=== PATIENT | male | born 1985 | race Caucasian/White ===

== ENCOUNTER 2020-06-22 21:21 | Emergency (ER) | payer BC, MEDICAID ==
[~2020-06-22] VITALS: Ht 177.8 cm; Wt 60.5 kg
--- NOTE | 2020-06-22 21:21 | NUR ---
BIBRA60 FROM [facility] C/O TACHYCARDIA AND FEVER; PT TO BED 8, VENT/TRACHE DEPENDENT, PT CAME IN +TACHY, FEVER 102, PLACED ON MONITOR. PENDING ER PROVIDER LUIS
[2020-06-22] MEDS ORDERED: ACETAMINOPHEN 650 MG/SUPP.RECT RC ONE ×2 (21:30→21:40)
[2020-06-22] MEDS ORDERED: VANCOMYCIN 1 GM in IV D5W 250 ML IV ONE (21:30)
[2020-06-22] MEDS ORDERED: CEFEPIME 1 GM in IV D5W 50 ML IV ONE (21:30)
[2020-06-22] MEDS ORDERED: IV NS 0.9% 1,000 ML BAG IV ONE (21:30)
[2020-06-22] MEDS ORDERED: CEFEPIME 1 GM VIAL ONE (21:39)
[2020-06-22] MEDS ORDERED: VANCOMYCIN 1 GM VIAL ONE (21:40)
--- NOTE | 2020-06-22 21:41 | NUR ---
RT NOTE PT REC'D TRACHED ON [facility] VENT ON AC MODE SETTINGS GIVEN FROM FIRE DEPARTMENT. TRACH IS PATENT AND SECURED. PT SX FOR THICK LARGE AMT OF BLOOD TINGED SECRETIONS. ALARMS ARE SET AND AUDIBLE. VENT PLUGGED INTO RED OUTLET. AMBU BAG AND EMERGENCY SPARE TRACH IS BEDSIDE. WILL CONTINUE TO MONITOR. Addendum: 06/22/20 at 2144 by AKIRA BRAGG RT Amended: Links added.
[2020-06-22 21:44] LABS: BASOPHILS # (AUTO) 0.2 /CMM (0.0-0.2); EOSINOPHILS % (AUTO) 0.2 % (0.0-6.0); HEMATOCRIT 41 % (39-51); HEMOGLOBIN 13.2 g/dL (13.5-17.5); LYMPHOCYTES # (AUTO) 1.4 /CMM (0.8-4.8); LYMPHOCYTES % (AUTO) 8.9 % (20.0-44.0); MEAN CORPUSCULAR HGB CONC 32 g/dl (31.0-36.0); MEAN CORPUSCULAR VOLUME 84 fL (80-96); MONOCYTES # (AUTO) 1.1 /CMM (0.1-1.30); MONOCYTES % (AUTO) 7.3 % (2.0-12.0); NEUTROPHILS % (AUTO) 82.6 % (43.0-81.0); PLATELET COUNT (AUTO) 331 /CMM (150-450); RED BLOOD CELL COUNT(AUTO) 4.95 MIL/uL (4.5-6.0); WHITE BLOOD COUNT (AUTO) 15.8 K/uL (4.3-11.0)
[2020-06-22 21:52] LABS: CALCIUM, SERUM 9.6 mg/dL (8.5-10.1); CREATININE 0.6 mg/dL (0.6-1.3); POTASSIUM 3.9 mmol/L (3.5-5.1)
[2020-06-22] MEDS ORDERED: CHLO473M3 MM (21:56)
[2020-06-22] MEDS ORDERED: ASCO500C16 GT (21:56)
[2020-06-22] MEDS ORDERED: NA P133E RC (21:56)
[2020-06-22] MEDS ORDERED: CRAN3875 GT (21:56)
[2020-06-22] MEDS ORDERED: IPRA12.9 IH (21:56)
[2020-06-22] MEDS ORDERED: ACET325T53 GT (21:56)
[2020-06-22] MEDS ORDERED: ZINC1CAP2 GT (21:56)
[2020-06-22] MEDS ORDERED: LEVE100S GT (21:56)
[2020-06-22] MEDS ORDERED: LACT10SO GT (21:56)
[2020-06-22] MEDS ORDERED: HYDR-4384 GT (21:56)
[2020-06-22] MEDS ORDERED: METO25TA6 GT (21:56)
[2020-06-22] MEDS ORDERED: MULT-754 GT (21:56)
[2020-06-22] MEDS ORDERED: BISA-79 RC (21:56)
[2020-06-22] MEDS ORDERED: MAGN400O21 GT (21:56)
[2020-06-22 21:58] LABS: ALBUMIN 2.7 g/dL (3.4-5.0); BILIRUBIN,DIRECT 0.1 mg/dL (0.0-0.2); BILIRUBIN,TOTAL 0.3 mg/dL (0.2-1.0); TOTAL PROTEIN, SERUM 8.2 g/dL (6.4-8.2)
--- NOTE | 2020-06-22 22:14 | NUR ---
CALL FROM LAB. RAPID COVID NEGATIVE.
[2020-06-22 22:32] LABS: APPEARANCE,URINE Clear (CLEAR); BILIRUBIN,URINE Negative (NEGATIVE); BLOOD, URINE Negative Ery/uL (NEGATIVE); COLOR,URINE Yellow (YELLOW); LEUKOCYTE ESTERASE ,URINE Negative (NEGATIVE); NITRITE, URINE Negative (NEGATIVE); PROTEIN,URINE Negative (NEGATIVE); UGLUCOSE Negative (NEGATIVE); UROBILINOGEN,URINE 0.2 EU/dL (0.2)
--- NOTE | 2020-06-22 23:05 | NUR ---
DR. MAHMOOD SPEAKING WITH DR. ONEIL
--- NOTE | 2020-06-22 23:47 | NUR ---
RT NOTE [facility] AND [facility]ACED ON TMASK @ 2LPM PER MD ELA ORDERS. PT SHOWS NO SIGNS OF RESP DISTRESS AND O2 SATURATION @ 99%. PT SX FOR LARGE AMT OF PALE YELLOW SECRETIONS. AMBU BAG AND EMERGENCY SPARE TRACH BEDSIDE. WILL CONTINUE TO MONITOR CLOSELY. Addendum: 06/22/20 at 2349 by AKIRA BRAGG RT Amended: Links added.
--- NOTE | 2020-06-23 00:13 | NUR ---
ACCEPTED AT [facility], BED AND TRANSPORT INFO PENDING
--- NOTE | 2020-06-23 01:35 | NUR ---
SPOKE WITH FLUME MAKER LISA, STILL NO BED ASSIGNMENT AT [facility] AT THIS TIME
--- NOTE | 2020-06-23 03:01 | NUR ---
CALLED LISA TO F/U BED ASSIGN FOR [facility]; PER LISA, [facility] HAS NOT BEEN ABLE TO SECURE A BED AT THE MOMENT, ASKED IF WE CAN GET AUTH TO HAVE PATIENT STAY SINCE PATIENT HAS BEEN HERE SINCE 2099, SHE STATES "I CANNOT PERSONALLY GIVE YOU AUTH, BUT IF THE PATIENT HAS BEEN IN THE ED FOR A LONG TIME, DO WHAT YOU HAVE TO DO".
--- NOTE | 2020-06-23 04:05 | NUR ---
F/U WITH LISA, [facility] NO BEDS AVAILABLE
--- NOTE | 2020-06-23 06:20 | NUR ---
F/U WITH [facility] CM; WILL POSSIBLY HAVE BED BY AM SHIFT. WILL CALL FOR UPDATES
--- NOTE | 2020-06-23 06:31 | NUR ---
Stalin conde in EDM - 06/23/20 at 0637 by MARCELTASHERYL Pt accepted to [facility] by Dr Frances Ventura. # for report [phone]. [facility] eta. [phone]
--- NOTE | 2020-06-23 06:37 | NUR ---
Pt accepted to [facility] by Dr Frances Ventura. Bed C203-B # for report [phone]. [facility] eta. [phone]
--- NOTE | 2020-06-23 06:43 | NUR ---
REPORT GIVEN TO LILLY NURSE AT [facility].
[2020-06-23 07:00] VITALS: BP 118/73
--- NOTE | 2020-06-23 07:19 | NUR ---
REPORT GIVEN TO YULISSA GREGORY FOR LIBIA
== END 2020-06-23 08:08 | disposition short-term general hospital (02) ==
LOC: ER 21:24
DX: A41.9 Sepsis, unspecified organism (principal); R00.0 Tachycardia, unspecified; R40.3 Persistent vegetative state; S06.5X9S Traumatic subdural hemorrhage with loss of consciousness of unspecified duration, sequela; R40.2432 Glasgow coma scale score 3-8, at arrival to emergency department; V49.9XXS Car occupant (driver) (passenger) injured in unspecified traffic accident, sequela; Z93.0 Tracheostomy status; R13.10 Dysphagia, unspecified; J96.10 Chronic respiratory failure, unspecified whether with hypoxia or hypercapnia; Z98.2 Presence of cerebrospinal fluid drainage device; Z20.828 Contact with and (suspected) exposure to other viral communicable diseases; Z79.899 Other long term (current) drug therapy; Z86.718 Personal history of other venous thrombosis and embolism; I10 Essential (primary) hypertension
CPT/HCPCS: 31720; 36415; 51702; 71045; 80048; 80076; 81001; 83605; 83690; 84484; 85025; 85730; 87040; 87081; 87086; 87426; 93005; 96361; 96365; 96367; 99285; A6403; C9803; J0692; J3370; J7030 ×2; 81000-TC; J7060

== ENCOUNTER 2020-10-25 12:27 | Inpatient (IN) | payer BC, OTHER ==
[~2020-10-25] VITALS: Ht 177.8 cm; Wt 46.3 kg
[~2020-10-25 12:27] MED LIST: ACET325T53 GT; ASCO500C6 GT; BISA-79 RC; CHLO473M3 MM; CRAN3875 GT; HYDR-4384 GT; IPRA12.9 IH; LACT10SO3 GT; LEVE100S GT; MAGN400O21 GT; METO25TA6 GT; MULT-754 GT; NA P133E RC; ZINC1CAP2 GT
[2020-10-25] MEDS ORDERED: ETOMIDATE 2 MG/ML VIAL IV ONE ×2 (12:29→14:00)
[2020-10-25] MEDS ORDERED: SUCCINYLCHOLINE CHLORIDE 20 MG/ML VIAL IV ONE ×2 (12:29→14:00)
--- NOTE | 2020-10-25 12:38 | NUR ---
BIBRA78 FOR TRACH REPLACEMENT. PT NONVERBAL, RR EVEN & UNLABORED. PT SEEN & EVAL'D BY DR. VIVAR. PLACED ON MANAGER RESEARCH, ST. WILL CONT TO MONITOR.
--- NOTE | 2020-10-25 12:43 | NUR ---
RT AT BEDSIDE FOR TRACH REPLACEMENT AND EVAL.
--- NOTE | 2020-10-25 13:28 | NUR ---
AT BEDSIDE FOR EVAL AND POSSIBLE INTUBATION.
--- NOTE | 2020-10-25 13:31 | NUR ---
SUCC AND ETOMIDATE GIVEN PER .
--- NOTE | 2020-10-25 13:40 | NUR ---
INTUBATION DONE ET TUBE SIZE 7 26 AT THE LIP. POSITIVE COLOR CHANGE. HOOKED TO VENT BY RT.
--- NOTE | 2020-10-25 13:46 | NUR ---
RED CATH INSERTED.
[2020-10-25] MEDS ORDERED: PROPOFOL 100 ML ONE (13:47)
--- NOTE | 2020-10-25 13:52 | NUR ---
LAND SALES AGENT AT BEDSIDE FOR XRAY.
--- NOTE | 2020-10-25 14:07 | NUR ---
RT Pt received in ER trached with a Portex 7 cuffless trach, no airflow noted through tracheostomy tube. There were mild subcutaneous emphysema. noted in the clavicle area and neck. Pt changed to Portex 7 cuffed trach and there were still no noticeable airflow through tracheostomy tube. Shiley 6 XLT distal inserted and pt was then noted to have worsening subcutaneous emphysema. Pt was then to beginning to become into respiratory distress. Dr. Ochoa called over for intubation. Pt was noted to be a difficult intubation with trouble passing a 7.5 ET, 7.0 ET tube was tried and was successfully passed through with positive CO2 color change on capnography. ET tube is secured at 26cm at the lip line. Pt placed on mechanical ventilation with noted settings, PIP within normal limits. Addendum: 10/25/20 at 1417 by SUNNI SMALL RT Amended: Links added.
--- NOTE | 2020-10-25 14:16 | NUR ---
CALLED [facility] [phone] NO BEDS AT THIS TIME.
--- NOTE | 2020-10-25 14:17 | NUR ---
CALLED [facility] THEY HAVE NO BEDS AVAILABLE.
--- NOTE | 2020-10-25 14:18 | NUR ---
CALLED [facility] DIRECTED TO ER NO BEDS AVAILABLE AT THIS TIME. [phone]
[2020-10-25] MEDS ORDERED: LIDOCAINE 1% INJ 50 ML MDV IJ ONE (14:19)
--- NOTE | 2020-10-25 14:19 | NUR ---
CALLED [facility] [phone] NO BEDS AVAILABLE
--- NOTE | 2020-10-25 14:30 | NUR ---
PIGTAIL CHEST TUBE INSERTED BY .
--- NOTE | 2020-10-25 14:33 | NUR ---
CALLED [facility] [phone] ER CHARGE LOU REYNOLDS
--- NOTE | 2020-10-25 14:48 | NUR ---
PICC LINE NURSE AT BEDSIDE.
--- NOTE | 2020-10-25 14:58 | NUR ---
CALLED [facility] [phone] [facility] ICU.
[2020-10-25] MEDS ORDERED: IV NS 0.9% 1,000 ML BAG IV ONE (15:00)
[2020-10-25 15:19] LABS: BASOPHILS % (AUTO) 0.1 % (0.0-2.0); EOSINOPHILS % (AUTO) 0.1 % (0.0-6.0); HEMATOCRIT 33 % (39-51); HEMOGLOBIN 10.7 g/dL (13.5-17.5); LYMPHOCYTES # (AUTO) 0.6 /CMM (0.8-4.8); MEAN CORPUSCULAR HGB CONC 32 g/dl (31.0-36.0); MEAN CORPUSCULAR VOLUME 86 fL (80-96); MONOCYTES % (AUTO) 5.2 % (2.0-12.0); NEUTROPHILS # (AUTO) 18.1 /CMM (1.8-8.9); NEUTROPHILS % (AUTO) 91.6 % (43.0-81.0); PLATELET COUNT (AUTO) 369 /CMM (150-450); RED BLOOD CELL COUNT(AUTO) 3.84 MIL/uL (4.5-6.0); WHITE BLOOD COUNT (AUTO) 19.7 K/uL (4.3-11.0)
[2020-10-25] MEDS ORDERED: PROPOFOL 100 ML IV ONE (15:30)
[2020-10-25 15:31] LABS: CALCIUM, SERUM 9.9 mg/dL (8.5-10.1); CREATININE 0.6 mg/dL (0.6-1.3); POTASSIUM 3.9 mmol/L (3.5-5.1)
[2020-10-25 15:33] LABS: ABG BASE EXCESS 6.4 mmol/L; ABG OXYGEN SATURATION 98.6 % (92.0-98.5); ABG PCO2 39.6 mmHg (35.0-45.0); ABG PH 7.498 (7.350-7.450); ABG PO2 157.5 mmHg (75.0-100.0); AaDO2 515.9 mmHg; COHb 0.3 % (0.5-1.5); MetHb 0.5 % (0.0-1.5); O2Hb 97.8 % (94.0-97.0); PEEP,BG 0 cm H2O; SITE, ABG Left Radial; VT, ABG 350 mL
[2020-10-25 15:44] LABS: ALBUMIN 2.6 g/dL (3.4-5.0); BILIRUBIN,DIRECT 0.2 mg/dL (0.0-0.2); BILIRUBIN,TOTAL 0.6 mg/dL (0.2-1.0); TOTAL PROTEIN, SERUM 7.3 g/dL (6.4-8.2)
--- NOTE | 2020-10-25 15:44 | NUR ---
[facility]inton [facility] [phone] X [id number] ER [facility] [phone] [place] [phone]
[2020-10-25] MEDS ORDERED: LIDOCAINE /MPF 1% VIAL 5 ML VIAL IJ ONE (16:00)
--- NOTE | 2020-10-25 16:34 | NUR ---
DINORAH COKVAR: GIRLFRIEND [phone]
--- NOTE | 2020-10-25 17:13 | NUR ---
RECEIVED LAB RESULT FROM MAIN LAB: COVID NEGATIVE
--- NOTE | 2020-10-25 17:19 | NUR ---
FAXED CLINICALS AND COVID RESULT TO THE [facility] [phone] AND CALLED TO MAKE SURE THEY HAVE IT [place]
[2020-10-25] MEDS ORDERED: ENOX40DI SQ (18:01)
[2020-10-25] MEDS ORDERED: OMEP20CA15 GT (18:01)
[2020-10-25] MEDS ORDERED: LACT-96 GT (18:01)
[2020-10-25] MEDS ORDERED: SENN-261 GT (18:01)
--- NOTE | 2020-10-25 18:06 | NUR ---
DR. DIOR FROM [facility] SPEAKING WITH DR. BOWERS.
[2020-10-25] MEDS ORDERED: MULT-447 GT (19:24)
[2020-10-25] MEDS ORDERED: CEPH500C2 GT (19:24)
[2020-10-25] MEDS ORDERED: ACET-868 PO (19:24)
[2020-10-25] MEDS ORDERED: CHLO473M5 MM (19:24)
[2020-10-25] MEDS ORDERED: AMIN30LI2 GT (19:24)
--- NOTE | 2020-10-25 19:26 | NUR ---
REPORT GIVEN TO BRI COBIAN FOR LIBIA. WITH ONGOING PROPOFOL DRIP.
--- NOTE | 2020-10-25 19:26 | NUR ---
NOTED TACHYCARDIA, MD AWARE
--- NOTE | 2020-10-25 19:31 | NUR ---
RT AT BEDSIDE FOR ABG
[2020-10-25 19:36] LABS: ABG BASE EXCESS 6.3 mmol/L; ABG OXYGEN SATURATION 98.1 % (92.0-98.5); ABG PCO2 35.2 mmHg (35.0-45.0); ABG PH 7.534 (7.350-7.450); ABG PO2 125.4 mmHg (75.0-100.0); AaDO2 263.7 mmHg; COHb 0.3 % (0.5-1.5); MetHb 0.6 % (0.0-1.5); O2Hb 97.2 % (94.0-97.0); PEEP,BG 5 cm H2O; SITE, ABG Right Radial; VENT MODE, BG AC 15 450 60% +5; VT, ABG 450 mL
[2020-10-25] MEDS ORDERED: IV NS 0.9% 1,000 ML IV ONE (20:00)
--- NOTE | 2020-10-25 20:06 | NUR ---
SPOKE TO SYDNEY FROM [facility] [place] REGARDING PT. FACESHEET FAX TO [facility] REQUESTED TO . PHONE # PRESS OPTION 2, THEN OPTION 2.
[2020-10-25 20:33] LABS: BILIRUBIN,URINE NEGATIVE (NEGATIVE); COLOR,URINE YELLOW (YELLOW); LEUKOCYTE ESTERASE ,URINE NEGATIVE (NEGATIVE); NITRITE, URINE NEGATIVE (NEGATIVE); PH,URINE 6.5 (5.0-8.0); PROTEIN,URINE NEGATIVE (NEGATIVE); UGLUCOSE NEGATIVE (NEGATIVE); UROBILINOGEN,URINE 0.2 EU/dL (0.2)
[2020-10-25 20:40] LABS: BACTERIA,URINE RARE /HPF (None Seen); RBC,URINE 0-2 /HPF (0-2); SQUAMOUS EPITHELIAL CELL,UR 0-2 /HPF (None Seen); WBC,URINE 0-2 /HPF (0-3)
[2020-10-25 20:41] LABS: FINE GRANULAR CASTS,URINE Few /LPF (None Seen); MUCUS,URINE Few /LPF (None Seen); URINE AMORPHOUS URATE Moderate /HPF (None Seen)
--- NOTE | 2020-10-25 21:48 | NUR ---
PT FACESHEET REFAXED TO [facility] REQUESTED TO .
[2020-10-26] VITALS (42 sets, daily range): BP systolic 89–124; BP diastolic 46–87
--- NOTE | 2020-10-26 00:04 | NUR ---
DINORAH CALLED ASKING UPDATED ABOUT PATIENT: WILL WAIT FOR CALL BACK FROM PRIMARY NX
--- NOTE | 2020-10-26 05:50 | NUR ---
SPOKE WITH SYDNEY FROM [facility]. PROVIDED CURRENT CLINICAL INFORMATION PER REQUEST. BED AVAILABILITY STILL PENDING
--- NOTE | 2020-10-26 06:37 | NUR ---
PT DIAPHORETIC, RECTAL TEMP 100.6, HR 122. DR. FABIAN MADE AWARE
[2020-10-26] MEDS ORDERED: VANCOMYCIN 1 GM in IV D5W 250 ML IV ONE (07:00)
[2020-10-26] MEDS ORDERED: PIPERACILLIN /TAZOBACTAM 3.375 G in IV D5W 50 ML IV ONE (07:00)
[2020-10-26] MEDS ORDERED: ACETAMINOPHEN 650 MG/20.3 ML UDC GT ONE (07:00)
[2020-10-26] MEDS ORDERED: ACETAMINOPHEN 650 MG/20.3 ML UDC ONE (07:12)
[2020-10-26] MEDS ORDERED: PIPERACILLIN /TAZOBACTAM 3.375 G VIAL IV ONE (07:13)
--- NOTE | 2020-10-26 07:24 | NUR ---
REPORT GIVEN TO BRI TORRES FOR LIBIA
--- NOTE | 2020-10-26 07:30 | NUR ---
RECEIVED REPORT FROM BRI COBIAN FOR LIBIA. PT IS AAOX0, ON VENT VIA ET. HOOKED TO CHEMICAL PROCESS PROJECT ENGINEER, KEPT RESTED AND COMFORTABLE. WILL CONTINUE TO MONITOR.
--- NOTE | 2020-10-26 08:04 | NUR ---
CALLED [facility] FOR ICU BED.
--- NOTE | 2020-10-26 08:20 | NUR ---
REPORT GIVEN TO BRI KAPOOR FOR LIBIA. WITH ONGOING IV ANTIBIOTIC AND PROPOFOL TRANSFUSING WELL.
--- NOTE | 2020-10-26 09:08 | NUR ---
RN NOTES RECEIVED PT SEDATED AND INTUBATED, TOLERATING SETTINGS AT FIO2 60% WITH PEEP OF 5, ST ON TELEMETRY, G-TUBE INTACT, RED INTACT, RIGHT LUNG PIGTAIL CONNECTED TO CHEST TUBE WHICH IS CLAMPED ON ARRIVAL, RIGHT HAND G20 AND LEFT LEG PICC, PROPOFOL AT 25MCG, APPEARS COMFORTABLE, WILL CONTINUE CARES THIS SHIFT.
[2020-10-26] MEDS: ENOXAPARIN SODIUM 40 MG/0.4 ML DISP.SYRIN SQ SCH (10:35)
[2020-10-26] MEDS ORDERED: NA PHOS,M-B/NA PHOS,DI-BA 1 EA ENEMA RC PRN (11:30)
[2020-10-26] MEDS ORDERED: ACETAMINOPHEN 325 MG TABLET MC PRN (11:30)
[2020-10-26] MEDS ORDERED: ENOXAPARIN SODIUM 40 MG/0.4 ML DISP.SYRIN SQ SCH (11:30)
[2020-10-26] MEDS ORDERED: HYDROCODONE/APAP 5/325MG TABLET GT PRN (11:30)
[2020-10-26] MEDS ORDERED: MAGNESIUM HYDROXIDE 30 ML UDC GT PRN (11:30)
[2020-10-26] MEDS ORDERED: IPRATROPIUM NEB FS 0.5 MG/2.5 ML AMPUL.NEB NEB PRN (11:30)
[2020-10-26] MEDS: PROPOFOL 100 ML IV PRN ×2 (11:30→22:07)
[2020-10-26] MEDS ORDERED: ACETAMINOPHEN 325 MG TABLET PO PRN (11:30)
[2020-10-26] MEDS ORDERED: BISACODYL (5 MG) 5 MG TABLET.DR GT PRN (11:30)
[2020-10-26] MEDS ORDERED: IV NS 0.9% 250 ML IV PRN (12:00)
[2020-10-26] MEDS ORDERED: Medication Not On Formulary EA (Cran/Vitc/Mannose/Inulin/Brom (Uti-Stat Liquid) 3,875 MG GT SCH (13:00)
[2020-10-26] MEDS: PIPERACILLIN /TAZOBACTAM 3.375 G in IV D5W 100 ML IV SCH ×2 (13:27→20:26)
[2020-10-26] MEDS: PROSOURCE / PROSTAT (PYXIS) 30 ML UDC GT SCH ×2 (13:27→17:19)
--- NOTE | 2020-10-26 16:34 | NUR ---
RT Pt received orally intubated on mechanical ventilation with notes settings. Vent is plugged into red outlet. No SOB Or respiratory distress noted. Addendum: 10/26/20 at 1635 by SUNNI SMALL RT Amended: Links added.
[2020-10-26] MEDS: FIXODENT DENTURE ADHESIVE TUBE MM SCH (17:00)
[2020-10-26] MEDS: JEVITY 1.2 CAL 1,000 ML BOTTLE GT PRN (17:18)
[2020-10-26] MEDS: METOPROLOL TARTRATE 25 MG TABLET GT SCH (17:19)
--- NOTE | 2020-10-26 18:56 | NUR ---
RN NOTES PATEINT REMIANS SEDATED AND INTUBATED. TOLERATING SETTINGS AT 30% FIO2 WITH PEEP OF 5, TRACH STOMA WITH 4X4 DRESSING INTACT, PEG TUBE INTACT WITH JEVITY RUNNING AT 20ML/HR, PIGTAIL AT RIGHT LATERAL CHEST CONNECTED TO ATRIUM CHAMBER ON SUCTION AT 200MMGHG, LEFT FEMORAL PICC, PROPOFOL AT 25 AND N/S TKO, RED IN PLACE, BED LOCKED AND KEPT IN LOWEST POSITION, APPEARS COMFORTABLE, ENDORSED TO NIGHT RN FOR CONTINUITY OF CARE.
--- NOTE | 2020-10-26 19:15 | NUR ---
RECEIVED PATIENT INTUBATED AND SEDATED ON PROPOFOL 25 MCG/KG/MIN. PATIENT TOLERATING VENTILATOR SETTINGS AND APPEARS TO BE IN NO DISTRESS AT THIS TIME. SINUS TACHYCARDIA 110s NOTED ON SCENIC DESIGNER. ALL LINES/DRAINS PATENT. WILL CONTINUE TO MONITOR.
[2020-10-26] MEDS: LEVETIRACETAM SOL (5 ML) 100 MG/ML UDC GT SCH (20:28)
--- NOTE | 2020-10-26 20:45 | NUR ---
RECEIVED CALL FROM PATIENT'S SISTER KATRINA GIVING PERMISSION FOR THE PATIENT'S GIRLFRIEND DINORAH TO GET UPDATES ON THE PATIENT. SEE PHYSICAL CHART/DEMOGRAPHICS FOR GIRLFRIEND INFO.
[2020-10-26] MEDS: ACETAMINOPHEN 650 MG/20.3 ML UDC GT PRN (20:48)
[2020-10-26] MEDS: SENNOSIDES 8.6 MG TABLET GT SCH (21:56)
--- NOTE | 2020-10-26 22:57 | NUR ---
PATIENT FAMILY REQUESTED TO FACETIME PATIENT. PATIENT'S PHONE, FLIGHT OPERATIONS SPECIALIST AND TABLE ORTEZ WERE BROUGHT UP TO THE UNIT IN A PLASTIC BAG. FACETIME WAS SET UP. UPDATE WAS GIVEN TO PARENTS AND QUESTIONS ANSWERED.
[2020-10-27] VITALS (90 sets, daily range): BP systolic 94–125; BP diastolic 48–86
[2020-10-27] MEDS: PIPERACILLIN /TAZOBACTAM 3.375 G in IV D5W 100 ML IV SCH ×3 (04:40→20:22)
[2020-10-27] MEDS: ACETAMINOPHEN 650 MG/20.3 ML UDC GT PRN (04:57)
[2020-10-27] MEDS ORDERED: OMEPRAZOLE 20 MG CAPSULE.DR GT SCH (06:00)
--- NOTE | 2020-10-27 07:08 | NUR ---
PATIENT REMAINS SEDATED AND INTUBATED. VENT SETTING UNCHANGED AND PATIENT CONTINUES TO TOLERATE. OVERNIGHT Tmax 102 AND TREATED WITH TYLENOL. THIS MORNING TEMP 100.6 AND TYLENOL GIVEN AGAIN. ALL DRAINS REMAIN PATENT. JEVITY 1.2 INFUSING VIA PEG TUBE AT 40 ML/HR. PROPOFOL REMAINS AT [address]. BED IN LOW POSITION AND LOCKED WITH SIDE RAILS UP X3. RECEIVED CALL REGARGDING CHEST XRAY SHOWING CHEST TUBE HAS DISLODGED AND NEEDS REPOSITIONING. WILL ENDORSE TO DAY SHIFT RN FOR CONTINUITY OF CARE.
[2020-10-27] MEDS: PROPOFOL 100 ML IV PRN ×2 (07:26→19:05)
--- NOTE | 2020-10-27 07:50 | NUR ---
RT PATIENT REC'D ORALLY INTUBATED ON [facility] VENT WITH ORDERED SETTINGS LANDRY WELL. VENT ALARMS CHECKED + AUDIBLE. ETT SECURE AND IN PROPER POSITION. AIRWAY CHECKED + PATENT. AMBU BAG AT HOB. Addendum: 10/27/20 at 1038 by SABRINA ZULUAGA RT Amended: Links added.
[2020-10-27 08:20] LABS: ABG OXYGEN SATURATION 96.6 % (92.0-98.5); ABG PH 7.478 (7.350-7.450); ABG PO2 81.9 mmHg (75.0-100.0); AaDO2 81.5 mmHg; COHb 0.1 % (0.5-1.5); MetHb 0.1 % (0.0-1.5); O2Hb 96.4 % (94.0-97.0); PEEP,BG 5 cm H2O; SITE, ABG Left Radial; VT, ABG 400 mL
[2020-10-27] MEDS: FIXODENT DENTURE ADHESIVE TUBE MM SCH ×2 (09:00→16:51)
[2020-10-27] MEDS: DAKINS QUARTER STRENGTH (0.125%) 480 ML BOTTLE TOP SCH (09:00)
--- NOTE | 2020-10-27 09:02 | NUR ---
WOUND CARE CONSULT: REVIEWED CHART, NURSING DOCUMENTATION AND PHOTOS WHICH INDICATE DISCOLORATIONS/INTACT DEEP TISSUE INJURIES TO HEELS AND LEFT FOOT, CLOSED INCISION TO HEAD AND STAGE 4 SACRAL ULCER, ALL PRESENT ON ADMISSION. RECOMMEND SURGICAL CONSULT. DR DAVE CARSON NOTIFIED OF CONSULT REQUEST. RECOMMENDATIONS MADE FOR SKIN PROTECTION AND WOUND CARE. PTIS ON THI ISOFLEX LOW AIRLOSS BED. M D IN AGREEMENT WITH PLAN OF CARE.
[2020-10-27] MEDS: ASCORBIC ACID 500 MG TABLET GT SCH (09:53)
[2020-10-27] MEDS: METOPROLOL TARTRATE 25 MG TABLET GT SCH ×2 (09:57→16:51)
[2020-10-27] MEDS: LEVETIRACETAM SOL (5 ML) 100 MG/ML UDC GT SCH ×2 (09:57→20:22)
[2020-10-27] MEDS: MULTIVIT W/MINERALS 1 TAB TABLET GT SCH (09:57)
[2020-10-27] MEDS: PANTOPRAZOLE 40 MG/PACK PACK GT SCH (09:59)
[2020-10-27] MEDS: PROSOURCE / PROSTAT (PYXIS) 30 ML UDC GT SCH ×3 (09:59→16:51)
[2020-10-27] MEDS: ENOXAPARIN SODIUM 40 MG/0.4 ML DISP.SYRIN SQ SCH (10:00)
[2020-10-27] MEDS: Z GUARD REMEDY 2 OZ OINT TP SCH (10:04)
[2020-10-27] MEDS: ZINC SULFATE 220 MG CAPSULE GT SCH (15:03)
[2020-10-27] MEDS ORDERED: VECURONIUM 10 MG VIAL IV ONE (17:44)
--- NOTE | 2020-10-27 20:05 | NUR ---
RECEIVED PT TRACH SHLY 8 ON [facility] VENT. NO RESP DISTRESS NOTED, TOLERATING VENT SETTINGS. SX'D SMALL AMT OF TINGED SECRETIONS. TRACH SECURE, CUFF CHAIRMAN & CEO. VENT PLUGGED INTO RED OUTLET. CONTINUE TO MONITOR. Addendum: 10/27/20 at 2007 by JODEE MADRID RT Amended: Links added.
[2020-10-27] MEDS: SENNOSIDES 8.6 MG TABLET GT SCH (21:30)
[2020-10-27] MEDS: JEVITY 1.2 CAL 1,000 ML BOTTLE GT PRN (22:43)
--- NOTE | 2020-10-27 22:50 | NUR ---
FaceTime set up for family at this time. Addendum: 10/27/20 at 2309 by HAM TAMAYO RN Received call from patient's girlfriend earlier in the shift for an update. Informed patient doing well after new trach placed today. Tolerating ventilator. Has been afebrile. HR around baseline low 100s. Still tolerating tube feeding. Agreed to do FaceTime for family around same time last night, 2229.
[2020-10-28] VITALS (88 sets, daily range): BP systolic 81–156; BP diastolic 40–89
--- NOTE | 2020-10-28 03:00 | NUR ---
PER ORDERS, SACRAL WOUND CLEANED WITH DAKINS, PACKED WITH DAKINS SOAKED KERLIX, COVERED WITH AN ABD PAD AND SECURED WITH PAPER TAPE. BILATERAL HEELS WITH MEPILEX AND SECURED WITH BURN NET. PATIENT TOLERATED WELL.
--- NOTE | 2020-10-28 03:57 | NUR ---
NOTIFIED PCR NEGATIVE FOR COVID.
[2020-10-28 04:38] LABS: BASOPHILS % (AUTO) 0.2 % (0.0-2.0); CALCIUM, SERUM 9.2 mg/dL (8.5-10.1); CREATININE 0.5 mg/dL (0.6-1.3); EOSINOPHILS % (AUTO) 0.9 % (0.0-6.0); HEMATOCRIT 27 % (39-51); HEMOGLOBIN 9.1 g/dL (13.5-17.5); LYMPHOCYTES # (AUTO) 1.7 /CMM (0.8-4.8); LYMPHOCYTES % (AUTO) 16.9 % (20.0-44.0); MEAN CORPUSCULAR HGB CONC 33 g/dl (31.0-36.0); MEAN CORPUSCULAR VOLUME 86 fL (80-96); MONOCYTES # (AUTO) 0.8 /CMM (0.1-1.30); NEUTROPHILS # (AUTO) 7.3 /CMM (1.8-8.9); PLATELET COUNT (AUTO) 278 /CMM (150-450); RED BLOOD CELL COUNT(AUTO) 3.17 MIL/uL (4.5-6.0); WHITE BLOOD COUNT (AUTO) 9.8 K/uL (4.3-11.0)
[2020-10-28 04:58] LABS: POTASSIUM 3.4 mmol/L (3.5-5.1)
[2020-10-28] MEDS: PROPOFOL 100 ML IV PRN (05:06)
[2020-10-28] MEDS: PIPERACILLIN /TAZOBACTAM 3.375 G in IV D5W 100 ML IV SCH ×3 (05:21→20:26)
--- NOTE | 2020-10-28 06:57 | NUR ---
PATIENT WITH TRACH SHILEY 8 ON VENTILATOR AND TOLERATING SETTINGS. NO SIGNIFICANT EVENTS OVERNIGHT. REMAINED AFEBRILE. WOUND CARE ADMINISTERED PER ORDERS. ALL LINES/DRAINS PATENT. TOLERATING JEVITY 1.2 AT 60 ML/HR WITHOUT RESIDUALS OVERNIGHT. PROPOFOL AT [address] MCG[address] ME[address] IN PL[address]. BED IN LOW POSITION AND LOCKED WITH SIDE RAILS UP X3. WILL ENDORSE TO DAY SHIFT FOR CONTINUITY OF CARE.
[2020-10-28] MEDS: FIXODENT DENTURE ADHESIVE TUBE MM SCH ×2 (09:00→17:00)
[2020-10-28] MEDS ORDERED: POTASSIUM CHLORIDE 20 MEQ POWDER PACKET GT ONE (09:00)
[2020-10-28] MEDS ORDERED: AMOX-427 GT (09:11)
[2020-10-28] MEDS: ASCORBIC ACID 500 MG TABLET GT SCH (09:22)
[2020-10-28] MEDS: ZINC SULFATE 220 MG CAPSULE GT SCH (09:22)
[2020-10-28] MEDS: MULTIVIT W/MINERALS 1 TAB TABLET GT SCH (09:22)
[2020-10-28] MEDS: LEVETIRACETAM SOL (5 ML) 100 MG/ML UDC GT SCH (09:22)
[2020-10-28] MEDS: PANTOPRAZOLE 40 MG/PACK PACK GT SCH (09:22)
[2020-10-28] MEDS: METOPROLOL TARTRATE 25 MG TABLET GT SCH ×2 (09:23→15:29)
[2020-10-28] MEDS: ENOXAPARIN SODIUM 40 MG/0.4 ML DISP.SYRIN SQ SCH (09:24)
[2020-10-28] MEDS: DAKINS QUARTER STRENGTH (0.125%) 480 ML BOTTLE TOP SCH (09:26)
[2020-10-28] MEDS: Z GUARD REMEDY 2 OZ OINT TP SCH (09:26)
[2020-10-28] MEDS: PROSOURCE / PROSTAT (PYXIS) 30 ML UDC GT SCH ×3 (09:29→17:55)
[2020-10-28] MEDS ORDERED: LORAZEPAM INJ 2 MG/ML VIAL IV STA (16:52)
[2020-10-28] MEDS ORDERED: LEVETIRACETAM (500MG) 250 MG in IV NS 0.9% 100 ML IV STA (16:52)
[2020-10-28] MEDS ORDERED: LEVETIRACETAM (500MG) 500 MG in IV NS 0.9% 100 ML IV STA (17:00)
[2020-10-28] MEDS ORDERED: KEPPRA 500 MG in IV NS 100 ML IV ONE (17:30)
[2020-10-28] MEDS ORDERED: METOPROLOL TARTRATE 25 MG TABLET GT STA (17:44)
[2020-10-28] MEDS ORDERED: IV NS 0.9% 250 ML IV ONE (18:00)
--- NOTE | 2020-10-28 18:30 | NUR ---
patient was scheduled for transfer back to subacute facility. report called in to receiving nurse, upon arrival of ambulance at 1745 patient became tachycardic, febrile, diaphoretic, clenching of teeth and some shaking. Dr Perez notified, prn ativan 2mg and IV keppra, for possible seizure activity. lopressor dose increased. IV 250 cc NS bolus given . tyl 650 mg given for temp. family notified, transfer cancelled until patient more stble.
[2020-10-28] MEDS: ACETAMINOPHEN 650 MG/20.3 ML UDC GT PRN (19:02)
--- NOTE | 2020-10-28 19:15 | NUR ---
ASSUMED CARE OF PATIENT. REPORTED THAT PATIENT WAS GETTING READY TO BE TRANSFERRED AND HAD A SEIZURE. HR 130s NOW WITH BP 90s/50s. PATIENT DIAPHORETIC AND IS FEBRILE PER DAYSHIFT RN. PATIENT RECEIVED MULTIPLE MEDS FOR TREATMENT OF FEVER, TACHYCARDIA AND SEIZURE. CURRENT TEMP 101.5 AXILLARY. TOLERATING VENT SETTINGS AND TUBE FEEDING. PATIENT DOES NOT APPEAR TO BE IN DISTRESS AT THIS TIME. ALL LINES/DRAINS ARE PATENT. WILL CONTINUE TO MONITOR.
[2020-10-28] MEDS: LEVETIRACETAM SOL (5 ML) 100 MG/ML UDC PO SCH (20:26)
[2020-10-28] MEDS: SENNOSIDES 8.6 MG TABLET GT SCH (21:40)
--- NOTE | 2020-10-28 21:45 | NUR ---
RECEIVED CALL FROM PATIENT'S GIRLFRIEND FOR UPDATE S/P SEIZURE ACTIVITY. INFORMED PATIENT NOT IN ANY DISTRESS CURRENTLY. FEBRILE BUT TEMP IS 101.5, WHICH IS AN IMPROVEMENT. HR STILL TACHYCARDIC 110s-120s ,BUT ALSO IMPROVED FROM 130s-140s. ALL QUESTIONS WERE ANSWERED AND WILL SET UP FOR FACETIME AROUND 2230.
[2020-10-28] MEDS: JEVITY 1.2 CAL 1,000 ML BOTTLE GT PRN (22:53)
[2020-10-29] VITALS (55 sets, daily range): BP systolic 83–121; BP diastolic 43–74
[2020-10-29] MEDS: PIPERACILLIN /TAZOBACTAM 3.375 G in IV D5W 100 ML IV SCH ×2 (04:43→12:33)
--- NOTE | 2020-10-29 07:00 | NUR ---
NO SIGNIFICANT EVENTS OVERNIGHT. PATIENT HAS BEEN AFEBRILE SINCE MIDNIGHT. NO SEIZURES NOTED. VENTILATOR SETTINGS UNCHANGED AND PATIENT TOLERATING. TUBE FEEDING AT GOAL, 60ML/HR AND NO RESIDUALS OVERNIGHT. HR 90s. BP 110s/60s. ALL DRAINS/LINES PATENT. SAFETY MEASURES IN PLACE. BED IN LOW POSITION AND LOCKED WITH SIDE RAILS UP X 2. WILL ENDORSE TO DAYSHIFT FOR CONTINUITY OF CARE.
[2020-10-29] MEDS ORDERED: LEVE500T9 PO (08:53)
[2020-10-29] MEDS ORDERED: METO50TA16 PO (08:53)
[2020-10-29] MEDS ORDERED: METOPROLOL TARTRATE 25 MG TABLET GT SCH (09:00)
[2020-10-29] MEDS: FIXODENT DENTURE ADHESIVE TUBE MM SCH (09:00)
[2020-10-29] MEDS: PANTOPRAZOLE 40 MG/PACK PACK GT SCH (09:24)
[2020-10-29] MEDS: LEVETIRACETAM SOL (5 ML) 100 MG/ML UDC PO SCH (09:24)
[2020-10-29] MEDS: ASCORBIC ACID 500 MG TABLET GT SCH (09:25)
[2020-10-29] MEDS: MULTIVIT W/MINERALS 1 TAB TABLET GT SCH (09:25)
[2020-10-29] MEDS: ZINC SULFATE 220 MG CAPSULE GT SCH (09:25)
[2020-10-29] MEDS: PROSOURCE / PROSTAT (PYXIS) 30 ML UDC GT SCH ×2 (09:27→12:34)
[2020-10-29] MEDS: Z GUARD REMEDY 2 OZ OINT TP SCH (09:27)
[2020-10-29] MEDS: DAKINS QUARTER STRENGTH (0.125%) 480 ML BOTTLE TOP SCH (09:28)
[2020-10-29] MEDS: ENOXAPARIN SODIUM 40 MG/0.4 ML DISP.SYRIN SQ SCH (09:30)
--- NOTE | 2020-10-29 15:00 | NUR ---
patient transferred back to [facility]. Picked up by ambulance at 245pm. report called in to nurse Enoc. next of kin, niece notified of transfer. v/s upon discharge stable (see chart).
== END 2020-10-29 17:01 | DRG 208 ==
LOC: ER 12:28 → ICU 10-26 08:27
PROVIDERS: ADMIT Internal Medicine; ATTEND Internal Medicine
PROC: 0W9930Z Drainage of Right Pleural Cavity with Drainage Device, Percutaneous Approach (ICD-10-PCS; 2020-10-25)
PROC: 06H033Z Insertion of Infusion Device into Inferior Vena Cava, Percutaneous Approach (ICD-10-PCS; 2020-10-25)
PROC: B549ZZA Ultrasonography of Inferior Vena Cava, Guidance (ICD-10-PCS; 2020-10-25)
PROC: 5A1945Z Respiratory Ventilation, 24-96 Consecutive Hours (ICD-10-PCS; principal; 2020-10-26)
PROC: 0B21XFZ Change Tracheostomy Device in Trachea, External Approach (ICD-10-PCS; 2020-10-27)
PROC: 0BJ08ZZ Inspection of Tracheobronchial Tree, Via Natural or Artificial Opening Endoscopic (ICD-10-PCS; 2020-10-27)
DX: J95.03 Malfunction of tracheostomy stoma (principal); J96.21 Acute and chronic respiratory failure with hypoxia; R53.2 Functional quadriplegia; J93.9 Pneumothorax, unspecified; R40.3 Persistent vegetative state; E44.0 Moderate protein-calorie malnutrition; Z68.1 Body mass index [BMI] 19.9 or less, adult; G93.49 Other encephalopathy; G91.9 Hydrocephalus, unspecified; Z87.820 Personal history of traumatic brain injury; Z98.2 Presence of cerebrospinal fluid drainage device; G40.909 Epilepsy, unspecified, not intractable, without status epilepticus; I10 Essential (primary) hypertension; Z20.822 Contact with and (suspected) exposure to COVID-19; E88.09 Other disorders of plasma-protein metabolism, not elsewhere classified; T70.29XA Other effects of high altitude, initial encounter; X58.XXXA Exposure to other specified factors, initial encounter; Y83.3 Surgical operation with formation of external stoma as the cause of abnormal reaction of the patient, or of later complication, without mention of misadventure at the time of the procedure; Y72.8 Miscellaneous otorhinolaryngological devices associated with adverse incidents, not elsewhere classified; Y92.129 Unspecified place in nursing home as the place of occurrence of the external cause; J98.2 Interstitial emphysema; Z93.1 Gastrostomy status; Z98.1 Arthrodesis status
CPT/HCPCS: 31720; 36415; 36569; 36600; 38221; 71045-TC; 80048-TC; 80076-TC; 81001; 82803-TC; 83605-TC; 83880; 84478-TC; 84484-TC; 85025-TC; 86850-TC; 87040-TC; 87081-TC; 94003-TC; 94760-TC; 99082-TC; A4623; A6253; A6403; C9803; G0378; J0330; J1650; J1953; J2060; J2543; J3370; J3490; J7030; J7040; J7050; J7060; U0003

== ENCOUNTER 2020-11-03 07:41 | Inpatient (IN) | payer BC, OTHER ==
[~2020-11-03] VITALS: Ht 177.8 cm; Wt 54.4 kg
[2020-11-03] VITALS (10 sets, daily range): BP systolic 102–117; BP diastolic 56–74
[~2020-11-03 07:41] MED LIST changes: +ACET-868 PO; +AMIN30LI2 GT; +AMOX-427 GT; +CEPH500C2 GT; -CHLO473M3 MM; +CHLO473M5 MM; +ENOX40DI SQ; +LACT-96 GT; -LACT10SO3 GT; -LEVE100S GT; +LEVE500T9 PO; -METO25TA6 GT; +METO50TA16 PO; +MULT-447 GT; -MULT-754 GT; +OMEP20CA15 GT; +SENN-261 GT
--- NOTE | 2020-11-03 07:41 | NUR ---
PT BIBRA FROM [facility] C/O ELEVATED HEART RATE AND FEVER. PT IS AAOX0 ON VENT VIA TRACH, HOOKED TO CARIDAC MONITOR, KEPT RESTED AND COMFORTABLE. WILL CONTINUE TO MONITOR.
--- NOTE | 2020-11-03 07:46 | NUR ---
SEEN AND EXAMINED BY .
--- NOTE | 2020-11-03 07:50 | NUR ---
IV LINE ESTABLISHED BLOOD DRAWN AND SENT TO LAB.
[2020-11-03] MEDS ORDERED: ACETAMINOPHEN 650 MG/SUPP.RECT RC ONE ×2 (07:53→08:00)
[2020-11-03] MEDS ORDERED: IV NS 0.9% 1,000 ML BAG IV ONE (08:00)
[2020-11-03] MEDS ORDERED: MEROPENEM 1 G in IV NS 0.9% 100 ML IV ONE (08:00)
[2020-11-03] MEDS ORDERED: VANCOMYCIN 1 GM in IV D5W 250 ML IV ONE (08:00)
--- NOTE | 2020-11-03 08:00 | NUR ---
urine collected and sent to lab
--- NOTE | 2020-11-03 08:01 | NUR ---
RT PT CAME IN VIA EMS FOR TACHYCARDIA BAGGING PT PLACED ON [facility] VENT WITH FACILITY ORDERS TRACH INTACT [facility] 8 DCT AC 15 400 +5 40% WILL CONT TO MONITOR Addendum: 11/03/20 at 0805 by CHANELL WATSON RT Amended: Links added.
--- NOTE | 2020-11-03 08:06 | NUR ---
covid 19 swab collected and sent to lab
--- NOTE | 2020-11-03 08:20 | NUR ---
KILN PULLER AT BEDSIDE FOR XRAY.
[2020-11-03] MEDS ORDERED: ASCO-352 PO (08:22)
[2020-11-03] MEDS ORDERED: CHLO118L6 TP (08:22)
[2020-11-03] MEDS ORDERED: POVI3780 TP (08:22)
[2020-11-03] MEDS ORDERED: COLL30OI TP (08:22)
[2020-11-03] MEDS ORDERED: VITS5OIN2 TP (08:22)
[2020-11-03] MEDS ORDERED: METO25TA20 GT (08:22)
[2020-11-03] MEDS ORDERED: LEVE250T2 GT (08:22)
[2020-11-03 08:30] LABS: BASOPHILS % (AUTO) 0.3 % (0.0-2.0); EOSINOPHILS % (AUTO) 0.4 % (0.0-6.0); HEMATOCRIT 35 % (39-51); HEMOGLOBIN 11.5 g/dL (13.5-17.5); LYMPHOCYTES # (AUTO) 0.6 /CMM (0.8-4.8); LYMPHOCYTES % (AUTO) 3.8 % (20.0-44.0); MEAN CORPUSCULAR HGB CONC 32 g/dl (31.0-36.0); MEAN CORPUSCULAR VOLUME 84 fL (80-96); MONOCYTES # (AUTO) 0.2 /CMM (0.1-1.30); MONOCYTES % (AUTO) 1.6 % (2.0-12.0); NEUTROPHILS # (AUTO) 13.7 /CMM (1.8-8.9); NEUTROPHILS % (AUTO) 93.9 % (43.0-81.0); PLATELET COUNT (AUTO) 476 /CMM (150-450); RED BLOOD CELL COUNT(AUTO) 4.22 MIL/uL (4.5-6.0); WHITE BLOOD COUNT (AUTO) 14.7 K/uL (4.3-11.0)
[2020-11-03 08:37] LABS: CALCIUM, SERUM 10.3 mg/dL (8.5-10.1); CARBON DIOXIDE 24 mmol/L (21-32); CHLORIDE 103 mmol/L (98-107); CREATININE 0.6 mg/dL (0.6-1.3); GLUCOSE 98 mg/dL (74-106); POTASSIUM 4.4 mmol/L (3.5-5.1); SODIUM SERUM 138 mmol/L (136-145); UREA NITROGEN, BLOOD 16 mg/dL (7-18)
[2020-11-03 08:43] LABS: ALANINE AMINOTRANSFERASE 25 U/L (12-78); ALBUMIN 2.7 g/dL (3.4-5.0); ALKALINE PHOSPHATASE 136 U/L (46-116); ASPARTATE AMINOTRANSFERASE 20 U/L (15-37); BILIRUBIN,DIRECT 0.1 mg/dL (0.0-0.2); BILIRUBIN,TOTAL 0.4 mg/dL (0.2-1.0); TOTAL PROTEIN, SERUM 8.4 g/dL (6.4-8.2)
[2020-11-03] MEDS ORDERED: METOPROLOL TARTRATE 50 MG TABLET ONE (09:29)
[2020-11-03] MEDS ORDERED: METOPROLOL TARTRATE 25 MG TABLET PO ONE (09:30)
--- NOTE | 2020-11-03 10:17 | NUR ---
KATRINA QUINTANILLA'S COUSIN CALLED [phone]
--- NOTE | 2020-11-03 11:27 | NUR ---
NEGATYIVE RAPID COVID TEST.
--- NOTE | 2020-11-03 12:34 | NUR ---
GOING TO ICU 255.
--- NOTE | 2020-11-03 12:55 | NUR ---
REPORT GIVEN TO BRI FERGUSON FOR LIBIA.
--- NOTE | 2020-11-03 13:32 | NUR ---
RN/ICU- ADMITTED THIS 35 Y/O MALE FROM ER PER ACLS PROTOCOL. NURSING FOCUS: ALTERED TEMPERATURE AND ALTERED CARDIAC TISSUE PERFUSION R/T DIAGNOSIS OF FEVER. ROUTINE ICU ADMISSION CARE INITIATED.PT. AWAKE, NON INTERACTIVE. RIGHT UPPER EXTREMITY IS CONTRACTED, OTHER WILSON ALL EXTREMITIES ARE FLACCID.W/ TRACH SHILEY #8 TO VENT W/ INITIAL SETTINGS:AC-15, VT-400, FIO2-40%, PEEP +5. SATS.-100%. PT. EKG SR W/ HR-90/MIN. BP-127/86 NOTED TO HAVE SACRAL WOUND AND OTHER SKIN ISSUES. INITIAL TREATMENT DONE PER PROTOCOL. REFER TO WOUND PHOTOS AND SKIN PROBLEM ASSESSMENT FOR DETAILS. GTUBE INTACT AND CLEAN. AFEBRILE. TEMPT. 97.5/AXILLARY, NO S/S OF PAIN OR DISTRESS. PT. IS A FULL CODE.
--- NOTE | 2020-11-03 13:40 | NUR ---
RN/ICU-PT.IS A TELEMETRY STATUS. PER DR. MEENAKSHI GABRIEL.
--- NOTE | 2020-11-03 14:00 | NUR ---
RN/ICU- PT. IS ON AIRBORNE,CONTACT AND DROPLET ISOLATION, CVR IS NEGATIVE, AWAITING FOR PCR RESULT.
[2020-11-03] MEDS ORDERED: Z GUARD REMEDY 2 OZ OINT TP PRN (14:30)
[2020-11-03] MEDS ORDERED: MAG HYDROX/AL HYDROX/SIMETH 30 ML UDC PO PRN (14:30)
[2020-11-03] MEDS ORDERED: ZOLPIDEM TARTRATE 5 MG TABLET PO PRN (14:30)
[2020-11-03] MEDS ORDERED: ONDANSETRON HCL/PF 4 MG/2 ML VIAL IVP PRN (14:30)
[2020-11-03] MEDS ORDERED: MAGNESIUM HYDROXIDE 30 ML UDC PO PRN (14:30)
[2020-11-03] MEDS ORDERED: HYDROCODONE/APAP 5/325MG TABLET PO PRN (14:30)
[2020-11-03] MEDS: IV NS 0.9% 1,000 ML IV PRN (14:33)
[2020-11-03] MEDS: VANCOMYCIN 1 GM in IV D5W 250ml IV SCH (16:10)
--- NOTE | 2020-11-03 17:45 | NUR ---
RN/ICU- CELLPHONE, MARINE METEOROLOGIST , CELLPHONE ORTEZ RECEIVED FROM FAMILY AT PT. BEDSIDE.
--- NOTE | 2020-11-03 17:50 | NUR ---
RN/ICU- REPORT GIVEN TO BRI HOWARD.
--- NOTE | 2020-11-03 18:25 | NUR ---
RN/ICU-PT. TRANSFERRED TO 102 A TELEMETRY STATUS PER ACLS PROTOCOL ACCOMPANIED BY RT W/ TRACH TO VENT., 2 CRNS. PT. BELONGINGS:1 CELLPHONE,PRESS WORKER HELPER AND CELLPHONE ORTEZ ENDORSED TO BRI HOWARD AT THE PT. BEDSIDE .
--- NOTE | 2020-11-03 18:26 | NUR ---
INSURANCE ACCOUNT MANAGER NOTES PT FROM ICU, DX FEVER BY DR. ARRIETA AND SEPSIS BY ER . OBTUNDED/OPENS EYES, WITH SHILEY 8 TO MECHANICAL VENT SETTINGS ORDERED AC15 TV 400 FIO2 40% PEEP 5. NOT IN ANY DISTRESS. BREATHING EVEN AND UNLABORED. IVF INFUSING WELL. VITAL SIGNS TAKEN AND RECORDED. TEMP 98.8 TX 103 RESP 23 O2 SAT 98 BP 104/70.
--- NOTE | 2020-11-03 20:00 | NUR ---
IT SERVICE TECHNICIAN NOTE. PT IN BED OBTUNDED. ON VENT/TRACH TOLERATING THE SETTINGS WELL. NO DISTRESS OR DISCOMFORT NOTED. NO S/S OF PAIN NOTED. ON TELE MONITOR SR. GT INTACT AND PATENT CLAMPED. PT REMAIN NPO ORDERED. LT HAND # 18 G SL INTACT AND PATENT INFUSING NS @ 75 ML/HR NO S/S OF INFILTRATION NOTED. . ALSO LT FEMORAL TRIPLE LUMEN CATH INTACT AND PATENT.
[2020-11-03] MEDS: MEROPENEM 500 MG in IV NS 0.9% 50 ML IV SCH (20:52)
[2020-11-04] VITALS: BP 106/66
[2020-11-04] MEDS: VANCOMYCIN 1 GM in IV D5W 250ml IV SCH ×2 (00:06→08:46)
[2020-11-04 04:00] VITALS: BP 114/67
[2020-11-04] MEDS: MEROPENEM 500 MG in IV NS 0.9% 50 ML IV SCH ×3 (05:14→20:38)
[2020-11-04] MEDS: IV NS 0.9% 1,000 ML IV PRN ×2 (05:34→23:11)
--- NOTE | 2020-11-04 06:42 | NUR ---
MEDICAL RECORDS ANALYST NOTE PT IN BED ON VENT, NO CHANGE IN CONDITION. NO DISTRESS OR DISCOMFORT NOTED. NO S/S OF PAIN NOTED. ON TELE MONITOR SR/ SB / ST DURING THE SHIFT. AT THIS TIME HR 88 SR. INCONTINENCE CARE GIVEN. REPOSITION HIM Q2H, KEPT HIM DRY AND CLEAN. VSS. WILL ENDORSE TO DAY SHIFT NURSE FOR CONTINUE TO CARE.
[2020-11-04 06:43] LABS: BASOPHILS % (AUTO) 0.5 % (0.0-2.0); HEMATOCRIT 29 % (39-51); HEMOGLOBIN 9.5 g/dL (13.5-17.5); LYMPHOCYTES # (AUTO) 0.8 /CMM (0.8-4.8); LYMPHOCYTES % (AUTO) 12.6 % (20.0-44.0); MEAN CORPUSCULAR HGB CONC 33 g/dl (31.0-36.0); MEAN CORPUSCULAR VOLUME 85 fL (80-96); MONOCYTES # (AUTO) 0.6 /CMM (0.1-1.30); NEUTROPHILS # (AUTO) 4.9 /CMM (1.8-8.9); NEUTROPHILS % (AUTO) 75.9 % (43.0-81.0); PLATELET COUNT (AUTO) 300 /CMM (150-450); RED BLOOD CELL COUNT(AUTO) 3.34 MIL/uL (4.5-6.0); WHITE BLOOD COUNT (AUTO) 6.4 K/uL (4.3-11.0)
[2020-11-04 07:35] LABS: CALCIUM, SERUM 9.1 mg/dL (8.5-10.1); CREATININE 0.4 mg/dL (0.6-1.3); MAGNESIUM 2.1 mg/dL (1.8-2.4); POTASSIUM 3.7 mmol/L (3.5-5.1)
[2020-11-04 07:39] LABS: THYROID STIMULATING HORMONE 1.071 uIU/mL (0.358-3.74)
[2020-11-04 08:00] VITALS: BP 114/70
--- NOTE | 2020-11-04 08:00 | NUR ---
PATIENT RECEIVED IN BED ON PRESCRIBED VENT / TRACH SETTINGS: SHILEY #8, AC 15, TV 400, FIO2 40%, PEEP 5. O2 SAT 100% NO RESPIRATORY DISTRESS. PATIENT ABLE TO OPENS EYES, NONVERBAL, NO RESPONSE. PATIENT ON MONITOR SHOWING ST 110, PATIENT ENDORSED TO HAVE HR VARYING FROM 55 TO 125, WILL MONITOR. PATIENT HAS NGT CLAMPED, AUSCULTATED IN PLACE. PT HAS L HAND 18G IV AND LEFT FEMORAL TLC, NO SIGNS OF INFECTION OR INFILTRATION. ALL SAFETY MEASURES IN PLACE. WILL CONTINUE TO MONITOR
[2020-11-04] MEDS: PANTOPRAZOLE 40 MG TABLET.DR PO SCH (08:44)
[2020-11-04] MEDS: ENOXAPARIN SODIUM 40 MG/0.4 ML DISP.SYRIN SQ SCH (11:30)
[2020-11-04 12:00] VITALS: BP 112/77
[2020-11-04] MEDS: JEVITY 1.2 CAL 1,000 ML BOTTLE GT PRN (13:32)
[2020-11-04] MEDS: PROSOURCE / PROSTAT (PYXIS) 30 ML UDC GT SCH ×2 (13:47→16:54)
[2020-11-04 16:00] VITALS: BP 131/71
[2020-11-04] MEDS: VANCOMYCIN 0.75 GM in IV D5W 250 ML IV SCH ×2 (16:54→23:11)
--- NOTE | 2020-11-04 19:00 | NUR ---
PATIENT HAD NO ACUTE CHANGES THIS SHIFT. TF INITIATED PER MD ORDER. PT DID NOT HAVE BM THIS SHIFT. PT CONTINUES TO RUN NS AT 75 ML/HR, IV SITES INTACT, NO SIGNS OF INFECTION OR INFILTRATION. ALL WOUND TX COMPLETED THIS SHIFT, PATIENT PENDING WOUND CONSULT. ALL SAFETY MEASURES IN PLACE. REPORT GIVEN TO ONCOMING RN FOR LIBIA
--- NOTE | 2020-11-04 19:38 | NUR ---
RN NOTE RECEIVED PT IN BED, ON VENT W/SETTINGS OF AC 15 TV 400 FIO2 40 % AND PEEP OF 5. NO RESP DISTRESS NOTED. PT ON FACETIME WITH FAMILY, OPEN EYES, NONVERBAL. ON TELE MONITORING SHOWS SR WITH HR OF 85. NO SIGNS OF PAIN OR DISCOMFORT NOTED. PT WITH SCATTERED PUSTULES ON BILATERAL ARMS, PER AM NURSE PT CAME IN WITH IT. WILL CONTINUE TO MONITOR. WITH GT FEEDING OF JEVITY 1.2 RUNNING AT 20CC/HR, <5CC RESIDUAL. ON NS AT 75 ML/HR. IV SITE PATENT AND INTACT. PT WITH RED CATH WITH CLEAR URINE OUTPUT. ALL SAFETY MEASURES IMPLEMENTED PER PROTOCOL. BED LOCKED IN LOWEST POSITION. SIDE RAILS UP X 3.
[2020-11-04 20:00] VITALS: BP 136/76
[2020-11-05] VITALS: BP 143/75
[2020-11-05 04:00] VITALS: BP 103/63
[2020-11-05] MEDS: MEROPENEM 500 MG in IV NS 0.9% 50 ML IV SCH ×3 (04:58→21:03)
--- NOTE | 2020-11-05 07:00 | NUR ---
RN NOTE PT REMAIN IN BED, TOLERATING VENT SETTINGS. NO RESP DISTRESS NOTED. SUCTIONED NEEDED. KEPT HOB ELEVATED. PT TOLERATING GT FEEDING OF JEVITY 1.2, NO SIGNS OF ASPIRATION NOTED. CONTINUE ON IVF OF NS AT 75 ML/HR. REPOSITIONED Q2H. WOUND DRESSINGS INTACT. RED CATH IN PLACE, INDWELLING WELL. ALL SAFETY MEASURES MAINTAINED. WILL ENDORSE TO NEXT SHIFT NURSE FOR LIBIA.
[2020-11-05] MEDS: PANTOPRAZOLE 40 MG TABLET.DR PO SCH (07:30)
--- NOTE | 2020-11-05 07:30 | NUR ---
Unable to administer Protonix PO tab, since patient having G-Tube for med administration, pharmacy notifyed
--- NOTE | 2020-11-05 07:42 | NUR ---
Vancomycin through 20 from , contacted pharmacy in regards scheduled Vanco administration, per Giovanny (pharmacist) OK to give this dose
--- NOTE | 2020-11-05 07:45 | NUR ---
RN OPENING NOTES RECEIVED PATIENT IN BED, OPENS EYES, [facility], TOLERATING SETTINGS WELL, NO SOB NOTED, SPO2 IS 100%, NSR ON TELEMONITOR HR OF 65 AT THIS MOMENT, RED CATH IN PLACE, DRAINING YELLOW CLEAR URINE BY GRAVITY, MODERATE RASH NOTED ON BLE ARM, G-TUBE PLACE, RUNNING JEVITY 1.2 AT 40CC/HR, TOLERATING WELL, NO RESIDUAL NOTED, ACTIVE BOWEL SOUNDS IN 4 QUADRANTS NOTED, IV LINE PATENT IN INTACT, FLUSHES WELL, SAFETY MEASURES IN PLACE, HOB ELEVATED, BED IN LOWEST POSITION, LOCKED, WILL CONT TO MONITOR CLOSELY
[2020-11-05] MEDS: VANCOMYCIN 0.75 GM in IV D5W 250 ML IV SCH ×3 (07:47→23:51)
[2020-11-05 08:00] VITALS: BP 106/65
[2020-11-05] MEDS: PANTOPRAZOLE 40 MG/PACK PACK GT SCH (08:54)
[2020-11-05] MEDS: ENOXAPARIN SODIUM 40 MG/0.4 ML DISP.SYRIN SQ SCH (08:55)
[2020-11-05] MEDS: METOPROLOL TARTRATE 25 MG TABLET GT SCH ×2 (09:17→16:47)
[2020-11-05] MEDS ORDERED: LEVETIRACETAM (250 MG) 250 MG TABLET PO SCH (09:17)
[2020-11-05] MEDS: PROSOURCE / PROSTAT (PYXIS) 30 ML UDC GT SCH ×3 (09:20→16:47)
--- NOTE | 2020-11-05 09:20 | NUR ---
BP NOTED LOW 85/49, HR 51, HOLDING METOPROLOL, PER DR FERRIS GIVE NS 0.9% BOLUS
[2020-11-05] MEDS: ZINC SULFATE 220 MG CAPSULE GT SCH (09:30)
[2020-11-05] MEDS: LEVETIRACETAM SOL (5 ML) 100 MG/ML UDC GT SCH ×2 (09:31→21:03)
--- NOTE | 2020-11-05 09:35 | NUR ---
BP IS 106/60, HR 80, ELEVATED LEGS, PAUSED FEEDING, INITIATED BOLUS , CONT TO MONITOR
[2020-11-05] MEDS ORDERED: IV NS 0.9% 500 ML IV ONE (10:00)
[2020-11-05] MEDS: VITAMINS A AND D 56.7 GM TUBE TP SCH (10:00)
[2020-11-05] MEDS: IV NS 0.9% 1,000 ML IV PRN (10:09)
--- NOTE | 2020-11-05 10:30 | NUR ---
WOUND CARE CONSULT: PT PRESENTS WITH CLOSED INCISION TO HEAD, SACRAL STAGE 4 ULCER AND LEFT HEEL INTACT DEP TISSUE INJURY, ALL PRESENT ON ADMISSION. RECOMMEND SURGICAL CONSULT. DR DAVE CARSON NOTIFIED OF CONSULT REQUEST. RECOMMENDATIONS MADE FOR WOUND CARE AND SKIN PROTECTION. DISCUSSED WITH [facility] STAFF. DEFER TO MD FOR RED SPOTS/RASH ON BILATERAL ARMS, UNKNOWN ETIOLOGY. DISCUSSED WITH WHEEL SHOP SUPERVISOR. RN TO DISCUSS WITH MD. [facility] MD IN AGREEMENT WITH PLAN OF CARE. Addendum: 11/05/20 at 1032 by FELECIA ADDISON WNDNU Amended: Links added.
[2020-11-05 12:00] VITALS: BP 104/56
--- NOTE | 2020-11-05 12:00 | NUR ---
report given to Bo GREGORY for LIBIA
--- NOTE | 2020-11-05 12:00 | NUR ---
RN NOTE REPORT RECEIVED FROM BARRY GREGORY FOR LIBIA. PT IN STABLE CONDITION ON VENT SETTINGS PER ORDERS
[2020-11-05] MEDS: DAKINS QUARTER STRENGTH (0.125%) 480 ML BOTTLE TOP SCH (13:27)
[2020-11-05 16:00] VITALS: BP 107/61
[2020-11-05] MEDS: ACETAMINOPHEN 325 MG TABLET PO PRN (16:43)
--- NOTE | 2020-11-05 19:00 | NUR ---
RN CLOSING NOTE PT IN STABLE CONDITION, NO SIGNS OR RESP DISTRESS OR SOB. NO CHANGES TO PT DURING SHIFT. ALL PT SAFETY MEASURES IN PLACE, WILL ENDORSE LIBIA TO ONCOMING RN
--- NOTE | 2020-11-05 19:30 | NUR ---
RN NOTES Received pt non-verbal, open eyes spontaneously, vent dependent, SR on tele monitor HR-88, F/C draining clear yellow urine, G-tube feeding running @ 40ml/hr, pt tolerating it well, noted pt has triple lumen but 2 valves are not working good, pt is not in distress, no pain noted, siderailsupx2, continue to monitor
[2020-11-05 20:00] VITALS: BP 108/63
[2020-11-05] MEDS: SENNOSIDES 8.6 MG TABLET GT SCH (21:03)
[2020-11-05] MEDS: JEVITY 1.2 CAL 1,000 ML BOTTLE GT PRN (22:29)
[2020-11-06] VITALS: BP 109/58
--- NOTE | 2020-11-06 | NUR ---
RN NOTES Increased the rate of G-tube feeding to 45ml/hr, will continue to monitor if pt will tolerate it
[2020-11-06] MEDS: IV NS 0.9% 1,000 ML IV PRN ×2 (01:50→18:14)
--- NOTE | 2020-11-06 02:00 | NUR ---
RN NOTES checked residual of pt's G-tube feeding, residual is only 5ml, pt 's is tolerating it fairly
[2020-11-06 04:00] VITALS: BP 113/61
[2020-11-06] MEDS: MEROPENEM 500 MG in IV NS 0.9% 50 ML IV SCH ×3 (04:13→21:23)
[2020-11-06] MEDS ORDERED: OMEPRAZOLE 20 MG CAPSULE.DR GT SCH (06:00)
--- NOTE | 2020-11-06 06:16 | NUR ---
RN NOTES sleeping but arousable to touched, not in distress, no pain noted, morning care rendered, G-tube feeding pt is tolerating fairly, siderailsupx2, pt. needs attended
--- NOTE | 2020-11-06 07:10 | NUR ---
RN OPENING NOTES RECEIVED PT IN BED, ON VENT SETTINGS OF AC: 15, TV: 400, FIO2: 40% AND PEEP OF 5. NO RESP DISTRESS NOTED. OPEN EYES, NONVERBAL. ON TELE MONITORING SHOWS SR. NO SIGNS OF PAIN OR DISCOMFORT NOTED. GTUBE CHECKED FOR POSITIVE PLACEMENT. WITH FEEDING OF JEVITY 1.2 RUNNING @45CC/HR, NO RESIDUAL. IV SITE AT L FEMORAL TRIPLE LUMEN PATENT AND INTACT, RUNNING NS @75 ML/HR. WITH RED CATH WITH CLEAR URINE OUTPUT. ALL SAFETY MEASURES IMPLEMENTED. CALL LIGHT WITHIN REACH. BED LOCKED AND IN LOWEST POSITION WITH SIDE RAILS UP X 3. WILL CONTINUE TO MONITOR.
[2020-11-06 08:00] VITALS: BP 163/75
[2020-11-06] MEDS: VANCOMYCIN 0.75 GM in IV D5W 250 ML IV SCH ×2 (08:16→16:31)
[2020-11-06] MEDS: ZINC SULFATE 220 MG CAPSULE GT SCH (08:16)
[2020-11-06] MEDS: METOPROLOL TARTRATE 25 MG TABLET GT SCH ×2 (08:16→16:31)
[2020-11-06] MEDS: PANTOPRAZOLE 40 MG/PACK PACK GT SCH (08:16)
[2020-11-06] MEDS: LEVETIRACETAM SOL (5 ML) 100 MG/ML UDC GT SCH ×2 (08:17→21:23)
[2020-11-06] MEDS: PROSOURCE / PROSTAT (PYXIS) 30 ML UDC GT SCH ×3 (08:19→16:40)
[2020-11-06] MEDS: DAKINS QUARTER STRENGTH (0.125%) 480 ML BOTTLE TOP SCH (08:19)
[2020-11-06] MEDS: VITAMINS A AND D 56.7 GM TUBE TP SCH (08:20)
[2020-11-06] MEDS: ENOXAPARIN SODIUM 40 MG/0.4 ML DISP.SYRIN SQ SCH (08:22)
[2020-11-06 12:00] VITALS: BP 143/74
[2020-11-06 16:00] VITALS: BP 130/70
--- NOTE | 2020-11-06 18:43 | NUR ---
RN CLOSING NOTES NO SIGNIFICANT CHANGES THROUGHOUT THE SHIFT. NOT IN DISTRESS. VS STABLE. NO PAIN REPORTED AT THIS TIME. ALL DUE MEDS GIVEN. NEEDS ATTENDED. FOR WOUND DEBRIDEMENT TOMORROW, CONSENT SIGNED. SAFETY MEASURES IN PLACE. WILL ENDORSE TO NIGHT NURSE FOR LIBIA.
[2020-11-06] MEDS: JEVITY 1.2 CAL 1,000 ML BOTTLE GT PRN (18:52)
--- NOTE | 2020-11-06 19:30 | NUR ---
RN OPENING NOTES: RECEIVED VENT-TRACH PT IN BED RESTING COMFORTABLY. PATIENT IN NO S/SX OF ACUTE DISTRESS AT THIS TIME. NO SOB NOTED. PATIENT'S BREATHING IS EVEN AND UNLABORED. PATIENT ON MECHANICAL VENT; SETTINGS PRESCRIBED; PT TOLERATED WELL. AMBU BAG AT BEDSIDE ALARMS SET PER PROTOCOL AND AUDIBLE. VENT PLUGGED IN TO RED OUTLET. NO DISTRESS NOTED. PATIENT ON TELE MONITORING READING SINUS RHYTHM AT THE TIME OF RECEIVED. G TUBE FLUSHING AND PATENT; SITE CLEAN DRY AND INTACT; NO RESIDUAL NOTED; WITH RUNNING TUBE FEEDING OF JEVITY @45ML/HR; TOLERATES WELL. NOTED IV SITE ON L HAND #18 AND L FEMORAL TRIPLE LUMEN (ONLY ONE LUMEN WORKING); BOTH LINES NOTED TO PATENT, INTACT AND FLUSHING WELL; NO S/S OF INFECTION OR INFILTRATION. WITH IV FLUID RUNNING ORDERED. RED CATH IN PLACE, MODERATE URINE OUTPUT NOTED SAFETY MEASURES HAVE BEEN PROVIDED AND IMPLEMENTED. PATIENT BED ALARM IS ON. HEAD OF BED ELEVATED. BED IS LOCKED, IN LOWEST POSITION AND SIDE RAILS UP. CALL LIGHT WITHIN REACH OF THE PATIENT. APPLICABLE ISOLATION PRECAUTIONS IN PLACE. WILL CONTINUE TO MONITOR AND REASSESS FOR ANY CHANGES AND WILL CARRY OUT ANY ONGOING AND ACTIVE MD ORDER.
--- NOTE | 2020-11-06 19:54 | NUR ---
RT NOTE RECEIVED PT ON [facility] VENT CURRENT MD ORDERS SHILEY 8 TRACH INTACT SECURED AND PATIENT AC 14 400 +5 40% WILL CONT TO MONITOR T.O SHIFT FOR CHANGES. VENT PLUGGED INTO RED OUTLET, ALARMS ON AND AUDIBLE, AMBU BAG ON TOP OF VENT.
[2020-11-06 20:00] VITALS: BP 104/58
[2020-11-06] MEDS: SENNOSIDES 8.6 MG TABLET GT SCH (21:20)
--- NOTE | 2020-11-06 22:40 | NUR ---
RN NOTES NOTED PT'S TEMP 100.6@2240. PRN MEDS GIVEN AND COOLING MEASURES PROVIDED. CARRY OUT CLERK AND SHELF STOCKER MADE AWARE. WILL RE-EVALUATE AFTER 30 MINUTES- 1 HOUR. WILL CONTINUE TO MONITOR
[2020-11-06] MEDS: ACETAMINOPHEN 325 MG TABLET PO PRN (22:43)
--- NOTE | 2020-11-06 23:00 | NUR ---
RN NOTES PATIENT REMAINS IN NO ACUTE RESPIRATORY DISTRESS AT THIS TIME, NO CHANGES TO CONDITION/STATUS. INSPECTOR CONVEYOR LINE WELL AWARE. WILL CONTINUE TO MONITOR AND REASSESS FOR ANY CHANGES THROUGHOUT THE SHIFT
[2020-11-07] VITALS: BP 121/71
[2020-11-07] MEDS: VANCOMYCIN 0.75 GM in IV D5W 250 ML IV SCH ×4 (00:41→23:36)
--- NOTE | 2020-11-07 03:00 | NUR ---
RN NOTES NO CHANGES IN PATIENT CONDITION AT THIS TIME PATIENT VITALS STABLE, NO SIGNS OF ACUTE RESPIRATORY DISTRESS. PATIENT STILL IN BED SLEEPING COMFORTABLY. NO COMPLAINTS OF PAIN OR ANY DISCOMFORT AT THIS TIME. WILL CONTINUE TO MONITOR AND REASSESS FOR ANY CHANGES THROUGHOUT THE SHIFT.
[2020-11-07 04:00] VITALS: BP 110/70
[2020-11-07] MEDS: MEROPENEM 500 MG in IV NS 0.9% 50 ML IV SCH ×3 (04:15→21:04)
--- NOTE | 2020-11-07 06:51 | NUR ---
RN CLOSING NOTES PATIENT REMAINS IN ROOM IN NO SIGNS OF RESPIRATORY DISTRESS; STILL ON VENT SETTING PER ORDERED. SAFETY MEASURES IMPLEMENTED, BED IN LOWEST POSITION, LOCKED, SIDE RAILS UP, CALL LIGHT WITHIN REACH. ALL NEEDS AND ORDERS ADDRESSED DURING THE SHIFT. IV ACCESS MAINTAINED INTACT, SECURED AND FLUSHING WELL. ALL DUE MEDS GIVEN ORDERED & SCHEDULED ; PATIENT TOLERATED WELL. PATIENT KEPT CLEAN AND COMFORTABLE WITHIN THE SHIFT. PATIENT ENDORSED TO INCOMING SHIFT RN WITH STABLE VITAL SIGN AND FOR CONTINUITY OF CARE, WILL ALSO ENDORSE PENDING WOUND DEBRIDEMENT; CONSENT SECURED PLACED IN THE CHART AND SUPPLIES BY THE BEDSIDE OCEAN LIFEGUARD SPECIALIST WELL AWARE.
[2020-11-07] MEDS: IV NS 0.9% 1,000 ML IV PRN ×2 (07:00→19:36)
[2020-11-07 07:19] LABS: BASOPHILS % (AUTO) 0.3 % (0.0-2.0); EOSINOPHILS % (AUTO) 0.5 % (0.0-6.0); HEMATOCRIT 29 % (39-51); HEMOGLOBIN 9.6 g/dL (13.5-17.5); LYMPHOCYTES # (AUTO) 1.3 /CMM (0.8-4.8); LYMPHOCYTES % (AUTO) 14.7 % (20.0-44.0); MEAN CORPUSCULAR HGB CONC 33 g/dl (31.0-36.0); MEAN CORPUSCULAR VOLUME 84 fL (80-96); MONOCYTES # (AUTO) 0.7 /CMM (0.1-1.30); MONOCYTES % (AUTO) 8.4 % (2.0-12.0); NEUTROPHILS # (AUTO) 6.5 /CMM (1.8-8.9); NEUTROPHILS % (AUTO) 76.1 % (43.0-81.0); PLATELET COUNT (AUTO) 353 /CMM (150-450); RED BLOOD CELL COUNT(AUTO) 3.51 MIL/uL (4.5-6.0); WHITE BLOOD COUNT (AUTO) 8.5 K/uL (4.3-11.0)
[2020-11-07 07:30] LABS: CALCIUM, SERUM 9.2 mg/dL (8.5-10.1); CREATININE 0.4 mg/dL (0.6-1.3); MAGNESIUM 2.1 mg/dL (1.8-2.4); PHOSPHORUS 3.2 mg/dL (2.5-4.9); POTASSIUM 3.8 mmol/L (3.5-5.1)
[2020-11-07 08:00] VITALS: BP 111/70
[2020-11-07] MEDS: LEVETIRACETAM SOL (5 ML) 100 MG/ML UDC GT SCH ×2 (08:34→21:04)
[2020-11-07] MEDS: VITAMINS A AND D 56.7 GM TUBE TP SCH (08:34)
[2020-11-07] MEDS: DAKINS QUARTER STRENGTH (0.125%) 480 ML BOTTLE TOP SCH (08:34)
[2020-11-07] MEDS: ZINC SULFATE 220 MG CAPSULE GT SCH (08:34)
[2020-11-07] MEDS: PANTOPRAZOLE 40 MG/PACK PACK GT SCH (08:34)
[2020-11-07] MEDS: PROSOURCE / PROSTAT (PYXIS) 30 ML UDC GT SCH ×3 (08:35→17:42)
[2020-11-07] MEDS: ENOXAPARIN SODIUM 40 MG/0.4 ML DISP.SYRIN SQ SCH (08:37)
[2020-11-07] MEDS: METOPROLOL TARTRATE 25 MG TABLET GT SCH ×2 (09:00→17:00)
[2020-11-07] MEDS ORDERED: SILVER NITRATE APPLICATOR 1 EA BOX TP STA (10:29)
[2020-11-07] MEDS ORDERED: MORPHINE SULFATE INJ 2 MG/ML DISP.SYRIN IV ONE (11:00)
[2020-11-07 12:00] VITALS: BP 119/70
[2020-11-07 16:00] VITALS: BP 112/62
[2020-11-07] MEDS: JEVITY 1.2 CAL 1,000 ML BOTTLE GT PRN (18:55)
--- NOTE | 2020-11-07 19:30 | NUR ---
RN OPENING NOTES: RECEIVED VENT-TRACH PT IN BED RESTING COMFORTABLY. PATIENT IN NO S/SX OF ACUTE DISTRESS AT THIS TIME. NO SOB NOTED. PATIENT'S BREATHING IS EVEN AND UNLABORED. PATIENT ON MECHANICAL VENT; SETTINGS PRESCRIBED; PT TOLERATED WELL. AMBU BAG AT BEDSIDE ALARMS SET PER PROTOCOL AND AUDIBLE. VENT PLUGGED IN TO RED OUTLET. NO DISTRESS NOTED. PATIENT ON TELE MONITORING READING SINUS TACHY AT THE TIME OF RECEIVED; HR IS AT 105 BPM. G TUBE FLUSHING AND PATENT; SITE CLEAN DRY AND INTACT; NO RESIDUAL NOTED; WITH RUNNING TUBE FEEDING OF JEVITY @45ML/HR; TOLERATES WELL. NOTED IV SITE ON L HAND #18 , L FEMORAL TRIPLE LUMEN (ONLY ONE LUMEN WORKING), & R HAND #22; ALL LINES NOTED TO PATENT, INTACT AND FLUSHING WELL; NO S/S OF INFECTION OR INFILTRATION. WITH IV FLUID RUNNING ORDERED. RED CATH IN PLACE, MODERATE URINE OUTPUT NOTED . PT IS S/P WOUND DEBRIDEMENT, DRESSING NOTED TO BE SECURED AND INTACT. SAFETY MEASURES HAVE BEEN PROVIDED AND IMPLEMENTED. PATIENT BED ALARM IS ON. HEAD OF BED ELEVATED. BED IS LOCKED, IN LOWEST POSITION AND SIDE RAILS UP. CALL LIGHT WITHIN REACH OF THE PATIENT. APPLICABLE ISOLATION PRECAUTIONS IN PLACE. WILL CONTINUE TO MONITOR AND REASSESS FOR ANY CHANGES AND WILL CARRY OUT ANY ONGOING AND ACTIVE MD ORDER.
--- NOTE | 2020-11-07 19:35 | NUR ---
RN CLOSING NOTES NO SIGNIFICANT CHANGES THROUGHOUT THE SHIFT. NOT IN DISTRESS. VS STABLE. NO PAIN REPORTED AT THIS TIME. ALL DUE MEDS GIVEN. NEEDS ATTENDED. WOUND DEBRIDEMENT DONE. SAFETY MEASURES IN PLACE. WILL ENDORSE TO NIGHT NURSE FOR LIBIA.
[2020-11-07 20:00] VITALS: BP 107/68
--- NOTE | 2020-11-07 20:14 | NUR ---
RT Patient received on mechanical vent setting AC 15 VT 400 40% +5. Minimal secretions, Vent plugged into red outlet, ambu bag and spare trach at bedside. Patient no resp. distress noted. Will continue to monitor.
[2020-11-07] MEDS: SENNOSIDES 8.6 MG TABLET GT SCH (21:04)
--- NOTE | 2020-11-07 23:00 | NUR ---
RN NOTES PATIENT REMAINS IN NO ACUTE RESPIRATORY DISTRESS AT THIS TIME, NO CHANGES TO CONDITION/STATUS. PUBLISHING AGENT WELL AWARE. WILL CONTINUE TO MONITOR AND REASSESS FOR ANY CHANGES THROUGHOUT THE SHIFT
[2020-11-08] VITALS: BP 122/72
[2020-11-08 04:00] VITALS: BP 104/65
[2020-11-08] MEDS: MEROPENEM 500 MG in IV NS 0.9% 50 ML IV SCH ×3 (04:42→21:09)
[2020-11-08] MEDS: ACETAMINOPHEN 325 MG TABLET PO PRN (04:42)
--- NOTE | 2020-11-08 06:57 | NUR ---
RN CLOSING NOTES PATIENT REMAINS IN ROOM IN NO SIGNS OF RESPIRATORY DISTRESS; STILL ON VENT SETTING PER ORDERED. SAFETY MEASURES IMPLEMENTED, BED IN LOWEST POSITION, LOCKED, SIDE RAILS UP, CALL LIGHT WITHIN REACH. ALL NEEDS AND ORDERS ADDRESSED DURING THE SHIFT. IV ACCESS MAINTAINED INTACT, SECURED AND FLUSHING WELL. ALL DUE MEDS GIVEN ORDERED & SCHEDULED ; PATIENT TOLERATED WELL. PATIENT KEPT CLEAN AND COMFORTABLE WITHIN THE SHIFT. PATIENT ENDORSED TO INCOMING SHIFT RN WITH STABLE VITAL SIGN AND FOR CONTINUITY OF CARE.
[2020-11-08 07:33] LABS: CALCIUM, SERUM 9.7 mg/dL (8.5-10.1); CREATININE 0.4 mg/dL (0.6-1.3)
--- NOTE | 2020-11-08 07:34 | NUR ---
RT Pt received trached on mechanical ventilation with noted settings. No SOB or respiratory distress noted. Vent is plugged into red outlet, alarms are set and audible. Addendum: 11/08/20 at 1851 by SUNNI SMALL RT Amended: Links added.
--- NOTE | 2020-11-08 07:50 | NUR ---
RN OPENING NOTE PATIENT IS CURRENTLY IN BED WITH HOB AT SEMI FOWLERS POSITION. PATIENT IS ON TRACH/VENT AND HAS NO SIGNS OF LABORED BREATHING. PATIENT IS OBTUNDED. SR IN 90S NOTED ON MONITOR. LHEEL DTI AND SACRAL STAGE 4 HAVE BEEN NOTED. GTUBE IS IN PLACE WITH NO RESIDUAL AND APPROPRIATE FEEDING RUNNING. RHAND #22 IS PATENT AND INTACT. LFEMORAL TRIPLE LUMEN HAS TWO PORTS CLOGGED AND ONE PATENT/INTACT. BED IS LOCKED IN THE LOWEST POSITION, 3 GUARD RAILS RAISED, AND ALL HOSPITAL SAFETY PRECAUTIONS ARE BEING FOLLOWED. WILL CONTINUE TO MONITOR THROUGHOUT SHIFT.
--- NOTE | 2020-11-08 07:56 | NUR ---
RN NOTE PATIENT TOLERATING FEEDING WELL. 0 RESIDUAL NOTED. INCREASED FEEDING TO 50 ML PER HOUR.
[2020-11-08 08:00] VITALS: BP 99/61
[2020-11-08] MEDS: ZINC SULFATE 220 MG CAPSULE GT SCH (08:42)
[2020-11-08] MEDS: PROSOURCE / PROSTAT (PYXIS) 30 ML UDC GT SCH ×3 (08:45→17:08)
[2020-11-08] MEDS: PANTOPRAZOLE 40 MG/PACK PACK GT SCH (08:45)
[2020-11-08] MEDS: LEVETIRACETAM SOL (5 ML) 100 MG/ML UDC GT SCH ×2 (08:45→21:08)
[2020-11-08] MEDS: METOPROLOL TARTRATE 25 MG TABLET GT SCH ×2 (08:46→16:24)
[2020-11-08] MEDS: ENOXAPARIN SODIUM 40 MG/0.4 ML DISP.SYRIN SQ SCH (08:48)
[2020-11-08] MEDS: DAKINS QUARTER STRENGTH (0.125%) 480 ML BOTTLE TOP SCH (09:00)
--- NOTE | 2020-11-08 09:16 | NUR ---
RN NOTE CONTACTED PHARMACY IN REGARDS TO VANCO TROUGH RESULTS. STILL PENDING. WILL FOLLOW UP
--- NOTE | 2020-11-08 09:20 | NUR ---
RN NOTE PATIENT IS POST SACRAL WOUND DEBRIDEMENT. ENDORSED BY LOCK AND DAM EQUIPMENT REPAIRER NURSE CHICA TO HOLD OFF ON WOUND TREATMENT UNTIL CLEARED. WILL CONTINUE TO MONITOR.
[2020-11-08] MEDS: VITAMINS A AND D 56.7 GM TUBE TP SCH (09:28)
[2020-11-08] MEDS: VANCOMYCIN 0.75 GM in IV D5W 250 ML IV SCH ×3 (10:16→23:59)
[2020-11-08 12:00] VITALS: BP 100/63
[2020-11-08] MEDS: IV NS 0.9% 1,000 ML IV PRN (12:46)
[2020-11-08 16:00] VITALS: BP 133/84
[2020-11-08] MEDS: JEVITY 1.2 CAL 1,000 ML BOTTLE GT PRN (16:25)
--- NOTE | 2020-11-08 18:36 | NUR ---
RN CLOSING NOTE PATIENT IS CURRENTLY IN BED WITH HOB AT SEMI FOWLERS POSITION. PATIENT IS ON TRACH/VENT AND HAS NO SIGNS OF LABORED BREATHING. PATIENT IS OBTUNDED. SR IN 90S NOTED ON MONITOR. LHEEL DTI HAS HAD APPROPRIATE DRESSINGS APPLIED DURING SHIFT. SACRAL STAGE 4 IS STILL AWAITING APPROVAL POST DEBRIDEMENT FOR WOUND DRESSING CHANGE. GTUBE IS IN PLACE WITH NO RESIDUAL AND APPROPRIATE FEEDING RUNNING. RHAND #22 IS PATENT AND INTACT. LFEMORAL TRIPLE LUMEN HAS TWO PORTS CLOGGED AND ONE PATENT/INTACT. BED IS LOCKED IN THE LOWEST POSITION, 3 GUARD RAILS RAISED, AND ALL HOSPITAL SAFETY PRECAUTIONS ARE BEING FOLLOWED. WILL ENDORSE TO LABEL SEWER RN.
--- NOTE | 2020-11-08 19:00 | NUR ---
RN NOTE RECEIVED PATIENT IN BED, ON SEMI WALLACE'S, LETHARGIC, OPENS EYES, IN NO S/SX OF ACUTE DISTRESS AT THIS TIME. ON TRACH TO VENT WITH SETTINGS PRESCRIBED, TOLERATING WELL, SATURATION AT 99%, ST ON THE MONITOR, HR IS 113. NOTED IV SITE AT R HAND 22G, PATENT AND FLUSHING WELL, AND L FEMORAL TRIPLE LUMEN CATHETER, 2 HUBS CLOGGED, NO S/S OF INFECTION NOTED, WITH NS INFUSING AT 75 ML/HR. G TUBE IN PLACE, PLACEMENT CHECKED BY ASPIRATION AND AUSCULTATION, NO RESIDUAL NOTED, WITH ONGOING TUBE FEEDING OF JEVITY 1.2 ABBIE AT 50 ML/HR. RED CATHETER CONNECTED TO URINE BAG IN PLACE, DRAINING TO A CLEAR, YELLOW OUTPUT. SEIZURE AND ASPIRATION PRECAUTIONS MAINTAINED. SAFETY MEASURES IMPLEMENTED. PATIENT BED ALARM IS ON. HEAD OF BED ELEVATED. BED IS LOCKED, IN LOWEST POSITION AND SIDE RAILS UP. CALL LIGHT WITHIN REACH OF THE PATIENT. WILL CONTINUE TO MONITOR AND REASSESS FOR ANY CHANGES.
[2020-11-08 20:00] VITALS: BP 111/70
[2020-11-08] MEDS: SENNOSIDES 8.6 MG TABLET GT SCH (22:00)
[2020-11-09] VITALS: BP 114/62
[2020-11-09 04:00] VITALS: BP 104/62
[2020-11-09] MEDS: MEROPENEM 500 MG in IV NS 0.9% 50 ML IV SCH ×3 (05:26→20:02)
[2020-11-09] MEDS: IV NS 0.9% 1,000 ML IV PRN (05:36)
--- NOTE | 2020-11-09 06:00 | NUR ---
RN NOTE NOTED IV LINE AT R HAND PULLED OUT. REINSERTED ANOTHER IV LINE AT L HAND 22G, ASEPTIC TECHNIQUE WAS OBSERVED. BULB WEEDER AWARE.
[2020-11-09 06:53] LABS: CALCIUM, SERUM 9.5 mg/dL (8.5-10.1); CREATININE 0.4 mg/dL (0.6-1.3); POTASSIUM 4.2 mmol/L (3.5-5.1)
--- NOTE | 2020-11-09 07:10 | NUR ---
RN OPENING NOTE PATIENT RECEIVED IN BED WITH HOB AT SEMI FOWLERS POSITION. PATIENT IS ON TRACH/VENT AND HAS NO SIGNS OF LABORED BREATHING. G-TUBE IS IN PLACE WITH 10 ML RESIDUAL AND APPROPRIATE FEEDING RUNNING. R HAND #22 IS PATENT AND INTACT. L FEMORAL TRIPLE LUMEN HAS TWO PORTS CLOGGED AND ONE PATENT/INTACT. SAFETY PRECAUTIONS IMPLEMENTED, BED IS LOCKED IN THE LOWEST POSITION, SIDE RAILS UP X2, CALL LIGHT WITHIN REACH. WILL CONTINUE TO MONITOR AND PROVIDE CARE THROUGHOUT SHIFT.
[2020-11-09 08:00] VITALS: BP 104/61
[2020-11-09] MEDS: LEVETIRACETAM SOL (5 ML) 100 MG/ML UDC GT SCH ×2 (08:46→20:59)
[2020-11-09] MEDS: METOPROLOL TARTRATE 25 MG TABLET GT SCH ×2 (08:48→16:31)
[2020-11-09] MEDS: PANTOPRAZOLE 40 MG/PACK PACK GT SCH (08:49)
[2020-11-09] MEDS: ZINC SULFATE 220 MG CAPSULE GT SCH (08:49)
[2020-11-09] MEDS: PROSOURCE / PROSTAT (PYXIS) 30 ML UDC GT SCH ×3 (08:51→16:33)
[2020-11-09] MEDS: ENOXAPARIN SODIUM 40 MG/0.4 ML DISP.SYRIN SQ SCH (08:51)
[2020-11-09] MEDS: VITAMINS A AND D 56.7 GM TUBE TP SCH (09:00)
[2020-11-09] MEDS: DAKINS QUARTER STRENGTH (0.125%) 480 ML BOTTLE TOP SCH (09:00)
[2020-11-09] MEDS: VANCOMYCIN 0.75 GM in IV D5W 250 ML IV SCH ×3 (11:00→23:19)
[2020-11-09 12:00] VITALS: BP 99/64
[2020-11-09] MEDS: JEVITY 1.2 CAL 1,000 ML BOTTLE GT PRN (15:54)
[2020-11-09 16:00] VITALS: BP 101/62
--- NOTE | 2020-11-09 19:06 | NUR ---
RN CLOSING NOTE PATIENT IN BED WITH HOB AT SEMI FOWLERS POSITION. PATIENT IS ON TRACH/VENT AND HAS NO SIGNS OF LABORED BREATHING. G-TUBE IS IN PLACE WITH 10 ML RESIDUAL AND APPROPRIATE FEEDING RUNNING. R HAND #22 IS PATENT AND INTACT. L FEMORAL TRIPLE LUMEN HAS TWO PORTS CLOGGED AND ONE PATENT/INTACT. SAFETY PRECAUTIONS IMPLEMENTED, BED IS LOCKED IN THE LOWEST POSITION, SIDE RAILS UP X2, CALL LIGHT WITHIN REACH. WILL ENDORSE CARE TO UPCOMING SHIFT.
--- NOTE | 2020-11-09 19:30 | NUR ---
boat finisher opening notes Received Pt from morning nurse. Pt is obtunded and able to open eyes. Pt is on [facility]. vent with O2 sat is 100%. No SOB. No S/S of distress noted. Tele monitor showed sinus tachy sinus rhytm hr at 105. L femoral 3 lumens (2 clogged) and one is clean, intact and SL. Faust cath is intact, patent and draining yellow urine. Gtube feeding is clean, intact and running jevity 1.2 marty @ 65 ml/hr with 0 residual. Pt tolerating well. Safety precautions is maintained. Bed at low position, brakes locked, side rails upX3, hob elevated and call light is within reach. Will continue to monitor.
[2020-11-09 20:00] VITALS: BP 110/62
[2020-11-09] MEDS: SENNOSIDES 8.6 MG TABLET GT SCH (21:01)
[2020-11-10] VITALS: BP 117/58
[2020-11-10] MEDS: ACETAMINOPHEN 325 MG TABLET PO PRN (00:23)
--- NOTE | 2020-11-10 00:23 | NUR ---
hook loader notes. Pt's temp is 99.3 F. Administered tylenol 325 mg/2 tabs/prn as ordered for mild fever. Cooling measures is applied. Will continue to monitor.
[2020-11-10 04:00] VITALS: BP 104/65
[2020-11-10] MEDS: MEROPENEM 500 MG in IV NS 0.9% 50 ML IV SCH (04:00)
--- NOTE | 2020-11-10 04:00 | NUR ---
saw runner notes Pt's temp is 98.5 F orally. Will continue to monitor.
--- NOTE | 2020-11-10 06:30 | NUR ---
hat and cap opener closing notes Pt is resting in bed comfortably. Pt is obtunded and able to open eyes. Pt is on [facility]. vent with O2 sat is 100%. No SOB. No S/S of distress noted. Tele monitor showed sinus arrthymia hr at 69. L femoral 3 lumens (2 clogged) and one is clean, intact and SL. Faust cath is intact, patent and draining yellow urine 1000 ml. Gtube feeding is clean, intact and running jevity 1.2 marty @ 65 ml/hr with 0 residual. Pt tolerated well. Wound care provided as ordered. Kept Pt clean, dry and comfortable. suctioned oral and airway. Safety precautions is maintained. Bed at low position, brakes locked, side rails upX3, hob elevated and call light is within reach. Will endorse to morning nurse for LIBIA.
[2020-11-10 07:00] LABS: CALCIUM, SERUM 9.4 mg/dL (8.5-10.1); CREATININE 0.5 mg/dL (0.6-1.3); POTASSIUM 4.1 mmol/L (3.5-5.1)
[2020-11-10 08:00] VITALS: BP 125/50
--- NOTE | 2020-11-10 08:00 | NUR ---
PATIENT RECEIVED ON VENT SETTINGS: SHILEY 8, AC 15, TV 400, FIO2 40%, PEEP 5. O2 SAT 100%. PATIENT OBTUNDED WITH EYES OPEN. PATIENT HAS TLC IN LEFT FEMORAL, REPORTED TO BE CLOGGED, BUT FLUSHED WELL. NO SIGNS OF INFECTION OR INFILTRATION. PATIENT HAS RED DRAINING YELLOW PALE URINE. PATIENT HAS G-TUBE INTACT, RUINNING JEVITY AT 65 ML/HR, NO RESIDUAL. ALL SAFETY MEASURES IN PLACE. WILL CONTINUE TO MONITOR
[2020-11-10] MEDS: ZINC SULFATE 220 MG CAPSULE GT SCH (08:47)
[2020-11-10] MEDS: VANCOMYCIN 0.75 GM in IV D5W 250 ML IV SCH (08:47)
[2020-11-10] MEDS: METOPROLOL TARTRATE 25 MG TABLET GT SCH (08:48)
[2020-11-10] MEDS: PANTOPRAZOLE 40 MG/PACK PACK GT SCH (08:48)
[2020-11-10] MEDS: LEVETIRACETAM SOL (5 ML) 100 MG/ML UDC GT SCH (08:48)
[2020-11-10] MEDS: PROSOURCE / PROSTAT (PYXIS) 30 ML UDC GT SCH ×2 (08:48→14:43)
[2020-11-10] MEDS: ENOXAPARIN SODIUM 40 MG/0.4 ML DISP.SYRIN SQ SCH (08:51)
[2020-11-10] MEDS: DAKINS QUARTER STRENGTH (0.125%) 480 ML BOTTLE TOP SCH (09:05)
[2020-11-10] MEDS: VITAMINS A AND D 56.7 GM TUBE TP SCH (09:05)
--- NOTE | 2020-11-10 11:15 | NUR ---
pt is awake and following commands extubated as order and placed into nasal cannula @2 lpm o2 flow. pt have strong cough and he can lift his head. spo2 89% RR 16 RR no increase work of breathing noted. Addendum: 11/10/20 at 1120 by DWAYNE GANDARA RT Amended: Links added. Addendum: 11/10/20 at 1341 by DWAYNE GANDARA RT ERROR WRONG PT. ENTRY
[2020-11-10 12:00] VITALS: BP 103/57
[2020-11-10] MEDS ORDERED: PIPERACILLIN /TAZOBACTAM 3.375 G in IV D5W 50 ML IV SCH (13:00)
--- NOTE | 2020-11-10 15:30 | NUR ---
PER PHP MYSQL DEVELOPER SOON, NO NEED FOR DISCHARGE PHOTOGRAPHS DUE TO PHOTOGRAPHS TAKEN THE PREVIOUS NIGHT
--- NOTE | 2020-11-10 16:09 | NUR ---
PATIENT DISCHARGED TO [facility], TEMPERATURE CHECKED VIA AXILLARY 99.8. COOLING MEASURES IN PLACE. TEMP RECHECKED VIA RECTAL 99.2. [facility] NOTIFIED, OK TO RECEIVE PATIENT. PATIENT DISCHARGED WITH EMS AND RT. ALL BELONGINGS SIGNED AND LEFT WITH PATIENT. ID REMOVED, LEFT PIV REMOVED. TLC LEFT IN PLACE DUE TO IV ABX.
[2020-11-10] MEDS ORDERED: PIPERACILLIN /TAZOBACTAM 3.375 G in IV D5W 100 ML IV SCH (18:00)
== END 2020-11-10 16:07 | DRG 853 ==
LOC: ER 07:46 → ICU 12:49 → TELE1 18:24
PROVIDERS: ADMIT Student in an Organized Health Care Education/Training Program; ATTEND Internal Medicine
PROC: 5A1955Z Respiratory Ventilation, Greater than 96 Consecutive Hours (ICD-10-PCS; principal; 2020-11-03)
PROC: 0KBP0ZZ Excision of Left Hip Muscle, Open Approach (ICD-10-PCS; 2020-11-07)
PROC: 0KBN0ZZ Excision of Right Hip Muscle, Open Approach (ICD-10-PCS; 2020-11-07)
DX: A41.9 Sepsis, unspecified organism (principal); L89.154 Pressure ulcer of sacral region, stage 4; J96.20 Acute and chronic respiratory failure, unspecified whether with hypoxia or hypercapnia; R53.2 Functional quadriplegia; E44.0 Moderate protein-calorie malnutrition; N39.0 Urinary tract infection, site not specified; Z99.11 Dependence on respirator [ventilator] status; G91.9 Hydrocephalus, unspecified; G93.49 Other encephalopathy; J98.11 Atelectasis; R40.3 Persistent vegetative state; D64.9 Anemia, unspecified; Z93.0 Tracheostomy status; R13.10 Dysphagia, unspecified; Z93.1 Gastrostomy status; Z20.822 Contact with and (suspected) exposure to COVID-19; G40.909 Epilepsy, unspecified, not intractable, without status epilepticus; Z98.2 Presence of cerebrospinal fluid drainage device; Z87.820 Personal history of traumatic brain injury; Z79.51 Long term (current) use of inhaled steroids; Z79.899 Other long term (current) drug therapy; E83.52 Hypercalcemia; I10 Essential (primary) hypertension; E86.1 Hypovolemia; Z74.09 Other reduced mobility
CPT/HCPCS: 31720; 36415; 71045-TC; 80048-TC; 80061-TC; 80076-TC; 80202-TC; 83605-TC; 83735-TC; 83970; 84100-TC; 84443-TC; 84484-TC; 85025-TC; 85730-TC; 87040-TC; 87070-TC; 87081-TC; 87186-TC; 94002-TC; 94003-TC; 94760-TC; 94762-TC; 94799-TC; 99082-TC; A6253; A6403; A7526; C9803; G0378; J1650; J1953; J2185; J2270; J2543; J3370; J7030; J7060; U0003

== ENCOUNTER 2020-12-07 15:40 | Inpatient (IN) | payer BC, OTHER ==
[~2020-12-07] VITALS: Ht 177.8 cm; Wt 55.8 kg
[~2020-12-07 15:40] MED LIST changes: +ASCO-352 GT; -ASCO500C6 GT; -CEPH500C2 GT; +CHLO118L6 TP; +COLL30OI TP; +LEVE250T2 GT; -LEVE500T9 PO; +METO25TA20 GT; -METO50TA16 PO; +POVI3780 TP; +VITS5OIN2 TP
--- NOTE | 2020-12-07 16:31 | NUR ---
[email or web address], from [facility], staff noticed blood in the urine. PT EYES CLOSED, NON VERBAL. ON VENT, RR EVEN & UNLABORED. PLACED ON SHEET METAL SUPERVISOR, ST. PT SEEN & EVAL'D BY DR. HUANG. WILL CONT TO MONITOR.
[2020-12-07 16:34] LABS: BASOPHILS # (AUTO) 0.1 /CMM (0.0-0.2); BASOPHILS % (AUTO) 0.4 % (0.0-2.0); EOSINOPHILS % (AUTO) 0.4 % (0.0-6.0); HEMATOCRIT 35 % (39-51); LYMPHOCYTES # (AUTO) 1.3 /CMM (0.8-4.8); LYMPHOCYTES % (AUTO) 7.5 % (20.0-44.0); MEAN CORPUSCULAR HGB CONC 31 g/dl (31.0-36.0); MEAN CORPUSCULAR VOLUME 83 fL (80-96); MONOCYTES % (AUTO) 5.4 % (2.0-12.0); NEUTROPHILS # (AUTO) 15.5 /CMM (1.8-8.9); NEUTROPHILS % (AUTO) 86.3 % (43.0-81.0); PLATELET COUNT (AUTO) 421 /CMM (150-450); RED BLOOD CELL COUNT(AUTO) 4.23 MIL/uL (4.5-6.0); WHITE BLOOD COUNT (AUTO) 17.9 K/uL (4.3-11.0)
[2020-12-07 16:43] LABS: CALCIUM, SERUM 9.2 mg/dL (8.5-10.1); CREATININE 0.7 mg/dL (0.6-1.3)
[2020-12-07] MEDS ORDERED: HYDR-3973 GT (16:46)
[2020-12-07] MEDS ORDERED: LACT-209 GT (16:46)
[2020-12-07] MEDS ORDERED: NUTR1PAC14 GT (16:46)
[2020-12-07] MEDS ORDERED: ACET-2605 GT (16:46)
[2020-12-07] MEDS ORDERED: ACET-868 GT (16:46)
[2020-12-07] MEDS ORDERED: IPRA12.9 IH (16:46)
[2020-12-07] MEDS ORDERED: DIFL15OI3 TP (16:46)
[2020-12-07 16:49] LABS: ALBUMIN 2.8 g/dL (3.4-5.0); BILIRUBIN,DIRECT 0.1 mg/dL (0.0-0.2); BILIRUBIN,TOTAL 0.3 mg/dL (0.2-1.0); TOTAL PROTEIN, SERUM 7.7 g/dL (6.4-8.2)
[2020-12-07 16:49] LABS: BILIRUBIN,URINE NEGATIVE (NEGATIVE); COLOR,URINE RED (YELLOW); LEUKOCYTE ESTERASE ,URINE TRACE (NEGATIVE); NITRITE, URINE NEGATIVE (NEGATIVE); PH,URINE 6.5 (5.0-8.0); PROTEIN,URINE 100 mg/dl (NEGATIVE); UGLUCOSE NEGATIVE (NEGATIVE); UROBILINOGEN,URINE 0.2 EU/dL (0.2)
--- NOTE | 2020-12-07 16:58 | NUR ---
RT Received patient on settings provided by transport RT (AC 16,Vt 400,+5,40%) on Shiley 8 cuffed. Tolerating settings well. No SOB noted Will continue to monitor
[2020-12-07 17:00] LABS: BACTERIA,URINE RARE /HPF (None Seen); RBC,URINE TOO NUMEROUS TO COUN /HPF (0-2); SQUAMOUS EPITHELIAL CELL,UR 0-2 /HPF (None Seen)
--- NOTE | 2020-12-07 17:14 | NUR ---
SUBMITTED MOVE SHEET
--- NOTE | 2020-12-07 17:17 | NUR ---
ROOM 112-1
[2020-12-07] MEDS ORDERED: PIPERACILLIN /TAZOBACTAM 3.375 G in IV D5W 50 ML IV ONE (17:30)
[2020-12-07] MEDS ORDERED: IV NS 0.9% 1,000 ML BAG IV ONE ×2 (17:30→18:00)
--- NOTE | 2020-12-07 18:22 | NUR ---
[facility] PAGED
--- NOTE | 2020-12-07 18:35 | NUR ---
Na KNOX will call [facility] for insurance clarification.
--- NOTE | 2020-12-07 19:07 | NUR ---
Dr. Thomas speaking to tom OSCAR and per MD patient can be admitted here under [facility].
--- NOTE | 2020-12-07 19:10 | NUR ---
PAGED EPIC SALES CENTER MANAGER FOR PENDING ADMIT
--- NOTE | 2020-12-07 19:26 | NUR ---
DIMITRIV AT BEDSIDE EVALUATING PATIENT.
--- NOTE | 2020-12-07 19:35 | NUR ---
TRIED TO CALL FOR REPORT, STAFF STATES THAT NURSECHIP IS BUSY, AWAITING CALLBACK.
[2020-12-07] MEDS ORDERED: MISCELLANEOUS MED 1 EA EA GT PRN (20:00)
[2020-12-07] MEDS ORDERED: MORPHINE SULFATE INJ 2 MG/ML DISP.SYRIN IV PRN (20:00)
[2020-12-07] MEDS ORDERED: ONDANSETRON HCL/PF 4 MG/2 ML VIAL IVP PRN (20:00)
[2020-12-07] MEDS ORDERED: METOPROLOL TARTRATE INJ 5 MG/5 ML AMPUL IVP PRN (20:00)
[2020-12-07] MEDS ORDERED: Z GUARD REMEDY 2 OZ OINT TP PRN (20:00)
[2020-12-07] MEDS ORDERED: HYDROCODONE/APAP 5/325MG TABLET GT PRN (20:00)
[2020-12-07] MEDS ORDERED: MAGNESIUM HYDROXIDE 30 ML UDC GT PRN (20:00)
[2020-12-07] MEDS ORDERED: LORAZEPAM INJ 2 MG/ML VIAL IV PRN (20:00)
[2020-12-07] MEDS ORDERED: NA PHOS,M-B/NA PHOS,DI-BA 1 EA ENEMA RC PRN (20:00)
--- NOTE | 2020-12-07 20:16 | NUR ---
REPORT GIVEN TO CHIP GREGORY FOR LIBIA.
--- NOTE | 2020-12-07 20:44 | NUR ---
taken up to assigned room
--- NOTE | 2020-12-07 20:45 | NUR ---
RN OPENING NOTE ADMIT 35 YEAR OLD GEORGIAN MALE TO [facility] UNIT TO ROOM 117 ON TELE MONITORING FROM ER ,ALERT DISORIENTED NON RESPONSIVE OBTUNDED CONTRACTED,ON MECHANICAL VENTILATOR SETTING ON PORTEX #8 AC 16 TV400 PEEP 5 O2:100%, WITH DIAGNOSIS:HEMATURIA,SEPSIS,TACHYCARDIA,NEPHROLITHIASIS,IV SITE IS ON LEFT FEMORAL PICC LINE THREE LUMENS,INTACT PATENT , RED CATHETER IN PLACE, URINE CLOUDY NOHEMI,ORANGE COLOR,ON G-TUBE FEEDING,CHECKED PLACEMENT IN PLACE NO RESIDUAL,PATIENT HAS FEVER 100.2,PATIENT HAS OPEN WOUND ON SACRUM TOOK PICTURE AND PLACED IN CHART.HEAD OF BED ELEVATED,SAFETY MEASURE IMPLEMENT CONTINUE TO MONITOR.
[2020-12-07] MEDS: SENNOSIDES 8.6 MG TABLET GT SCH (21:25)
[2020-12-07] MEDS: LEVETIRACETAM SOL (5 ML) 100 MG/ML UDC GT SCH (21:25)
[2020-12-07] MEDS ORDERED: SULFACETAMIDE 10% OPHTH 15 ML BOTTLE ONE (21:30)
[2020-12-07] MEDS: SULFACETAMIDE 10% OPHTH 15 ML BOTTLE EACHEYE SCH (21:31)
[2020-12-07] MEDS ORDERED: ENOXAPARIN SODIUM 40 MG/0.4 ML DISP.SYRIN SQ SCH (22:00)
[2020-12-07] MEDS ORDERED: VANCOMYCIN 1.25 GM in IV D5W 250 ML IV ONE (22:00)
[2020-12-07] MEDS ORDERED: VANCOMYCIN 1 GM VIAL ONE (22:17)
[2020-12-07] MEDS: JEVITY 1.2 CAL 1,000 ML BOTTLE GT SCH (22:46)
[2020-12-07] MEDS: ACETAMINOPHEN 650 MG/20.3 ML UDC GT PRN (23:22)
[2020-12-08] VITALS: BP 115/80
[2020-12-08] MEDS ORDERED: PIPERACILLIN /TAZOBACTAM 3.375 G in IV D5W 50 ML IV SCH
[2020-12-08] MEDS ORDERED: PIPERACILLIN /TAZOBACTAM 3.375 G VIAL IV ONE ×2 (00:07→04:58)
[2020-12-08] MEDS: PIPERACILLIN /TAZOBACTAM 3.375 G in IV D5W 50 ML IV SCH ×2 (00:08→05:02)
[2020-12-08] MEDS: IV NS 0.9% 1,000 ML IV PRN ×2 (01:52→15:31)
[2020-12-08 04:00] VITALS: BP 115/71
[2020-12-08] MEDS: ACETAMINOPHEN 650 MG/20.3 ML UDC GT PRN ×2 (05:16→19:33)
--- NOTE | 2020-12-08 05:40 | NUR ---
RN NOTE PATIENT TEMP IS 101 TYLENOL 650 MG PRN GIVEN CONTINUE TO MONITOR.
[2020-12-08 05:54] LABS: BASOPHILS % (AUTO) 0.4 % (0.0-2.0); EOSINOPHILS % (AUTO) 1.1 % (0.0-6.0); HEMATOCRIT 29 % (39-51); HEMOGLOBIN 9.5 g/dL (13.5-17.5); LYMPHOCYTES # (AUTO) 1.5 /CMM (0.8-4.8); LYMPHOCYTES % (AUTO) 14.4 % (20.0-44.0); MEAN CORPUSCULAR HGB CONC 33 g/dl (31.0-36.0); MEAN CORPUSCULAR VOLUME 84 fL (80-96); MONOCYTES % (AUTO) 9.4 % (2.0-12.0); NEUTROPHILS # (AUTO) 7.9 /CMM (1.8-8.9); NEUTROPHILS % (AUTO) 74.7 % (43.0-81.0); PLATELET COUNT (AUTO) 342 /CMM (150-450); WHITE BLOOD COUNT (AUTO) 10.6 K/uL (4.3-11.0)
--- NOTE | 2020-12-08 06:44 | NUR ---
RN CLOSING NOTE PATIENT REMAINS ON OBTUNDED ON MECHANICAL VENT,TACHYCARDIA 120-130 ,NON RESPONSIVE,IV SITE IS ON LEFT FEMORAL.PICC LINE INTACT PATENT,ON IV HYDRATION NS 75 CC/HR,ON G-TUBE FEEDING JEVITY 1.2 70CC/HR NO RESIDUAL,HEAD OF BED ELEVATED,RED CATHETER IN PLACE URINE DRAINING DARK YELLOW AND CLOUDY,STILL HEMATURIA PRESENT,TREATMENT DONE FOR SACRAL WOUND CHANGED DRESSING PLACED ORDER FOR WOUND CONSULT,ALL DUE MEDS GIVEN MD ORDERED KEEP CLEAN AND DRY ALL THE TIME,REPOSITIONED EVERY 2 HOURS ALL NEEDS MET ENDORSE NEXT COMING SHIFT FOR CONTINUATION OF CARE.
--- NOTE | 2020-12-08 07:20 | NUR ---
RN OPENING NOTE RECEIVED PT IN BED, OBTUNDED. ON TRACH PORTEX 8 CONNECTED TO [facility] VENT TOLERATING SETTINGS WELL. NO SOB OR ANY RESPIRATORY DISTRESS NOTED. TACHYCARDIA HR AT 120-130. IV ACCESS ON LEFT FEMORAL PICC LINE INTACT AND PATENT. IVF OF NS @75CC/HR INFUSING WELL. GT CHECKED FOR POSITIVE PLACEMENT. FEEDING OF JEVITY 1.2 @70CC/HR, NO RESIDUAL. HEAD OF BED ELEVATED. RED CATHETER IN PLACE DRAINING YELLOW AND CLOUDY URINE. HEMATURIA NOTED. SAFETY MEASURES IN PLACE. CALL LIGHT WITHIN REACH. BED LOCKED AND AT LOWEST POSITION WITH SIDE RAILS UP X2. WILL CONTINUE TO MONITOR.
[2020-12-08] MEDS: PANTOPRAZOLE 40 MG/PACK PACK GT SCH (07:30)
[2020-12-08 07:45] LABS: ALBUMIN 2.3 g/dL (3.4-5.0); BILIRUBIN,TOTAL 0.4 mg/dL (0.2-1.0); CALCIUM, SERUM 8.7 mg/dL (8.5-10.1); CREATININE 0.5 mg/dL (0.6-1.3); MAGNESIUM 1.8 mg/dL (1.8-2.4); PHOSPHORUS 3.4 mg/dL (2.5-4.9); TOTAL PROTEIN, SERUM 6.6 g/dL (6.4-8.2)
[2020-12-08 08:00] VITALS: BP 110/64
[2020-12-08] MEDS: CHLORHEXIDINE GLUCONATE 15 ML UDC MM SCH ×2 (08:41→16:52)
[2020-12-08] MEDS: MULTIVITAMINS,THERAGRAN 1 UDTAB TABLET GT SCH (08:42)
[2020-12-08] MEDS: ZINC SULFATE 220 MG CAPSULE GT SCH (08:42)
[2020-12-08] MEDS: ASCORBIC ACID 500 MG TABLET GT SCH (08:42)
[2020-12-08] MEDS: HYDROCODONE/APAP 5/325MG TABLET GT SCH (08:42)
[2020-12-08] MEDS: SULFACETAMIDE 10% OPHTH 15 ML BOTTLE EACHEYE SCH ×4 (08:43→20:29)
[2020-12-08] MEDS: LEVETIRACETAM SOL (5 ML) 100 MG/ML UDC GT SCH ×2 (08:43→20:31)
[2020-12-08] MEDS: METOPROLOL TARTRATE 25 MG TABLET GT SCH ×2 (08:43→16:52)
[2020-12-08] MEDS: PROSOURCE / PROSTAT (PYXIS) 30 ML UDC GT SCH ×3 (08:44→16:53)
[2020-12-08] MEDS: VITAMINS A AND D 56.7 GM TUBE TP SCH (08:44)
[2020-12-08] MEDS ORDERED: FIXODENT DENTURE ADHESIVE TUBE MM SCH (09:00)
[2020-12-08] MEDS ORDERED: Medication Not On Formulary EA (Cran/Vitc/Mannose/Inulin/Brom (Uti-Stat Liquid) 3,875 MG GT SCH (09:00)
[2020-12-08] MEDS ORDERED: ARGININE/GLUTAMINE/CALCIUM BMB 1 EACH POWD.PACK GT SCH (09:00)
--- NOTE | 2020-12-08 09:02 | NUR ---
WOUND CARE CONSULT: REVIEWED CHART, NURSING DOCUMENTATION AND PHOTOS WHICH INDICATE LEFT HEEL INTACT DEEP TISSUE INJURY AND SACRAL STAGE 4 ULCER, PRESENT ON ADMISSION. RECOMMEND SURGICAL CONSULT. DR DAVE CARSON NOTIFIED OF CONSULT REQUEST. PT TO BE PLACED ON THI ISOFLEX LOW AIRLOSS BED. RECOMMENDATIONS MADE FOR SKIN PROTECTION AND WOUND CARE. DISCUSSED WITH NURSING STAFF. MD IN AGREEMENT WITH PLAN OF CARE.
[2020-12-08] MEDS: VANCOMYCIN HCL 0.75 GM in IV D5W 250 ML IV SCH ×2 (09:22→16:52)
[2020-12-08] MEDS: DAKINS QUARTER STRENGTH (0.125%) 480 ML BOTTLE TOP SCH (09:59)
[2020-12-08 12:00] VITALS: BP 103/63
[2020-12-08] MEDS ORDERED: PIPERACILLIN /TAZOBACTAM 3.375 G in IV D5W 100 ML IV SCH (13:00)
[2020-12-08] MEDS ORDERED: DOSING PER PHARMACY-AMIKACI IV XX PRN (13:00)
[2020-12-08] MEDS: JEVITY 1.2 CAL 1,000 ML BOTTLE GT SCH (15:04)
--- NOTE | 2020-12-08 15:14 | NUR ---
RN NOTES NOTED RASHES ON BILATERAL ARMS. ESTHER MOTORCYCLE DESIGNER AWARE. CHARGE NURSE AWARE. INCIDENT REPORT FILE ID:[id number]. FAMILY MADE AWARE. WILL CONTINUE TO MONITOR.
[2020-12-08] MEDS: AMIKACIN 800 MG in IV D5W 100 ML IV SCH (15:24)
[2020-12-08 16:00] VITALS: BP 108/62
[2020-12-08] MEDS: MORPHINE SULFATE INJ 2 MG/ML DISP.SYRIN IV PRN (16:26)
--- NOTE | 2020-12-08 18:45 | NUR ---
RN CLOSING NOTES PT RESTING IN BED. SATURATION AT 99-100%. NO SOB OR ANY DISTRESS NOTED. NO SIGNIFICANT CHANGES THROUGHOUT THE SHIFT. NO PAIN REPORTED AT THIS TIME. SAFETY MEASURES MAINTAINED. ENDORSED TO NIGHT RN FOR CONTINUATION OF CARE.
--- NOTE | 2020-12-08 19:20 | NUR ---
RN OPENING NOTE RECEIVED PATENT IN BED OBTUNDED,CONTRACTED ON MECHANICAL VENT SETTING PORTEX #8 AC 16 TV 400 PEEP 5 NON VERBAL NON RESPONSIVE HR :142 TEMPERATURE 100.0,O2:99%-100% ON G-TUBE FEEDING JEVITY 1.2 70CC/HR CHECKED PLACEMENT IN PLACE,NO RESIDUAL NOTED,HEAD OF BED ELEVATED,RED CATHETER IN PLACE URINE DRAINING YELLOW AND CLOUDY,SOME BLOOD CLOT IN URINE.IV ON LEFT FEMORAL PICC LINE INTACT PATENT NORMAL SALINE 75CC/HR RUNNING, SAFETY MEASURE IMPLEMENT,BED IN LOW POSITION AND LOCKED CONTINUE TO MONITOR.
--- NOTE | 2020-12-08 19:33 | NUR ---
RN NOTE TYLENOL 650 MG PRN GIVEN FOR TEMPERATURE 100.0 CONTINUE TO MONITOR.
[2020-12-08 20:00] VITALS: BP 100/60
[2020-12-08] MEDS ORDERED: CHLORHEXIDINE GLUCONATE 4% 118 ML BOTTLE TP SCH (20:00)
[2020-12-08] MEDS ORDERED: AMIKACIN 500 MG in IV D5W 100 ML IV SCH (21:00)
[2020-12-08] MEDS: SENNOSIDES 8.6 MG TABLET GT SCH (21:18)
[2020-12-09] VITALS: BP 119/75
[2020-12-09] MEDS: MORPHINE SULFATE INJ 2 MG/ML DISP.SYRIN IV PRN ×2 (00:35→17:23)
[2020-12-09] MEDS: VANCOMYCIN HCL 0.75 GM in IV D5W 250 ML IV SCH ×2 (01:27→08:52)
[2020-12-09 04:00] VITALS: BP 116/73
--- NOTE | 2020-12-09 06:51 | NUR ---
RN CLOSING NOTE PATIENT REMAINS ON OBTUNDED CONTRACTED ON MECHANICAL VENT,NON VERBAL O2:100% HR 118-120,TEMP IS 98.9 ,ON G-TUBE FEEDING JEVITY 1.2 70CC/HR IV SITE IS ON LEFT FEMORAL INTACT PATENT,RED IN PLACE URINE DRAINING,YELLOW AND CLOUDY,ALL DUE MEDS GIVEN MD ORDERED KEEP CLEAN AND DRY ALL THE TIME,HEAD OF THE BED ELEVATED,KEPT CLEAN AND DRY ALL THE TIME,ENDORSE NEXT COMING SHIFT FOR CONTINUATION OF CARE.
--- NOTE | 2020-12-09 07:15 | NUR ---
RN OPENING NOTE RECEIVED PATENT IN BED OBTUNDED, CONTRACTED ON MECHANICAL VENT SETTING PORTEX #8 AC 16 TV 400 PEEP 5 NON VERBA, EYES OPENING. HR :120, O2:99%-100% ON G-TUBE FEEDING JEVITY 1.2 70CC/HR CHECKED PLACEMENT IN PLACE ,NO RESIDUAL NOTED, HEAD OF BED ELEVATED, RED CATHETER IN PLACE URINE DRAINING YELLOW AND CLOUDY,SOME BLOOD CLOT IN URINE. IV ON LEFT FEMORAL PICC LINE INTACT PATENT. NORMAL SALINE RUNNING AT 75CC/HR. ALL SAFETY MEASURES IMPLEMENTED PER HOSPITAL POLICY, BED IN LOW POSITION AND LOCKED. WILL CONTINUE TO MONITOR AND PROVIDE TREATMENT.
[2020-12-09 08:00] VITALS: BP 132/74
[2020-12-09 08:26] LABS: CALCIUM, SERUM 9.1 mg/dL (8.5-10.1); CREATININE 0.4 mg/dL (0.6-1.3); MAGNESIUM 1.9 mg/dL (1.8-2.4); PHOSPHORUS 3.1 mg/dL (2.5-4.9); POTASSIUM 3.9 mmol/L (3.5-5.1)
[2020-12-09] MEDS: CHLORHEXIDINE GLUCONATE 15 ML UDC MM SCH ×2 (08:52→17:20)
[2020-12-09] MEDS: LEVETIRACETAM SOL (5 ML) 100 MG/ML UDC GT SCH ×2 (08:52→21:54)
[2020-12-09] MEDS: PANTOPRAZOLE 40 MG/PACK PACK GT SCH (08:53)
[2020-12-09] MEDS: ASCORBIC ACID 500 MG TABLET GT SCH (08:53)
[2020-12-09] MEDS: METOPROLOL TARTRATE 25 MG TABLET GT SCH ×2 (08:53→17:00)
[2020-12-09] MEDS: HYDROCODONE/APAP 5/325MG TABLET GT SCH (08:53)
[2020-12-09] MEDS: ZINC SULFATE 220 MG CAPSULE GT SCH (08:53)
[2020-12-09] MEDS: PROSOURCE / PROSTAT (PYXIS) 30 ML UDC GT SCH ×3 (08:54→17:20)
[2020-12-09] MEDS: SULFACETAMIDE 10% OPHTH 15 ML BOTTLE EACHEYE SCH ×4 (08:54→22:04)
[2020-12-09] MEDS: MULTIVITAMINS,THERAGRAN 1 UDTAB TABLET GT SCH (08:54)
[2020-12-09] MEDS: DAKINS QUARTER STRENGTH (0.125%) 480 ML BOTTLE TOP SCH (08:55)
[2020-12-09] MEDS: VITAMINS A AND D 56.7 GM TUBE TP SCH (08:55)
[2020-12-09 10:37] LABS: BASOPHILS % (AUTO) 0.4 % (0.0-2.0); EOSINOPHILS % (AUTO) 0.9 % (0.0-6.0); HEMATOCRIT 31 % (39-51); HEMOGLOBIN 9.8 g/dL (13.5-17.5); LYMPHOCYTES # (AUTO) 1.4 /CMM (0.8-4.8); LYMPHOCYTES % (AUTO) 13.4 % (20.0-44.0); MEAN CORPUSCULAR HGB CONC 32 g/dl (31.0-36.0); MEAN CORPUSCULAR VOLUME 85 fL (80-96); MONOCYTES # (AUTO) 0.8 /CMM (0.1-1.30); MONOCYTES % (AUTO) 7.8 % (2.0-12.0); NEUTROPHILS % (AUTO) 77.5 % (43.0-81.0); PLATELET COUNT (AUTO) 305 /CMM (150-450); RED BLOOD CELL COUNT(AUTO) 3.65 MIL/uL (4.5-6.0); WHITE BLOOD COUNT (AUTO) 10.3 K/uL (4.3-11.0)
[2020-12-09 12:00] VITALS: BP 111/62
[2020-12-09] MEDS: DOXYCYCLINE HYCLATE (100 MG) 100 MG TABLET PO SCH ×2 (12:22→21:53)
[2020-12-09] MEDS: AMIKACIN 800 MG in IV D5W 100 ML IV SCH (14:11)
[2020-12-09 16:00] VITALS: BP 108/68
[2020-12-09] MEDS: ACETAMINOPHEN 650 MG/20.3 ML UDC GT PRN (17:23)
[2020-12-09] MEDS: IV NS 0.9% 1,000 ML IV PRN ×2 (18:14→22:36)
--- NOTE | 2020-12-09 18:58 | NUR ---
RN CLOSING NOTE RECEIVED PATENT IN BED OBTUNDED, CONTRACTED ON MECHANICAL VENT SETTING PORTEX #8 AC 16 TV 400 PEEP 5 NON VERBA, EYES OPENING. HR :118, O2:99%-100% ON G-TUBE FEEDING JEVITY 1.2 70CC/HR CHECKED PLACEMENT IN PLACE ,NO RESIDUAL NOTED, HEAD OF BED ELEVATED, RED CATHETER IN PLACE URINE DRAINING YELLOW AND CLOUDY,SOME BLOOD CLOT IN URINE. IV ON LEFT FEMORAL PICC LINE INTACT PATENT. NORMAL SALINE RUNNING AT 75CC/HR. ALL SAFETY MEASURES IMPLEMENTED PER HOSPITAL POLICY, BED IN LOW POSITION AND LOCKED. WILL ENDORSE TO SEAFOOD TECHNOLOGY SPECIALIST NURSE.
--- NOTE | 2020-12-09 19:55 | NUR ---
TELE/RN OPENING NOTE RECEIVED PATIENT RESTING IN BED. NON-VERBAL AT BASELINE. RESPIRATIONS EVEN AND UNLABORED. CONTINUES ON VENT WITH PATIENT TOLERATING SETTINGS WELL. HR REMAINS TACHY BETWEEN 100-115. IV ACCESS TO LEFT FEMORAL INTACT AND PATENT. CONTINUES ON IV NS @ 75ML/HR. CONTINUES ON JEVITY 1.2 @ 70CC/HR WITH NO RESIDUAL NOTED AT THIS TIME. ASPIRATION, FALL AND SAFETY PRECAUTIONS MAINTAINED. WILL CONTINUE TO MONITOR.
[2020-12-09 20:00] VITALS: BP 121/60
[2020-12-09] MEDS: SENNOSIDES 8.6 MG TABLET GT SCH (21:54)
[2020-12-10] VITALS: BP 113/61
[2020-12-10] MEDS: ACETAMINOPHEN 650 MG/20.3 ML UDC GT PRN ×2 (02:51→21:34)
--- NOTE | 2020-12-10 03:06 | NUR ---
TELE/RN NOTE PATIENT NOTED WITH TEMP OF 99.3. AND HR BETWEEN 115-126. ADMINISTERED PRN TYLENOL AND ATIVAN WITH PENDING EFFECT. RESPIRATIONS EVEN AND UNLABORED. PATIENT TOLERATING VENT SETTINGS WELL.
[2020-12-10 04:00] VITALS: BP 100/53
--- NOTE | 2020-12-10 04:00 | NUR ---
TELE/RN NOTE TEMP RECHECK IS 98.6. HR BETWEEN 100-110. WILL CONTINUE TO MONITOR.
[2020-12-10] MEDS: JEVITY 1.2 CAL 1,000 ML BOTTLE GT SCH (06:01)
[2020-12-10 06:27] LABS: BASOPHILS # (AUTO) 0.1 /CMM (0.0-0.2); BASOPHILS % (AUTO) 0.6 % (0.0-2.0); EOSINOPHILS % (AUTO) 1.2 % (0.0-6.0); HEMATOCRIT 24 % (39-51); HEMOGLOBIN 8.1 g/dL (13.5-17.5); LYMPHOCYTES # (AUTO) 1.7 /CMM (0.8-4.8); LYMPHOCYTES % (AUTO) 18.1 % (20.0-44.0); MEAN CORPUSCULAR HGB CONC 33 g/dl (31.0-36.0); MEAN CORPUSCULAR VOLUME 83 fL (80-96); MONOCYTES # (AUTO) 0.9 /CMM (0.1-1.30); MONOCYTES % (AUTO) 9.5 % (2.0-12.0); NEUTROPHILS # (AUTO) 6.5 /CMM (1.8-8.9); NEUTROPHILS % (AUTO) 70.6 % (43.0-81.0); PLATELET COUNT (AUTO) 151 /CMM (150-450); RED BLOOD CELL COUNT(AUTO) 2.95 MIL/uL (4.5-6.0); WHITE BLOOD COUNT (AUTO) 9.2 K/uL (4.3-11.0)
--- NOTE | 2020-12-10 06:30 | NUR ---
TELE/RN CLOSING NOTE PATIENT CURRENTLY RESTING IN BED. NON-VERBAL AT BASELINE. RESPIRATIONS EVEN AND UNLABORED. CONTINUES ON VENT WITH PATIENT TOLERATING SETTINGS WELL. HR REMAINS TACHY BETWEEN 100-115. IV ACCESS TO LEFT FEMORAL INTACT AND PATENT. CONTINUES ON IV NS @ 75ML/HR. CONTINUES ON JEVITY 1.2 @ 70CC/HR WITH NO RESIDUAL NOTED AT THIS TIME. PATIENT TURNED Q2HRS WITH SACRAL WOUND DRESSING CDI. ASPIRATION, FALL AND SAFETY PRECAUTIONS MAINTAINED. WILL ENDORSE PLAN OF CARE TO ONCOMING SHIFT.
--- NOTE | 2020-12-10 07:37 | NUR ---
RN OPENING NOTE PATIENT IS IN BED WITH HOB AT SEMI FOWLERS POSITION. PATIENT IS ON TRACH/VENT WITH NO SIGNS OF LABORED BREATHING. PATIENT IS OBTUNDED. RED CATHETER IS IN PLACE. GTUBE IS IN PLACE. SACRAL WOUND AND BILATERAL ARM RASHES ARE NOTED. GTUBE IS IN PLACE. LEFT FEMORAL PICC IS PATENT AND INTACT. BED IS LOCKED IN THE LOWEST POSITION, 3 GUARD RAILS RAISED, AND ALL HOSPITAL SAFETY PRECAUTIONS ARE BEING FOLLOWED. WILL CONTINUE TO MONITOR THROUGHOUT SHIFT.
[2020-12-10 08:00] VITALS: BP 104/57
[2020-12-10 08:09] LABS: CALCIUM, SERUM 8.8 mg/dL (8.5-10.1); CREATININE 0.5 mg/dL (0.6-1.3); MAGNESIUM 1.8 mg/dL (1.8-2.4); PHOSPHORUS 3.3 mg/dL (2.5-4.9)
[2020-12-10] MEDS: ZINC SULFATE 220 MG CAPSULE GT SCH (08:26)
[2020-12-10] MEDS: CHLORHEXIDINE GLUCONATE 15 ML UDC MM SCH ×2 (08:26→16:21)
[2020-12-10] MEDS: LEVETIRACETAM SOL (5 ML) 100 MG/ML UDC GT SCH ×2 (08:26→21:33)
[2020-12-10] MEDS: ASCORBIC ACID 500 MG TABLET GT SCH (08:26)
[2020-12-10] MEDS: MULTIVITAMINS,THERAGRAN 1 UDTAB TABLET GT SCH (08:26)
[2020-12-10] MEDS: PANTOPRAZOLE 40 MG/PACK PACK GT SCH (08:29)
[2020-12-10] MEDS: HYDROCODONE/APAP 5/325MG TABLET GT SCH (08:29)
[2020-12-10] MEDS: METOPROLOL TARTRATE 25 MG TABLET GT SCH ×2 (08:29→16:20)
[2020-12-10] MEDS: DOXYCYCLINE HYCLATE (100 MG) 100 MG TABLET PO SCH ×2 (08:29→21:33)
[2020-12-10] MEDS: PROSOURCE / PROSTAT (PYXIS) 30 ML UDC GT SCH ×3 (08:31→16:21)
--- NOTE | 2020-12-10 09:00 | NUR ---
RN NOTE GTUBE FEEDING PAUSED. WILL RESUME AT 1300.
[2020-12-10] MEDS: VITAMINS A AND D 56.7 GM TUBE TP SCH (09:08)
[2020-12-10] MEDS: DAKINS QUARTER STRENGTH (0.125%) 480 ML BOTTLE TOP SCH (09:08)
[2020-12-10] MEDS: SULFACETAMIDE 10% OPHTH 15 ML BOTTLE EACHEYE SCH ×4 (09:08→21:37)
[2020-12-10 12:00] VITALS: BP 112/63
[2020-12-10] MEDS: LORATADINE 10 MG TABLET PO SCH (12:13)
[2020-12-10] MEDS: IV NS 0.9% 1,000 ML IV PRN (12:56)
[2020-12-10 16:00] VITALS: BP 107/55
--- NOTE | 2020-12-10 18:47 | NUR ---
RN CLOSING NOTE PATIENT IS IN BED WITH HOB AT SEMI FOWLERS POSITION. PATIENT IS ON TRACH/VENT WITH NO SIGNS OF LABORED BREATHING. PATIENT IS OBTUNDED. RED CATHETER IS IN PLACE. GTUBE IS IN PLACE. SACRAL WOUND HAD APPROPRIATE WOUND CARE APPLIED. BILATERAL RASHES ON ARMS NOTED. GTUBE IS IN PLACE. LEFT FEMORAL PICC IS PATENT AND INTACT. BED IS LOCKED IN THE LOWEST POSITION, 3 GUARD RAILS RAISED, AND ALL HOSPITAL SAFETY PRECAUTIONS ARE BEING FOLLOWED. ALL DUE MEDS GIVEN AND PATIENT REMAINED STABLE THROUGHOUT SHIFT. WILL ENDORSE TO SKIING INSTRUCTOR RN.
--- NOTE | 2020-12-10 19:30 | NUR ---
RN NOTE RECEIVED PATIENT IN BED, OBTUNDED, IN NO S/SX OF ACUTE DISTRESS AT THIS TIME. ON TRACHEAOSTOMY TUBE CONNECTED TO MECHANICAL VENTILATOR WITH SETTINGS PRESCRIBED, SATURATION AT 99%, ST ON THE MONITOR, HR IS 117. NOTED L FEMORAL PICC LINE, PATENT AND FLUSHING WELL, NO S/S OF INFECTION. GTUBE INTACT, PLACEMENT WAS CHECKED BY ASPIRATION AND AUSCULTATION, NO RESIDUAL NOTED, WITH TUBE FEEDING OF JEVITY 1.2 ABBIE AT 70 ML/HR. RED CATHETER CONNECTED TO URINE BAG IN PLACE, DRAINING TO A CLEAR, YELLOW OUTPUT. RASHES NOTED ON BOTH ARMS. SAFETY MEASURES IMPLEMENTED. PATIENT BED ALARM IS ON. HEAD OF BED ELEVATED. BED IS LOCKED, IN LOWEST POSITION AND SIDE RAILS UP. CALL LIGHT WITHIN REACH OF THE PATIENT. WILL CONTINUE TO MONITOR AND REASSESS FOR ANY CHANGES.
[2020-12-10 20:00] VITALS: BP 113/59
[2020-12-10] MEDS: SENNOSIDES 8.6 MG TABLET GT SCH (21:33)
[2020-12-11] VITALS: BP 109/60
--- NOTE | 2020-12-11 01:00 | NUR ---
RN NOTE STOOL SPECIMEN COLLECTED PER STANDING ORDER FOR OCCULT BLOOD FROM DR ARRIAGA ON 12/08/20. SPECIMEN PLACED ON FRIDGE, DILSHAD FROM LAB WAS NOTIFIED.
[2020-12-11] MEDS: IV NS 0.9% 1,000 ML IV PRN ×2 (02:24→17:25)
[2020-12-11 04:00] VITALS: BP 108/49
[2020-12-11] MEDS: JEVITY 1.2 CAL 1,000 ML BOTTLE GT SCH (05:29)
[2020-12-11 06:37] LABS: BASOPHILS % (AUTO) 0.6 % (0.0-2.0); EOSINOPHILS % (AUTO) 1.3 % (0.0-6.0); HEMATOCRIT 24 % (39-51); LYMPHOCYTES # (AUTO) 1.3 /CMM (0.8-4.8); LYMPHOCYTES % (AUTO) 19.7 % (20.0-44.0); MEAN CORPUSCULAR HGB CONC 33 g/dl (31.0-36.0); MEAN CORPUSCULAR VOLUME 83 fL (80-96); MONOCYTES # (AUTO) 0.5 /CMM (0.1-1.30); MONOCYTES % (AUTO) 8.5 % (2.0-12.0); NEUTROPHILS # (AUTO) 4.5 /CMM (1.8-8.9); NEUTROPHILS % (AUTO) 69.9 % (43.0-81.0); PLATELET COUNT (AUTO) 269 /CMM (150-450); RED BLOOD CELL COUNT(AUTO) 2.94 MIL/uL (4.5-6.0); WHITE BLOOD COUNT (AUTO) 6.4 K/uL (4.3-11.0)
[2020-12-11 07:09] LABS: CALCIUM, SERUM 8.6 mg/dL (8.5-10.1); CREATININE 0.3 mg/dL (0.6-1.3); MAGNESIUM 2.4 mg/dL (1.8-2.4); PHOSPHORUS 3.5 mg/dL (2.5-4.9); POTASSIUM 3.7 mmol/L (3.5-5.1)
[2020-12-11 08:00] VITALS: BP 91/57
[2020-12-11] MEDS: PANTOPRAZOLE 40 MG/PACK PACK GT SCH (08:01)
[2020-12-11] MEDS: CHLORHEXIDINE GLUCONATE 15 ML UDC MM SCH ×2 (09:13→16:41)
[2020-12-11] MEDS: ZINC SULFATE 220 MG CAPSULE GT SCH (09:13)
[2020-12-11] MEDS: ASCORBIC ACID 500 MG TABLET GT SCH (09:13)
[2020-12-11] MEDS: LORATADINE 10 MG TABLET PO SCH (09:14)
[2020-12-11] MEDS: DOXYCYCLINE HYCLATE (100 MG) 100 MG TABLET PO SCH (09:14)
[2020-12-11] MEDS: METOPROLOL TARTRATE 25 MG TABLET GT SCH ×2 (09:14→17:23)
[2020-12-11] MEDS: LEVETIRACETAM SOL (5 ML) 100 MG/ML UDC GT SCH (09:14)
[2020-12-11] MEDS: MULTIVITAMINS,THERAGRAN 1 UDTAB TABLET GT SCH (09:14)
[2020-12-11] MEDS: PROSOURCE / PROSTAT (PYXIS) 30 ML UDC GT SCH ×3 (09:15→17:23)
[2020-12-11] MEDS: DAKINS QUARTER STRENGTH (0.125%) 480 ML BOTTLE TOP SCH (09:15)
[2020-12-11] MEDS: VITAMINS A AND D 56.7 GM TUBE TP SCH (09:15)
[2020-12-11] MEDS: HYDROCODONE/APAP 5/325MG TABLET GT SCH (09:16)
[2020-12-11] MEDS: SULFACETAMIDE 10% OPHTH 15 ML BOTTLE EACHEYE SCH ×3 (09:27→16:41)
[2020-12-11] MEDS ORDERED: SULF15DR6 EACHEYE (11:10)
[2020-12-11] MEDS ORDERED: DOXY100T2 PO (11:10)
[2020-12-11 12:00] VITALS: BP 108/62
[2020-12-11 16:00] VITALS: BP 110/63
[2020-12-11 17:23] VITALS: BP 110/63
--- NOTE | 2020-12-11 18:40 | NUR ---
TEMPLATE FITTER NOTES AMBULANCE AM [facility] AT BED SIT, DISCHARGE PAPERWORK PROVIDED, REPORT GIVEN TO CHICA GREGORY AT [facility], BELONGINGS RETURNED TO DINORAH (PATIENT FAMILY) , IV MIDLINE REQUESTED TO LEAVE BY ACCEPTING FACILITY, RED INTACT, ID BAND REMOVED, FAMILY AWARE OF DISCHARGE
== END 2020-12-11 18:42 | DRG 870 ==
LOC: ER 15:45 → ICUOV 17:20 → TELE1 20:12
PROVIDERS: ADMIT Nurse Practitioner Acute Care; ATTEND Nurse Practitioner Acute Care
PROC: 5A1955Z Respiratory Ventilation, Greater than 96 Consecutive Hours (ICD-10-PCS; principal; 2020-12-07)
DX: A41.9 Sepsis, unspecified organism (principal); L89.154 Pressure ulcer of sacral region, stage 4; G93.41 Metabolic encephalopathy; R53.2 Functional quadriplegia; E43 Unspecified severe protein-calorie malnutrition; N39.0 Urinary tract infection, site not specified; Z99.11 Dependence on respirator [ventilator] status; J96.10 Chronic respiratory failure, unspecified whether with hypoxia or hypercapnia; I47.2 Ventricular tachycardia; J98.11 Atelectasis; R40.3 Persistent vegetative state; Z68.1 Body mass index [BMI] 19.9 or less, adult; G40.909 Epilepsy, unspecified, not intractable, without status epilepticus; Z20.822 Contact with and (suspected) exposure to COVID-19; D63.8 Anemia in other chronic diseases classified elsewhere; R31.0 Gross hematuria; I10 Essential (primary) hypertension; N21.0 Calculus in bladder; Z87.820 Personal history of traumatic brain injury; Z86.718 Personal history of other venous thrombosis and embolism; E88.09 Other disorders of plasma-protein metabolism, not elsewhere classified; R13.10 Dysphagia, unspecified; M62.81 Muscle weakness (generalized); R65.20 Severe sepsis without septic shock; Z93.1 Gastrostomy status; Z95.828 Presence of other vascular implants and grafts; Z98.2 Presence of cerebrospinal fluid drainage device; R21 Rash and other nonspecific skin eruption; N20.0 Calculus of kidney; Q67.6 Pectus excavatum
CPT/HCPCS: 31720; 36415; 70450-TC; 71045-TC; 80048-TC; 80053-TC; 80076-TC; 80150; 80202-TC; 81001; 83605-TC; 83690-TC; 83735-TC; 84100-TC; 84484-TC; 85025-TC; 85730-TC; 87040-TC; 87081-TC; 87086-TC; 94003-TC; 94760-TC; 94762-TC; 94799-TC; A4217; A6253; A6403; A7526; G0378; J0278; J1953; J2060; J2270; J2543; J3370; J7030; J7050; J7060; U0003

== ENCOUNTER 2020-12-15 08:32 | Inpatient (IN) | payer BC, MEDICAID ==
[~2020-12-15] VITALS: Ht 177.8 cm; Wt 54.4 kg
[~2020-12-15 08:32] MED LIST changes: +ACET-2605 GT; +ACET-868 GT; -ACET325T53 GT; -AMOX-427 GT; +DIFL15OI3 TP; +DOXY100T2 PO; +HYDR-3973 GT; +LACT-209 GT; -LACT-96 GT; +NUTR1PAC14 GT; -POVI3780 TP; +SULF15DR6 EACHEYE
--- NOTE | 2020-12-15 08:40 | NUR ---
[id number] [facility] SNF FOR FEVER AND TACHYCARDIA. PATIENT A/OXO, ON MECHANICAL VENTILATOR. PATIENT PLACED ON THE MONITOR. PATIENT PRESENTED WITH HR OF 130-140.
--- NOTE | 2020-12-15 08:46 | NUR ---
rt note pt received trached on vent settings per facility. trach patent and secure. vent plugged in red outlet and alarms on and audible. will continue to monitor. Addendum: 12/15/20 at 0848 by ALYCE CURRIE RT Amended: Links added.
[2020-12-15] MEDS ORDERED: VANCOMYCIN 1 GM in IV D5W 250 ML IV ONE (09:00)
[2020-12-15] MEDS ORDERED: CEFEPIME 1 GM in IV D5W 50 ML IV ONE (09:00)
[2020-12-15] MEDS ORDERED: IV NS 0.9% 1,000 ML BAG IV ONE (09:00)
[2020-12-15 09:18] LABS: BILIRUBIN,URINE Negative (NEGATIVE); COLOR,URINE YELLOW (YELLOW); LEUKOCYTE ESTERASE ,URINE Small (NEGATIVE); NITRITE, URINE Negative (NEGATIVE); PROTEIN,URINE 100 mg/dl (NEGATIVE); UGLUCOSE Negative (NEGATIVE); UROBILINOGEN,URINE 0.2 EU/dL (0.2)
[2020-12-15 09:19] LABS: BASOPHILS # (AUTO) 0.1 /CMM (0.0-0.2); BASOPHILS % (AUTO) 0.5 % (0.0-2.0); EOSINOPHILS % (AUTO) 0.1 % (0.0-6.0); HEMATOCRIT 32 % (39-51); LYMPHOCYTES # (AUTO) 0.6 /CMM (0.8-4.8); LYMPHOCYTES % (AUTO) 4.1 % (20.0-44.0); MEAN CORPUSCULAR HGB CONC 32 g/dl (31.0-36.0); MEAN CORPUSCULAR VOLUME 83 fL (80-96); MONOCYTES # (AUTO) 0.9 /CMM (0.1-1.30); MONOCYTES % (AUTO) 5.8 % (2.0-12.0); NEUTROPHILS # (AUTO) 14.1 /CMM (1.8-8.9); NEUTROPHILS % (AUTO) 89.5 % (43.0-81.0); PLATELET COUNT (AUTO) 380 /CMM (150-450); RED BLOOD CELL COUNT(AUTO) 3.78 MIL/uL (4.5-6.0); WHITE BLOOD COUNT (AUTO) 15.7 K/uL (4.3-11.0)
[2020-12-15 09:24] LABS: BACTERIA,URINE Moderate /HPF (None Seen); RBC,URINE 51-80 /HPF (0-2); WBC,URINE 81-100 /HPF (0-3)
[2020-12-15 09:25] LABS: SQUAMOUS EPITHELIAL CELL,UR 0-2 /HPF (None Seen)
[2020-12-15 09:47] LABS: ALANINE AMINOTRANSFERASE 20 U/L (12-78); ALBUMIN 2.6 g/dL (3.4-5.0); ALKALINE PHOSPHATASE 119 U/L (46-116); ASPARTATE AMINOTRANSFERASE 14 U/L (15-37); BILIRUBIN,DIRECT 0.1 mg/dL (0.0-0.2); BILIRUBIN,TOTAL 0.2 mg/dL (0.2-1.0); CALCIUM, SERUM 9.3 mg/dL (8.5-10.1); CARBON DIOXIDE 29 mmol/L (21-32); CHLORIDE 103 mmol/L (98-107); CREATININE 0.6 mg/dL (0.6-1.3); GLUCOSE 144 mg/dL (74-106); POTASSIUM 3.9 mmol/L (3.5-5.1); SODIUM SERUM 141 mmol/L (136-145); TOTAL PROTEIN, SERUM 7.4 g/dL (6.4-8.2); UREA NITROGEN, BLOOD 21 mg/dL (7-18)
--- NOTE | 2020-12-15 09:47 | NUR ---
PAGED [facility], DR. VEGA ON- CALL. AWAITING FOR CALL BACK.
--- NOTE | 2020-12-15 09:56 | NUR ---
COVID SWAB SENT.
[2020-12-15] MEDS ORDERED: DOXY100C2 GT (10:15)
[2020-12-15] MEDS ORDERED: NUTR1PAC14 GT (10:15)
[2020-12-15] MEDS ORDERED: SULF15DR6 EACHEYE (10:15)
--- NOTE | 2020-12-15 10:21 | NUR ---
CALLED NURSING SUP FOR BED
[2020-12-15] MEDS ORDERED: ACETAMINOPHEN 325 MG TABLET PO PRN (10:30)
[2020-12-15] MEDS ORDERED: MAG HYDROX/AL HYDROX/SIMETH 30 ML UDC PO PRN (10:30)
[2020-12-15] MEDS ORDERED: MAGNESIUM HYDROXIDE 30 ML UDC PO PRN (10:30)
[2020-12-15] MEDS ORDERED: MAGNESIUM HYDROXIDE 30 ML UDC GT PRN (10:30)
[2020-12-15] MEDS ORDERED: ONDANSETRON HCL/PF 4 MG/2 ML VIAL IVP PRN (10:30)
[2020-12-15] MEDS ORDERED: MISCELLANEOUS MED 1 EA EA GT PRN (10:30)
[2020-12-15] MEDS ORDERED: HYDROCODONE/APAP 5/325MG TABLET GT PRN (10:30)
[2020-12-15] MEDS ORDERED: Z GUARD REMEDY 2 OZ OINT TP PRN (10:30)
[2020-12-15] MEDS ORDERED: ZOLPIDEM TARTRATE 5 MG TABLET PO PRN (10:30)
[2020-12-15] MEDS ORDERED: NA PHOS,M-B/NA PHOS,DI-BA 1 EA ENEMA RC PRN (10:30)
--- NOTE | 2020-12-15 10:47 | NUR ---
ROOM 113-2
--- NOTE | 2020-12-15 10:58 | NUR ---
REPORT GIVEN TO BRI POSADAS.
--- NOTE | 2020-12-15 11:40 | NUR ---
RN NOTE PT RECEIVED FROM ED, REPORT GIVEN BY BRI UMANA. PT IN STABLE CONDITION ON VENT SETTINGS OF TRACH SHILEY 8, AC 16, TV 450, FIO2 50%, PEEP 5, SPO2 100%, NO SIGNS OF RESP DISTRESS OR SOB, BREATHING EVEN AND UNLABORED. PT TELEMONITOR READING OF SINUS TACHY IN 110s. PT HAS SACRAL WOUND STAGE 4, PECTUS EXCAVATUM, BUE RASHES, AND ABD SCAR. PT HAS GTUBE, AUSCULTATED FOR POSITIVE PLACEMENT, FLUSHED, AND IS PATENT, CURRENTLY CLAMPED. PT LT FEMORAL PICC LINE FLUSHED, PATENT AND RUNNING NS @100 ML/HR, NO SIGNS OF INFECTION OR INFILTRATION. PT RED CATH DRAINING CLEAR YELLOW URINE TO GRAVITY. ALL PT SAFETY PRECAUTIONS IN PLACE, WILL CONT TO MONITOR
--- NOTE | 2020-12-15 11:43 | NUR ---
THE PATIENT IS TRANSFERED TO ROOM 113-2 PER ACLS PROTOCOL.
[2020-12-15 12:00] VITALS: BP 124/70
[2020-12-15] MEDS: PROSTAT (PYXIS) 30 ML UDC GT SCH ×2 (13:00→18:21)
[2020-12-15] MEDS: SULFACETAMIDE 10% OPHTH 15 ML BOTTLE EACHEYE SCH ×3 (13:00→21:52)
[2020-12-15] MEDS ORDERED: MEROPENEM 1 G in IV NS 0.9% 100 ML IV SCH (13:00)
[2020-12-15] MEDS ORDERED: THERAHONEY GEL 1.5 OZ TUBE TP SCH (13:00)
[2020-12-15] MEDS: LEVETIRACETAM SOL (5 ML) 100 MG/ML UDC GT SCH ×2 (13:15→21:50)
[2020-12-15] MEDS: IPRATROPIUM NEB FS 0.5 MG/2.5 ML AMPUL.NEB IH SCH ×2 (13:30→19:30)
[2020-12-15] MEDS: ENOXAPARIN SODIUM 40 MG/0.4 ML DISP.SYRIN SQ SCH (13:52)
[2020-12-15 14:28] LABS: ALBUMIN 2.5 g/dL (3.4-5.0); BILIRUBIN,DIRECT 0.1 mg/dL (0.0-0.2); BILIRUBIN,TOTAL 0.3 mg/dL (0.2-1.0); TOTAL PROTEIN, SERUM 6.9 g/dL (6.4-8.2)
[2020-12-15] MEDS ORDERED: IPRATROPIUM NEB FS 0.5 MG/2.5 ML AMPUL.NEB IH PRN (15:00)
[2020-12-15 16:00] VITALS: BP 116/61
[2020-12-15] MEDS ORDERED: Medication Not On Formulary EA (Cran/Vitc/Mannose/Inulin/Brom (Uti-Stat Liquid) 3,875 MG GT SCH (17:00)
--- NOTE | 2020-12-15 17:00 | NUR ---
RN NOTE PT LOW GRADE FEVER OF 99.9 NOTED. COOLING MEASURES AND TYLENOL 650MG IN PLACE
[2020-12-15] MEDS: ACETAMINOPHEN 325 MG TABLET PO PRN (17:35)
[2020-12-15] MEDS: METOPROLOL TARTRATE 25 MG TABLET GT SCH (17:36)
[2020-12-15] MEDS: IV NS 0.9% 1,000 ML IV PRN (17:46)
[2020-12-15] MEDS: JEVITY 1.2 CAL 1,000 ML BOTTLE GT SCH (18:20)
--- NOTE | 2020-12-15 19:00 | NUR ---
RN CLOSING NOTE PT IN STABLE CONDITION ON SAME VENT SETTINGS, SPO2 100%. PT COOLING MEASURES IN PLACE, TYLENOL 625MG GIVEN AT 1800. PT GT FEED INITIATED AT 1830 WITH INITIAL RATE OF 30ML/HR, GOAL RATE OF 70ML/HR x 20HR. PT CONSENT FOR THORACENTESIS OF LT LUNG (12/16 AT 1430) OBTAINED VIA TELEPHONE FROM PT'S MOTHER, 2ND RN WITNESSED. ALL PT SAFETY PRECAUTIONS IN PLACE, WILL ENDORSE LIBIA TO ONCOING RN
[2020-12-15 20:00] VITALS: BP 102/49
--- NOTE | 2020-12-15 20:00 | NUR ---
MAYO RN NOTE PT IN BED OBTUNDED. NO DISTRESS OR DISCOMFORT NOTED. NO S/S OF PAIN NOTED. NO FEVER AT THIS TIME. ON VENT/TRACH. TOLERATING THE SETTINGS WELL. INF NS INFUSING AT 100 ML/HR. NO S/S OF INFILTRATION NOTED AT TRIPLE LUMEN CATH AT LT FEMORAL. GTF NEPRO INFUSING AT 30 ML/HR, 0 ML RESIDUAL NOTED. FEEDING TOLERATING WELL. KEPT HIM DRY AND CLEAN. SIDE RAILS UP X 3 AND CALL LIGHT WITHIN REACH. VSS AT THIS TIME. ON TELE SR HR 88. CONTINUE TO MONITOR HIM.
--- NOTE | 2020-12-15 20:26 | NUR ---
RT NOTE TX NOT GIVEN DUE TO PENDING COVID RESULTS. NO DISTRESS NOTED. WILL MONITOR.
[2020-12-15] MEDS ORDERED: LEVETIRACETAM SOL (5 ML) 100 MG/ML UDC GT SCH (21:00)
[2020-12-15] MEDS: CEFEPIME 1 GM in IV D5W 50 ML IV SCH (21:50)
[2020-12-15] MEDS: DOXYCYCLINE HYCLATE (100 MG) 100 MG TABLET GT SCH (21:51)
[2020-12-15] MEDS: SENNOSIDES 8.6 MG TABLET GT SCH (21:51)
[2020-12-16] VITALS: BP 116/70
[2020-12-16] MEDS: IPRATROPIUM NEB FS 0.5 MG/2.5 ML AMPUL.NEB IH SCH ×5 (01:22→21:28)
[2020-12-16 04:00] VITALS: BP 134/83
[2020-12-16 06:07] LABS: BASOPHILS % (AUTO) 0.3 % (0.0-2.0); EOSINOPHILS % (AUTO) 1.3 % (0.0-6.0); HEMATOCRIT 28 % (39-51); HEMOGLOBIN 8.9 g/dL (13.5-17.5); LYMPHOCYTES # (AUTO) 1.1 /CMM (0.8-4.8); LYMPHOCYTES % (AUTO) 17.8 % (20.0-44.0); MEAN CORPUSCULAR HGB CONC 32 g/dl (31.0-36.0); MEAN CORPUSCULAR VOLUME 83 fL (80-96); MONOCYTES # (AUTO) 0.6 /CMM (0.1-1.30); MONOCYTES % (AUTO) 9.5 % (2.0-12.0); NEUTROPHILS # (AUTO) 4.3 /CMM (1.8-8.9); NEUTROPHILS % (AUTO) 71.1 % (43.0-81.0); PLATELET COUNT (AUTO) 295 /CMM (150-450); RED BLOOD CELL COUNT(AUTO) 3.35 MIL/uL (4.5-6.0)
[2020-12-16 06:22] LABS: CALCIUM, SERUM 8.7 mg/dL (8.5-10.1); CREATININE 0.3 mg/dL (0.6-1.3); MAGNESIUM 1.9 mg/dL (1.8-2.4); POTASSIUM 3.8 mmol/L (3.5-5.1)
--- NOTE | 2020-12-16 06:34 | NUR ---
MAYO RN NOTE PT IN BED OBTUNDED. NO CHANGE IN CONDITION. ON TELE ST HR 133. SUCTIONED HIM FREQUENTLY. KEPT HIM DRY AND CLEAN. REPOSITION HIM Q2H, ALL NEEDS ATTENDED. SIDE RAILS UP X 3 AND CALL LIGHT WITHIN REACH. WILL ENDORSE TO DAY SHIFT NURSE FOR CONTINUE TO CARE.
[2020-12-16] MEDS: HYDROCODONE/APAP 5/325MG TABLET PO PRN ×2 (06:52→21:11)
--- NOTE | 2020-12-16 07:05 | NUR ---
RN NOTE RECEIVED PT ON BED , OBTUNDED. NON VERBAL, VENT /TRACH DEPEDENT , TOLERATING VENT SETTING WELL, O2 SAT WNL, HR , ST , HR IN 140'S. NO DISTRESS OR DISCOMFORT NOTED. ON VENT/TRACH. INF NS INFUSING AT 100 ML/HR. LEFT FEMORAL TLC SITE CLEAN, DRY AND INTACT , GTF NEPRO INFUSING AT 50 ML/HR, 0 ML RESIDUAL NOTED. FEEDING TOLERATING WELL. SIDE RAILS UP X 3 AND CALL LIGHT WITHIN REACH. BED LOCKED AND IN LOWEST POSITION, CONTINUE TO MONITOR. Addendum: 12/16/20 at 0921 by DEMETRIUS COSTELLO RN CORRECTION PT IS ON JEVITY, TF NOT NEPRO
[2020-12-16 08:00] VITALS: BP 156/101
[2020-12-16] MEDS: ZINC SULFATE 220 MG CAPSULE GT SCH (08:32)
[2020-12-16] MEDS: ASCORBIC ACID 500 MG TABLET GT SCH (08:32)
[2020-12-16] MEDS: PANTOPRAZOLE 40 MG/PACK PACK GT SCH (08:32)
[2020-12-16] MEDS: DOXYCYCLINE HYCLATE (100 MG) 100 MG TABLET GT SCH ×2 (08:32→21:11)
[2020-12-16] MEDS: LEVETIRACETAM SOL (5 ML) 100 MG/ML UDC GT SCH ×2 (08:32→21:10)
[2020-12-16] MEDS: METOPROLOL TARTRATE 25 MG TABLET GT SCH ×2 (08:33→16:33)
[2020-12-16] MEDS: ENOXAPARIN SODIUM 40 MG/0.4 ML DISP.SYRIN SQ SCH (08:34)
[2020-12-16] MEDS: CEFEPIME 1 GM in IV D5W 50 ML IV SCH (08:38)
[2020-12-16] MEDS: SULFACETAMIDE 10% OPHTH 15 ML BOTTLE EACHEYE SCH ×4 (08:39→21:12)
[2020-12-16] MEDS: MULTIVIT W/MINERALS 1 TAB TABLET GT SCH (08:45)
[2020-12-16] MEDS ORDERED: PROSTAT (PYXIS) 30 ML UDC GT SCH (09:00)
[2020-12-16] MEDS: PROSOURCE / PROSTAT (PYXIS) 30 ML UDC GT SCH ×3 (09:01→16:33)
--- NOTE | 2020-12-16 09:34 | NUR ---
WOUND CARE CONSULT: PT PRESENTS WITH RED RAISED SPOTS TO ARMS, UNKNOWN ETIOLOGY, PRESENT ON ADMISSION. DEFER TO PMD. RN TO DISCUSS WITH PMD TODAY. SACRAL STAGE 4 ULCER PRESENT ON ADMISSION. RECOMMENDATIONS MADE FOR SKIN PROTECTION AND WOUND CARE. DISCUSSED WITH NURSING STAFF. DR DAVE CARSON CALLED FOR SURGICAL CONSULT REQUEST. PT TO BE PLACED ON THI ISOFLEX LOW AIRLOSS BED. IN AGREEMENT WITH PLAN OF CARE. Addendum: 12/16/20 at 0936 by FELECIA ADDISON WNDNU Amended: Links added.
[2020-12-16] MEDS ORDERED: DOSING PER PHARMACY-AMIKACI IV XX PRN (11:00)
--- NOTE | 2020-12-16 11:10 | NUR ---
PER RADIOLOGIST REPORT ON CHEST XRAY THERE IS NO PLEURAL EFFUSION. IT WAS SONOGRAPHICALLY CONFIRMED WELL. RN INFORMED ORDERING MD. DR. PITTMAN INFORMED
[2020-12-16] MEDS: DAKINS QUARTER STRENGTH (0.125%) 480 ML BOTTLE TOP SCH (11:29)
[2020-12-16 12:00] VITALS: BP 126/70
--- NOTE | 2020-12-16 12:00 | NUR ---
RN NOTES VSS STABLE, TRACH CARE DONE, CONTINUE TO MONITOR .
[2020-12-16] MEDS: AMIKACIN 800 MG in IV D5W 100 ML IV SCH (12:40)
[2020-12-16] MEDS: IV NS 0.9% 1,000 ML IV PRN ×2 (14:45→21:34)
[2020-12-16 16:00] VITALS: BP 104/54
[2020-12-16] MEDS: JEVITY 1.2 CAL 1,000 ML BOTTLE GT SCH (17:31)
--- NOTE | 2020-12-16 18:11 | NUR ---
RN NOTES NO SIGNIFICANT CHANGES NOTED ON THIS SHIFT, TRACH SUCTIONING DONE NEEDED, TOLERAING TF AT 60CC/HR WELL, NO RESIDUAL NOTED, SR UP x3, CALL LIGHT WITHIN EASY REACH, BED LOCKED AND IN LOWEST POSITION, WILL ENDOSE TO ACTION INSTALLER NURSE FOR CONTINUITY OF CARE .
[2020-12-16 20:00] VITALS: BP 99/46
--- NOTE | 2020-12-16 20:10 | NUR ---
HR 140 148 PATIENT SHAKING TEMP 98.8 AX NORCO GIVEN.
--- NOTE | 2020-12-16 20:16 | NUR ---
RECEIVEDPATIENT IN HISBE GIRLFRIEND AT HIS BEDSIDE PT OPENS EYE WHEN NAME SPOKEN NOTED PICLINE LEFT INNER THIGH
[2020-12-16] MEDS: SENNOSIDES 8.6 MG TABLET GT SCH (21:11)
--- NOTE | 2020-12-16 21:15 | NUR ---
CALLED BRENNAN OSCAR REGARDING ELEVATED HEART RATE SUGGESTED ATIVAN ORDER RECIEVED AND ATIVAN GIVEN WILL CONTINUE TO MONITOR
[2020-12-16] MEDS ORDERED: LORAZEPAM INJ 2 MG/ML VIAL IV STA (21:25)
[2020-12-16] MEDS ORDERED: LORAZEPAM INJ 2 MG/ML VIAL IV PRN (21:30)
[2020-12-16] MEDS: ACETAMINOPHEN 325 MG TABLET PO PRN (23:13)
[2020-12-17] VITALS: BP 95/52
[2020-12-17] MEDS: IPRATROPIUM NEB FS 0.5 MG/2.5 ML AMPUL.NEB IH SCH ×4 (02:12→18:59)
[2020-12-17 04:00] VITALS: BP 116/65
--- NOTE | 2020-12-17 04:33 | NUR ---
fever at 2029 causing theheart rate to be 140- 144 cool bath given tylenol given causing the temp to 98.9 girlfriend was here to visit heart rate at this time 90/min good bm this shift soft brown in color
--- NOTE | 2020-12-17 04:49 | NUR ---
GT FEEDING NO RESIDUAL INCREASED THE RATE TO 70 ML HR TOLERATING THIS RATE GOAL MET
[2020-12-17 06:12] LABS: BASOPHILS % (AUTO) 0.3 % (0.0-2.0); EOSINOPHILS % (AUTO) 0.8 % (0.0-6.0); HEMATOCRIT 26 % (39-51); HEMOGLOBIN 8.2 g/dL (13.5-17.5); LYMPHOCYTES # (AUTO) 1.7 /CMM (0.8-4.8); LYMPHOCYTES % (AUTO) 23.1 % (20.0-44.0); MEAN CORPUSCULAR HGB CONC 32 g/dl (31.0-36.0); MEAN CORPUSCULAR VOLUME 84 fL (80-96); MONOCYTES # (AUTO) 0.9 /CMM (0.1-1.30); MONOCYTES % (AUTO) 11.9 % (2.0-12.0); NEUTROPHILS # (AUTO) 4.7 /CMM (1.8-8.9); NEUTROPHILS % (AUTO) 63.9 % (43.0-81.0); PLATELET COUNT (AUTO) 228 /CMM (150-450); RED BLOOD CELL COUNT(AUTO) 3.05 MIL/uL (4.5-6.0); WHITE BLOOD COUNT (AUTO) 7.3 K/uL (4.3-11.0)
[2020-12-17 07:18] LABS: CALCIUM, SERUM 8.8 mg/dL (8.5-10.1); CREATININE 0.3 mg/dL (0.6-1.3); POTASSIUM 3.8 mmol/L (3.5-5.1)
--- NOTE | 2020-12-17 07:19 | NUR ---
WOUND CARE: RECEIVED SECOND WOUND CONSULT. PT SEEN ON 12/16/20 FOR SKIN ASSESSMENT AND SURGICAL CONSULT WAS CALLED TO DR DAVE CARSON FOR SACRAL STAGE 4 ULCER, PRESENT ON ADMISSION. PT FOLLOWED BY INFECTIOUS DISEASE MD FOR RASH ON ARMS, ALSO PRESENT ON ADMISSION. SKIN PROTECTION AND WOUND CARE RECOMMENDATIONS WERE DISCUSSED WITH NURSING STAFF. MD IN AGREEMENT WITH PLAN OF CARE.
--- NOTE | 2020-12-17 07:45 | NUR ---
RN OPENING NOTES Patient is responsive to stimuli. On mechanical vent settings with 02 sat of 98%. No grimacing and moaning noted. HOB kept elevated Gtube feeding running at 70 cc/hour with no residual noted. Will continue to monitor. Call light with in reach.
[2020-12-17 08:00] VITALS: BP 107/69
[2020-12-17] MEDS: PANTOPRAZOLE 40 MG/PACK PACK GT SCH (10:06)
[2020-12-17] MEDS: ASCORBIC ACID 500 MG TABLET GT SCH (10:06)
[2020-12-17] MEDS: ZINC SULFATE 220 MG CAPSULE GT SCH (10:06)
[2020-12-17] MEDS: METOPROLOL TARTRATE 25 MG TABLET GT SCH ×2 (10:06→16:47)
[2020-12-17] MEDS: MULTIVIT W/MINERALS 1 TAB TABLET GT SCH (10:06)
[2020-12-17] MEDS: SULFACETAMIDE 10% OPHTH 15 ML BOTTLE EACHEYE SCH ×4 (10:07→21:13)
[2020-12-17] MEDS: LEVETIRACETAM SOL (5 ML) 100 MG/ML UDC GT SCH ×2 (10:07→21:05)
[2020-12-17] MEDS: PROSOURCE / PROSTAT (PYXIS) 30 ML UDC GT SCH ×3 (10:07→17:23)
[2020-12-17] MEDS: ENOXAPARIN SODIUM 40 MG/0.4 ML DISP.SYRIN SQ SCH (10:14)
[2020-12-17] MEDS: DOXYCYCLINE HYCLATE (100 MG) 100 MG TABLET GT SCH (10:15)
[2020-12-17] MEDS: DAKINS QUARTER STRENGTH (0.125%) 480 ML BOTTLE TOP SCH (10:25)
[2020-12-17 12:00] VITALS: BP 104/56
[2020-12-17] MEDS: IV NS 0.9% 1,000 ML IV PRN ×2 (12:04→23:17)
[2020-12-17] MEDS: AMIKACIN 800 MG in IV D5W 100 ML IV SCH (12:13)
[2020-12-17] MEDS: JEVITY 1.2 CAL 1,000 ML BOTTLE GT SCH (15:38)
[2020-12-17 16:00] VITALS: BP 102/48
--- NOTE | 2020-12-17 19:04 | NUR ---
RN CLOSING NOTES Patient is responsive to stimuli. On mechanical vent settings with 02 sat of 96%. No grimacing and moaning noted. HOB kept elevated Gtube feeding running at 70 cc/hour, holly well during shift. Will continue to monitor. Call light with in reach. Will endorse to next shift for pratik.
--- NOTE | 2020-12-17 19:30 | NUR ---
DIGITAL ACCOUNT DIRECTOR OPENING NOTE RECEIVED PATIENT IN BED. OBTUNDED. ON MECHANICAL VENT SHILEY #8, AC 16 TV 450 FIO2 40 PEEP 5. RESPIRATIONS ARE EVEN AND UNLABORED. NO S/S SOB NOTED. NO S/S PAIN NOTED. EXTERNAL TELE MONITOR READ SINUS TACHYCARDIA HR 115. IN NO APPARENT DISTRESS. IV ACCES IN LEFT FEMORAL TLC RUNNING NS@100ML/HR. GTUBE IS PRESENT, NO RESIDUAL, RUNNING JEVITY 1.2@70ML/HR. RED CATHETER IS PRESENT. BED IS LOW AND LOCKED, HOB ELEVATED IN SEMI FOWLERS, SIDE RIAL SUP X3, CALL LIGHT WITHIN REACH. GIRLFRIEND AT BEDSIDE. WILL CONTINUE TO MONITOR THROUGHOUT SHIFT.
[2020-12-17 20:00] VITALS: BP 106/60
[2020-12-17] MEDS: SENNOSIDES 8.6 MG TABLET GT SCH (21:05)
[2020-12-17] MEDS: ACETAMINOPHEN 325 MG TABLET PO PRN (21:05)
[2020-12-18] VITALS: BP 95/47
[2020-12-18] MEDS: IPRATROPIUM NEB FS 0.5 MG/2.5 ML AMPUL.NEB IH SCH ×4 (01:37→19:43)
--- NOTE | 2020-12-18 02:57 | NUR ---
PATIENT RECEIVED ON TRACH TO VENT WITH SETTINGS OF AC 16, 450 Vt, 40%,+5. SUCTIONED WITH LAVAGE FOR MODERATE, THICK, YELLOW-CREAM SECRETIONS. GIVEN IN-LINE TREATMENTS WITH NO ADVERSE REACTIONS. AMBU BAG AT BEDSIDE. VENT AND PULSE OXIMETER ALARMS AUDIBLE AND VISIBLE. VENT PLUGGED INTO RED OUTLET. Addendum: 12/18/20 at 0259 by NIEVES MARSHALL RT Amended: Links added.
[2020-12-18 04:00] VITALS: BP 107/61
--- NOTE | 2020-12-18 06:18 | NUR ---
JEWELRY MOLD MAKER CLOSING NOTE PATIENT RESTING IN BED. OBTUNDED. ON MECHANICAL NO CHANGES IN SETTINGS. NO RESP DISTRESS. SUCTIONED PATIENT THROUGHOUT SHIFT. CLEANSED THE SITE. NO S/S PAIN NOTED. TYLENOL MANAGED LOW GRADE FEVER. TELE MONITOR READ SINUS RHYTHM SINUS TACHYCARDIA THROUGHOUT SHIFT.NO DISTRESS. IV ACCES MAINTAINED IN LEFT FEMORAL TLC RUNNING NS@100ML/HR. GTUBE IS MAINTAINED RUNNING JEVITY 1.2@70ML/HR. RED CATHETER OUTPUT IS YELLOW, 1500ML OUT. BED REMAINS LOW AND LOCKED, HOB ELEVATED IN SEMI FOWLERS, SIDE RIAL SUP X3, WILL ENDORSE TO ONCOMING SHIFT.
[2020-12-18] MEDS: ACETAMINOPHEN 325 MG TABLET PO PRN ×2 (06:34→20:59)
--- NOTE | 2020-12-18 06:45 | NUR ---
RANGE MANAGER NOTE PATIENT RR IN THE 30S HR IN THE 140S. PATIENT IS SHIVERING. AXILLARY TEMP 102.4. PRN TYLENOL 650MG GIVEN. ROOM AC TURNED ON. ICE PACKS PLACED ON PATIENT. WILL ENDORSE TO ONCOMING SHIFT.
[2020-12-18 07:21] LABS: CALCIUM, SERUM 8.8 mg/dL (8.5-10.1); CREATININE 0.3 mg/dL (0.6-1.3); POTASSIUM 3.9 mmol/L (3.5-5.1)
--- NOTE | 2020-12-18 07:29 | NUR ---
BEEF GRINDER NOTE PATIENT IN BED OBTUNDED, BOTH EYES OPEN ,WITH TRACH TO VENT SETTING ORDERED ON TELE MONITOR ST 135 ,WITH RED CATH TO GRAVITY , WITH YELLOW COLOR URINE, G TUBE IN PLACE, NO RESIDUAL ORDERED LT FEMORAL TLC IN PLACE ON IVF ORDERED,RT AT BEDSIDE TRACH CARE DONE, WILL CONT TO MONITOR, BED IN LOWEST AND LOCKED POSITION Addendum: 12/18/20 at 1844 by FREEDOM PABLO RN 0729 LT FEMORAL TLC INTACT WITH 3 LUMEN BUT UNABLE TO FLUSH 1 ONE
[2020-12-18 08:00] VITALS: BP 93/36
[2020-12-18] MEDS: LEVETIRACETAM SOL (5 ML) 100 MG/ML UDC GT SCH ×2 (08:13→20:59)
[2020-12-18] MEDS: ZINC SULFATE 220 MG CAPSULE GT SCH (08:13)
[2020-12-18] MEDS: MULTIVIT W/MINERALS 1 TAB TABLET GT SCH (08:13)
[2020-12-18] MEDS: ASCORBIC ACID 500 MG TABLET GT SCH (08:13)
[2020-12-18] MEDS: PANTOPRAZOLE 40 MG/PACK PACK GT SCH (08:13)
[2020-12-18] MEDS: ENOXAPARIN SODIUM 40 MG/0.4 ML DISP.SYRIN SQ SCH (08:14)
[2020-12-18] MEDS: CHLORHEXIDINE GLUCONATE 4% 118 ML BOTTLE TP SCH (08:15)
[2020-12-18] MEDS: DAKINS QUARTER STRENGTH (0.125%) 480 ML BOTTLE TOP SCH (08:15)
[2020-12-18] MEDS: METOPROLOL TARTRATE 25 MG TABLET GT SCH ×2 (08:21→16:03)
[2020-12-18] MEDS: PROSOURCE / PROSTAT (PYXIS) 30 ML UDC GT SCH ×3 (08:21→16:03)
[2020-12-18] MEDS: SULFACETAMIDE 10% OPHTH 15 ML BOTTLE EACHEYE SCH ×4 (08:22→22:20)
--- NOTE | 2020-12-18 09:00 | NUR ---
INSPECTOR TESTER SORTER NOTE T 99.9 BUT HR 129 CALLED TO SAMARA NOTIFIED THAT PATIENT ON LOPRESSOR 25 MG ORDERED TO HOLD AT THIS TIME ALSO AWARE THAT LAS NIGHT T 10.2.4
[2020-12-18] MEDS: IV NS 0.9% 1,000 ML IV PRN (10:47)
[2020-12-18] MEDS ORDERED: VANCOMYCIN 1.25 GM in IV D5W 250 ML IV ONE (11:00)
[2020-12-18] MEDS: JEVITY 1.2 CAL 1,000 ML BOTTLE GT SCH (11:14)
--- NOTE | 2020-12-18 11:53 | NUR ---
PROP WORKER NOTE SAMARA GREGORY LINER INSTALLER AT BEDSIDE SPEAKING WITH FAMILY Y AT BEDSIDE UPDATED PATIENT CONDITION
[2020-12-18 12:00] VITALS: BP 98/47
--- NOTE | 2020-12-18 12:06 | NUR ---
DIAL POLISHER NOTE WOUND CX COLLECTED, BLOOD CX DONE BY DUMPSTER DRIVER
[2020-12-18] MEDS: AMIKACIN 800 MG in IV D5W 100 ML IV SCH (13:12)
[2020-12-18] MEDS: HYDROCODONE/APAP 5/325MG TABLET PO PRN (14:58)
--- NOTE | 2020-12-18 15:00 | NUR ---
MACHINE PROGRAMMER NOTE HR 140 ST, T 99.2 SATURATION 99% PATIENT IS SHAKING, BP137/60, NORCO VIA G TUBE GIVEN ORDERED
--- NOTE | 2020-12-18 15:49 | NUR ---
PERSONNEL ADMINISTRATOR NOTE HR ON TELE MONITOR ST 134 AT THIS TIME BUT NOW HAS FEVER 100.2 COOLING MEASURE PROVIDED, WILL MONITOR
[2020-12-18 16:00] VITALS: BP 137/60
[2020-12-18] MEDS: VANCOMYCIN 1 GM in IV D5W 250 ML IV SCH (17:14)
--- NOTE | 2020-12-18 18:37 | NUR ---
RADIO PERSONALITY NOTE PATENT IN BED , WITH TRACH TO VENT SETTING ORDERED , WITH G TUBE FEEDING ORDERED ,KEEP HOB ELEVATED AT ALL TIME , ,ON IVF ORDERED ,WITH RED CATH TO GRAVITY WITH YELLOW COLOR URINE ,ON TELE MONITOR ST HER 112 AT THIS TIME, T 99.9 FOR NOW COOLING MEASURE IN PLACED, TURN REPOSITIONQ2 HOUR , CALL LIGHT WITHIN REACH, NO SOB NOTED AT THIS TIME , WILL CONT TO MONITOR
--- NOTE | 2020-12-18 19:14 | NUR ---
RN NOTE RECEIVED PT OBTUNDED IN BED WITH HEAD OF BED ELEVATED. PHYSICALLY RESPONSIVE TO VERBAL AND TACTILE STIMULI. WITH TRACH CONNECTED TO VENT AND TOLERATING VENT SETTINGS WELL. NO SIGNS OF DISCOMFORT, SPO2 100% AND HEART RATE 110. WITH GT PATENT AND IN PLACE WITH TUBE FEEDING RUNNING ORDERED WITHOUT RESIDUAL. ALSO WITH RED CATHETER PATENT AND IN PLACE DRAINING URINE VIA GRAVITY. WITH LEFT FEMORAL TRIPLE LUMEN CATHETER WITH NS @ 100ML/HOUR RUNNING ORDERED. SAFETY MEASURES IN PLACE PER PROTOCOL, ALARMS ON AND AUDIBLE, AMBU BAG AT BEDSIDE, CALL LIGHT WITHIN REACH, BED LOCKED AND IN LOW POSITION, SIDE RAILS UP X 2, WILL MONITOR AND CARRY OUT ACTIVE MD ORDERS.
[2020-12-18 20:00] VITALS: BP 101/54
--- NOTE | 2020-12-18 21:54 | NUR ---
RN NOTE SULFACETAMIDE 10% OPHTH EYE DROPS CURRENTLY UNAVAILABLE. MEDICATION NOT AT BEDSIDE AND NOT IN CASSETE. FAXED ORDER AND NOTIFIED NURSING OTOLARYNGOLOGIST SARAH.
[2020-12-18] MEDS: SENNOSIDES 8.6 MG TABLET GT SCH (21:57)
[2020-12-18] MEDS ORDERED: SULFACETAMIDE 10% OPHTH 15 ML BOTTLE ONE (22:19)
[2020-12-19] VITALS (7 sets, daily range): BP systolic 93–111; BP diastolic 43–61
[2020-12-19] MEDS: IV NS 0.9% 1,000 ML IV PRN ×2 (00:29→11:17)
[2020-12-19] MEDS: VANCOMYCIN 1 GM in IV D5W 250 ML IV SCH ×3 (01:03→19:26)
[2020-12-19] MEDS: IPRATROPIUM NEB FS 0.5 MG/2.5 ML AMPUL.NEB IH SCH ×4 (01:49→19:51)
[2020-12-19] MEDS ORDERED: VANCOMYCIN 1.25 GM in IV D5W 250 ML IV SCH (04:00)
--- NOTE | 2020-12-19 04:00 | NUR ---
RN NOTE COMPLETE BED BATH/AM CARE DONE/ PT TOLERATED WELL. RESUMED TUBE FEEDING ORDERED. WILL CONTINUE TO MONITOR PATIENT.
[2020-12-19] MEDS: JEVITY 1.2 CAL 1,000 ML BOTTLE GT SCH ×2 (04:21→18:09)
--- NOTE | 2020-12-19 04:51 | NUR ---
RN NOTE RECEIVED ALERT FOR BLOOD CULTURE RESULT (PRELIMINARY) POSITIVE FOR GRAM POSITIVE COCCI IN PAIRS. PT IS ALREADY RECEIVED VANCO 1G IV Q8H AND AMIKACIN 800MG IV Q24. BIBI AMIN MADE AWARE WITH NO NEW ORDERS.
[2020-12-19] MEDS: HYDROCODONE/APAP 5/325MG TABLET PO PRN (05:41)
[2020-12-19 05:56] LABS: BASOPHILS % (AUTO) 0.3 % (0.0-2.0); EOSINOPHILS % (AUTO) 0.9 % (0.0-6.0); HEMATOCRIT 23 % (39-51); HEMOGLOBIN 7.4 g/dL (13.5-17.5); LYMPHOCYTES # (AUTO) 1.1 /CMM (0.8-4.8); LYMPHOCYTES % (AUTO) 19.8 % (20.0-44.0); MEAN CORPUSCULAR HGB CONC 33 g/dl (31.0-36.0); MEAN CORPUSCULAR VOLUME 82 fL (80-96); MONOCYTES # (AUTO) 0.6 /CMM (0.1-1.30); MONOCYTES % (AUTO) 11.6 % (2.0-12.0); NEUTROPHILS # (AUTO) 3.7 /CMM (1.8-8.9); NEUTROPHILS % (AUTO) 67.4 % (43.0-81.0); PLATELET COUNT (AUTO) 190 /CMM (150-450); RED BLOOD CELL COUNT(AUTO) 2.77 MIL/uL (4.5-6.0); WHITE BLOOD COUNT (AUTO) 5.5 K/uL (4.3-11.0)
[2020-12-19 06:30] LABS: CALCIUM, SERUM 8.7 mg/dL (8.5-10.1); CREATININE 0.3 mg/dL (0.6-1.3); POTASSIUM 3.7 mmol/L (3.5-5.1)
--- NOTE | 2020-12-19 06:35 | NUR ---
RN NOTE NO ACUTE CHANGES OBSERVED OVERNIGHT. PT REMAINS OBTUNDED. TOLERATING VENT SETTINGS WELL. NO SIGNS OF APPARENT DISTRESS. 100% SPO2 AND HEART RATE 89. GT PATENT LEROY N PLACE WITH TUBE FEEDING RUNNING WITH MINIMAL RESIDUAL. RED CATHETER PATENT AND IN PLACE DRAINING URINE VIA GRAVITY. LEFT FEMORAL TRIPLE LUMEN CATHETER INTACT WITH NS @ 100ML/HOUR RUNNING ORDERED. REPOSITIONED Q2H, ORAL CARE DONE Q4H, WOUND CARE DONE ORDERED, ALL NEEDS MET AND ATTENDED TO, WILL ENDORSE TO MORNING RN FOR LIBIA.
--- NOTE | 2020-12-19 07:44 | NUR ---
RN OPENING NOTE PATIENT IS CURRENTLY IN BED WITH HOB AT SEMI FOWLERS POSITION. PATIENT IS OBTUNDED. RED CATHETER IS IN PLACE. GTUBE IS IN PLACE WITH APPROPRIATE FEEDING RUNNING. SACRAL WOUND NOTED. GENERALIZED RASHES NOTED. LEFT THIGH TLC IS PATENT AND INTACT. BED IS LOCKED IN THE LOWEST POSITION, 3 GUARD RAILS RAISED, CALL MOLINA WITHIN REACH, AND ALL HOSPITAL SAFETY PRECAUTIONS ARE BEING FOLLOWED. WILL CONTINUE TO MONITOR THROUGHOUT SHIFT.
[2020-12-19] MEDS: LEVETIRACETAM SOL (5 ML) 100 MG/ML UDC GT SCH ×2 (08:05→21:13)
[2020-12-19] MEDS: PANTOPRAZOLE 40 MG/PACK PACK GT SCH (08:05)
[2020-12-19] MEDS: ZINC SULFATE 220 MG CAPSULE GT SCH (08:05)
[2020-12-19] MEDS: ASCORBIC ACID 500 MG TABLET GT SCH (08:06)
[2020-12-19] MEDS: MULTIVIT W/MINERALS 1 TAB TABLET GT SCH (08:06)
[2020-12-19] MEDS: METOPROLOL TARTRATE 25 MG TABLET GT SCH ×2 (08:07→16:46)
[2020-12-19] MEDS: PROSOURCE / PROSTAT (PYXIS) 30 ML UDC GT SCH ×3 (08:16→16:46)
[2020-12-19] MEDS: DAKINS QUARTER STRENGTH (0.125%) 480 ML BOTTLE TOP SCH (08:17)
[2020-12-19] MEDS: ENOXAPARIN SODIUM 40 MG/0.4 ML DISP.SYRIN SQ SCH (09:00)
--- NOTE | 2020-12-19 09:01 | NUR ---
RN NOTE LOVENOX HELD DUE TO H/H TRENDING DOWN. MD PASCUAL NOTIFIED.
[2020-12-19] MEDS: SULFACETAMIDE 10% OPHTH 15 ML BOTTLE EACHEYE SCH ×4 (09:07→21:13)
--- NOTE | 2020-12-19 09:25 | NUR ---
RN NOTE NOTIFIED PHARMACY OF NO VANCO TROUGH TO REFERENCE FOR 1000 DOSE. OKAY TO GIVE. WILL DRAW LATER TONIGHT.
--- NOTE | 2020-12-19 11:10 | NUR ---
RN NOTE NOTIFIED DR. GARRIDO THAT BLOOD CULTURE RESULTS ARE GRAM NEGATIVE RODS AND NOT COCCI IN PAIR.
[2020-12-19] MEDS: AMIKACIN 800 MG in IV D5W 100 ML IV SCH (12:32)
--- NOTE | 2020-12-19 18:00 | NUR ---
RN NOTE CALLED LABORATORY ABOUT VANCO TROUGH ORDER FOR 1700. AWAITING RESULTS PRIOR TO ADMINISTERING 1800 DOSE. PHARMACY AWARE AND WILL READJUST TIME WHEN RESULTS ARE AVAILABLE. WILL ENDORSE TO BOILER OR ENGINE OPERATOR RN.
--- NOTE | 2020-12-19 18:38 | NUR ---
RN CLOSING NOTE RN CLOSING NOTE PATIENT IS CURRENTLY IN BED WITH HOB AT SEMI FOWLERS POSITION. PATIENT IS OBTUNDED. RED CATHETER IS IN PLACE AND HAD 2500 OUTPUT OUT CLEAR YELLOW URINE. GTUBE IS IN PLACE WITH APPROPRIATE FEEDING RUNNING. SACRAL WOUND HAD APPROPRIATE WOUND CARE APPLIED. LEFT THIGH TLC IS PATENT AND INTACT. BED IS LOCKED IN THE LOWEST POSITION, 3 GUARD RAILS RAISED, CALL MOLINA WITHIN REACH, AND ALL HOSPITAL SAFETY PRECAUTIONS ARE BEING FOLLOWED. ALL DUE MEDS GIVEN AND PATIENT REMAINED STABLE THROUGHOUT SHIFT. WILL ENDORSE TO MAINTENANCE CUSTODIAN RN FOR LIBIA.
--- NOTE | 2020-12-19 19:29 | NUR ---
RN NOTE VANCO TROUGH LEVEL 9, ADMINISTERED ORDERED DOSE OF VANCOMYCIN 1G ORDERED. ORAL CARE DONE, PT REPOSITIONED FOR COMFORT, WILL MONITOR PATIENT,
[2020-12-19] MEDS: ACETAMINOPHEN 325 MG TABLET PO PRN (21:12)
[2020-12-19] MEDS: SENNOSIDES 8.6 MG TABLET GT SCH (21:13)
[2020-12-20] VITALS: BP 100/69
--- NOTE | 2020-12-20 | NUR ---
RN NOTE VITAL SIGNS TAKEN. AFEBRILE. RESPIRATIONS UNLABORED, NO SIGNS OF PAIN, TUBE FEEDING PAUSED ORDERED. WILL RESUME AT 0400.
[2020-12-20] MEDS: IV NS 0.9% 1,000 ML IV PRN ×2 (01:14→16:50)
[2020-12-20] MEDS: IPRATROPIUM NEB FS 0.5 MG/2.5 ML AMPUL.NEB IH SCH ×4 (01:25→19:58)
[2020-12-20] MEDS: VANCOMYCIN 1.25 GM in IV D5W 250 ML IV SCH ×2 (03:04→11:12)
[2020-12-20 04:00] VITALS: BP 109/63
--- NOTE | 2020-12-20 04:00 | NUR ---
RN NOTE COMPLETE BED BATH AND AM CARE COMPLETED. PT TOLERATED WELL. GT IN PLACE. RESUMED TUBE FEEDING ORDERED. WILL CONTINUE TO MONITOR.
[2020-12-20 06:22] LABS: BASOPHILS % (AUTO) 0.4 % (0.0-2.0); EOSINOPHILS % (AUTO) 1.3 % (0.0-6.0); HEMATOCRIT 25 % (39-51); HEMOGLOBIN 8.1 g/dL (13.5-17.5); LYMPHOCYTES # (AUTO) 1.5 /CMM (0.8-4.8); LYMPHOCYTES % (AUTO) 21.2 % (20.0-44.0); MEAN CORPUSCULAR HGB CONC 32 g/dl (31.0-36.0); MEAN CORPUSCULAR VOLUME 82 fL (80-96); MONOCYTES # (AUTO) 0.6 /CMM (0.1-1.30); MONOCYTES % (AUTO) 9.1 % (2.0-12.0); NEUTROPHILS # (AUTO) 4.8 /CMM (1.8-8.9); PLATELET COUNT (AUTO) 235 /CMM (150-450); RED BLOOD CELL COUNT(AUTO) 3.04 MIL/uL (4.5-6.0); WHITE BLOOD COUNT (AUTO) 7.1 K/uL (4.3-11.0)
[2020-12-20 06:42] LABS: CALCIUM, SERUM 8.5 mg/dL (8.5-10.1); CREATININE 0.4 mg/dL (0.6-1.3); POTASSIUM 3.5 mmol/L (3.5-5.1)
--- NOTE | 2020-12-20 06:56 | NUR ---
RN NOTE NO ACUTE CHANGES OBSERVED OVERNIGHT. PT REMAINS OBTUNDED BUT PHYSICALLY AROUSABLE TO STIMULI. TOLERATING VENT SETTINGS WELL. NO SIGNS OF DISTRESS OR DISCOMFORT. 100% SPO2 AND HEART RATE 101. GT PATENT AND N PLACE WITH TUBE FEEDING RUNNING ORDERED WITHOUT MINIMAL RESIDUAL. TOLERATING TUBE FEEDING WELL, RED CATHETER PATENT AND IN PLACE DRAINING URINE VIA GRAVITY. LEFT FEMORAL TRIPLE LUMEN CATHETER INTACT WITH NS @ 100ML/HOUR RUNNING ORDERED. REPOSITIONED Q2H FOR COMFORT, ORAL CARE DONE Q4H, WOUND CARE RENDERED ORDERED, ALL NEEDS MET AND ATTENDED TO, WILL ENDORSE TO MORNING RN FOR LIBIA.
--- NOTE | 2020-12-20 07:55 | NUR ---
RN OPENING NOTE PATIENT IS CURRENTLY IN BED WITH HOB AT SEMI FOWLERS POSITION. PATIENT IS OBTUNDED. PATIENT IS ON TRACH/VENT WITH NO SIGNS OF LABORED BREATHING. SINUS TACHYCARDIA NOTED ON MONITOR. RED IS IN PLACE. GTUBE IS IN PLACE. LEFT THIGH TLC IS PATENT AND INTACT. BED IS LOCKED IN THE LOWEST POSITION, 3 GUARD RAILS RAISED, BED ALARM ON, AND ALL HOSPITAL SAFETY PRECAUTIONS ARE BEING FOLLOWED. WILL CONTINUE TO MONITOR.
[2020-12-20 08:00] VITALS: BP 129/70
[2020-12-20] MEDS: ZINC SULFATE 220 MG CAPSULE GT SCH (08:53)
[2020-12-20] MEDS: PANTOPRAZOLE 40 MG/PACK PACK GT SCH (08:53)
[2020-12-20] MEDS: ASCORBIC ACID 500 MG TABLET GT SCH (08:53)
[2020-12-20] MEDS: LEVETIRACETAM SOL (5 ML) 100 MG/ML UDC GT SCH ×2 (08:53→20:48)
[2020-12-20] MEDS: METOPROLOL TARTRATE 25 MG TABLET GT SCH ×2 (08:55→16:48)
[2020-12-20] MEDS: MULTIVIT W/MINERALS 1 TAB TABLET GT SCH (08:55)
[2020-12-20] MEDS: ACETAMINOPHEN 325 MG TABLET PO PRN (08:57)
[2020-12-20] MEDS: ENOXAPARIN SODIUM 40 MG/0.4 ML DISP.SYRIN SQ SCH (08:59)
[2020-12-20] MEDS: DAKINS QUARTER STRENGTH (0.125%) 480 ML BOTTLE TOP SCH (09:00)
[2020-12-20] MEDS: PROSOURCE / PROSTAT (PYXIS) 30 ML UDC GT SCH ×3 (09:01→16:48)
[2020-12-20] MEDS: SULFACETAMIDE 10% OPHTH 15 ML BOTTLE EACHEYE SCH ×4 (09:02→21:03)
[2020-12-20 12:00] VITALS: BP 124/69
[2020-12-20] MEDS: AMIKACIN 800 MG in IV D5W 100 ML IV SCH (12:38)
--- NOTE | 2020-12-20 14:22 | NUR ---
UNABLE TO PLACED PEIRPHERAL IV ICU CHARGE NURSE TRIED 3X UNSUCCESSFUL,OBTAINED MIDLINE ORDER,NURSING SUP MADE AWARE.WILL REMOVE CENTRAL LINE GROIN AND SEND TIP FOR CX ONCE MIDLINE IN.
[2020-12-20] MEDS: JEVITY 1.2 CAL 1,000 ML BOTTLE GT SCH (14:48)
[2020-12-20 16:00] VITALS: BP 116/72
[2020-12-20] MEDS ORDERED: COLISTIMETHATE SODIUM IV ONE (18:00)
[2020-12-20] MEDS ORDERED: NS 0.9% IV ONE (18:00)
--- NOTE | 2020-12-20 18:31 | NUR ---
RN CLOSING NOTE PATIENT IS CURRENTLY IN BED WITH HOB AT SEMI FOWLERS POSITION. PATIENT IS OBTUNDED. PATIENT IS ON TRACH/VENT WITH NO SIGNS OF LABORED BREATHING. RED IS IN PLACE. GTUBE IN PLACE. SACRAL WOUND HAD APPROPRIATE CARE APPLIED. LEFT THIGH TLC IS PATENT AND INTACT. BED IS LOCKED IN THE LOWEST POSITION, 3 GUARD RAILS RAISED, BED ALARM ON, AND ALL HOSPITAL SAFETY PRECAUTIONS ARE BEING FOLLOWED. ALL DUE MEDS GIVEN AND PATIENT REMAINED STABLE THROUGHOUT SHIFT. WILL ENDORSE TO DIRECTIONAL SURVEY DRAFTER RN.
[2020-12-20 20:00] VITALS: BP 121/75
[2020-12-20] MEDS: SENNOSIDES 8.6 MG TABLET GT SCH (20:48)
[2020-12-21] VITALS: BP 116/82
[2020-12-21] MEDS: IPRATROPIUM NEB FS 0.5 MG/2.5 ML AMPUL.NEB IH SCH ×4 (01:33→19:52)
--- NOTE | 2020-12-21 03:35 | NUR ---
RN notes In bed resting comfortably with no respiratory distress, breathing even and unlabored. Vent setting well tolerated. Vegetative, no physical manifestation of pain or discomfort. On Peg tube, in place patent, feeding tolerating well. Fpley cath in place, draining clear yellow urine. No significant change of condition. Vital signs within normal level. Kept clean and dry. Will endose to next shift for continuity of care.
[2020-12-21 04:00] VITALS: BP 113/70
[2020-12-21] MEDS: IV NS 0.9% 1,000 ML IV PRN ×2 (04:47→15:11)
[2020-12-21 06:32] LABS: BASOPHILS % (AUTO) 0.3 % (0.0-2.0); EOSINOPHILS % (AUTO) 0.9 % (0.0-6.0); HEMATOCRIT 28 % (39-51); LYMPHOCYTES # (AUTO) 1.8 /CMM (0.8-4.8); LYMPHOCYTES % (AUTO) 19.6 % (20.0-44.0); MEAN CORPUSCULAR HGB CONC 32 g/dl (31.0-36.0); MEAN CORPUSCULAR VOLUME 81 fL (80-96); MONOCYTES # (AUTO) 0.8 /CMM (0.1-1.30); MONOCYTES % (AUTO) 8.2 % (2.0-12.0); NEUTROPHILS # (AUTO) 6.6 /CMM (1.8-8.9); PLATELET COUNT (AUTO) 352 /CMM (150-450); RED BLOOD CELL COUNT(AUTO) 3.41 MIL/uL (4.5-6.0); WHITE BLOOD COUNT (AUTO) 9.3 K/uL (4.3-11.0)
[2020-12-21 06:42] LABS: CALCIUM, SERUM 9.5 mg/dL (8.5-10.1); CREATININE 0.4 mg/dL (0.6-1.3); POTASSIUM 3.9 mmol/L (3.5-5.1)
--- NOTE | 2020-12-21 07:05 | NUR ---
OPENING NOTE RECEIVED PT ON BED , OBTUNDED, TRACH/VENT DEPENDENT, TRACH CARE DONE, SINUS TACHYCARDIA NOTED ON MONITOR. RED IS IN PLACE. GTUBE IS IN PLACE. LEFT THIGH TLC IS PATENT AND INTACT. BED IS LOCKED IN THE LOWEST POSITION, SR UP x3, BED ALARM ON, AND ALL HOSPITAL SAFETY PRECAUTIONS ARE BEING FOLLOWED. WILL CONTINUE TO MONITOR.
[2020-12-21 08:00] VITALS: BP 103/59
[2020-12-21] MEDS: ENOXAPARIN SODIUM 40 MG/0.4 ML DISP.SYRIN SQ SCH (08:27)
[2020-12-21] MEDS: MULTIVIT W/MINERALS 1 TAB TABLET GT SCH (08:27)
[2020-12-21] MEDS: ASCORBIC ACID 500 MG TABLET GT SCH (08:27)
[2020-12-21] MEDS: METOPROLOL TARTRATE 25 MG TABLET GT SCH ×2 (08:27→16:21)
[2020-12-21] MEDS: ZINC SULFATE 220 MG CAPSULE GT SCH (08:28)
[2020-12-21] MEDS: LEVETIRACETAM SOL (5 ML) 100 MG/ML UDC GT SCH ×2 (08:28→21:06)
[2020-12-21] MEDS: PANTOPRAZOLE 40 MG/PACK PACK GT SCH (08:28)
[2020-12-21] MEDS: DAKINS QUARTER STRENGTH (0.125%) 480 ML BOTTLE TOP SCH (08:29)
[2020-12-21] MEDS: SULFACETAMIDE 10% OPHTH 15 ML BOTTLE EACHEYE SCH ×4 (08:29→21:07)
[2020-12-21] MEDS: PROSOURCE / PROSTAT (PYXIS) 30 ML UDC GT SCH ×3 (08:29→16:21)
[2020-12-21] MEDS: COLISTIMETHATE SODIUM 150 MG in IV NS 0.9% 50 ML IV SCH ×2 (09:08→21:05)
[2020-12-21 12:00] VITALS: BP 102/59
[2020-12-21 16:00] VITALS: BP 119/72
--- NOTE | 2020-12-21 18:27 | NUR ---
RN NOTES NO SIGNIFICANT CHANGES NOTED ON THIS SHIFT, TRACH SUCTIONING DONE NEEDED, TOLERAING TF AT 70CC/HR WELL, NO RESIDUAL NOTED, SR UP x3, CALL LIGHT WITHIN EASY REACH, BED LOCKED AND IN LOWEST POSITION, WILL ENDOSE TO SENIOR ACCOUNTANT NURSE FOR CONTINUITY OF CARE .
[2020-12-21 20:00] VITALS: BP 109/67
--- NOTE | 2020-12-21 20:02 | NUR ---
RN NOTE PATIENT OBTUNDED IN BED. TRACH/VENT DEPENDENT, TOLERATING SETTINGS WELL. SINUS TACHYCARDIA ON MONITOR. RED IS IN PLACE, DRAINING YELLOW URINE TO GRAVITY. GTUBE IN PLACE WITH JEVITY 1.2 @ 70ML/HR RUNNING. WITH RIGHT UPPER ARM MIDLINE PATENT AND INTACT. BED LOCKED AND IN LOWEST POSITION. SIDE RAILS UP X3, SAFETY PRECAUTIONS IMPLEMENTED. WILL CONTINUE TO MONITOR.
[2020-12-21] MEDS: SENNOSIDES 8.6 MG TABLET GT SCH (21:05)
[2020-12-21] MEDS: JEVITY 1.2 CAL 1,000 ML BOTTLE GT SCH (21:57)
[2020-12-22] VITALS: BP 118/62
--- NOTE | 2020-12-22 | NUR ---
G-TUBE JEVITY 1.2 @ 70ML/HR TURNED OFF AT THIS TIME PER ORDER.
[2020-12-22] MEDS: IPRATROPIUM NEB FS 0.5 MG/2.5 ML AMPUL.NEB IH SCH ×4 (00:32→20:16)
[2020-12-22] MEDS: IV NS 0.9% 1,000 ML IV PRN (02:19)
[2020-12-22 04:00] VITALS: BP 120/73
--- NOTE | 2020-12-22 04:00 | NUR ---
RESUMED G-TUBE JEVITY 1.2 @ 70ML/HR AT THIS TIME PER ORDER.
[2020-12-22 05:49] LABS: BASOPHILS # (AUTO) 0.1 /CMM (0.0-0.2); BASOPHILS % (AUTO) 0.5 % (0.0-2.0); HEMATOCRIT 26 % (39-51); HEMOGLOBIN 8.4 g/dL (13.5-17.5); LYMPHOCYTES # (AUTO) 2.3 /CMM (0.8-4.8); LYMPHOCYTES % (AUTO) 22.9 % (20.0-44.0); MEAN CORPUSCULAR HGB CONC 32 g/dl (31.0-36.0); MEAN CORPUSCULAR VOLUME 82 fL (80-96); MONOCYTES # (AUTO) 0.8 /CMM (0.1-1.30); MONOCYTES % (AUTO) 7.7 % (2.0-12.0); NEUTROPHILS # (AUTO) 6.8 /CMM (1.8-8.9); NEUTROPHILS % (AUTO) 67.9 % (43.0-81.0); PLATELET COUNT (AUTO) 347 /CMM (150-450); RED BLOOD CELL COUNT(AUTO) 3.18 MIL/uL (4.5-6.0); WHITE BLOOD COUNT (AUTO) 10.1 K/uL (4.3-11.0)
--- NOTE | 2020-12-22 06:43 | NUR ---
RN NOTE PATIENT OBTUNDED IN BED WITH HEAD OF BED ELEVATED. TRACH/VENT DEPENDENT, TOLERATING SETTINGS WELL. TELE MONITOR ON, HR 100'S. RED IS IN PLACE, DRAINING YELLOW URINE TO GRAVITY OUTPUT OF 850CC. GTUBE IN PLACE WITH JEVITY 1.2 @ 70ML/HR RUNNING. WITH RIGHT UPPER ARM MIDLINE PATENT AND INTACT RUNNING IV NS @ 70ML/HR. TURNED AND REPOSITIONED. TOLERATED BED BATH WELL. ORAL CARE DONE. BED LOCKED AND IN LOWEST POSITION. SIDE RAILS UP X3, SAFETY PRECAUTIONS IMPLEMENTED. WILL ENDORSE TO AM SHIFT.
[2020-12-22 06:50] LABS: CALCIUM, SERUM 9.3 mg/dL (8.5-10.1); CREATININE 0.4 mg/dL (0.6-1.3); POTASSIUM 3.9 mmol/L (3.5-5.1)
--- NOTE | 2020-12-22 07:05 | NUR ---
OPENING NOTE RECEIVED PT ON BED , OBTUNDED, TRACH/VENT DEPENDENT, TRACH CARE DONE, SINUS TACHYCARDIA HR IN 110'S, NOTED ON MONITOR. RED IS IN PLACE DRAINING TO GRAVITY, G-TUBE IS IN PLACE. RIGHT UPPER ARM MIDLINE SITE CLEAN, DRY AND INTACT, BED IS LOCKED IN THE LOWEST POSITION, SR UP x3, BED ALARM ON, AND WILL CONTINUE TO MONITOR.
[2020-12-22 08:00] VITALS: BP 136/70
[2020-12-22] MEDS: LEVETIRACETAM SOL (5 ML) 100 MG/ML UDC GT SCH (08:53)
[2020-12-22] MEDS: MULTIVIT W/MINERALS 1 TAB TABLET GT SCH (08:53)
[2020-12-22] MEDS: ZINC SULFATE 220 MG CAPSULE GT SCH (08:53)
[2020-12-22] MEDS: PANTOPRAZOLE 40 MG/PACK PACK GT SCH (08:53)
[2020-12-22] MEDS: ASCORBIC ACID 500 MG TABLET GT SCH (08:54)
[2020-12-22] MEDS: METOPROLOL TARTRATE 25 MG TABLET GT SCH ×2 (08:54→16:50)
[2020-12-22] MEDS: ENOXAPARIN SODIUM 40 MG/0.4 ML DISP.SYRIN SQ SCH (08:55)
[2020-12-22] MEDS: DAKINS QUARTER STRENGTH (0.125%) 480 ML BOTTLE TOP SCH (08:56)
[2020-12-22] MEDS: PROSOURCE / PROSTAT (PYXIS) 30 ML UDC GT SCH ×3 (08:57→16:50)
[2020-12-22] MEDS: SULFACETAMIDE 10% OPHTH 15 ML BOTTLE EACHEYE SCH ×3 (08:58→16:50)
[2020-12-22] MEDS: COLISTIMETHATE SODIUM 150 MG in IV NS 0.9% 50 ML IV SCH (09:03)
[2020-12-22] MEDS ORDERED: COLI150V12 IJ (10:13)
[2020-12-22] MEDS: CHLORHEXIDINE GLUCONATE 4% 118 ML BOTTLE TP SCH (10:45)
[2020-12-22 12:00] VITALS: BP 113/63
--- NOTE | 2020-12-22 14:00 | NUR ---
RN NOTES REPORT GIVEN TO ABRAHAM VENTURA FOR CONTINUITY OF CARE .
[2020-12-22 16:00] VITALS: BP 119/63
--- NOTE | 2020-12-22 18:25 | NUR ---
RN NOTES NO SIGNIFICANT CHANGES NOTED ON THIS SHIFT, TRACH SUCTIONING DONE NEEDED, TOLERAING TF AT 70CC/HR WELL, NO RESIDUAL NOTED, SR UP x3, CALL LIGHT WITHIN EASY REACH, BED LOCKED AND IN LOWEST POSITION, AWAITING FOR AMBULANCE TO BE TRANSFERRED TO [facility].
[2020-12-22 20:00] VITALS: BP 97/58
--- NOTE | 2020-12-22 21:32 | NUR ---
TELE-1/FIELD SUPPORT REP REPORT GIVEN TO BLS TRANSPORT WITH RT FOR TRANSFER TO [facility]. PT OFF THE FLOOR
== END 2020-12-22 21:30 | DRG 314 ==
LOC: ER 08:33 → TELE1 11:12 → TELE-TD 12:28 → TELE1 12-16 08:04
PROVIDERS: ADMIT Family Medicine; ATTEND Nurse Practitioner Acute Care
PROC: 5A1955Z Respiratory Ventilation, Greater than 96 Consecutive Hours (ICD-10-PCS; principal; 2020-12-15)
PROC: 05H533Z Insertion of Infusion Device into Right Subclavian Vein, Percutaneous Approach (ICD-10-PCS; 2020-12-21)
PROC: B546ZZA Ultrasonography of Right Subclavian Vein, Guidance (ICD-10-PCS; 2020-12-21)
DX: T80.211A Bloodstream infection due to central venous catheter, initial encounter (principal); A41.9 Sepsis, unspecified organism; L89.154 Pressure ulcer of sacral region, stage 4; N17.0 Acute kidney failure with tubular necrosis; G93.41 Metabolic encephalopathy; R53.2 Functional quadriplegia; E44.0 Moderate protein-calorie malnutrition; N39.0 Urinary tract infection, site not specified; E87.2 Acidosis; I47.1 Supraventricular tachycardia; Z99.11 Dependence on respirator [ventilator] status; J96.10 Chronic respiratory failure, unspecified whether with hypoxia or hypercapnia; Z68.1 Body mass index [BMI] 19.9 or less, adult; J98.11 Atelectasis; R40.3 Persistent vegetative state; D63.8 Anemia in other chronic diseases classified elsewhere; G40.909 Epilepsy, unspecified, not intractable, without status epilepticus; Z93.0 Tracheostomy status; I10 Essential (primary) hypertension; R13.10 Dysphagia, unspecified; Z87.820 Personal history of traumatic brain injury; Z93.1 Gastrostomy status; Z98.2 Presence of cerebrospinal fluid drainage device; Z86.718 Personal history of other venous thrombosis and embolism; R73.9 Hyperglycemia, unspecified; E88.09 Other disorders of plasma-protein metabolism, not elsewhere classified; M62.81 Muscle weakness (generalized); Z95.828 Presence of other vascular implants and grafts; Z79.899 Other long term (current) drug therapy; B96.5 Pseudomonas (aeruginosa) (mallei) (pseudomallei) as the cause of diseases classified elsewhere; Z20.822 Contact with and (suspected) exposure to COVID-19; Y84.8 Other medical procedures as the cause of abnormal reaction of the patient, or of later complication, without mention of misadventure at the time of the procedure; Y92.129 Unspecified place in nursing home as the place of occurrence of the external cause
CPT/HCPCS: 31720; 36415; 71045-TC; 80048-TC; 80061-TC; 80076-TC; 80150; 80202-TC; 81001; 83605-TC; 83735-TC; 84100-TC; 84484-TC; 85025-TC; 85730-TC; 87040-TC; 87070-TC; 87081-TC; 87086-TC; 87186-TC; 93307-TC; 94002-TC; 94003-TC; 94760-TC; 94762-TC; 94799-TC; 99082-TC; A4623; A6253; A6403; A7526; G0378; J0278; J0692; J0770; J1650; J1953; J2060; J3370; J7030; J7040; J7060; U0003

== ENCOUNTER 2021-09-26 17:21 | Inpatient (IN) | payer BC, OTHER ==
[~2021-09-26] VITALS: Ht 170.2 cm; Wt 52.6 kg
[~2021-09-26 17:21] MED LIST changes: -ACET-868 GT; -BISA-79 RC; -CHLO473M5 MM; +COLI150V12 IJ; -DIFL15OI3 TP; +DOXY100C2 GT; -DOXY100T2 PO; -HYDR-3973 GT; -VITS5OIN2 TP
--- NOTE | 2021-09-26 17:35 | NUR ---
CAROLINE RA78 [facility]. Tachycardia to 124. The patient is A/O x0. Eyes open and responsive to tactil stimuli. The patient has trach witn oxygen delivering at 5L/min via trach colar. GT and hunt cath present. Attached to the monitor. Wll continue to monitor the patient.
--- NOTE | 2021-09-26 17:35 | NUR ---
Rectal temp 102.7F. Dr Babb made aware.
--- NOTE | 2021-09-26 17:41 | NUR ---
PT ARRIVED WITH A URINARY CATHETER, GT, AND IS A TRACH PATIENT. PT HAS AN ULCER ON HIS BUTTOCK.
--- NOTE | 2021-09-26 17:41 | NUR ---
IV LINE IS ESTABLISHED, BLOOD SPECIMEN COLLECTED AND SENT TO THE LAB. THE LINE IS SALINE LOCKED.
--- NOTE | 2021-09-26 17:49 | NUR ---
URINE SAMPLE COLLECTED AND SENT
--- NOTE | 2021-09-26 17:51 | NUR ---
COVID TEST COLLECTED AND SENT
[2021-09-26] MEDS ORDERED: ACETAMINOPHEN 160 MG/5 ML GT ONE (18:00)
[2021-09-26] MEDS ORDERED: IV NS 0.9% 1,000 ML BAG IV ONE ×2 (18:00→19:00)
[2021-09-26] MEDS ORDERED: ACETAMINOPHEN 650 MG/20.3 ML UDC ONE (18:02)
--- NOTE | 2021-09-26 18:05 | NUR ---
x-ray tech at the bedside
[2021-09-26 18:30] LABS: BASOPHILS # (AUTO) 0.1 K/uL (0.0-0.2); BASOPHILS % (AUTO) 0.7 % (0.0-2.0); HEMATOCRIT 42 % (39-51); HEMOGLOBIN 13.1 g/dL (13.5-17.5); LYMPHOCYTES # (AUTO) 1.9 K/uL (0.8-4.8); LYMPHOCYTES % (AUTO) 15.8 % (20.0-44.0); MEAN CORPUSCULAR HGB CONC 31 g/dl (31.0-36.0); MEAN CORPUSCULAR VOLUME 85 fL (80-96); MONOCYTES % (AUTO) 8.3 % (2.0-12.0); NEUTROPHILS # (AUTO) 8.8 K/uL (1.8-8.9); NEUTROPHILS % (AUTO) 74.2 % (43.0-81.0); PLATELET COUNT (AUTO) 426 K/uL (150-450); WHITE BLOOD COUNT (AUTO) 11.9 K/uL (4.3-11.0)
--- NOTE | 2021-09-26 18:41 | NUR ---
SPOKE TO PT'S GIRLFRIEND RONI [phone]. SHE GAVE PTS MOTHER NUMBER MICHEL [phone].
[2021-09-26 18:45] LABS: CALCIUM, SERUM 9.5 mg/dL (8.5-10.1); CARBON DIOXIDE 34 mmol/L (21-32); CHLORIDE 111 mmol/L (98-107); CREATININE 0.7 mg/dL (0.6-1.3); GLUCOSE 111 mg/dL (74-106); SODIUM SERUM 152 mmol/L (136-145); UREA NITROGEN, BLOOD 30 mg/dL (7-18)
--- NOTE | 2021-09-26 18:45 | NUR ---
TEMPERATURE 101.2, DR FABIAN NOTIFIED
[2021-09-26 18:48] LABS: BILIRUBIN,URINE NEGATIVE (NEGATIVE); COLOR,URINE YELLOW (YELLOW); LEUKOCYTE ESTERASE ,URINE SMALL (NEGATIVE); NITRITE, URINE NEGATIVE (NEGATIVE); PH,URINE 7.5 (5.0-8.0); PROTEIN,URINE >=300 mg/dl (NEGATIVE); UGLUCOSE NEGATIVE (NEGATIVE); UROBILINOGEN,URINE 0.2 EU/dL (0.2)
[2021-09-26 18:54] LABS: BACTERIA,URINE 2+ /HPF (None Seen); SQUAMOUS EPITHELIAL CELL,UR 0-2 /HPF (None Seen)
[2021-09-26 19:00] LABS: ALANINE AMINOTRANSFERASE 58 U/L (12-78); ALKALINE PHOSPHATASE 121 U/L (46-116); ASPARTATE AMINOTRANSFERASE 28 U/L (15-37); BILIRUBIN,DIRECT 0.1 mg/dL (0.0-0.2); BILIRUBIN,TOTAL 0.2 mg/dL (0.2-1.0); TOTAL PROTEIN, SERUM 9.3 g/dL (6.4-8.2)
[2021-09-26] MEDS ORDERED: LEVOFLOXACIN 750 MG /D5W 150ML 150 ML IV ONE (19:00)
--- NOTE | 2021-09-26 19:37 | NUR ---
CALLED [facility] PAGED DR ACOSTA
--- NOTE | 2021-09-26 22:16 | NUR ---
LARGE LOOSE BM X1 NOTED. CLEANED PATIENT; SKIN KEPT CLEAN AND DRY. REPOSITIONED PATIENT & SAFETY MEASURES IN PLACE. PT TOLERATATED WELL WITH VSS. ALL NEEDS MET AT THIS TIME.
[2021-09-26] MEDS ORDERED: MAG HYDROX/AL HYDROX/SIMETH 30 ML UDC PO PRN (23:00)
[2021-09-26] MEDS ORDERED: ONDANSETRON HCL/PF 4 MG/2 ML VIAL IVP PRN (23:00)
[2021-09-26] MEDS ORDERED: MEROPENEM 1 G in IV NS 0.9% 100 ML IV SCH (23:00)
[2021-09-26] MEDS ORDERED: MAGNESIUM HYDROXIDE 30 ML UDC PO PRN (23:00)
[2021-09-26] MEDS ORDERED: IV NS 0.9% 1,000 ML IV PRN (23:00)
[2021-09-26] MEDS ORDERED: HYDROCODONE/APAP 5/325MG TABLET PO PRN (23:00)
[2021-09-26] MEDS ORDERED: DEXTROSE 50%-WATER 50 ML DISP.SYRIN IV PRN (23:00)
[2021-09-26] MEDS ORDERED: Z GUARD REMEDY 4 OZ OINT TP PRN (23:00)
[2021-09-27] VITALS (7 sets, daily range): BP systolic 101–114; BP diastolic 62–71
[2021-09-27] MEDS ORDERED: MEROPENEM 1 G in IV NS 0.9% 100 ML IV ONE ×2
--- NOTE | 2021-09-27 00:18 | NUR ---
PCR SWAB COLLECTED AND SENT TO LAB
--- NOTE | 2021-09-27 00:42 | NUR ---
REPORT GIVEN TO MEGHAN HUBER RN FOR [facility]IA
--- NOTE | 2021-09-27 00:50 | NUR ---
RN NOTES RECEIVED CARE OF PATIENT FROM ER, PATIENT IS NOTED TO BE A/O X0, NON RESPONSIVE TO COMMANDS, OPENS EYES TO PAINFUL STIMULI. PATIENT NOTED WITH TRACH, O2 RUNNING AT 5 L/MIN, NO SOB NOTED. DEEP TISSUE INJURY NOTED ON SACRUM, WOUND CARE DONE, PICTURES TAKEN AND PUT IN PATIENT'S FILES. PATIENT ON TELE MONITOR SHOWING SINUS TACH WITH HEART RATE BETWEEN 120S TO 130S. APPROPRIATE ISOLATION PRECAUTIONS IMPLEMENTED. NECESSARY SAFETY MEASURES PUT IN PLACE. WILL CONTINUE TO MONITOR PATIENT.
--- NOTE | 2021-09-27 00:55 | NUR ---
PT TRANFERRED TO [facility] VIA ACLS PROTOCOL. ALL BELONGINGS WITH PT. VSS. PT TOLERATED TRANSFER WELL.
[2021-09-27] MEDS ORDERED: VANCOMYCIN 1 GM in IV D5W 250ml IV ONE (01:00)
[2021-09-27] MEDS ORDERED: MEROPENEM 1 G VIAL IV ONE (02:09)
[2021-09-27] MEDS ORDERED: VANCOMYCIN 1 GM VIAL ONE (02:09)
--- NOTE | 2021-09-27 02:33 | NUR ---
RN NOTES SULFACETAMIDE NOT ADMINISTERED MED IS NOT AVAILABLE/PATIENT WAS TRANSFERRED WITHOUT IT.
[2021-09-27] MEDS: ACETAMINOPHEN 325 MG TABLET PO PRN ×2 (04:12→16:27)
[2021-09-27] MEDS: SULFACETAMIDE 10% OPHTH 15 ML BOTTLE EACHEYE SCH ×5 (06:00→23:26)
[2021-09-27] MEDS: BLOOD SUGAR DIAGNOSTIC 1 EACH STRIP IN SCH ×5 (06:39→23:26)
--- NOTE | 2021-09-27 07:30 | NUR ---
RN OPENING NOTE RECEIVED PATIENT IN BE A/O X 0 NON VERBAL, DID OPEN EYES TO NAME. ON T-PIECE RUNNING 5LPM. NOTED TO HAVE A RED AND A L AC 20G INTACT AND PATENT. ALSO NOTED TO HAVE A GT IN PLACE. SAFETY MEASURES IN PLACE BED LOCKED IN THE LOWEST POSITION, TWO SIDE RAILS UP AND CALL LIGHT WITHIN REACH.
--- NOTE | 2021-09-27 07:34 | NUR ---
RN NOTES ENDORSED CARE OF PATIENT TO AM NURSE, PATIENT REMAINS A/O X0, ON TRACH, O2 RUNNING AT 5 L/MIN, NO SOB NOTED THROUGHOUT SHIFT. NO SIGNIFICANT FINDINGS UPON ALL NURSING ASSESSMENTS. PATIENT HAD 3 RUNNY/GREEN BOWEL MOVEMENTS, NO DISTRESS NOTED. ENDORSED CARE OF PATIENT TO AM NURSE FOR LIBIA.
[2021-09-27 07:59] LABS: BASOPHILS # (AUTO) 0.1 K/uL (0.0-0.2); BASOPHILS % (AUTO) 0.5 % (0.0-2.0); EOSINOPHILS % (AUTO) 1.6 % (0.0-6.0); HEMATOCRIT 35 % (39-51); HEMOGLOBIN 10.9 g/dL (13.5-17.5); LYMPHOCYTES # (AUTO) 1.7 K/uL (0.8-4.8); LYMPHOCYTES % (AUTO) 15.8 % (20.0-44.0); MEAN CORPUSCULAR HGB CONC 32 g/dl (31.0-36.0); MEAN CORPUSCULAR VOLUME 85 fL (80-96); MONOCYTES # (AUTO) 0.7 K/uL (0.1-1.30); MONOCYTES % (AUTO) 6.5 % (2.0-12.0); NEUTROPHILS % (AUTO) 75.6 % (43.0-81.0); PLATELET COUNT (AUTO) 293 K/uL (150-450); RED BLOOD CELL COUNT(AUTO) 4.09 MIL/uL (4.5-6.0); WHITE BLOOD COUNT (AUTO) 10.5 K/uL (4.3-11.0)
[2021-09-27] MEDS: ENOXAPARIN SODIUM 40 MG/0.4 ML DISP.SYRIN SQ SCH (08:10)
[2021-09-27] MEDS: PANTOPRAZOLE 40 MG TABLET.DR PO SCH (08:10)
[2021-09-27] MEDS: VANCOMYCIN 1 GM in IV D5W 250 ML IV SCH ×2 (08:10→16:19)
[2021-09-27 08:30] LABS: CALCIUM, SERUM 9.2 mg/dL (8.5-10.1); CREATININE 0.6 mg/dL (0.6-1.3); MAGNESIUM 2.4 mg/dL (1.8-2.4); PHOSPHORUS 2.6 mg/dL (2.5-4.9); POTASSIUM 3.7 mmol/L (3.5-5.1)
[2021-09-27] MEDS ORDERED: LACT100027 GT (08:35)
[2021-09-27] MEDS ORDERED: MINE3.5O EACHEYE (08:35)
[2021-09-27] MEDS ORDERED: FERR300L GT (08:35)
[2021-09-27] MEDS ORDERED: BISA10SU11 RC (08:35)
[2021-09-27] MEDS ORDERED: ONDA4TAB5 GT (08:35)
[2021-09-27] MEDS ORDERED: CHLO473M5 MM (08:35)
[2021-09-27] MEDS ORDERED: LEVETIRACETAM (250 MG) 250 MG TABLET PO SCH (09:00)
[2021-09-27] MEDS: MEROPENEM 1 G in IV NS 0.9% 100 ML IV SCH ×3 (09:43→23:13)
[2021-09-27] MEDS: THERAHONEY GEL 1.5 OZ TUBE TP SCH (09:44)
[2021-09-27] MEDS: JEVITY 1.2 CAL 1,000 ML BOTTLE GT SCH (11:10)
[2021-09-27] MEDS: INSULIN REGULAR, HUMAN 100 UNIT/ML 3 ML VIAL SQ PRN ×2 (11:19→23:28)
[2021-09-27] MEDS ORDERED: PHARMACY TO CHANGE PO MEDS TO GT/NG XX PRN (16:30)
[2021-09-27] MEDS ORDERED: MAG HYDROX/AL HYDROX/SIMETH 30 ML UDC GT PRN (16:40)
--- NOTE | 2021-09-27 18:35 | NUR ---
RN CLOSING NOTE PATIENT IN BE A/O X 0 NON VERBAL, DID OPEN EYES TO NAME. ON T-PIECE RUNNING 5LPM. NOTED TO HAVE A RED AND A L AC 20G INTACT AND PATENT. ALSO NOTED TO HAVE A GT IN PLACE JEVITY RUNNING AT 70 MLS/HR. ALL SCHEDULED MEDICATIONS WERE GIVEN .SAFETY MEASURES IN PLACE BED LOCKED IN THE LOWEST POSITION, TWO SIDE RAILS UP AND CALL LIGHT WITHIN REACH. WILL ENDORSE TO NIGHT NURSE FOR LIBIA.
--- NOTE | 2021-09-27 19:38 | NUR ---
RN OPENING NOTES RECEIVED PATIENT RESTING IN BED. ON TRACH 5LPM AND TOLERATING WELL. NO SOB NOTED. NO S/SX OF RESPIRATORY DISTRESS NOTED. IV ACCESS IN LAC #20. IV IS INTACT, PATENT, AND FLUSHING WELL. TUBE FEEDING RUNNING @ 70 ML/HR. SAFETY PRECAUTIONS IN PLACE: BED IN LOWEST, LOCKED POSITION, SIDERAILS UPx2, AND BRAKES ON. TABLE AND CALL LIGHT WITHIN REACH. WILL CONTINUE TO MONITOR.
[2021-09-27] MEDS: METOPROLOL TARTRATE 25 MG TABLET GT SCH (21:00)
[2021-09-27] MEDS: LEVETIRACETAM SOL (5 ML) 100 MG/ML UDC GT SCH (21:07)
--- NOTE | 2021-09-27 22:48 | NUR ---
REPORT GIVEN TO BRI LYNNE. PATIENT STABLE.
--- NOTE | 2021-09-27 23:29 | NUR ---
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 NO COVERAGE NEEDED.
[2021-09-28] VITALS: BP 102/63
[2021-09-28] MEDS: VANCOMYCIN 1 GM in IV D5W 250 ML IV SCH ×3 (01:03→16:06)
[2021-09-28 04:00] VITALS: BP 104/62
[2021-09-28 05:47] LABS: BASOPHILS % (AUTO) 0.6 % (0.0-2.0); EOSINOPHILS % (AUTO) 4.1 % (0.0-6.0); HEMATOCRIT 33 % (39-51); HEMOGLOBIN 10.6 g/dL (13.5-17.5); LYMPHOCYTES # (AUTO) 1.5 K/uL (0.8-4.8); LYMPHOCYTES % (AUTO) 20.5 % (20.0-44.0); MEAN CORPUSCULAR HGB CONC 32 g/dl (31.0-36.0); MEAN CORPUSCULAR VOLUME 85 fL (80-96); MONOCYTES # (AUTO) 0.5 K/uL (0.1-1.30); MONOCYTES % (AUTO) 7.2 % (2.0-12.0); NEUTROPHILS # (AUTO) 4.8 K/uL (1.8-8.9); NEUTROPHILS % (AUTO) 67.6 % (43.0-81.0); PLATELET COUNT (AUTO) 265 K/uL (150-450); RED BLOOD CELL COUNT(AUTO) 3.89 MIL/uL (4.5-6.0); WHITE BLOOD COUNT (AUTO) 7.1 K/uL (4.3-11.0)
[2021-09-28] MEDS: SULFACETAMIDE 10% OPHTH 15 ML BOTTLE EACHEYE SCH ×3 (06:01→18:05)
[2021-09-28] MEDS: BLOOD SUGAR DIAGNOSTIC 1 EACH STRIP IN SCH ×3 (06:01→18:03)
[2021-09-28] MEDS: INSULIN REGULAR, HUMAN 100 UNIT/ML 3 ML VIAL SQ PRN (06:07)
[2021-09-28 06:19] LABS: CALCIUM, SERUM 8.7 mg/dL (8.5-10.1); CREATININE 0.5 mg/dL (0.6-1.3); POTASSIUM 3.6 mmol/L (3.5-5.1)
--- NOTE | 2021-09-28 07:12 | NUR ---
SHOWROOM EXECUTIVE DIRECTOR CLOSING NOTE PATIENT IN BED WITH EYES CLOSED, EASY TO AROUSE. EYENO S/S OF APPARENT DISTRESS ON ROOM AIR. TELE MONITOR READING SR 60 BPM WITH OCCASIONAL PVC'S /AV BLOCK. NO C/O PAIN AT THIS TIME. WOUND CONSULT ORDERED FOR SACRUM-- PICTURE TAKEN, OFFLOADED WITH PILLOWS. NO FLUIDS RUNNING AT THIS TIME. SAFETY KEPT IN PLACE THE WHOLE SHIFT. ERD CATH DRAINING NOHEMI YELLOW URINE- WITH UO OF 1300ML. ALL NEEDS ATTENDED. ALL SCHEDULED MEDICATIONS ADMINISTERED. ISOLATION STRICTLY FOLLOWED. WILL ENDORSE TO MORNING SHIFT RN FOR CONTINUITY OF CARE. Addendum: 09/28/21 at 0722 by MAGED HATCH RN DISREGARD
--- NOTE | 2021-09-28 07:21 | NUR ---
RN OPENING NOTE PATIENT IN BE A/O X 0 NON VERBAL, DID OPEN EYES TO NAME. ON T-PIECE RUNNING 5LPM. NOTED TO HAVE A RED AND A L AC 20G INTACT AND PATENT. ALSO NOTED TO HAVE A GT IN PLACE JEVITY RUNNING AT 70 MLS/HR. ALL SCHEDULED MEDICATIONS WERE GIVEN .SAFETY MEASURES IN PLACE BED LOCKED IN THE LOWEST POSITION, TWO SIDE RAILS UP AND CALL LIGHT WITHIN REACH.
--- NOTE | 2021-09-28 07:22 | NUR ---
CONSULTANT NURSE CLOSING NOTE PATIENT IN BED WITH EYES CLOSED, EASY TO AROUSE. EYE OPENING. NO S/S OF APPARENT DISTRESS ON TRACH 5LPM OF O2. TELE MONITOR READING SR THE WHOLE SHIFT. NOT EXHIBITING PAIN VIA FLACC. WOUND CONSULT STILL IN PLACE-- PICTURE TAKEN FOR SACRAL STAGE 4. NO FLUIDS RUNNING AT THIS TIME. SAFETY KEPT IN PLACE THE WHOLE SHIFT. RED CATH DRAINING NOHEMI YELLOW URINE- WITH UO OF 1200ML. ALL NEEDS ATTENDED. ALL SCHEDULED MEDICATIONS ADMINISTERED. TRACH CARE DONE, PATIENT SUCTIONED. ISOLATION STRICTLY FOLLOWED. WILL ENDORSE TO MORNING SHIFT RN FOR CONTINUITY OF CARE.
[2021-09-28 08:00] VITALS: BP 92/57
[2021-09-28] MEDS: IV D5W 1,000 ML IV SCH ×2 (08:00→18:01)
[2021-09-28] MEDS: PANTOPRAZOLE 40 MG TABLET.DR PO SCH (08:59)
[2021-09-28] MEDS: CHLORHEXIDINE GLUCONATE 4% 118 ML BOTTLE TP SCH (08:59)
[2021-09-28] MEDS: LEVETIRACETAM SOL (5 ML) 100 MG/ML UDC GT SCH ×2 (08:59→21:58)
[2021-09-28] MEDS: METOPROLOL TARTRATE 25 MG TABLET GT SCH ×2 (09:00→21:00)
[2021-09-28] MEDS: THERAHONEY GEL 1.5 OZ TUBE TP SCH (09:01)
[2021-09-28] MEDS: ENOXAPARIN SODIUM 40 MG/0.4 ML DISP.SYRIN SQ SCH (09:07)
[2021-09-28] MEDS: MEROPENEM 1 G in IV NS 0.9% 100 ML IV SCH ×2 (10:44→17:33)
--- NOTE | 2021-09-28 11:20 | NUR ---
WOUND CARE CONSULT: PT IS FOLLOWED FOR STAGE [address] COX. RECOMMENDATIONS MADE FOR SKIN PROTECTION. DISCUSSED WITH NURSING STAFF. IN AGREEMENT WITH PLAN OF CARE. Addendum: 09/28/21 at 1123 by FELECIA ADDISON WNDNU PT IS ON [facility] B[facility]. CHART, NURSING DOCUMENTATION AND PHOTO WERE REVIEWED TODAY INDICATING STAGE 4 SACRAL ULCER, PRESENT ON ADMISSION.
[2021-09-28 12:00] VITALS: BP 92/59
[2021-09-28 16:00] VITALS: BP 100/61
[2021-09-28] MEDS ORDERED: SILVER NITRATE APPLICATOR 1 EA BOX TP SCH (16:30)
[2021-09-28] MEDS ORDERED: LIDOCAINE 1%-EPI 1:100,000 20 ML VIAL TP ONE (17:00)
[2021-09-28] MEDS: DAKINS QUARTER STRENGTH (0.125%) 480 ML BOTTLE TOP SCH (18:02)
--- NOTE | 2021-09-28 18:44 | NUR ---
RN CLOSING NOTE PATIENT IN BE A/O X 0 NON VERBAL, DID OPEN EYES TO NAME. ON T-PIECE RUNNING 5LPM. NOTED TO HAVE A RED AND A LT AC 20G INTACT AND PATENT RUNNING D5W AT 100MLS/ HR . LEFT WRIST 22G IN TACT AND PATIENT RUNNING TKO. ALSO NOTED TO HAVE A GT IN PLACE JEVITY RUNNING AT 70 MLS/HR. ALL SCHEDULED MEDICATIONS WERE GIVEN .SAFETY MEASURES IN PLACE BED LOCKED IN THE LOWEST POSITION, TWO SIDE RAILS UP AND CALL LIGHT WITHIN REACH. WILL ENDORSE TO NIGHT NURSE FOR LIBIA.
[2021-09-28 20:00] VITALS: BP 94/57
[2021-09-29] VITALS: BP 96/61
[2021-09-29] MEDS: MEROPENEM 1 G in IV NS 0.9% 100 ML IV SCH ×3 (00:47→16:17)
[2021-09-29] MEDS: SULFACETAMIDE 10% OPHTH 15 ML BOTTLE EACHEYE SCH ×4 (00:48→17:30)
[2021-09-29] MEDS: BLOOD SUGAR DIAGNOSTIC 1 EACH STRIP IN SCH ×4 (00:48→17:30)
[2021-09-29] MEDS: IV D5W 1,000 ML IV SCH ×2 (02:14→14:00)
[2021-09-29] MEDS: VANCOMYCIN 1 GM in IV D5W 250 ML IV SCH (02:14)
[2021-09-29 04:00] VITALS: BP 108/70
--- NOTE | 2021-09-29 07:30 | NUR ---
RN OPENING NOTES RECEIVED PATIENT IN BED, AWAKE, OPENS EYES TO STIMULI, NON VERBAL. WITH TRACH TO T-PIECE WITH 02 @ 5LPM WITH O2 SAT OF 98%, IV SITE AKIRA AND LLA PATENT AND INTACT Addendum: 09/29/21 at 1033 by DWAYNE ALDRICH RN CONTINUATION IV SITE LEFT AC AND LLA PATENT AND INTACT, WITH GT NO RESIDUAL TF OF JEVITY 1.2 @ 70 CC/HR. FC DRAINING TO YELLOW COLORED URINE NO BLEEDING NOTES. KEPT HOB ELEVATED. BED TO LOWEST POSITION AND LOCKED.
[2021-09-29 08:00] VITALS: BP 107/73
[2021-09-29] MEDS: ENOXAPARIN SODIUM 40 MG/0.4 ML DISP.SYRIN SQ SCH (09:00)
[2021-09-29] MEDS: METOPROLOL TARTRATE 25 MG TABLET GT SCH ×2 (09:00→21:00)
[2021-09-29] MEDS: PANTOPRAZOLE 40 MG TABLET.DR PO SCH (09:20)
[2021-09-29] MEDS: LEVETIRACETAM SOL (5 ML) 100 MG/ML UDC GT SCH ×2 (09:20→22:02)
[2021-09-29] MEDS: DAKINS QUARTER STRENGTH (0.125%) 480 ML BOTTLE TOP SCH (09:21)
[2021-09-29 09:22] LABS: CALCIUM, SERUM 8.7 mg/dL (8.5-10.1); CREATININE 0.4 mg/dL (0.6-1.3); POTASSIUM 3.8 mmol/L (3.5-5.1)
[2021-09-29] MEDS: THERAHONEY GEL 1.5 OZ TUBE TP SCH (09:22)
--- NOTE | 2021-09-29 09:30 | NUR ---
RN NOTES LOVENOX NOT ADMINISTERED, HGB WENT DOWN FROM 10.[address] NANCY MAX AWARE.
[2021-09-29 12:00] VITALS: BP 97/70
[2021-09-29] MEDS: INSULIN REGULAR, HUMAN 100 UNIT/ML 3 ML VIAL SQ PRN ×2 (12:12→17:31)
[2021-09-29 12:46] LABS: BASOPHILS % (AUTO) 0.4 % (0.0-2.0); EOSINOPHILS % (AUTO) 5.3 % (0.0-6.0); HEMATOCRIT 28 % (39-51); HEMOGLOBIN 7.4 g/dL (13.5-17.5); LYMPHOCYTES # (AUTO) 1.2 K/uL (0.8-4.8); MEAN CORPUSCULAR HGB CONC 27 g/dl (31.0-36.0); MEAN CORPUSCULAR VOLUME 102 fL (80-96); MONOCYTES # (AUTO) 0.5 K/uL (0.1-1.30); MONOCYTES % (AUTO) 8.3 % (2.0-12.0); NEUTROPHILS # (AUTO) 3.8 K/uL (1.8-8.9); PLATELET COUNT (AUTO) 159 K/uL (150-450); RED BLOOD CELL COUNT(AUTO) 2.72 MIL/uL (4.5-6.0); WHITE BLOOD COUNT (AUTO) 5.8 K/uL (4.3-11.0)
[2021-09-29] MEDS: JEVITY 1.2 CAL 1,000 ML BOTTLE GT SCH (13:15)
[2021-09-29 15:36] LABS: HEMOGLOBIN 10.9 g/dL (13.5-17.5)
[2021-09-29 16:00] VITALS: BP 101/64
[2021-09-29] MEDS: VANCOMYCIN 0.75 GM in IV D5W 250 ML IV SCH (17:50)
--- NOTE | 2021-09-29 18:37 | NUR ---
CLUTCH MECHANIC CLOSING NOTES PATIENT AWAKE IN BED IN HIGH FOWLERS POSITION.WITH TRACH TO T-PIECE AT 5LPM SATING 100%. NO SIGNS AND SYMPTOMS OF DISTRESS NOTED AT THIS TIME. NO FACIAL GRIMACING NOTED. GT PATENT AND INTACT WITH TF JEVITY 1.2 @ 70CC/HR, IV ACCESS LAC AND LEFT WRIST PATENT AND INTACT. WITH FC PATENT AND INTACT. DEBRIDEMENT DONE TODAY,. PATIENT TOLERATED WELL. SAFETY PRECAUTIONS ENFORCED WITH BED LOCKED AND AT LOWEST POSITION. SIDERAILS UP X2. WILL ENDORSE CONTINUITY OF CARE TO DAY SHIFT NURSE.
--- NOTE | 2021-09-29 19:45 | NUR ---
RN OPENING NOTES RECEIVED PATIENT IN BED AWAKE, ALERT, ORIENTED X0, NON-VERBAL. HOB ELEVATED TO HIGH FOWLERS POSITION. WITH TRACH T-PIECE AT 5LPM AND PT TOLERATED WELL. IV ACCESS ON LAC AND LEFT WRIST INTACT AND PATENT. NO S/S OF INFILTRATIONS. NO FACIAL GRIMACING NOTED. NO ACUTE DISTRESS. GTUBE FEEDING, JEVITY 1.2 @ 70CC/HR WELL TOLERATED WELL. RED CATHETER INTACT AND PATENT WITH YELLOWISH URINE. ALL SAFETY PRECAUTIONS IN PLACE. BED AT LOWEST POSITION AND LOCKED. SIDERAILS UP X3. PLACE CALL LIGHT WITH IN REACH. WILL CONTINUE TO MONITOR
[2021-09-29 20:00] VITALS: BP 98/61
--- NOTE | 2021-09-29 22:10 | NUR ---
RN NOTES: BLOOD PRESSURE 98/61, PULSE-94. HOLD LOPRESSOR. NO S/S OF HYPER/HYPOTENSION. WILL CONTINUE TO MONITOR
[2021-09-30] VITALS: BP 93/52
[2021-09-30] MEDS: SULFACETAMIDE 10% OPHTH 15 ML BOTTLE EACHEYE SCH ×5 (00:08→23:24)
[2021-09-30] MEDS: MEROPENEM 1 G in IV NS 0.9% 100 ML IV SCH ×4 (00:09→23:23)
[2021-09-30] MEDS: BLOOD SUGAR DIAGNOSTIC 1 EACH STRIP IN SCH ×5 (00:28→23:36)
--- NOTE | 2021-09-30 00:37 | NUR ---
RN NOTES: BLOOD SUGAR 108, NO COVERAGE GIVEN. NO S/S OF HYPER/HYPOGLYCEMIA. WILL CONTINUE TO MONITOR
[2021-09-30] MEDS: VANCOMYCIN 0.75 GM in IV D5W 250 ML IV SCH ×3 (01:18→18:14)
[2021-09-30 04:00] VITALS: BP 102/63
--- NOTE | 2021-09-30 06:47 | NUR ---
RN CLOSING NOTES PATIENT IN BED, SLEEPING BUT EASILY AROUSABLE, ALERT, ORIENTED X0, OPEN BOTH EYES, NON-VERBAL. HOB ELEVATED TO HIGH FOWLERS POSITION. WITH TRACH T-PIECE AT 5LPM, O2 SAT 99% AND PT TOLERATED WELL. IV ACCESS LEFT WRIST INTACT AND PATENT. NO S/S OF INFILTRATIONS. NO FACIAL GRIMACING NOTED. NO ACUTE DISTRESS. GTUBE FEEDING, JEVITY 1.2 @ 70CC/HR WELL TOLERATED WELL. RED CATHETER INTACT AND PATENT WITH YELLOWISH URINE.ALL DUE MEDS GIVEN ORDER. BLOOD SUGAR AT 0600, 78,, NO COVERAGE NEEDED. NO S/S OF HYPER/HYPOGLYCEMIA, ALL SAFETY PRECAUTIONS IN PLACE. BED AT LOWEST POSITION AND LOCKED. SIDERAILS UP X3. PLACE CALL LIGHT WITH IN REACH. WILL ENDORSE TO MORNING SHIFT NURSE.
[2021-09-30 07:20] LABS: CALCIUM, SERUM 9.5 mg/dL (8.5-10.1); CREATININE 0.5 mg/dL (0.6-1.3); POTASSIUM 4.4 mmol/L (3.5-5.1)
--- NOTE | 2021-09-30 07:22 | NUR ---
RN OPENING NOTES PATIENT ASLEEP IN BED, ON TRACH WITH OXYGEN AT 5LPM VIA NC WITH 100% O2 SAT LEVEL, NO SOB/ACUTE DISTRESS NOTED, NSR TO SINUS TACHY IN TELE MONITOR. WITH LEFT WRIST G22 PATENT AND INTACT. WITH G-TUBE JEVITY 1.2 AT 70ML/HR, TOLERATED WELL. ALL SAFETY MEASURES IN PLACE, BED IN LOW AND LOCK POSITION, REPOSITION PROVIDED, CALL LIGHT WITHIN REACH, SIDE RAILS UP X2, WILL CONTINUE TO MONITOR PATIENT.
[2021-09-30 08:00] VITALS: BP 107/71
[2021-09-30] MEDS: LEVETIRACETAM SOL (5 ML) 100 MG/ML UDC GT SCH ×2 (08:34→20:38)
[2021-09-30] MEDS: PANTOPRAZOLE 40 MG TABLET.DR PO SCH (08:35)
[2021-09-30] MEDS: METOPROLOL TARTRATE 25 MG TABLET GT SCH ×4 (08:36→20:46)
[2021-09-30] MEDS: ENOXAPARIN SODIUM 40 MG/0.4 ML DISP.SYRIN SQ SCH (08:38)
--- NOTE | 2021-09-30 09:30 | NUR ---
RN NOTE PATIENT REFUSED TO GIVE METOPROLOL. PER FAMILY, PATIENT'S BP WOULD DROP AND THAT THEY ONLY GIVE THE METOPROLOL IF THE SBP IS ABOVE 120. MD NOTIFIED. WILL CONTINUE TO MONITOR PATIENT.
--- NOTE | 2021-09-30 09:30 | NUR ---
RN NOTE CRUSHED METOPROLOL ALREADY MIXED WITH KEPPRA WHEN PATIENT (ON FACETIME) MENTIONED THEY DON'T WANT THE METOPROLOL GIVEN. WASTED MEDICATIONS KEPPRA AND METOPROLOL
[2021-09-30] MEDS: JEVITY 1.2 CAL 1,000 ML BOTTLE GT SCH (09:55)
[2021-09-30] MEDS: PROSOURCE / PROSTAT (PYXIS) 30 ML UDC GT SCH (09:55)
[2021-09-30 12:00] VITALS: BP 97/69
[2021-09-30] MEDS: THERAHONEY GEL 1.5 OZ TUBE TP SCH (12:16)
[2021-09-30] MEDS: DAKINS QUARTER STRENGTH (0.125%) 480 ML BOTTLE TOP SCH (12:16)
[2021-09-30 16:00] VITALS: BP 95/64
--- NOTE | 2021-09-30 19:10 | NUR ---
RN CLOSING NOTES PATIENT ASLEEP IN BED, ON TRACH WITH OXYGEN AT 5LPM VIA NC WITH 100% O2 SAT LEVEL, NO SOB/ACUTE DISTRESS NOTED, NSR TO SINUS TACHY IN TELE MONITOR. WITH LEFT WRIST G22 PATENT AND INTACT. WITH G-TUBE JEVITY 1.2 AT 70ML/HR, TOLERATED WELL. ALL SAFETY MEASURES IN PLACE, BED IN LOW AND LOCK POSITION, REPOSITION PROVIDED, CALL LIGHT WITHIN REACH, SIDE RAILS UP X2, WILL ENDORSE TO NEXT SHIFT FOR CONTINUITY OF CARE.
[2021-09-30 20:00] VITALS: BP 100/64
[2021-10-01] VITALS: BP 90/55
[2021-10-01] MEDS: VANCOMYCIN 0.75 GM in IV D5W 250 ML IV SCH ×2 (02:43→09:06)
[2021-10-01 04:00] VITALS: BP 100/64
[2021-10-01] MEDS: JEVITY 1.2 CAL 1,000 ML BOTTLE GT SCH (04:39)
[2021-10-01] MEDS: BLOOD SUGAR DIAGNOSTIC 1 EACH STRIP IN SCH ×2 (05:30→12:12)
[2021-10-01] MEDS: SULFACETAMIDE 10% OPHTH 15 ML BOTTLE EACHEYE SCH ×2 (05:31→12:04)
--- NOTE | 2021-10-01 06:32 | NUR ---
ERROR on intake and output. urinary output was 850ml not 1700. cannot delete column.
--- NOTE | 2021-10-01 06:51 | NUR ---
Patient stable overnight. alert by opening eyes to sound and touch. Suctioned frequently for clear to whiteish secretions. Satting high 90s on 5L via T-piece to trach. Tolerating TF well, no residual -flushed with 300cc Q6H. ST 100-110 on tele monitor. L wrist #22G intact and patent. Accucheks WNL no insulin coverage needed. Turned q2h, kept clean and dry. No signs of distress.
[2021-10-01] MEDS: PANTOPRAZOLE 40 MG TABLET.DR PO SCH ×2 (07:30→08:32)
[2021-10-01 07:32] LABS: CALCIUM, SERUM 9.2 mg/dL (8.5-10.1); CREATININE 0.4 mg/dL (0.6-1.3)
--- NOTE | 2021-10-01 07:55 | NUR ---
RN OPENING NOTES Pt IS IN BED EYES ARE OPEN AND PT IS NON-VERBAL. NO SIGNS OF PAIN AND NO SIGNS OF DISTRESS AT THIS TIME. Pt IS ON TRACH AND TOLERATING WELL AT THIS TIME. SAFETY MEASURES ARE IN PLACE: BED IS LOCKED AND IN LOWEST POSITION. SIDE RAILS UPx2, CALL LIGHT AND BED SIDE TABLE ARE WITHIN REACH. WILL CONTINUE TO MONITOR THROUGHOUT THE SHIFT.
[2021-10-01] MEDS: MEROPENEM 1 G in IV NS 0.9% 100 ML IV SCH (08:32)
[2021-10-01] MEDS: DAKINS QUARTER STRENGTH (0.125%) 480 ML BOTTLE TOP SCH (08:33)
[2021-10-01] MEDS: ENOXAPARIN SODIUM 40 MG/0.4 ML DISP.SYRIN SQ SCH (08:33)
[2021-10-01] MEDS: PROSOURCE / PROSTAT (PYXIS) 30 ML UDC GT SCH (08:34)
[2021-10-01] MEDS: METOPROLOL TARTRATE 25 MG TABLET GT SCH ×2 (09:00→09:07)
[2021-10-01] MEDS: CHLORHEXIDINE GLUCONATE 4% 118 ML BOTTLE TP SCH (09:06)
[2021-10-01] MEDS: THERAHONEY GEL 1.5 OZ TUBE TP SCH (09:07)
[2021-10-01] MEDS: LEVETIRACETAM SOL (5 ML) 100 MG/ML UDC GT SCH (09:35)
[2021-10-01 10:51] VITALS: BP 85/63
[2021-10-01 12:55] VITALS: BP 93/67
--- NOTE | 2021-10-01 13:51 | NUR ---
RN NOTES Pt HAS BEEN DISCHARGED. HE IS NON-VERBAL WITH EYES OPEN. NANCY MAX AWARE OF Pt BLOOD PRESSURE. Pt IS MEDICALLY STABLE AT THIS TIME. NO SIGNS OF DISTRESS AND NO SIGNS OF PAIN. REPORT GIVEN TO FADI GREGORY AT [facility]. PtIS MEDICALLY STABLE. ALL DUE M,EDS GIVEN. IV ACCESS REMOVED. FAMILY MADE AWARE OF DISCHARGE.
== END 2021-10-01 13:52 | DRG 853 ==
LOC: ER 17:32 → TELE1 09-27 00:12 → TELE-TD 09-27 01:06 → TELE1 09-29 15:02
PROVIDERS: ATTEND Nurse Practitioner Acute Care
PROC: 0QB10ZZ Excision of Sacrum, Open Approach (ICD-10-PCS; principal; 2021-09-29)
DX: A41.9 Sepsis, unspecified organism (principal); L89.154 Pressure ulcer of sacral region, stage 4; G93.41 Metabolic encephalopathy; N17.0 Acute kidney failure with tubular necrosis; E43 Unspecified severe protein-calorie malnutrition; R53.2 Functional quadriplegia; N39.0 Urinary tract infection, site not specified; Z99.11 Dependence on respirator [ventilator] status; E87.0 Hyperosmolality and hypernatremia; J96.10 Chronic respiratory failure, unspecified whether with hypoxia or hypercapnia; R64 Cachexia; E86.0 Dehydration; G40.909 Epilepsy, unspecified, not intractable, without status epilepticus; Z93.0 Tracheostomy status; Z86.73 Personal history of transient ischemic attack (TIA), and cerebral infarction without residual deficits; D63.8 Anemia in other chronic diseases classified elsewhere; E86.1 Hypovolemia; E88.09 Other disorders of plasma-protein metabolism, not elsewhere classified; R13.10 Dysphagia, unspecified; Z93.1 Gastrostomy status; Z87.820 Personal history of traumatic brain injury; Z86.718 Personal history of other venous thrombosis and embolism; Z98.2 Presence of cerebrospinal fluid drainage device; I10 Essential (primary) hypertension; B95.62 Methicillin resistant Staphylococcus aureus infection as the cause of diseases classified elsewhere; Z20.822 Contact with and (suspected) exposure to COVID-19
CPT/HCPCS: 31720; 36415; 70450-TC; 71045-TC; 80048-TC; 80076-TC; 80202-TC; 81001; 82962-TC; 83605-TC; 83735-TC; 84100-TC; 84484-TC; 85025-TC; 85027-TC; 85730-TC; 87040-TC; 87081-TC; 87086-TC; 93970-TC; 94640-TC; 94799-TC; A4217; A4623; A6253; A6403; C9803; G0378; J1650; J1815; J1953; J1956; J2185; J3370; J3490; J7030; J7050; J7060; J7070; U0003

== ENCOUNTER 2021-12-20 19:13 | Inpatient (IN) | payer BC, OTHER ==
[~2021-12-20] VITALS: Ht 162.6 cm; Wt 57.8 kg
[~2021-12-20 19:13] MED LIST changes: +BISA10SU11 RC; +CHLO473M5 MM; -COLI150V12 IJ; -DOXY100C2 GT; +FERR300L GT; -LACT-209 GT; +LACT100027 GT; +MINE3.5O EACHEYE; +ONDA4TAB5 GT
--- NOTE | 2021-12-20 19:41 | NUR ---
MAXWELL Nunez FROM [facility] C/O WEAKNESS, BLOOD IN URINE, AND ELEVATED HR PER EMS. HR OF 130 NOTED UPON TRIAGE. PT AAOX0. PT HAS TRACHE , PORTEX SIZE 8 ON 5 L OF O2. CONNECTED TO MONITOR. AWAITING MD SMITH
--- NOTE | 2021-12-20 19:57 | NUR ---
SHINE WORKER AT PT'S BEDSIDE
[2021-12-20] MEDS ORDERED: IV NS 0.9% 1,000 ML IV ONE ×2 (20:00)
[2021-12-20] MEDS ORDERED: CEFTRIAXONE 1GM BAG (ER ONLY) 50 ML IV ONE ×2 (20:00→20:13)
--- NOTE | 2021-12-20 20:00 | NUR ---
20g IV LINE ESTABLOSHED AT [facility]. BLOOD DRAWN AND SENT TO LAB.
--- NOTE | 2021-12-20 20:15 | NUR ---
16FR URETHRAL INDWELLING URINAREY CATHETER INSERTED PER MD ORDER. GROSS HEMATURIA NOTED. SPECIMEN COLLECTED AND SENT TO LAB.
[2021-12-20 20:34] LABS: BASOPHILS % (AUTO) 0.2 % (0.0-2.0); EOSINOPHILS % (AUTO) 0.3 % (0.0-6.0); HEMATOCRIT 40 % (39-51); HEMOGLOBIN 13.5 g/dL (13.5-17.5); LYMPHOCYTES # (AUTO) 0.4 K/uL (0.8-4.8); MEAN CORPUSCULAR HGB CONC 34 g/dl (31.0-36.0); MEAN CORPUSCULAR VOLUME 84 fL (80-96); MONOCYTES # (AUTO) 1.1 K/uL (0.1-1.30); NEUTROPHILS # (AUTO) 11.9 K/uL (1.8-8.9); NEUTROPHILS % (AUTO) 88.5 % (43.0-81.0); PLATELET COUNT (AUTO) 196 K/uL (150-450); WHITE BLOOD COUNT (AUTO) 13.4 K/uL (4.3-11.0)
[2021-12-20 20:41] LABS: ALANINE AMINOTRANSFERASE 39 U/L (12-78); ALBUMIN 3.5 g/dL (3.4-5.0); ALKALINE PHOSPHATASE 164 U/L (46-116); ASPARTATE AMINOTRANSFERASE 16 U/L (15-37); BILIRUBIN,DIRECT 0.1 mg/dL (0.0-0.2); BILIRUBIN,TOTAL 0.4 mg/dL (0.2-1.0); CALCIUM, SERUM 9.4 mg/dL (8.5-10.1); CARBON DIOXIDE 31 mmol/L (21-32); CHLORIDE 102 mmol/L (98-107); CREATININE 0.5 mg/dL (0.6-1.3); GLUCOSE 101 mg/dL (74-106); SODIUM SERUM 140 mmol/L (136-145); TOTAL PROTEIN, SERUM 7.7 g/dL (6.4-8.2); UREA NITROGEN, BLOOD 15 mg/dL (7-18)
[2021-12-20 21:07] LABS: COLOR,URINE RED (YELLOW)
[2021-12-20 21:10] LABS: BACTERIA,URINE 1+ /HPF (None Seen); RBC,URINE TOO NUMEROUS TO COUN /HPF (0-2)
[2021-12-20 21:11] LABS: SQUAMOUS EPITHELIAL CELL,UR 0-2 /HPF (None Seen)
--- NOTE | 2021-12-20 21:46 | NUR ---
COVID SWAB COLLECTED AND SENT TO LAB
[2021-12-20 22:07] LABS: BILIRUBIN,URINE NEGATIVE (NEGATIVE); LEUKOCYTE ESTERASE ,URINE LARGE (NEGATIVE); NITRITE, URINE NEGATIVE (NEGATIVE); PROTEIN,URINE TRACE mg/dl (NEGATIVE); UGLUCOSE NEGATIVE (NEGATIVE); UROBILINOGEN,URINE 0.2 EU/dL (0.2)
[2021-12-20 22:11] LABS: COLOR,URINE ORANGE (YELLOW)
[2021-12-20 22:15] LABS: BACTERIA,URINE 2+ /HPF (None Seen); RBC,URINE TOO NUMEROUS TO COUN /HPF (0-2); SQUAMOUS EPITHELIAL CELL,UR 0-2 /HPF (None Seen); WBC,URINE 21-50 /HPF (0-3)
--- NOTE | 2021-12-20 22:15 | NUR ---
MRSA SWAB COLLECTED AND SENT TO LAB. PATIENT'S BELONGINGS LIST DONE.
[2021-12-20] MEDS ORDERED: HYDROCODONE/APAP 5/325MG TABLET GT PRN (23:00)
[2021-12-20] MEDS ORDERED: BISACODYL SUPP (10 MG) 10 MG/SUPP.RECT SUPP.RECT RC PRN (23:00)
[2021-12-20] MEDS ORDERED: MAG HYDROX/AL HYDROX/SIMETH 30 ML UDC PO PRN (23:00)
[2021-12-20] MEDS ORDERED: MAGNESIUM HYDROXIDE 30 ML UDC GT PRN (23:00)
[2021-12-20] MEDS ORDERED: NA PHOS,M-B/NA PHOS,DI-BA 1 EA ENEMA RC PRN (23:00)
[2021-12-20] MEDS ORDERED: ZOLPIDEM TARTRATE 5 MG TABLET PO PRN (23:00)
[2021-12-20] MEDS ORDERED: COLLAGENASE 30 GM TUBE TP SCH (23:00)
[2021-12-20] MEDS ORDERED: JEVITY 1.2 CAL 1,000 ML BOTTLE GT PRN (23:00)
[2021-12-20] MEDS ORDERED: MAGNESIUM HYDROXIDE 30 ML UDC PO PRN (23:00)
[2021-12-20] MEDS ORDERED: ACETAMINOPHEN ES 500 MG TABLET GT PRN (23:00)
[2021-12-20] MEDS ORDERED: Z GUARD REMEDY 4 OZ OINT TP PRN (23:00)
[2021-12-20] MEDS ORDERED: ACETAMINOPHEN 325 MG TABLET PO PRN ×2 (23:00)
[2021-12-20] MEDS ORDERED: ONDANSETRON HCL/PF 4 MG/2 ML VIAL IVP PRN (23:00)
--- NOTE | 2021-12-21 00:01 | NUR ---
ROOM 320-2
--- NOTE | 2021-12-21 00:24 | NUR ---
REPORT GIVEN TO VALENTÍN
--- NOTE | 2021-12-21 00:29 | NUR ---
PATIENT BEING TRANSFERRED 320 VIA ACLS
[2021-12-21] MEDS ORDERED: IPRATROPIUM NEB FS 0.5 MG/2.5 ML AMPUL.NEB NEB PRN (00:30)
[2021-12-21 00:35] VITALS: BP 110/61
[2021-12-21] MEDS ORDERED: MAG HYDROX/AL HYDROX/SIMETH 30 ML UDC GT PRN (00:47)
[2021-12-21] MEDS ORDERED: VANCOMYCIN 1.5 GM in IV D5W 500ml IV ONE ×2 (01:00→07:30)
[2021-12-21] MEDS: IV NS 0.9% 1,000 ML IV PRN (01:59)
--- NOTE | 2021-12-21 04:15 | NUR ---
RN NOTES: MEDICATIONS NOT AVAILABLE
[2021-12-21 05:00] VITALS: BP 110/63
[2021-12-21] MEDS ORDERED: MEROPENEM 1 G in IV NS 0.9% 100 ML IV SCH (05:00)
[2021-12-21] MEDS ORDERED: MEROPENEM 1 G in IV NS 0.9% 100 ML IV ONE (05:00)
--- NOTE | 2021-12-21 05:56 | NUR ---
rn notes: santyl cream not available
[2021-12-21 06:58] LABS: BASOPHILS % (AUTO) 0.4 % (0.0-2.0); EOSINOPHILS % (AUTO) 0.9 % (0.0-6.0); HEMATOCRIT 36 % (39-51); HEMOGLOBIN 12.1 g/dL (13.5-17.5); LYMPHOCYTES # (AUTO) 0.7 K/uL (0.8-4.8); LYMPHOCYTES % (AUTO) 6.5 % (20.0-44.0); MEAN CORPUSCULAR HGB CONC 34 g/dl (31.0-36.0); MEAN CORPUSCULAR VOLUME 85 fL (80-96); MONOCYTES # (AUTO) 1.1 K/uL (0.1-1.30); MONOCYTES % (AUTO) 9.8 % (2.0-12.0); NEUTROPHILS # (AUTO) 8.9 K/uL (1.8-8.9); NEUTROPHILS % (AUTO) 82.4 % (43.0-81.0); PLATELET COUNT (AUTO) 174 K/uL (150-450); RED BLOOD CELL COUNT(AUTO) 4.26 MIL/uL (4.5-6.0); WHITE BLOOD COUNT (AUTO) 10.8 K/uL (4.3-11.0)
[2021-12-21] MEDS ORDERED: PREVACID (NF) 30 MG TAB GT SCH (07:00)
--- NOTE | 2021-12-21 07:30 | NUR ---
PT RECEIVED. RESTING COMFORTABLY IN BED. NO S/S OR C/O PAIN OR DISTRESS NOTED. SIDE RAILS UP X2, CALL LIGHT LEFT WITHIN REACH. WILL CONTINUE PLAN OF CARE.
[2021-12-21] MEDS: IPRATROPIUM NEB FS 0.5 MG/2.5 ML AMPUL.NEB NEB SCH ×3 (07:37→20:16)
[2021-12-21 07:38] LABS: CALCIUM, SERUM 9.1 mg/dL (8.5-10.1); CREATININE 0.5 mg/dL (0.6-1.3); MAGNESIUM 1.9 mg/dL (1.8-2.4); PHOSPHORUS 3.2 mg/dL (2.5-4.9); POTASSIUM 3.8 mmol/L (3.5-5.1)
--- NOTE | 2021-12-21 08:02 | NUR ---
RN CLOSING NOTES: PATIENT SLEEP IN BED COMFORTABLY BED IN LOW POSITION, CALL LIGHTS WITHIN REACH, NO COMPLAIN OF PAIN AND DISCOMFORT AT THIS TIME, ON TPIECE SATURATING WELL, PATIENT IS NPO, ON G TUBE FEEDING , PATIENT KEPT CLEAN AND DRY ALL NEEDS MET ENDORSE TO INCOMING SHIFT.
[2021-12-21 08:34] VITALS: BP 104/63
[2021-12-21] MEDS ORDERED: Medication Not On Formulary EA (Cran/Vitc/Mannose/Inulin/Brom (Uti-Stat Liquid) 3,875 MG GT SCH (09:00)
[2021-12-21] MEDS ORDERED: METOPROLOL TARTRATE 25 MG TABLET GT SCH (09:00)
[2021-12-21] MEDS: PANTOPRAZOLE 40 MG/PACK PACK GT SCH (09:40)
[2021-12-21] MEDS: MULTIVIT W/MINERALS 1 TAB TABLET GT SCH (09:41)
[2021-12-21] MEDS: ASCORBIC ACID 500 MG TABLET GT SCH (09:41)
[2021-12-21] MEDS: LEVETIRACETAM (250 MG) 250 MG TABLET PO SCH ×2 (09:42→22:08)
[2021-12-21] MEDS: FERROUS SULFATE UDC 300 MG/5 ML UDC GT SCH ×2 (09:42→16:29)
[2021-12-21] MEDS: ENOXAPARIN SODIUM 40 MG/0.4 ML DISP.SYRIN SQ SCH (09:47)
[2021-12-21] MEDS: CHLORHEXIDINE GLUCONATE 15 ML UDC MM SCH ×2 (10:19→16:29)
[2021-12-21] MEDS: PROSTAT (PYXIS) 30 ML UDC GT SCH ×3 (10:20→16:29)
[2021-12-21] MEDS: THERAHONEY GEL 1.5 OZ TUBE TP SCH (10:53)
[2021-12-21] MEDS: SULFACETAMIDE 10% OPHTH 15 ML BOTTLE EACHEYE SCH ×5 (10:53→23:19)
--- NOTE | 2021-12-21 11:14 | NUR ---
WOUND CARE CONSULT: PT PRESENTS WITH RED SPOTS ON ARMS AND SACRAL STAGE 4 PRESSURE ULCER PRESENT ON ADMISSION. SURGICAL CONSULT CALLED TO DR COX. RECOMMENDATIONS MADE FOR SKIN PROTECTION. DISCUSSED WITH NURSING STAFF. IN AGREEMENT WITH PLAN OF CARE. FIRST STEP LOW AIRLOSS MATTRESS IS ON ORDER. Addendum: 12/21/21 at 1115 by FELECIA ADDISON WNDNU Amended: Links added.
[2021-12-21 12:00] VITALS: BP 109/65
[2021-12-21] MEDS: MEROPENEM 1 G in IV NS 0.9% 100 ML IV SCH ×2 (13:08→21:13)
[2021-12-21] MEDS ORDERED: VANCOMYCIN 0.75 GM in IV D5W 250 ML IV SCH (14:00)
[2021-12-21 15:58] VITALS: BP 96/58
--- NOTE | 2021-12-21 17:05 | NUR ---
RT NOTE PT PLACED ON COOL AEROSOL 5L 28%. AIRWAY IS PATENT AND SECURE WITH NO SIGNS OF RESPIRATORY DISTRESS AT THIS TIME.
--- NOTE | 2021-12-21 18:49 | NUR ---
RN Closing Note Patient is obtunded. On t-piece 5L 28% per RT. Trach and oral suction done as needed. On tube feedings via g-tube. G-tube intact and patent. No residuals noted. Seen by WOCN. New dressings placed and ordered. Patient will have sacral debridement tomorrow. Consent signed by mother at bedside. Repositioned Q2. Bed bath done. Sheets changed. All needs attended to and met. Kept comfortable. Call light within reach.
[2021-12-21 20:00] VITALS: BP 93/61
[2021-12-21] MEDS ORDERED: METOPROLOL TARTRATE 25 MG TABLET GT PRN (20:00)
[2021-12-21] MEDS: SENNOSIDES 8.6 MG TABLET GT SCH (22:08)
[2021-12-21] MEDS ORDERED: VANCOMYCIN 0.75 GM in IV D5W 250 ML IV ONE (22:30)
[2021-12-21] MEDS: CHLORHEXIDINE GLUCONATE 4% 118 ML BOTTLE TP SCH (23:18)
[2021-12-22] VITALS: BP_SYST 103; BP_SYST 96; BP_DIAS 59; BP_DIAS 60
[2021-12-22] MEDS: IPRATROPIUM NEB FS 0.5 MG/2.5 ML AMPUL.NEB NEB SCH ×4 (01:46→19:58)
[2021-12-22 04:00] VITALS: BP 107/64
[2021-12-22] MEDS: VANCOMYCIN 0.75 GM in IV D5W 250 ML IV SCH ×3 (05:03→21:14)
[2021-12-22] MEDS: MEROPENEM 1 G in IV NS 0.9% 100 ML IV SCH ×3 (06:01→22:14)
[2021-12-22] MEDS: SULFACETAMIDE 10% OPHTH 15 ML BOTTLE EACHEYE SCH ×3 (06:01→17:00)
[2021-12-22 06:20] LABS: BASOPHILS % (AUTO) 0.4 % (0.0-2.0); EOSINOPHILS % (AUTO) 2.6 % (0.0-6.0); HEMATOCRIT 35 % (39-51); HEMOGLOBIN 11.9 g/dL (13.5-17.5); LYMPHOCYTES # (AUTO) 1.2 K/uL (0.8-4.8); LYMPHOCYTES % (AUTO) 19.4 % (20.0-44.0); MEAN CORPUSCULAR HGB CONC 34 g/dl (31.0-36.0); MEAN CORPUSCULAR VOLUME 84 fL (80-96); MONOCYTES # (AUTO) 0.5 K/uL (0.1-1.30); MONOCYTES % (AUTO) 8.8 % (2.0-12.0); NEUTROPHILS # (AUTO) 4.2 K/uL (1.8-8.9); NEUTROPHILS % (AUTO) 68.8 % (43.0-81.0); PLATELET COUNT (AUTO) 166 K/uL (150-450); RED BLOOD CELL COUNT(AUTO) 4.16 MIL/uL (4.5-6.0); WHITE BLOOD COUNT (AUTO) 6.1 K/uL (4.3-11.0)
[2021-12-22 06:27] LABS: CALCIUM, SERUM 8.9 mg/dL (8.5-10.1); CREATININE 0.5 mg/dL (0.6-1.3); MAGNESIUM 1.8 mg/dL (1.8-2.4); PHOSPHORUS 2.7 mg/dL (2.5-4.9); POTASSIUM 3.8 mmol/L (3.5-5.1)
[2021-12-22] MEDS: IV NS 0.9% 1,000 ML IV PRN (06:39)
--- NOTE | 2021-12-22 06:57 | NUR ---
INFERTILITY MEDICAL ASSISTANT CLOSING NOTES PATIENT SLEEPING IN BED, OBTUNDED, OPENS EYES. PATIENT STABLE ON 5 LPM OF OXYGEN COOL AEROSOL VIA T-PIECE, NO S/S OF DISTRESS OR SOB NOTED, BREATHING EVEN AND UNLABORED, PT SUCTIONED THROUGHOUT SHIFT. PT ON EXTERNAL BOOSTER OPERATOR READING SINUS RHYTHM, HR: 72. IV ACCESS ON RIGHT FOREARM INTACT AND INFUSING MERREM @ 33.33 ML/HR. RED CATH IN PLACE AND DRAINING YELLOW URINE. SACRAL DRESSING CLEAN, DRY AND INTACT, NO BM THIS SHIFT. GT FEEDING INFUSING JEVITY 1.2 @ 60 ML/HR. MEDICATIONS GIVEN ORDERED, PT NEEDS MET THROUGHOUT SHIFT, PATIENT TURNED Q2H THROUGHOUT SHIFT AND HYGIENE/CATHETER CARE PERFORMED. SAFETY MEASURES IN PLACE: CALL LIGHT WITHIN REACH, SIDE RAILS UP X 3, BED LOCKED IN LOWEST POSITION, HOB ELEVATED, BED ALARM ON. WILL ENDORSE TO DAY SHIFT NURSE FOR CONTINUITY OF CARE
--- NOTE | 2021-12-22 07:30 | NUR ---
CYBER SYSTEMS ENGINEER OPENING NOTES RECEIVED PATIENT SLEEPING IN BED, OPENS EYES WITH TOUCH. PATIENT STABLE ON 5 LPM OF OXYGEN COOL AEROSOL VIA T-PIECE, NO S/S OF DISTRESS OR SOB NOTED, BREATHING EVEN AND UNLABORED, PT ON EXTERNAL OPHTHALMIC TECH READING SINUS RHYTHM, HR: 72. IV ACCESS ON RIGHT FOREARM INTACT AND INFUSING MERREM @ 33.33 ML/HR. RED CATH IN PLACE AND DRAINING YELLOW URINE. SACRAL DRESSING CLEAN, DRY AND INTACT, NO BM THIS SHIFT. GT FEEDING INFUSING JEVITY 1.2 @ 60 ML/HR. SAFETY MEASURES IN PLACE: CALL LIGHT WITHIN REACH, SIDE RAILS UP X 3, BED LOCKED IN LOWEST POSITION, HOB ELEVATED, BED ALARM ON. WILL CONTINUE TO MONITOR FOR CONTINUITY OF CARE
[2021-12-22 08:00] VITALS: BP 91/50
[2021-12-22] MEDS: PANTOPRAZOLE 40 MG/PACK PACK GT SCH (09:38)
[2021-12-22] MEDS: CHLORHEXIDINE GLUCONATE 15 ML UDC MM SCH ×2 (09:38→16:59)
[2021-12-22] MEDS: FERROUS SULFATE UDC 300 MG/5 ML UDC GT SCH ×2 (09:38→16:59)
[2021-12-22] MEDS: LEVETIRACETAM (250 MG) 250 MG TABLET PO SCH ×2 (09:40→21:15)
[2021-12-22] MEDS: MULTIVIT W/MINERALS 1 TAB TABLET GT SCH (09:40)
[2021-12-22] MEDS: ENOXAPARIN SODIUM 40 MG/0.4 ML DISP.SYRIN SQ SCH (09:40)
[2021-12-22] MEDS: PROSTAT (PYXIS) 30 ML UDC GT SCH ×3 (09:41→16:59)
[2021-12-22] MEDS: ASCORBIC ACID 500 MG TABLET GT SCH (09:41)
[2021-12-22] MEDS: JEVITY 1.2 CAL 1,000 ML BOTTLE GT PRN (11:15)
[2021-12-22] MEDS: THERAHONEY GEL 1.5 OZ TUBE TP SCH (14:28)
[2021-12-22 16:00] VITALS: BP 101/60
--- NOTE | 2021-12-22 19:00 | NUR ---
VOLUNTEER FIRE FIGHTER CLOSING NOTES PATIENT SLEEPING IN BED, OPENS EYES WITH TOUCH. PATIENT STABLE ON 8 LPM OF OXYGEN COOL AEROSOL VIA T-PIECE, NO S/S OF DISTRESS OR SOB NOTED, BREATHING EVEN AND UNLABORED, PT ON EXTERNAL BOTTLE WASHER READING SINUS RHYTHM, HR: 82. IV ACCESS ON RIGHT FOREARM INTACT. RED CATH IN PLACE AND DRAINING YELLOW URINE. SACRAL DRESSING CLEAN, DRY AND INTACT, NO BM THIS SHIFT. GT FEEDING INFUSING JEVITY 1.2 @ 60 ML/HR. SAFETY MEASURES IN PLACE: CALL LIGHT WITHIN REACH, SIDE RAILS UP X 3, BED LOCKED IN LOWEST POSITION, HOB ELEVATED, BED ALARM ON. WILL ENDORSE TO ONCOMING SHIFT FOR CONTINUITY OF CARE
--- NOTE | 2021-12-22 20:03 | NUR ---
MS RN CLOSING NOTE PATIENT IN BED WITH EYES OPEN, PT OBTUNDED, FAMILY AT BEDSIDE. PATIENT STABLE ON 8 LPM OF OXYGEN COOL AEROSOL VIA T-PIECE, NO S/S OF DISTRESS OR SOB NOTED, BREATHING EVEN AND UNLABORED. IV ACCESS ON RIGHT FOREARM INTACT AND INFUSING NS @ 75 ML/HR. RED CATH IN PLACE AND DRAINING YELLOW URINE. GT FEEDING INFUSING JEVITY 1.2 @ 60 ML/HR. SAFETY MEASURES IN PLACE: CALL LIGHT WITHIN REACH, SIDE RAILS UP X 3, BED LOCKED IN LOWEST POSITION, HOB ELEVATED, BED ALARM ON. WILL CONTINUE TO MONITOR PATIENT Addendum: 12/23/21 at 0739 by SALVADOR WANG RN *OPENING NOTE
[2021-12-22 21:06] VITALS: BP 99/59
[2021-12-22] MEDS: SENNOSIDES 8.6 MG TABLET GT SCH (21:15)
[2021-12-22] MEDS: CHLORHEXIDINE GLUCONATE 4% 118 ML BOTTLE TP SCH (23:45)
[2021-12-23] MEDS: SULFACETAMIDE 10% OPHTH 15 ML BOTTLE EACHEYE SCH ×4 (00:26→17:12)
[2021-12-23] MEDS: IPRATROPIUM NEB FS 0.5 MG/2.5 ML AMPUL.NEB NEB SCH ×4 (01:20→20:51)
[2021-12-23] MEDS: VANCOMYCIN 0.75 GM in IV D5W 250 ML IV SCH (05:25)
[2021-12-23] MEDS: MEROPENEM 1 G in IV NS 0.9% 100 ML IV SCH ×3 (06:26→22:25)
[2021-12-23 06:32] LABS: BASOPHILS % (AUTO) 0.4 % (0.0-2.0); HEMATOCRIT 37 % (39-51); HEMOGLOBIN 12.4 g/dL (13.5-17.5); LYMPHOCYTES # (AUTO) 1.4 K/uL (0.8-4.8); LYMPHOCYTES % (AUTO) 23.6 % (20.0-44.0); MEAN CORPUSCULAR HGB CONC 33 g/dl (31.0-36.0); MEAN CORPUSCULAR VOLUME 84 fL (80-96); MONOCYTES # (AUTO) 0.6 K/uL (0.1-1.30); MONOCYTES % (AUTO) 9.9 % (2.0-12.0); NEUTROPHILS # (AUTO) 3.8 K/uL (1.8-8.9); NEUTROPHILS % (AUTO) 64.1 % (43.0-81.0); PLATELET COUNT (AUTO) 183 K/uL (150-450); RED BLOOD CELL COUNT(AUTO) 4.44 MIL/uL (4.5-6.0); WHITE BLOOD COUNT (AUTO) 5.8 K/uL (4.3-11.0)
[2021-12-23 07:40] LABS: CALCIUM, SERUM 9.1 mg/dL (8.5-10.1); CREATININE 0.4 mg/dL (0.6-1.3); PHOSPHORUS 3.4 mg/dL (2.5-4.9); POTASSIUM 3.6 mmol/L (3.5-5.1)
--- NOTE | 2021-12-23 07:40 | NUR ---
MS RN CLOSING NOTE PATIENT SLEEPING IN BED, PT OBTUNDED, BUT OPENS EYES. PATIENT STABLE ON 8 LPM OF OXYGEN COOL AEROSOL VIA T-PIECE, NO S/S OF DISTRESS OR SOB NOTED, BREATHING EVEN AND UNLABORED. IV ACCESS ON RIGHT FOREARM INTACT AND INFUSING MERREM @ 33.33 ML/HR. RED CATH IN PLACE AND DRAINING YELLOW URINE. GT FEEDING INFUSING JEVITY 1.2 @ 60 ML/HR. MEDICATIONS GIVEN ORDERED, PT NEEDS MET THROUGHOUT SHIFT. HYGIENE CARE AND TURNING PERFORMED THROUGHOUT SHIFT. SAFETY MEASURES IN PLACE: CALL LIGHT WITHIN REACH, SIDE RAILS UP X 3, BED LOCKED IN LOWEST POSITION, HOB ELEVATED, BED ALARM ON. ENDORSED TO DAY SHIFT NURSE FOR CONTINUITY OF CARE
[2021-12-23] MEDS: ASCORBIC ACID 500 MG TABLET GT SCH (08:55)
[2021-12-23] MEDS: LEVETIRACETAM (250 MG) 250 MG TABLET PO SCH ×2 (08:55→21:41)
[2021-12-23] MEDS: MULTIVIT W/MINERALS 1 TAB TABLET GT SCH (08:55)
[2021-12-23] MEDS: FERROUS SULFATE UDC 300 MG/5 ML UDC GT SCH ×2 (08:55→17:15)
[2021-12-23] MEDS: CHLORHEXIDINE GLUCONATE 15 ML UDC MM SCH ×2 (08:55→17:15)
[2021-12-23] MEDS: PROSTAT (PYXIS) 30 ML UDC GT SCH ×3 (08:55→17:15)
[2021-12-23] MEDS: ENOXAPARIN SODIUM 40 MG/0.4 ML DISP.SYRIN SQ SCH (08:56)
[2021-12-23] MEDS: PANTOPRAZOLE 40 MG/PACK PACK GT SCH (08:56)
[2021-12-23] MEDS: THERAHONEY GEL 1.5 OZ TUBE TP SCH (08:57)
[2021-12-23] MEDS: VANCOMYCIN 1 GM in IV D5W 250ml IV SCH ×2 (13:03→21:24)
[2021-12-23] MEDS: JEVITY 1.2 CAL 1,000 ML BOTTLE GT PRN (13:13)
--- NOTE | 2021-12-23 19:30 | NUR ---
MS RN OPENING NOTES RECEIVED PATIENT LYING IN BED AWAKE. PARENTS ON BEDSIDE. NON-VERBAL. NO APPARENT DISTRESS NOTED. HAS T-PIECE CONNECTED TO COOL AEROSOL AT 5 LPM. BREATHING EVEN AND UNLABORED. HAS RIGHT FOREARM IV ACCESS #20G WITH NS RUNNING AT 75 ML/HR. HAS F/C DRAINING TO BAG. SAFETY PRECAUTIONS IN PLACE. WILL CONTINUE PLAN OF CARE.
[2021-12-23 20:00] VITALS: BP 103/69
[2021-12-23] MEDS: IV NS 0.9% 1,000 ML IV PRN (21:24)
[2021-12-23] MEDS: SENNOSIDES 8.6 MG TABLET GT SCH (21:41)
--- NOTE | 2021-12-23 23:30 | NUR ---
MS RN NOTES PATIENT MOVED FROM 328-1 TO 329-1. NOTIFIED MOTHER THRU FACETIME THAT IS SET-UP ON PATIENT'S BED.
[2021-12-24] MEDS: SULFACETAMIDE 10% OPHTH 15 ML BOTTLE EACHEYE SCH ×5 (00:23→23:33)
[2021-12-24] MEDS: IPRATROPIUM NEB FS 0.5 MG/2.5 ML AMPUL.NEB NEB SCH ×4 (01:30→20:11)
[2021-12-24] MEDS: VANCOMYCIN 1 GM in IV D5W 250ml IV SCH ×3 (04:16→20:28)
[2021-12-24] MEDS: MEROPENEM 1 G in IV NS 0.9% 100 ML IV SCH ×3 (05:14→21:42)
[2021-12-24] MEDS: THERAHONEY GEL 1.5 OZ TUBE TP SCH (06:15)
--- NOTE | 2021-12-24 06:58 | NUR ---
MS RN CLOSING NOTES PATIENT LYING IN BED AWAKE. NON-VERBAL. NO SOB OR NOTED. HAS T-PIECE CONNECTED TO COOL AEROSOL AT 8 LPM. HAS RIGHT FOREARM IV ACCESS #20G WITH NS RUNNING AT 75 ML/HR. INTACT, PATENT AND FLUSHING. HAS F/C DRAINING CLEAR AND YELLOW URINE TO BAG WITH OUTPUT OF 1800 ML. ALL NEEDS ATTENDED. KEPT DRY AND COMFORTABLE. SAFETY PRECAUTIONS IN PLACE: BED LOW AND LOCKED, SIDE RAILS UP X2, CALL LIGHT WITHIN REACH.
[2021-12-24 07:23] LABS: BASOPHILS % (AUTO) 0.3 % (0.0-2.0); CALCIUM, SERUM 9.3 mg/dL (8.5-10.1); CREATININE 0.5 mg/dL (0.6-1.3); EOSINOPHILS % (AUTO) 1.6 % (0.0-6.0); HEMATOCRIT 38 % (39-51); HEMOGLOBIN 12.6 g/dL (13.5-17.5); LYMPHOCYTES # (AUTO) 1.5 K/uL (0.8-4.8); LYMPHOCYTES % (AUTO) 19.8 % (20.0-44.0); MAGNESIUM 2.1 mg/dL (1.8-2.4); MEAN CORPUSCULAR HGB CONC 34 g/dl (31.0-36.0); MEAN CORPUSCULAR VOLUME 84 fL (80-96); MONOCYTES # (AUTO) 0.7 K/uL (0.1-1.30); MONOCYTES % (AUTO) 9.5 % (2.0-12.0); NEUTROPHILS # (AUTO) 5.2 K/uL (1.8-8.9); NEUTROPHILS % (AUTO) 68.8 % (43.0-81.0); PHOSPHORUS 3.3 mg/dL (2.5-4.9); PLATELET COUNT (AUTO) 235 K/uL (150-450); POTASSIUM 3.9 mmol/L (3.5-5.1); RED BLOOD CELL COUNT(AUTO) 4.48 MIL/uL (4.5-6.0); WHITE BLOOD COUNT (AUTO) 7.6 K/uL (4.3-11.0)
--- NOTE | 2021-12-24 07:23 | NUR ---
MS RN OPENING NOTES RECEIVED PATIENT AWAKE IN BED IN NO ACUTE SIGNS OF DISTRESS. PT IS NON-VERBAL AND OPEN EYES TO TACTILE STIMULI. ON 8 LPM OF OXYGEN COOL AEROSOL T-PIECE, TOLERATING WELL WITH NO SOB NOTED. IV ACCESS ON RFA G#20 INTACT AND INFUSING MERREM @ 33.33 ML/HR AT THIS TIME, NO S/S OF INFILTRATION AT SITE NOTED. RED CATH IN PLACE AND DRAINING YELLOW URINE VIA GRAVITY. G-TUBE IN PLACE WITH FEEDING OF JEVITY 1.2 @ 60 ML/HR IN PROGRESS. ASPIRATION AND SAFETY PRECAUTIONS MAINTAINED: CALL LIGHT WITHIN REACH, SIDE RAILS UP X 3, BED LOCKED IN LOWEST POSITION, HOB ELEVATED, BED ALARM ON. WILL CONTINUE TO MONITOR PT ACCORDINGLY.
[2021-12-24 08:00] VITALS: BP 112/62
[2021-12-24] MEDS: FERROUS SULFATE UDC 300 MG/5 ML UDC GT SCH ×2 (08:37→16:47)
[2021-12-24] MEDS: PANTOPRAZOLE 40 MG/PACK PACK GT SCH (08:37)
[2021-12-24] MEDS: ASCORBIC ACID 500 MG TABLET GT SCH (08:38)
[2021-12-24] MEDS: CHLORHEXIDINE GLUCONATE 15 ML UDC MM SCH ×2 (08:38→16:47)
[2021-12-24] MEDS: LEVETIRACETAM (250 MG) 250 MG TABLET PO SCH ×2 (08:38→21:42)
[2021-12-24] MEDS: MULTIVIT W/MINERALS 1 TAB TABLET GT SCH (08:38)
[2021-12-24] MEDS: ENOXAPARIN SODIUM 40 MG/0.4 ML DISP.SYRIN SQ SCH (09:00)
--- NOTE | 2021-12-24 09:24 | NUR ---
RN NOTES: FAMILY REFUSED TO ADMINISTER LOVENOX
[2021-12-24] MEDS: PROSTAT (PYXIS) 30 ML UDC GT SCH ×3 (09:25→16:54)
--- NOTE | 2021-12-24 12:19 | NUR ---
RN NOTES: FAMILY REQUESTED TO GIVE DULCOLAX SUPP. PER FAMILY (MOTHER) PT LAST BOWEL MOVEMENT WAS LAST Tuesday12/19/2021.
--- NOTE | 2021-12-24 14:36 | NUR ---
RN NOTES PT HAD LARGE BOWEL MOVEMENT X1.
[2021-12-24] MEDS: JEVITY 1.2 CAL 1,000 ML BOTTLE GT PRN (15:03)
[2021-12-24 16:00] VITALS: BP 116/61
[2021-12-24] MEDS: IV NS 0.9% 1,000 ML IV PRN (17:10)
--- NOTE | 2021-12-24 18:36 | NUR ---
MS RN CLOSING NOTES PATIENT IN BED AWAKE AND LYING AT MODERATE HIGH BACKREST POSITION. MOTHER AT BEDSIDE. NON-VERBAL AND OPEN EYES TO TACTILE STIMULI. ON 8 LPM OF OXYGEN COOL AEROSOL T-PIECE, TOLERATING WELL WITH NO SOB NOTED. IV ACCESS ON RFA G#20 INTACT WITH IVF OF NS @ 75 ML/HR INFUSING WELL, NO S/S OF INFILTRATION AT SITE NOTED. RED CATH IN PLACE AND DRAINING CLEAR YELLOW URINE VIA GRAVITY, RED CARE DONE. G-TUBE IN PLACE WITH FEEDING OF JEVITY 1.2 @ 60 ML/HR IN PROGRESS. PT TURNED AND REPOSITIONED Q 2HRS AND PRN. ALL NEEDS ANTICIPATED AND MET. ASPIRATION AND SAFETY PRECAUTIONS MAINTAINED: CALL LIGHT WITHIN REACH, SIDE RAILS UP X 3, BED LOCKED IN LOWEST POSITION, HOB ELEVATED AT ALL TIMES, BED ALARM ON. WILL ENDORSE LIBIA TO NURSE ANESTHETIST NURSE.
--- NOTE | 2021-12-24 19:30 | NUR ---
RN OPENING NOTE PATIENT IN BED, EYES OPEN, AWAKE. PATIENT IS NONVERBAL, TRACH PATIENT. ON T PIECE WITH COOL AEROSOL AT 8 LPM. NO SOB, NOT IN ANY RESPIRATORY DISTRESS. PATIENT HAS FAMILY ON FACETIME. PATIENT HAS A RED CATHETER ON PLACE DRAINING VIA GRAVITY YELLOW URINE- NO HEMATURIA NOTED. PATIENT HAS A GT WITH TF ON JEVITY 1.2 60 ML/HR. PATIENT HAS A RFA 20 G WITH NS AT 75 ML/HR ONGOING. SAFETY MEASURES IN PLACE: BED LOCKED AND IN LOWEST POSITION, CALL LIGHT WITHIN REACH, SIDE RAILS UP. HOB ELEVATED. WILL MONITOR PATIENT CLOSELY.
[2021-12-24 20:00] VITALS: BP 113/60
[2021-12-24] MEDS: SENNOSIDES 8.6 MG TABLET GT SCH (21:42)
[2021-12-24] MEDS: CHLORHEXIDINE GLUCONATE 4% 118 ML BOTTLE TP SCH (23:35)
[2021-12-25] MEDS: IPRATROPIUM NEB FS 0.5 MG/2.5 ML AMPUL.NEB NEB SCH ×4 (01:40→20:17)
[2021-12-25] MEDS: VANCOMYCIN 1 GM in IV D5W 250ml IV SCH ×3 (04:37→20:34)
[2021-12-25] MEDS: MEROPENEM 1 G in IV NS 0.9% 100 ML IV SCH ×3 (05:45→22:52)
[2021-12-25] MEDS: THERAHONEY GEL 1.5 OZ TUBE TP SCH (06:11)
[2021-12-25] MEDS: SULFACETAMIDE 10% OPHTH 15 ML BOTTLE EACHEYE SCH ×3 (06:11→17:22)
--- NOTE | 2021-12-25 06:40 | NUR ---
RN CLOSING NOTE PATIENT IN BED, EYES OPEN, AWAKE. PATIENT IS NONVERBAL, TRACH PATIENT. ON T PIECE WITH COOL AEROSOL AT 8 LPM. NO SOB, NOT IN ANY RESPIRATORY DISTRESS. PATIENT SUCTIONED NEEDED. PATIENT HAS FAMILY ON FACETIME. PATIENT HAS A RED CATHETER ON PLACE DRAINING VIA GRAVITY YELLOW URINE- NO HEMATURIA DURING THE SHIFT. PATIENT HAS A GT WITH TF ON JEVITY 1.2 60 ML/HR. PATIENT HAS A RFA 20 G WITH NS AT 75 ML/HR ONGOING. DRESSING CHANGED ON SACRAL WOUND. WOUND TX ORDERED. SAFETY MEASURES IN PLACE: BED LOCKED AND IN LOWEST POSITION, CALL LIGHT WITHIN REACH, SIDE RAILS UP. HOB ELEVATED. ALL NEEDS MET AND ATTENDED. ALL ORDERS CARRIED OUT. WILL ENDORSE TO DAY SHIFT NURSE FOR LIBIA.
--- NOTE | 2021-12-25 07:30 | NUR ---
MS RN OPENING NOTE RECEIVED PATIENT IN BED, EYES OPEN, AWAKE. PATIENT IS NONVERBAL, TRACH PATIENT. ON T PIECE WITH COOL AEROSOL AT 8 LPM. NO SOB, NOT IN ANY RESPIRATORY DISTRESS. PATIENT SUCTIONED NEEDED. PATIENT HAS FAMILY ON FACETIME. PATIENT HAS A RED CATHETER ON PLACE DRAINING VIA GRAVITY YELLOW URINE- NO HEMATURIA DURING THE SHIFT. PATIENT HAS A GT WITH TF ON JEVITY 1.2 60 ML/HR. PATIENT HAS A RFA 22 G WITH NS AT 75 ML/HR ONGOING. DRESSING CHANGED ON SACRAL WOUND. WOUND TX ORDERED. SAFETY MEASURES IN PLACE: BED LOCKED AND IN LOWEST POSITION, CALL LIGHT WITHIN REACH, SIDE RAILS UP. HOB ELEVATED. ALL NEEDS MET AND ATTENDED. ALL ORDERS CARRIED OUT. WILL CONTINUE TO MONITOR FOR LIBIA.
[2021-12-25 07:38] LABS: BASOPHILS % (AUTO) 0.3 % (0.0-2.0); EOSINOPHILS % (AUTO) 2.1 % (0.0-6.0); HEMATOCRIT 36 % (39-51); HEMOGLOBIN 11.9 g/dL (13.5-17.5); LYMPHOCYTES # (AUTO) 1.7 K/uL (0.8-4.8); LYMPHOCYTES % (AUTO) 26.2 % (20.0-44.0); MEAN CORPUSCULAR HGB CONC 33 g/dl (31.0-36.0); MEAN CORPUSCULAR VOLUME 84 fL (80-96); MONOCYTES # (AUTO) 0.6 K/uL (0.1-1.30); MONOCYTES % (AUTO) 9.5 % (2.0-12.0); NEUTROPHILS # (AUTO) 3.9 K/uL (1.8-8.9); NEUTROPHILS % (AUTO) 61.9 % (43.0-81.0); PLATELET COUNT (AUTO) 227 K/uL (150-450); RED BLOOD CELL COUNT(AUTO) 4.28 MIL/uL (4.5-6.0); WHITE BLOOD COUNT (AUTO) 6.3 K/uL (4.3-11.0)
[2021-12-25 08:00] VITALS: BP 95/44
[2021-12-25] MEDS: ENOXAPARIN SODIUM 40 MG/0.4 ML DISP.SYRIN SQ SCH (08:02)
[2021-12-25] MEDS: LEVETIRACETAM (250 MG) 250 MG TABLET PO SCH ×2 (08:08→21:00)
[2021-12-25] MEDS: CHLORHEXIDINE GLUCONATE 15 ML UDC MM SCH ×2 (08:08→16:32)
[2021-12-25] MEDS: ASCORBIC ACID 500 MG TABLET GT SCH (08:08)
[2021-12-25] MEDS: FERROUS SULFATE UDC 300 MG/5 ML UDC GT SCH ×2 (08:09→16:32)
[2021-12-25] MEDS: PANTOPRAZOLE 40 MG/PACK PACK GT SCH (08:09)
[2021-12-25] MEDS: MULTIVIT W/MINERALS 1 TAB TABLET GT SCH (08:09)
[2021-12-25] MEDS: PROSTAT (PYXIS) 30 ML UDC GT SCH ×3 (08:16→16:33)
[2021-12-25 08:25] LABS: CALCIUM, SERUM 8.6 mg/dL (8.5-10.1); CREATININE 0.4 mg/dL (0.6-1.3); MAGNESIUM 1.9 mg/dL (1.8-2.4); PHOSPHORUS 3.1 mg/dL (2.5-4.9); POTASSIUM 3.9 mmol/L (3.5-5.1)
[2021-12-25 16:00] VITALS: BP 95/57
[2021-12-25] MEDS: JEVITY 1.2 CAL 1,000 ML BOTTLE GT PRN (16:32)
[2021-12-25] MEDS: IV NS 0.9% 1,000 ML IV PRN (16:32)
--- NOTE | 2021-12-25 17:00 | NUR ---
RN MS NOTES PT'S IV AT RIGHT A/C GOT INFILTRATED, DR. GUDINO ORDERED MIDLINE BUT PT'S MOM REFUSED IT, DISCUSSED RISKS AND BENEFITS, MOM STILL REFUSED, NEW IV LINE G22 INSERTED AT RIGHT UPPER ARM, TOLERATED PROCEDURE WELL.
--- NOTE | 2021-12-25 19:02 | NUR ---
MS RN CLOSING NOTE PATIENT IN BED, EYES OPEN, AWAKE. PATIENT IS NONVERBAL, TRACH PATIENT. ON T PIECE WITH COOL AEROSOL AT 8 LPM. NO SOB, NOT IN ANY RESPIRATORY DISTRESS. PATIENT SUCTIONED NEEDED. PATIENT HAS FAMILY ON FACETIME. PATIENT HAS A RED CATHETER ON PLACE DRAINING VIA GRAVITY YELLOW URINE- NO HEMATURIA DURING THE SHIFT. PATIENT HAS A GT WITH TF ON JEVITY 1.2 60 ML/HR. PATIENT HAS A RFA 22 G WITH NS AT 75 ML/HR ONGOING. DRESSING CHANGED ON SACRAL WOUND. WOUND TX ORDERED. SAFETY MEASURES IN PLACE: BED LOCKED AND IN LOWEST POSITION, CALL LIGHT WITHIN REACH, SIDE RAILS UP. HOB ELEVATED. ALL NEEDS MET AND ATTENDED. ALL ORDERS CARRIED OUT. WILL ENDORSE TO ONCOMING SHIFT FOR LIBIA.
[2021-12-25] MEDS: SENNOSIDES 8.6 MG TABLET GT SCH (22:00)
[2021-12-26] VITALS: BP 103/71
[2021-12-26] MEDS: SULFACETAMIDE 10% OPHTH 15 ML BOTTLE EACHEYE SCH ×4 (00:26→17:19)
[2021-12-26] MEDS: IPRATROPIUM NEB FS 0.5 MG/2.5 ML AMPUL.NEB NEB SCH ×4 (01:31→21:07)
[2021-12-26 04:00] VITALS: BP 104/62
[2021-12-26] MEDS: VANCOMYCIN 1 GM in IV D5W 250ml IV SCH (04:56)
[2021-12-26] MEDS: MEROPENEM 1 G in IV NS 0.9% 100 ML IV SCH ×3 (06:03→21:32)
[2021-12-26 07:26] LABS: CALCIUM, SERUM 8.8 mg/dL (8.5-10.1); CREATININE 0.4 mg/dL (0.6-1.3); POTASSIUM 3.8 mmol/L (3.5-5.1)
--- NOTE | 2021-12-26 07:39 | NUR ---
MS RN CLOSING REPORT GIVEN TO ELLIOT FOR CONTINUITY OF CARE.
[2021-12-26] MEDS: THERAHONEY GEL 1.5 OZ TUBE TP SCH (07:50)
[2021-12-26 08:00] VITALS: BP 90/62
[2021-12-26] MEDS: PANTOPRAZOLE 40 MG/PACK PACK GT SCH (09:09)
[2021-12-26] MEDS: CHLORHEXIDINE GLUCONATE 15 ML UDC MM SCH ×2 (09:09→16:19)
[2021-12-26] MEDS: FERROUS SULFATE UDC 300 MG/5 ML UDC GT SCH ×2 (09:09→16:19)
[2021-12-26] MEDS: MULTIVIT W/MINERALS 1 TAB TABLET GT SCH (09:10)
[2021-12-26] MEDS: LEVETIRACETAM (250 MG) 250 MG TABLET PO SCH (09:10)
[2021-12-26] MEDS: ASCORBIC ACID 500 MG TABLET GT SCH (09:10)
[2021-12-26] MEDS: ENOXAPARIN SODIUM 40 MG/0.4 ML DISP.SYRIN SQ SCH (09:11)
[2021-12-26] MEDS: PROSTAT (PYXIS) 30 ML UDC GT SCH (09:16)
--- NOTE | 2021-12-26 12:35 | NUR ---
RN NOTES FAMILY/CAREGIVER AT BEDSIDE TO SEE PATIENT.
[2021-12-26] MEDS: PROSOURCE / PROSTAT (PYXIS) 30 ML UDC GT SCH ×2 (12:42→16:24)
--- NOTE | 2021-12-26 12:54 | NUR ---
RN NOTES PATIENT REPOSITIONED IN BED W/ DOCUMENTATION MANAGER STAFF ASSIGNED. TRACH CARE PROVIDED.
[2021-12-26] MEDS: JEVITY 1.2 CAL 1,000 ML BOTTLE GT PRN (15:46)
[2021-12-26 16:00] VITALS: BP 101/59
--- NOTE | 2021-12-26 18:43 | NUR ---
RN NOTES REPOSITIONED IN BED AND WOUND CARE DONE ON SACRAL AREA. FAMILY AT FACETIME AWARE. GT FLUSHED AND DUE MEDS GIVEN. RED CATH IN PLACE AND DRAINING YELLOW-COLORED URINE. GT FEEDING CONTINUOUS. SAFETY MEASURES MAINTAINED.
--- NOTE | 2021-12-26 19:39 | NUR ---
RT PT RECVD AWAKE AND NON VERBAL ON 35% COOL AEROSOL VIA T-BAR. SPARE TRACH AND AMBU AT BEDSIDE. NEB TX GIVEN AND LANDRY WELL. SUCTION DONE PRN. NO SOB OR RESPIRATORY DISTRESS NOTED AT THIS TIME. PARENTS AT PT BEDSIDE.
--- NOTE | 2021-12-26 20:00 | NUR ---
RECEIVED PATIENT IN BED, AWAKE, NON VERBAL, T-PIECE, COOL AEROSOL AT 8LPM, NO RESPIRATORY DISTRESS, NOT IN APPARENT PAIN, JEVITY AT 60 ML/HR, TOLERATING WELL, NO ABDOMINAL DISTENTION, NO RESIDUAL. KEPT HOB ELEVATED, ASPIRATION PRECAUTION, WILL CONTINUE TO MONITOR.
[2021-12-26] MEDS: LEVETIRACETAM SOL (5 ML) 100 MG/ML UDC GT SCH (21:32)
[2021-12-26] MEDS: SENNOSIDES 8.6 MG TABLET GT SCH (21:33)
[2021-12-27] MEDS: SULFACETAMIDE 10% OPHTH 15 ML BOTTLE EACHEYE SCH ×5 (00:39→17:04)
[2021-12-27] MEDS: IV NS 0.9% 1,000 ML IV PRN (00:42)
[2021-12-27] MEDS: IPRATROPIUM NEB FS 0.5 MG/2.5 ML AMPUL.NEB NEB SCH ×4 (01:34→19:30)
[2021-12-27 04:00] VITALS: BP 103/67
[2021-12-27 04:35] LABS: CALCIUM, SERUM 9.5 mg/dL (8.5-10.1); CREATININE 0.5 mg/dL (0.6-1.3)
[2021-12-27] MEDS: MEROPENEM 1 G in IV NS 0.9% 100 ML IV SCH ×2 (05:13→13:08)
[2021-12-27] MEDS: THERAHONEY GEL 1.5 OZ TUBE TP SCH (06:24)
--- NOTE | 2021-12-27 06:52 | NUR ---
COOL AEROSOL, 8LPM VIA T-PIECE, SPO2 100%, NO RESPIRATORY DISTRESS, NOT IN APPARENT PAIN, JEVITY 1.2 AT 60 ML/HR, TOLERATING WELL, NO VOMITING, NO ABDOMINAL DISTENTION, RED CATHETER, CLEAR AND YELLOW URINE, TURNING AND REPOSITIONING, PER DR. FERRIS, NO EVIDENCE OF PNEUMONIA, CONTINUE WOUND CARE DAILY OR PRN, IVF, MERREM. ASPIRATION PRECAUTION, PRESSURE ULCER PRECAUTION.
--- NOTE | 2021-12-27 07:59 | NUR ---
MS RN OPENING NOTE Patient in bed. Obtunded but opens eyes. On O2 at 8 LPM via T-piece, no SOB or s/s of distress noted. IV access on Left wrist #22 infusing NS at 75 ml/hr. G-tube in place running Jevity at 60 ml/hr. Faust catheter in place draining to a yellow colored urine. Safety precautions in place: bed in low, locked position; siderails up x 2; call light within reach. Will continue to monitor.
[2021-12-27] MEDS: LEVETIRACETAM SOL (5 ML) 100 MG/ML UDC GT SCH (09:22)
[2021-12-27] MEDS: PANTOPRAZOLE 40 MG/PACK PACK GT SCH (09:22)
[2021-12-27] MEDS: PROSOURCE / PROSTAT (PYXIS) 30 ML UDC GT SCH ×3 (09:22→16:55)
[2021-12-27] MEDS: FERROUS SULFATE UDC 300 MG/5 ML UDC GT SCH ×2 (09:22→16:55)
[2021-12-27] MEDS: MULTIVIT W/MINERALS 1 TAB TABLET GT SCH (09:22)
[2021-12-27] MEDS: CHLORHEXIDINE GLUCONATE 15 ML UDC MM SCH ×2 (09:22→16:55)
[2021-12-27] MEDS: ASCORBIC ACID 500 MG TABLET GT SCH (09:22)
[2021-12-27] MEDS: ENOXAPARIN SODIUM 40 MG/0.4 ML DISP.SYRIN SQ SCH (09:24)
[2021-12-27] MEDS: JEVITY 1.2 CAL 1,000 ML BOTTLE GT PRN (18:28)
--- NOTE | 2021-12-27 19:39 | NUR ---
MS RN CLOSING NOTE Patient in bed. Obtunded but opens eyes. On O2 at 8 LPM via T-piece, no SOB or s/s of distress noted. IV access on Left wrist #22 infusing NS at 75 ml/hr. G-tube in place running Jevity at 60 ml/hr. Faust catheter in place draining to a yellow colored urine with an output of 1300 cc. Due meds given. All needs attended to. Patient turned and repositioned as tolerated. wound care done as ordered. Safety precautions maintained: bed in low, locked position; siderails up x 2; call light within reach. Will endorse to lining cutter nurse for LIBIA.
--- NOTE | 2021-12-27 21:01 | NUR ---
MS INFORMATION ASSURANCE ANALYST NOTE PATIENT PICKED UP BY AMBULANCE WITH RT IN STABLE CONDITION ACCOMPANIED BY FAMILY, PT OBTUNDED, NON-VERBAL. PATIENT ON 5L VIA T-PIECE COOL AEROSOL, PORTEX #8. RED CATHETER IN PLACE DRAINING YELLOW URINE, BAG EMPTIED WITH 200 ML OF URINE. G-TUBE IN PLACE AND DISCONNECTED FROM FEEDING. LEFT WRIST IV ACCESS REMOVED. PATIENT TO BE TAKEN BACK TO [facility] ROOM 21A. DISCHARGE PACKET GIVEN TO EMT'S.
== END 2021-12-27 21:20 | DRG 853 ==
LOC: ER 19:15 → TELE 12-21 00:01 → MED 12-22 14:03
PROVIDERS: ADMIT Nurse Practitioner Acute Care; ATTEND Internal Medicine
PROC: 0KBP0ZZ Excision of Left Hip Muscle, Open Approach (ICD-10-PCS; principal; 2021-12-22)
PROC: 0KBN0ZZ Excision of Right Hip Muscle, Open Approach (ICD-10-PCS; 2021-12-22)
DX: A41.9 Sepsis, unspecified organism (principal); L89.154 Pressure ulcer of sacral region, stage 4; R53.2 Functional quadriplegia; G93.41 Metabolic encephalopathy; J96.10 Chronic respiratory failure, unspecified whether with hypoxia or hypercapnia; N39.0 Urinary tract infection, site not specified; E44.0 Moderate protein-calorie malnutrition; G91.9 Hydrocephalus, unspecified; D68.59 Other primary thrombophilia; E87.0 Hyperosmolality and hypernatremia; R13.10 Dysphagia, unspecified; G40.909 Epilepsy, unspecified, not intractable, without status epilepticus; Z20.822 Contact with and (suspected) exposure to COVID-19; Z86.79 Personal history of other diseases of the circulatory system; Z93.0 Tracheostomy status; Z93.1 Gastrostomy status; Z98.2 Presence of cerebrospinal fluid drainage device; Z87.440 Personal history of urinary (tract) infections; Z87.820 Personal history of traumatic brain injury; Z88.1 Allergy status to other antibiotic agents; Z79.51 Long term (current) use of inhaled steroids; Z79.899 Other long term (current) drug therapy; B96.89 Other specified bacterial agents as the cause of diseases classified elsewhere; D63.8 Anemia in other chronic diseases classified elsewhere; E88.09 Other disorders of plasma-protein metabolism, not elsewhere classified; Z74.09 Other reduced mobility; I10 Essential (primary) hypertension; Z86.718 Personal history of other venous thrombosis and embolism; R31.0 Gross hematuria; M62.462 Contracture of muscle, left lower leg; M62.461 Contracture of muscle, right lower leg; M62.422 Contracture of muscle, left upper arm; M62.421 Contracture of muscle, right upper arm
CPT/HCPCS: 31720; 36415; 71045-TC; 80048-TC; 80076-TC; 80202-TC; 81001; 83605-TC; 83735-TC; 84100-TC; 84484-TC; 85025-TC; 85730-TC; 87040-TC; 87081-TC; 87086-TC; 87186-TC; 93970-TC; 94640-TC; 94799-TC; A4217; A4623; A6403; A7526; C9803; G0378; J0696; J1650; J1953; J2185; J3370; J7030; J7060; J7120

== ENCOUNTER 2022-02-18 19:09 | Inpatient (IN) | payer BC, OTHER ==
[~2022-02-18] VITALS: Ht 170.2 cm; Wt 56.7 kg
--- NOTE | 2022-02-18 19:17 | NUR ---
LAURA FROM [facility] C/O TACHY AND FEVER. PLACED COMFORTABLY IN BED. VITALS CHECKED. PATIENT HAS TRACHE ON TPIECE AT 7LPM, WITH RASHES ON ANTERIOR CHEST, WITH STAGE 4 PRESSURE ULCER AT SACRAL AREA, WITH GTUBE FOR FEEDING, WITH IFC ATTACHED TO UROBAG. 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 (-)SOB, SATURATING 100%,HR 134bpm, BP 120/78mmHg, T 102.9.
--- NOTE | 2022-02-18 19:20 | NUR ---
EMT AT BEDSIDE FOR EKG
[2022-02-18] MEDS ORDERED: IV NS 0.9% 1,000 ML BAG IV ONE (19:30)
[2022-02-18] MEDS ORDERED: ACETAMINOPHEN 650 MG/SUPP.RECT RC ONE ×2 (19:34→20:00)
--- NOTE | 2022-02-18 19:44 | NUR ---
COVID SWAB COLLECTED SENT TO LAB
--- NOTE | 2022-02-18 19:49 | NUR ---
RECTAL SUPPOSITORY FOR FEVER GIVEN
--- NOTE | 2022-02-18 19:50 | NUR ---
XRAY DONE AT BEDSIDE.
[2022-02-18 20:10] LABS: BASOPHILS % (AUTO) 0.2 % (0.0-2.0); EOSINOPHILS % (AUTO) 0.1 % (0.0-6.0); HEMATOCRIT 44 % (39-51); HEMOGLOBIN 14.5 g/dL (13.5-17.5); LYMPHOCYTES # (AUTO) 0.7 K/uL (0.8-4.8); LYMPHOCYTES % (AUTO) 5.8 % (20.0-44.0); MEAN CORPUSCULAR HGB CONC 33 g/dl (31.0-36.0); MEAN CORPUSCULAR VOLUME 82 fL (80-96); MONOCYTES % (AUTO) 8.7 % (2.0-12.0); NEUTROPHILS # (AUTO) 10.2 K/uL (1.8-8.9); NEUTROPHILS % (AUTO) 85.2 % (43.0-81.0); PLATELET COUNT (AUTO) 303 K/uL (150-450); RED BLOOD CELL COUNT(AUTO) 5.36 MIL/uL (4.5-6.0)
[2022-02-18 20:13] LABS: CALCIUM, SERUM 9.6 mg/dL (8.5-10.1); CARBON DIOXIDE 32 mmol/L (21-32); CHLORIDE 102 mmol/L (98-107); CREATININE 0.7 mg/dL (0.6-1.3); GLUCOSE 120 mg/dL (74-106); POTASSIUM 4.1 mmol/L (3.5-5.1); SODIUM SERUM 140 mmol/L (136-145); UREA NITROGEN, BLOOD 22 mg/dL (7-18)
[2022-02-18 20:19] LABS: ALANINE AMINOTRANSFERASE 49 U/L (12-78); ALBUMIN 3.6 g/dL (3.4-5.0); ALKALINE PHOSPHATASE 167 U/L (46-116); ASPARTATE AMINOTRANSFERASE 24 U/L (15-37); BILIRUBIN,DIRECT 0.1 mg/dL (0.0-0.2); BILIRUBIN,TOTAL 0.4 mg/dL (0.2-1.0); TOTAL PROTEIN, SERUM 8.6 g/dL (6.4-8.2)
--- NOTE | 2022-02-18 20:21 | NUR ---
LACTIC ACID 2.6
[2022-02-18] MEDS ORDERED: CLINDAMYCIN IV RTU IN D5W 600 MG/50 ML PIGGYBACK IV ONE (21:00)
[2022-02-18] MEDS ORDERED: VANCOMYCIN 1 GM in IV D5W 250 ML IV ONE (21:00)
[2022-02-18 21:17] LABS: BILIRUBIN,URINE NEGATIVE (NEGATIVE); COLOR,URINE YELLOW (YELLOW); LEUKOCYTE ESTERASE ,URINE MODERATE (NEGATIVE); NITRITE, URINE NEGATIVE (NEGATIVE); PH,URINE 8.5 (5.0-8.0); PROTEIN,URINE 30 mg/dl (NEGATIVE); UGLUCOSE NEGATIVE (NEGATIVE); UROBILINOGEN,URINE 0.2 EU/dL (0.2)
[2022-02-18] MEDS ORDERED: VANCOMYCIN 1 GM VIAL ONE (21:43)
[2022-02-18] MEDS ORDERED: CLINDAMYCIN IV RTU IN D5W 50 ML ONE (21:59)
[2022-02-18] MEDS: CHLORHEXIDINE GLUCONATE 4% 118 ML BOTTLE TP SCH (22:00)
[2022-02-18] MEDS ORDERED: BISACODYL SUPP (10 MG) 10 MG/SUPP.RECT SUPP.RECT RC PRN (22:00)
[2022-02-18] MEDS ORDERED: MAG HYDROX/AL HYDROX/SIMETH 30 ML UDC PO PRN (22:00)
[2022-02-18] MEDS ORDERED: MAGNESIUM HYDROXIDE 30 ML UDC PO PRN (22:00)
[2022-02-18] MEDS ORDERED: TEMAZEPAM 15 MG CAPSULE GT PRN (22:00)
[2022-02-18] MEDS ORDERED: Z GUARD REMEDY 4 OZ OINT TP PRN (22:00)
[2022-02-18] MEDS ORDERED: NA PHOS,M-B/NA PHOS,DI-BA 1 EA ENEMA RC PRN (22:00)
[2022-02-18] MEDS ORDERED: ONDANSETRON HCL/PF 4 MG/2 ML VIAL IVP PRN (22:00)
[2022-02-18 22:03] LABS: BACTERIA,URINE 2+ /HPF (None Seen); RBC,URINE 51-80 /HPF (0-2); TRIPLE PHOSPHATE CRYSTAL,UR Few /HPF (None Seen); URINE AMORPHOUS PHOSPHATES Many /HPF (None Seen); WBC,URINE 21-50 /HPF (0-3)
--- NOTE | 2022-02-18 22:08 | NUR ---
CALLED [facility]. ACCEPTING RN WILL CALL ME BACK.
--- NOTE | 2022-02-18 22:24 | NUR ---
REPORT IS GIVEN TO BRI ANGEL.
[2022-02-18 22:40] VITALS: BP 107/69
--- NOTE | 2022-02-18 22:40 | NUR ---
TRANSFERRED PATIENT TO RM 106.
--- NOTE | 2022-02-18 22:45 | NUR ---
RN NOTES ADMITTED MALE PATIENT FROM ER VIA GURNEY WITH TRACHEOSTOMY TUBE PORTEX # 8 INTACT CONNECTED TO T-PIECE AT 3 LPM TOLERATING WELL SATING 97%. WITH L FOREARM IC ACCESS #20 PATENT. WITH RED CATHETER CONNECTED TO URINE BAG DRAINING YELLOWISH URINE PATENT. VITAL SIGNA TAKEN AND RECORDED AFEBRILE. SAFELY TRANSFER TO BED. COMPLETE BODY ASSESSMENT DONE. PICTURE TAKEN AND FILED. ALL BELONGINGS CHECKED AND ACCOUNTED. ALL SAFETY MEASURES IN PLACE AT ALL TIMES. BED ON LOWEST POSITION AND LOCKED. HOB ELEVATED. CALL LIGHT WITHIN REACH. WILL CLOSELY MONITOR THE PATIENT. A
[2022-02-18] MEDS: SENNOSIDES 8.6 MG TABLET GT SCH (23:31)
[2022-02-18] MEDS: ENOXAPARIN SODIUM 40 MG/0.4 ML DISP.SYRIN SQ SCH (23:32)
[2022-02-18] MEDS: IV NS 0.9% 1,000 ML IV PRN (23:38)
[2022-02-19] MEDS ORDERED: MEROPENEM 500 MG in IV NS 0.9% 50 ML IV SCH ×2 (05:00→13:00)
[2022-02-19] MEDS ORDERED: MEROPENEM 500 MG VIAL IV ONE (05:01)
[2022-02-19 06:00] VITALS: BP 100/67
[2022-02-19] MEDS: SULFACETAMIDE 10% OPHTH 15 ML BOTTLE EACHEYE SCH ×4 (06:03→17:12)
--- NOTE | 2022-02-19 06:49 | NUR ---
RN NOTES PATIENT REMAINS STABLE THIS SHIFT. ALL DUE MEDS GIVEN ORDERED. STILL ON T-PIECE AT 3LPM TOLERATING WELL. GT PATENT. RED CATHETER CONNECTED TO URINE BAG DRAINING WELL. ALL SAFETY MEASURES IN PLACE AT ALL TIMES. BED ON LOWEST POSITION AND LOCKED. HOB ELEVATED. CALL LIGHT WITHIN REACH. WILL ENDORSED TO MORNING SHIFT FOR LIBIA
[2022-02-19 06:51] LABS: BASOPHILS % (AUTO) 0.2 % (0.0-2.0); EOSINOPHILS % (AUTO) 0.3 % (0.0-6.0); HEMATOCRIT 38 % (39-51); HEMOGLOBIN 12.5 g/dL (13.5-17.5); LYMPHOCYTES # (AUTO) 1.5 K/uL (0.8-4.8); LYMPHOCYTES % (AUTO) 14.4 % (20.0-44.0); MEAN CORPUSCULAR HGB CONC 33 g/dl (31.0-36.0); MEAN CORPUSCULAR VOLUME 83 fL (80-96); MONOCYTES # (AUTO) 1.4 K/uL (0.1-1.30); MONOCYTES % (AUTO) 13.2 % (2.0-12.0); NEUTROPHILS # (AUTO) 7.6 K/uL (1.8-8.9); NEUTROPHILS % (AUTO) 71.9 % (43.0-81.0); PLATELET COUNT (AUTO) 244 K/uL (150-450); RED BLOOD CELL COUNT(AUTO) 4.57 MIL/uL (4.5-6.0); WHITE BLOOD COUNT (AUTO) 10.6 K/uL (4.3-11.0)
[2022-02-19 07:21] LABS: CREATININE 0.5 mg/dL (0.6-1.3); PHOSPHORUS 3.1 mg/dL (2.5-4.9); POTASSIUM 3.9 mmol/L (3.5-5.1)
[2022-02-19] MEDS: VANCOMYCIN HCL 0.75 GM in IV D5W 250 ML IV SCH ×2 (07:37→15:10)
--- NOTE | 2022-02-19 07:41 | NUR ---
CARBON COATING MACHINE OPERATOR OPENING NOTES RECEIVED PATIENT IN BED, EYES OPEN. PATIENT ON T-PIECE AT 3LPM TOLERATING WELL. TELE MONITOR WITH A READING OF SINUS TACHY 128 BPM. PATIENT WITH G-TUBE; NO FEEDING AT THIS TIME, PATENT. RED CATHETER CONNECTED TO URINE BAG DRAINING WELL DARK YELLOW URINE. IV ACCESS AT LAC G #20. SAFETY MEASURES IN PLACE: BED IN LOWEST POSITION AND LOCKED, RAILS UP X2, CALL LIGHT WITHIN REACH. WILL CONTINUE TO MONITOR PATIENT.
[2022-02-19 08:00] VITALS: BP 99/68
[2022-02-19] MEDS: PANTOPRAZOLE 40 MG VIAL IV SCH (08:15)
[2022-02-19] MEDS: FERROUS SULFATE UDC 300 MG/5 ML UDC GT SCH ×2 (08:15→17:11)
[2022-02-19] MEDS: LEVETIRACETAM SOL (5 ML) 100 MG/ML UDC GT SCH ×2 (08:15→20:40)
[2022-02-19] MEDS: ZINC SULFATE 220 MG CAPSULE GT SCH (08:15)
[2022-02-19] MEDS: ASCORBIC ACID 500 MG TABLET GT SCH (08:15)
[2022-02-19] MEDS: CHLORHEXIDINE GLUCONATE 15 ML UDC MM SCH ×2 (08:15→20:40)
[2022-02-19] MEDS: METOPROLOL TARTRATE 25 MG TABLET GT SCH ×2 (08:16→20:41)
[2022-02-19] MEDS: PROSOURCE / PROSTAT (PYXIS) 30 ML UDC GT SCH ×3 (08:16→17:11)
[2022-02-19] MEDS ORDERED: MULTIVITAMIN LIQ 5 ML UDC GT SCH (09:00)
--- NOTE | 2022-02-19 10:18 | NUR ---
WOUND CARE CONSULT: REVIEWED CHART, NURSING DOCUMENTATION AND PHOTOS WHICH INDICATE SACRAL STAGE 4 ULCER AND GENERALIZED SKIN CONDITION, PRESENT ON ADMISSION. DR COX AWARE OF PT ADMISSION/SURGICAL CONSULT. FIRST STEP LOW AIRLOSS MATTRESS IS ON ORDER. MD IN AGREEMENT WITH PLAN OF CARE.
[2022-02-19] MEDS: MEROPENEM 1 G in IV NS 0.9% 100 ML IV SCH ×2 (12:12→20:54)
[2022-02-19] MEDS: ALBUTEROL FS 2.5 MG/3 ML VIAL.NEB NEB PRN (12:27)
[2022-02-19] MEDS: ACETYLCYSTEINE 10% SOLN 400 MG/4 ML VIAL NEB SCH ×2 (12:27→12:36)
--- NOTE | 2022-02-19 12:36 | NUR ---
RT NOTE Patient not given mucomyst due to pending PCR covid test. Pt. stable will continue to monitor for any changes.
[2022-02-19 16:09] VITALS: BP 98/66
[2022-02-19] MEDS: IV NS 0.9% 1,000 ML IV PRN (18:45)
--- NOTE | 2022-02-19 18:47 | NUR ---
RELAYS DRAFTSPERSON CLOSING NOTES PATIENT REMAINS IN BED, EYES OPEN. PATIENT ON T-PIECE AT 3LPM TOLERATING WELL. TELE MONITOR WITH A READING OF SINUS TACHY 120 BPM. PATIENT WITH G-TUBE; AWAITING FORMULA DELIVERY. RED CATHETER CONNECTED TO URINE BAG DRAINING WELL DARK YELLOW URINE WITH A DAILY OUTPUT OF 800 ML. IV ACCESS AT LAC G #20 RUNNING NS @ 75 MLS/HR. ALL NEEDS ATTENDED DURING THE DAY. SAFETY MEASURES IN PLACE: BED IN LOWEST POSITION AND LOCKED, RAILS UP X2, CALL LIGHT WITHIN REACH. WILL ENDORSE TO BILL PEDDLER NURSE FOR LIBIA.
--- NOTE | 2022-02-19 19:10 | NUR ---
RN NOTES RECEIVED REPORT FROM MORNING RN. PATIENT IN BED OPENS EYES. WITH TRACH PORTEX #8 PATENT CONNECTED TO T-PIECE @ 3LPM NO SOB NO DESATURATION NOTED AT THIS TIME. WITH GT PATENT FOR MEDICATION ADMINISTRATION AND FEEDING. WITH RED CATHETER CONNECTED TO URINE BAG DRAINING YELLOWISH URINE OUTPUT. ALL SAFETY MEASURES IN PLACE AT ALL TIMES. HOB ELEVATED. CALL LIGHT WITHIN REACH. BED ON LOWEST POSITION AND LOCKED. WILL CLOSELY MONITOR THE PATIENT CLOSELY.
[2022-02-19] MEDS: JEVITY 1.2 CAL 1,000 ML BOTTLE GT PRN (19:56)
[2022-02-19 20:00] VITALS: BP 107/67
[2022-02-19] MEDS: ACETAMINOPHEN 650 MG/20.3 ML UDC GT PRN (20:41)
[2022-02-19] MEDS: ENOXAPARIN SODIUM 40 MG/0.4 ML DISP.SYRIN SQ SCH (20:42)
[2022-02-19] MEDS: SENNOSIDES 8.6 MG TABLET GT SCH (21:15)
[2022-02-19] MEDS: THERAHONEY GEL 1.5 OZ TUBE TP SCH ×2 (21:30→21:43)
[2022-02-20] VITALS: BP 97/58
[2022-02-20] MEDS: ACETYLCYSTEINE 10% SOLN 400 MG/4 ML VIAL NEB SCH ×3 (00:10→15:06)
[2022-02-20] MEDS: SULFACETAMIDE 10% OPHTH 15 ML BOTTLE EACHEYE SCH ×5 (00:46→23:50)
[2022-02-20] MEDS: VANCOMYCIN HCL 0.75 GM in IV D5W 250 ML IV SCH ×2 (00:46→08:27)
[2022-02-20 04:00] VITALS: BP 115/65
[2022-02-20] MEDS: MEROPENEM 1 G in IV NS 0.9% 100 ML IV SCH ×3 (04:28→21:09)
[2022-02-20 06:50] LABS: BASOPHILS % (AUTO) 0.2 % (0.0-2.0); EOSINOPHILS % (AUTO) 0.7 % (0.0-6.0); HEMATOCRIT 35 % (39-51); HEMOGLOBIN 11.7 g/dL (13.5-17.5); LYMPHOCYTES # (AUTO) 1.3 K/uL (0.8-4.8); LYMPHOCYTES % (AUTO) 13.7 % (20.0-44.0); MEAN CORPUSCULAR HGB CONC 33 g/dl (31.0-36.0); MEAN CORPUSCULAR VOLUME 82 fL (80-96); MONOCYTES # (AUTO) 1.2 K/uL (0.1-1.30); MONOCYTES % (AUTO) 12.6 % (2.0-12.0); NEUTROPHILS # (AUTO) 6.9 K/uL (1.8-8.9); NEUTROPHILS % (AUTO) 72.8 % (43.0-81.0); PLATELET COUNT (AUTO) 221 K/uL (150-450); RED BLOOD CELL COUNT(AUTO) 4.28 MIL/uL (4.5-6.0); WHITE BLOOD COUNT (AUTO) 9.5 K/uL (4.3-11.0)
[2022-02-20 07:25] LABS: CALCIUM, SERUM 8.8 mg/dL (8.5-10.1); CREATININE 0.5 mg/dL (0.6-1.3); POTASSIUM 3.7 mmol/L (3.5-5.1)
--- NOTE | 2022-02-20 07:30 | NUR ---
RN NOTES PT FOUND SEMI FOWLERS DISPLAYING NO S/S OF DISTRESS, FLACC = 0 AND BILATERAL RISE AND FALL OF THE CHEST OBSERVED VIA T-PIECE. RED CATH RESERVOIR IS BELOW PATIENT DRAINING BY GRAVITY. L WRIST 22G IS PATIENT AND INTACT. RN WILL CONTINUE CARE PLAN AND ANTICIPATE NEEDS. SAFETY MEASURES IN PLACE, BED LOCKED AND IN LOWEST POSITION, SIDE RAILS UPX2, CALL LIGHT WITHIN REACH, BED ALARM ARMED.
[2022-02-20] MEDS: ALBUTEROL FS 2.5 MG/3 ML VIAL.NEB NEB PRN (07:57)
[2022-02-20 08:00] VITALS: BP 114/70
[2022-02-20] MEDS: PANTOPRAZOLE 40 MG VIAL IV SCH (08:27)
[2022-02-20] MEDS: CHLORHEXIDINE GLUCONATE 15 ML UDC MM SCH ×2 (08:27→21:04)
[2022-02-20] MEDS: FERROUS SULFATE UDC 300 MG/5 ML UDC GT SCH ×2 (08:27→16:17)
[2022-02-20] MEDS: MULTIVITAMINS,THERAGRAN 1 UDTAB TABLET GT SCH (08:27)
[2022-02-20] MEDS: LEVETIRACETAM SOL (5 ML) 100 MG/ML UDC GT SCH ×2 (08:28→21:04)
[2022-02-20] MEDS: ASCORBIC ACID 500 MG TABLET GT SCH (08:28)
[2022-02-20] MEDS: ZINC SULFATE 220 MG CAPSULE GT SCH (08:28)
[2022-02-20] MEDS: METOPROLOL TARTRATE 25 MG TABLET GT SCH ×2 (08:28→21:09)
[2022-02-20] MEDS: PROSOURCE / PROSTAT (PYXIS) 30 ML UDC GT SCH ×3 (08:33→16:17)
[2022-02-20] MEDS: THERAHONEY GEL 1.5 OZ TUBE TP SCH (08:33)
[2022-02-20 12:00] VITALS: BP 105/66
[2022-02-20] MEDS: IPRATROPIUM NEB FS 0.5 MG/2.5 ML AMPUL.NEB NEB SCH ×2 (15:06→19:12)
[2022-02-20 16:00] VITALS: BP 111/68
[2022-02-20] MEDS: VANCOMYCIN 1 GM in IV D5W 250 ML IV SCH ×2 (16:17→23:51)
[2022-02-20] MEDS: IV NS 0.9% 1,000 ML IV PRN (16:34)
--- NOTE | 2022-02-20 19:10 | NUR ---
RN NOTES RECEIVED REPORT FROM MORNING RN. PATIENT IN BED OPENS EYES. WITH TRACH PORTEX #8 PATENT CONNECTED TO T-PIECE @ 35%FIO2 NO SOB NO DESATURATION NOTED AT THIS TIME. FAMILY AT BEDSIDE. WITH GT PATENT FOR MEDICATION ADMINISTRATION AND FEEDING ON CONTINUOS TUBE DEEDING JEVITRY 1.2 @ 75CC/HR TOLERATING WELL. WITH RED CATHETER CONNECTED TO URINE BAG DRAINING YELLOWISH URINE OUTPUT. ALL SAFETY MEASURES IN PLACE AT ALL TIMES. HOB ELEVATED. CALL LIGHT WITHIN REACH. BED ON LOWEST POSITION AND LOCKED. WILL CLOSELY MONITOR THE PATIENT.
--- NOTE | 2022-02-20 19:20 | NUR ---
RN NOTES PT FOUND SEMI FOWLERS DISPLAYING NO S/S OF DISTRESS, FLACC = 0 AND BILATERAL RISE AND FALL OF THE CHEST OBSERVED VIA T-PIECE. RED CATH RESERVOIR IS BELOW PATIENT DRAINING BY GRAVITY. L FA 20G IS PATIENT AND INTACT. SBAR AND REPORT GIVEN TO ENGLISH LANGUAGE LEARNER TUTOR RN, ALL QUESTIONS ANSWERED. SAFETY MEASURES IN PLACE, BED LOCKED AND IN LOWEST POSITION, SIDE RAILS UPX2, CALL LIGHT WITHIN REACH, BED ALARM ARMED. PT ENDORSED IN STABLE CONDITION FOR LIBIA.
[2022-02-20 20:00] VITALS: BP 121/68
[2022-02-20] MEDS: SENNOSIDES 8.6 MG TABLET GT SCH (21:02)
[2022-02-20] MEDS: HYDROCODONE/APAP 5/325MG TABLET GT PRN (21:04)
[2022-02-21] VITALS: BP 126/70
[2022-02-21] MEDS: ACETYLCYSTEINE 10% SOLN 400 MG/4 ML VIAL NEB SCH ×4 (00:28→23:42)
[2022-02-21] MEDS: IPRATROPIUM NEB FS 0.5 MG/2.5 ML AMPUL.NEB NEB SCH ×4 (02:03→19:43)
[2022-02-21 04:00] VITALS: BP 126/70
[2022-02-21] MEDS: MEROPENEM 1 G in IV NS 0.9% 100 ML IV SCH ×3 (05:15→21:06)
[2022-02-21] MEDS: SULFACETAMIDE 10% OPHTH 15 ML BOTTLE EACHEYE SCH ×4 (05:16→23:24)
[2022-02-21] MEDS: JEVITY 1.2 CAL 1,000 ML BOTTLE GT PRN ×2 (05:25→18:34)
[2022-02-21] MEDS: IV NS 0.9% 1,000 ML IV PRN (06:03)
[2022-02-21 07:20] LABS: BASOPHILS % (AUTO) 0.3 % (0.0-2.0); EOSINOPHILS % (AUTO) 0.8 % (0.0-6.0); HEMATOCRIT 33 % (39-51); HEMOGLOBIN 10.9 g/dL (13.5-17.5); LYMPHOCYTES # (AUTO) 1.3 K/uL (0.8-4.8); LYMPHOCYTES % (AUTO) 15.9 % (20.0-44.0); MEAN CORPUSCULAR HGB CONC 33 g/dl (31.0-36.0); MEAN CORPUSCULAR VOLUME 82 fL (80-96); MONOCYTES # (AUTO) 1.2 K/uL (0.1-1.30); NEUTROPHILS # (AUTO) 5.8 K/uL (1.8-8.9); PLATELET COUNT (AUTO) 215 K/uL (150-450); RED BLOOD CELL COUNT(AUTO) 4.02 MIL/uL (4.5-6.0); WHITE BLOOD COUNT (AUTO) 8.4 K/uL (4.3-11.0)
[2022-02-21 08:00] VITALS: BP 106/65
--- NOTE | 2022-02-21 08:00 | NUR ---
GAMMA OPERATOR NOTE PATIENT IN BED . STILL ON T-PIECE AT 8LPM TOLERATING WELL. GT PATENT. RED CATHETER TO GRAVITY ALL SAFETY MEASURES IN PLACE AT ALL TIMES. BED ON LOWEST POSITION AND LOCKED. HOB ELEVATED. CALL LIGHT WITHIN REACH. ON TELE MONITOR ST HR 110 ON IVF ORDERED WILL MONITOR
[2022-02-21 08:14] LABS: CALCIUM, SERUM 8.3 mg/dL (8.5-10.1); CREATININE 0.5 mg/dL (0.6-1.3); POTASSIUM 3.6 mmol/L (3.5-5.1)
[2022-02-21] MEDS: MULTIVITAMINS,THERAGRAN 1 UDTAB TABLET GT SCH (08:26)
[2022-02-21] MEDS: CHLORHEXIDINE GLUCONATE 15 ML UDC MM SCH ×2 (08:26→21:06)
[2022-02-21] MEDS: ASCORBIC ACID 500 MG TABLET GT SCH (08:26)
[2022-02-21] MEDS: ZINC SULFATE 220 MG CAPSULE GT SCH (08:26)
[2022-02-21] MEDS: FERROUS SULFATE UDC 300 MG/5 ML UDC GT SCH ×2 (08:26→16:26)
[2022-02-21] MEDS: PANTOPRAZOLE 40 MG/PACK PACK NG SCH (08:27)
[2022-02-21] MEDS: VANCOMYCIN 1 GM in IV D5W 250 ML IV SCH (08:27)
[2022-02-21] MEDS: LEVETIRACETAM SOL (5 ML) 100 MG/ML UDC GT SCH ×2 (08:27→21:06)
[2022-02-21] MEDS: ACETAMINOPHEN 650 MG/20.3 ML UDC GT PRN ×3 (08:27→16:51)
[2022-02-21] MEDS: PROSOURCE / PROSTAT (PYXIS) 30 ML UDC GT SCH ×3 (08:30→16:28)
[2022-02-21] MEDS: THERAHONEY GEL 1.5 OZ TUBE TP SCH ×2 (08:30→09:00)
[2022-02-21] MEDS: METOPROLOL TARTRATE 25 MG TABLET GT SCH ×2 (09:00→21:07)
--- NOTE | 2022-02-21 10:30 | NUR ---
television specialist note rounds made trach care done , suction done , family at bedside, will cont to monitor
[2022-02-21 12:00] VITALS: BP 102/65
--- NOTE | 2022-02-21 13:53 | NUR ---
telecommunications consultant note rounds made , family at bedside, keep clean dry , not in desires oral care distress
[2022-02-21 16:00] VITALS: BP 115/73
[2022-02-21] MEDS ORDERED: VANCOMYCIN 1.25 GM in IV D5W 250 ML IV ONE (16:00)
--- NOTE | 2022-02-21 16:52 | NUR ---
TYLENOL GIVEN TEMP 99.4
--- NOTE | 2022-02-21 18:00 | NUR ---
telephone answerer note recheck t 99.4 Tylenol was given at 1551 cooling measure provided , keep clean dry ,rt at bedside trach suction done ,will monitor
--- NOTE | 2022-02-21 18:16 | NUR ---
RN CLOSING NOTE PATIENT IS AWAKE. PATIENT IS ON T-PIECE, PORTEX 8.PATIENT OXYGEN SATURATION 95%. NO SIGNS OF PAIN OR DISTRESS. GTUBE IS RUNNING AND FLUSHING WELL. MIDLINE IN PLACE AND FLUSHING WELL. RED CATHETER DRAINING TO GRAVITY. YELLOW COLORED URINE OUTPUT. PATIENT TEMPERATURE 99.4.ADMINISTERED TYLENOL AND PUT ICE PACKS.SAFETY MEASURES IN PLACE. PATIENT'S BED IS ON LOWEST POSITION AND LOCKED. HEAD OF BED IS ELEVATED.CALL LIGHT WITHIN REACH. FAMILY AT BEDSIDE.
--- NOTE | 2022-02-21 19:41 | NUR ---
CARPET TECHNICIAN OPENING NOTES RECEIVED PT IN BED OPENS EYES. WITH TRACH PORTEX #8, CONNECTED TO T-PIECE @ 35% FIO2, NO SOB NOTED AT THIS TIME. NO S/SX OF RESPIRATORY DISTRESS NOTED. FAMILY AT BEDSIDE. WITH GT FEEDING JEVITRY 1.2 @ 75CC/HR TOLERATING WELL. WITH RED CATHETER CONNECTED TO URINE BAG DRAINING YELLOWISH URINE OUTPUT. ALL SAFETY MEASURES IN PLACE AT ALL TIMES. HOB ELEVATED. CALL LIGHT WITHIN REACH. BED ON LOWEST POSITION AND LOCKED. WILL CLOSELY MONITOR THROUGHOUT THE SHIFT.
[2022-02-21 20:00] VITALS: BP 114/71
[2022-02-21] MEDS: SENNOSIDES 8.6 MG TABLET GT SCH (21:07)
[2022-02-21] MEDS: VANCOMYCIN 1.25 GM in IV D5W 250 ML IV SCH (21:07)
[2022-02-22] VITALS: BP 93/52
[2022-02-22] MEDS: IV NS 0.9% 1,000 ML IV PRN (01:37)
[2022-02-22] MEDS: IPRATROPIUM NEB FS 0.5 MG/2.5 ML AMPUL.NEB NEB SCH ×4 (01:48→19:51)
[2022-02-22 04:00] VITALS: BP 91/56
--- NOTE | 2022-02-22 04:00 | NUR ---
RN NOTE PT NOTED TO HAVE LOW GRADE FEVER AT 100.0, COOLING MEASURES DONE, TYLENOL GIVEN PRN ORDER. HANGED SCHEDULED IV ABX AT THIS TIME, WILL CONT TO MONITOR.
[2022-02-22] MEDS: MEROPENEM 1 G in IV NS 0.9% 100 ML IV SCH ×2 (04:02→13:09)
[2022-02-22] MEDS: ACETAMINOPHEN 650 MG/20.3 ML UDC GT PRN ×2 (04:19→19:48)
[2022-02-22] MEDS: SULFACETAMIDE 10% OPHTH 15 ML BOTTLE EACHEYE SCH ×3 (05:09→18:02)
[2022-02-22] MEDS: VANCOMYCIN 1.25 GM in IV D5W 250 ML IV SCH ×2 (05:09→14:53)
[2022-02-22 07:06] LABS: BASOPHILS % (AUTO) 0.2 % (0.0-2.0); EOSINOPHILS % (AUTO) 1.6 % (0.0-6.0); HEMATOCRIT 29 % (39-51); HEMOGLOBIN 9.7 g/dL (13.5-17.5); LYMPHOCYTES # (AUTO) 1.1 K/uL (0.8-4.8); LYMPHOCYTES % (AUTO) 15.4 % (20.0-44.0); MEAN CORPUSCULAR HGB CONC 34 g/dl (31.0-36.0); MEAN CORPUSCULAR VOLUME 83 fL (80-96); MONOCYTES % (AUTO) 13.6 % (2.0-12.0); NEUTROPHILS # (AUTO) 4.9 K/uL (1.8-8.9); NEUTROPHILS % (AUTO) 69.2 % (43.0-81.0); PLATELET COUNT (AUTO) 182 K/uL (150-450); RED BLOOD CELL COUNT(AUTO) 3.48 MIL/uL (4.5-6.0)
[2022-02-22 07:27] LABS: CALCIUM, SERUM 8.3 mg/dL (8.5-10.1); CREATININE 0.5 mg/dL (0.6-1.3); POTASSIUM 3.6 mmol/L (3.5-5.1)
--- NOTE | 2022-02-22 07:27 | NUR ---
SCHOOL TRAFFIC GUARD CLOSING NOTES NO SIGNIFICANT CHANGES THROUGHOUT THE SHIFT, PT IN BED A/O X1 OPENS EYES. WITH TRACH PORTEX #8, CONNECTED TO T-PIECE @ 35% FIO2, NO SOB NOTED AT THIS TIME. NO S/SX OF RESPIRATORY DISTRESS NOTED. WITH GT FEEDING JEVITRY 1.2 @ 75CC/HR X 20 HRS TOLERATING WELL. WITH RED CATHETER CONNECTED TO URINE BAG DRAINING YELLOWISH URINE OUTPUT. ALL SAFETY MEASURES IN PLACE AT ALL TIMES. ALL DUE MEDS GIVEN, KEPT DRY AND CLEAN, HOB ELEVATED. CALL LIGHT WITHIN REACH. BED ON LOWEST POSITION AND LOCKED. WILL ENDORSE TO AM SHIFT NURSE.
[2022-02-22 08:00] VITALS: BP 108/65
[2022-02-22] MEDS: ACETYLCYSTEINE 10% SOLN 400 MG/4 ML VIAL NEB SCH ×3 (08:18→23:21)
[2022-02-22] MEDS: METOPROLOL TARTRATE 25 MG TABLET GT SCH ×2 (09:00→21:00)
[2022-02-22] MEDS: THERAHONEY GEL 1.5 OZ TUBE TP SCH (09:00)
[2022-02-22] MEDS: PROSOURCE / PROSTAT (PYXIS) 30 ML UDC GT SCH ×3 (09:26→18:02)
[2022-02-22] MEDS: MULTIVITAMINS,THERAGRAN 1 UDTAB TABLET GT SCH (09:26)
[2022-02-22] MEDS: LEVETIRACETAM SOL (5 ML) 100 MG/ML UDC GT SCH ×2 (09:27→22:12)
[2022-02-22] MEDS: CHLORHEXIDINE GLUCONATE 15 ML UDC MM SCH ×2 (09:27→22:12)
[2022-02-22] MEDS: PANTOPRAZOLE 40 MG/PACK PACK NG SCH (09:27)
[2022-02-22] MEDS: ASCORBIC ACID 500 MG TABLET GT SCH (09:27)
[2022-02-22] MEDS: FERROUS SULFATE UDC 300 MG/5 ML UDC GT SCH ×2 (09:27→18:02)
[2022-02-22] MEDS: ZINC SULFATE 220 MG CAPSULE GT SCH (09:29)
[2022-02-22 12:00] VITALS: BP 96/64
[2022-02-22] MEDS: JEVITY 1.2 CAL 1,000 ML BOTTLE GT PRN (13:38)
[2022-02-22 16:00] VITALS: BP 102/67
--- NOTE | 2022-02-22 19:35 | NUR ---
VEHICLE CARE SPECIALIST OPENING NOTES RECEIVED PT IN BED OPENS EYES. WITH TRACH PORTEX #8, CONNECTED TO T-PIECE @ 35% FIO2, NO SOB NOTED AT THIS TIME. NO S/SX OF RESPIRATORY DISTRESS NOTED. FAMILY AT BEDSIDE. WITH GT FEEDING JEVITY 1.2 @ 75CC/HR TOLERATING WELL. WITH RED CATHETER CONNECTED TO URINE BAG DRAINING YELLOWISH URINE OUTPUT. WITH IV ACCESS ON AKIRA MIDLINE RUNNING NS AT 75 ML/HR. FVER NOTED AT 101, COOLING MEASURES DONE. TYLENOL GIVEN PRN ORDER. ALL SAFETY MEASURES IN PLACE AT ALL TIMES. HOB ELEVATED. CALL LIGHT WITHIN REACH. BED ON LOWEST POSITION AND LOCKED. WILL CLOSELY MONITOR THROUGHOUT THE SHIFT.
[2022-02-22] MEDS: CEFTRIAXONE 1 G in IV D5W 50 ML IV SCH (19:48)
[2022-02-22 20:00] VITALS: BP 99/66
--- NOTE | 2022-02-22 20:04 | NUR ---
RN NOTE PT RESTING IN BED, AWAKE AND REMAINS OBTUNDED. CONT IN T-PICE IN PLACE IN COOL AEROSOL AT 8L. NOT IN RESPI DISTRESS. GT FEEDING JEVITY @ 75/HR, ASPIRATION PREC FOLLOWED.AKIRA MID LINE PATENT WITH IVF NS @75/HR. TOLERATING WELL. DUE MEDS GIVEN. AM/PM CARE DONE. SAFETY MEASURES FOLLOWED.
[2022-02-22] MEDS: CHLORHEXIDINE GLUCONATE 4% 118 ML BOTTLE TP SCH (22:00)
[2022-02-22] MEDS: SENNOSIDES 8.6 MG TABLET GT SCH (22:12)
[2022-02-23] VITALS: BP 105/66
[2022-02-23] MEDS: SULFACETAMIDE 10% OPHTH 15 ML BOTTLE EACHEYE SCH ×4 (00:53→17:03)
[2022-02-23] MEDS: IPRATROPIUM NEB FS 0.5 MG/2.5 ML AMPUL.NEB NEB SCH ×4 (01:53→19:51)
[2022-02-23] MEDS: IV NS 0.9% 1,000 ML IV PRN (03:44)
[2022-02-23 04:00] VITALS: BP 105/63
[2022-02-23 07:25] LABS: BASOPHILS % (AUTO) 0.3 % (0.0-2.0); EOSINOPHILS % (AUTO) 2.5 % (0.0-6.0); HEMATOCRIT 31 % (39-51); HEMOGLOBIN 10.4 g/dL (13.5-17.5); LYMPHOCYTES # (AUTO) 1.1 K/uL (0.8-4.8); LYMPHOCYTES % (AUTO) 16.9 % (20.0-44.0); MEAN CORPUSCULAR HGB CONC 33 g/dl (31.0-36.0); MEAN CORPUSCULAR VOLUME 82 fL (80-96); MONOCYTES # (AUTO) 0.7 K/uL (0.1-1.30); MONOCYTES % (AUTO) 11.5 % (2.0-12.0); NEUTROPHILS # (AUTO) 4.4 K/uL (1.8-8.9); NEUTROPHILS % (AUTO) 68.8 % (43.0-81.0); PLATELET COUNT (AUTO) 242 K/uL (150-450); RED BLOOD CELL COUNT(AUTO) 3.81 MIL/uL (4.5-6.0); WHITE BLOOD COUNT (AUTO) 6.4 K/uL (4.3-11.0)
--- NOTE | 2022-02-23 07:30 | NUR ---
COLLATING MACHINE OPERATOR CLOSING NOTES PATIENT REMAINS IN BED A/O X1 OPENS EYES. WITH TRACH PORTEX #8, CONNECTED TO T-PIECE @ 35% FIO2, NO SOB NOTED AT THIS TIME. NO S/SX OF RESPIRATORY DISTRESS NOTED. WITH GT FEEDING JEVITY 1.2 @ 75CC/HR X 20 HRS TOLERATING WELL. WITH RED CATHETER CONNECTED TO URINE BAG DRAINING YELLOWISH URINE OUTPUT. ALL SAFETY MEASURES IN PLACE AT ALL TIMES. ALL DUE MEDS GIVEN, KEPT DRY AND CLEAN, HOB ELEVATED. CALL LIGHT WITHIN REACH. BED ON LOWEST POSITION AND LOCKED. WILL ENDORSE TO AM SHIFT NURSE.
--- NOTE | 2022-02-23 07:32 | NUR ---
RN OPENING NOTE PATIENT IS AWAKE IN BED, OBTUNDED. WITH OXYGEN VIA T-PIECE AT FIO2 35%, SATTING AT 94%. BREATHING UNLABORED AND NOT IN ANY FORM OF DISTRESS. SINUS TACHYCARDIA AT 115 ON ALUMINUM BOAT ASSEMBLY SUPERVISOR. WITH PEG TUBE INTACT. WITH LEFT UPPER ARM MIDLINE INFUSING WITH NS AT 75 ML/HR. WITH RED CATHETER ATTACHED TO URINE BAG DRAINING TO A CLEAR YELLOW COLORED URINE. BED IS LOCKED IN LOWEST POSITION, 3 SIDE RAILS UP, CALL LIGHT WITHIN REACH. WILL CONTINUE TO MONITOR THROUGHOUT SHIFT. Addendum: 02/23/22 at 1515 by RONI BUCKLEY RN IV is in right upper arm midline.
[2022-02-23 08:00] VITALS: BP 164/70
[2022-02-23] MEDS: MULTIVITAMINS,THERAGRAN 1 UDTAB TABLET GT SCH (08:07)
[2022-02-23] MEDS: LEVETIRACETAM SOL (5 ML) 100 MG/ML UDC GT SCH ×2 (08:07→21:44)
[2022-02-23] MEDS: ZINC SULFATE 220 MG CAPSULE GT SCH (08:07)
[2022-02-23] MEDS: ASCORBIC ACID 500 MG TABLET GT SCH (08:07)
[2022-02-23] MEDS: PANTOPRAZOLE 40 MG/PACK PACK NG SCH (08:07)
[2022-02-23] MEDS: METOPROLOL TARTRATE 25 MG TABLET GT SCH ×2 (08:09→21:00)
[2022-02-23] MEDS: CHLORHEXIDINE GLUCONATE 15 ML UDC MM SCH ×2 (08:09→22:02)
[2022-02-23] MEDS: PROSOURCE / PROSTAT (PYXIS) 30 ML UDC GT SCH ×3 (08:14→16:47)
[2022-02-23] MEDS: ACETYLCYSTEINE 10% SOLN 400 MG/4 ML VIAL NEB SCH ×2 (08:55→14:46)
[2022-02-23] MEDS: THERAHONEY GEL 1.5 OZ TUBE TP SCH (09:02)
[2022-02-23] MEDS: FERROUS SULFATE UDC 300 MG/5 ML UDC GT SCH ×2 (09:02→16:47)
[2022-02-23 09:36] LABS: CALCIUM, SERUM 8.8 mg/dL (8.5-10.1); CREATININE 0.4 mg/dL (0.6-1.3); POTASSIUM 3.9 mmol/L (3.5-5.1)
[2022-02-23 12:06] VITALS: BP 109/72
[2022-02-23] MEDS: IV NS 0.9% 1,000 ML IV SCH ×2 (14:40→17:46)
[2022-02-23 16:06] VITALS: BP 100/68
--- NOTE | 2022-02-23 18:41 | NUR ---
RN CLOSING NOTE PATIENT IS RESTING COMFORTABLY IN BED AND REMAINED STABLE THROUGHOUT THE SHIFT. ALL DUE MEDS GIVEN, TRACHEAL SUCTIONING AND ORAL SUCTIONING DONE NEEDED. TURNING WAS DONE EVERY 2 HOURS. TRACHEOSTOMY REMAINS INTACT AND IS CONNECTED TO OXYGEN VIA T-PIECE. SINUS TACHYCARDIA ON TANNING SALON ATTENDANT. RED CATHETER INTACT AND DRAINING TO CLEAR YELLOW URINE. PEG TUBE REMAINS INTACT AND IN CONTINUOUS FEEDING. BREATHING UNLABORED AND NOT IN ANY FORM OF DISTRESS. ALL HOSPITAL PRECAUTIONS IN PLACE. WILL ENDORSE TO HEEL PADDER NURSE.
--- NOTE | 2022-02-23 19:45 | NUR ---
RN OPENING NOTE RECEIVED PATIENT IS AWAKE IN BED, OBTUNDED, OPEN BOTH EYES. WITH O2 VIA T-PIECE AT FIO2 35%. PT TOLERATED WELL. BREATHING EVEN AND UNLABORED. IV ACCESS RT UPPER ARM MIDLINE INTACT AND PATENT. NO S/S OF INFILTRATIONS. NS RUNNING AT 100CC/HR. GTUBE FEEDING TOLERATED WELL. ON JEVITY 1.2 AT 75CC/HR. RED CATHETER INTACT IN PLACE. RUNNING BY GRAVITY. NOTED YELLOWISH/CLEAR URINE. ALL SAFETY MEASURES IN PLACE. PLACE CALL LIGHT WITH IN REACH. BED IS LOCKED IN LOWEST POSITION, SIDE RAILS UP X3, WILL CONTINUE TO MONITOR.
[2022-02-23 20:00] VITALS: BP 107/68
[2022-02-23] MEDS: CHLORHEXIDINE GLUCONATE 4% 118 ML BOTTLE TP SCH (20:18)
[2022-02-23] MEDS: CEFTRIAXONE 1 G in IV D5W 50 ML IV SCH (20:45)
[2022-02-23] MEDS: SENNOSIDES 8.6 MG TABLET GT SCH (21:44)
[2022-02-24] VITALS: BP 117/66
[2022-02-24] MEDS: SULFACETAMIDE 10% OPHTH 15 ML BOTTLE EACHEYE SCH ×4 (01:16→17:01)
[2022-02-24] MEDS: JEVITY 1.2 CAL 1,000 ML BOTTLE GT PRN ×2 (01:40→20:21)
[2022-02-24] MEDS: IPRATROPIUM NEB FS 0.5 MG/2.5 ML AMPUL.NEB NEB SCH ×4 (01:43→19:42)
[2022-02-24 04:00] VITALS: BP 116/70
--- NOTE | 2022-02-24 06:44 | NUR ---
RN CLOSING NOTES: PATIENT IN BED SLEEPING BUT EASILY AROUSABLE, OBTUNDED, OPEN BOTH EYES. WITH O2 VIA T-PIECE AT FIO2 35%. PT TOLERATED WELL. O2 SAT 96%. BREATHING EVEN AND UNLABORED. IV ACCESS RT UPPER ARM MIDLINE INTACT AND PATENT. NO S/S OF INFILTRATIONS. NS RUNNING AT 100CC/HR. GTUBE FEEDING TOLERATED WELL. ON JEVITY 1.2 AT 75CC/HR. RED CATHETER INTACT IN PLACE. RUNNING BY GRAVITY. NOTED YELLOWISH/CLEAR URINE. ALL DUE MEDS GIVEN ORDERED. ALL SAFETY MEASURES IN PLACE. PLACE CALL LIGHT WITH IN REACH. BED IS LOCKED IN LOWEST POSITION, SIDE RAILS UP X3, WILL ENDORSE TO MORNING SHIFT NURSE.
--- NOTE | 2022-02-24 07:30 | NUR ---
RN OPENING NOTE PATIENT IS IN BED, AWAKE, OBTUNDED. WITH OXYGEN VIA T-PIECE AT FI02 35%, O2 SATURATION AT 95%. SINUS RHYTHM ON CLASSIFIER OPERATOR. WITH PEG TUBE INTACT, INFUSING WITH 75 CC/HR JEVITY. WITH RIGH UPPER ARM MIDLINE INFUSING WITH NS AT 100 ML/HR, NO SIGNS OF INFILTRATION NOTED. RHONCHI UPON AUSCULTATION, BREATHING UNLABORED, AND NOT IN ANY FORM OF DISTRESS. NO EDEMA NOTED. RED CATHETER IS INTACT AND ATTACHED TO URINE BAG DRAINING TO A CLEAR YELLOW URINE. BED IS LOCKED IN LOWEST POSITION, 3 SIDE RAILS UP, CALL LIGHT WITHIN REACH. WILL CONTINUE TO MONITOR THROUGHOUT SHIFT.
[2022-02-24] MEDS: ACETYLCYSTEINE 10% SOLN 400 MG/4 ML VIAL NEB SCH ×3 (07:40→15:14)
[2022-02-24 08:00] VITALS: BP 101/68
[2022-02-24 08:05] LABS: CALCIUM, SERUM 8.8 mg/dL (8.5-10.1); CREATININE 0.4 mg/dL (0.6-1.3); POTASSIUM 4.2 mmol/L (3.5-5.1)
[2022-02-24] MEDS: METOPROLOL TARTRATE 25 MG TABLET GT SCH ×2 (08:33→21:00)
[2022-02-24] MEDS: CHLORHEXIDINE GLUCONATE 15 ML UDC MM SCH ×2 (08:34→21:16)
[2022-02-24] MEDS: FERROUS SULFATE UDC 300 MG/5 ML UDC GT SCH ×2 (08:34→16:51)
[2022-02-24] MEDS: LEVETIRACETAM SOL (5 ML) 100 MG/ML UDC GT SCH ×2 (08:34→21:16)
[2022-02-24] MEDS: ZINC SULFATE 220 MG CAPSULE GT SCH (08:34)
[2022-02-24] MEDS: ASCORBIC ACID 500 MG TABLET GT SCH (08:34)
[2022-02-24] MEDS: MULTIVITAMINS,THERAGRAN 1 UDTAB TABLET GT SCH (08:34)
[2022-02-24] MEDS: PANTOPRAZOLE 40 MG/PACK PACK NG SCH (08:34)
[2022-02-24] MEDS: PROSOURCE / PROSTAT (PYXIS) 30 ML UDC GT SCH ×3 (08:36→16:51)
[2022-02-24] MEDS: THERAHONEY GEL 1.5 OZ TUBE TP SCH (08:36)
[2022-02-24] MEDS: IV NS 0.9% 1,000 ML IV SCH ×2 (09:52→20:15)
[2022-02-24] MEDS ORDERED: CEFT1VIA15 IV (11:09)
[2022-02-24 11:44] LABS: BASOPHILS % (AUTO) 0.4 % (0.0-2.0); EOSINOPHILS % (AUTO) 2.8 % (0.0-6.0); HEMATOCRIT 32 % (39-51); HEMOGLOBIN 10.5 g/dL (13.5-17.5); LYMPHOCYTES # (AUTO) 1.4 K/uL (0.8-4.8); LYMPHOCYTES % (AUTO) 18.5 % (20.0-44.0); MEAN CORPUSCULAR HGB CONC 33 g/dl (31.0-36.0); MEAN CORPUSCULAR VOLUME 84 fL (80-96); MONOCYTES % (AUTO) 12.9 % (2.0-12.0); NEUTROPHILS # (AUTO) 5.1 K/uL (1.8-8.9); NEUTROPHILS % (AUTO) 65.4 % (43.0-81.0); PLATELET COUNT (AUTO) 262 K/uL (150-450); RED BLOOD CELL COUNT(AUTO) 3.82 MIL/uL (4.5-6.0); WHITE BLOOD COUNT (AUTO) 7.7 K/uL (4.3-11.0)
[2022-02-24 12:00] VITALS: BP 104/63
--- NOTE | 2022-02-24 12:14 | NUR ---
dr. tafoya cancelled ct chest and ok to discharge pt. to facility.
--- NOTE | 2022-02-24 15:00 | NUR ---
RN NOTE PATIENT BROUGHT DOWN TO RADIOLOGY FOR CT SCAN OF CHEST. PATIENT IS IN STABLE CONDITION.
[2022-02-24 16:12] VITALS: BP 109/68
--- NOTE | 2022-02-24 18:39 | NUR ---
RN CLOSING NOTE PATIENT IS RESTING COMFORTABLY IN BED AND REMAINED STABLE THROUGHOUT THE SHIFT. ALL DUE MEDS GIVEN, TRACHEAL SUCTIONING AND ORAL SUCTIONING DONE NEEDED. TURNING WAS DONE EVERY 2 HOURS. TRACHEOSTOMY REMAINS INTACT AND IS CONNECTED TO OXYGEN VIA T-PIECE. SINUS TACHYCARDIA ON CRYPTOLOGICAL TECHNICIAN. RED CATHETER INTACT AND DRAINING TO CLEAR YELLOW URINE. PEG TUBE REMAINS INTACT AND IN CONTINUOUS FEEDING. BREATHING UNLABORED AND NOT IN ANY FORM OF DISTRESS. ALL HOSPITAL PRECAUTIONS IN PLACE. WILL ENDORSE TO PATIENT OBSERVER NURSE.
--- NOTE | 2022-02-24 19:42 | NUR ---
RN OPENING NOTE RECEIVED PATIENT IS AWAKE IN BED, OBTUNDED, OPEN BOTH EYES. WITH O2 VIA T-PIECE AT FIO2 35%. PT TOLERATED WELL. BREATHING EVEN AND UNLABORED. IV ACCESS RT UPPER ARM MIDLINE INTACT AND PATENT. NO S/S OF INFILTRATIONS. NS RUNNING AT 100CC/HR. GTUBE FEEDING TOLERATED WELL. ON JEVITY 1.2 AT 75CC/HR. RED CATHETER INTACT IN PLACE. RUNNING BY GRAVITY. NOTED YELLOWISH/CLEAR URINE. FAMILY AT BEDSIDE. ALL SAFETY MEASURES IN PLACE. PLACE CALL LIGHT WITH IN REACH. BED IS LOCKED IN LOWEST POSITION, SIDE RAILS UP X3, WILL CONTINUE TO MONITOR.
[2022-02-24 20:00] VITALS: BP 109/71
[2022-02-24] MEDS: CEFTRIAXONE 1 G in IV D5W 50 ML IV SCH (20:20)
[2022-02-24] MEDS: SENNOSIDES 8.6 MG TABLET GT SCH (21:16)
[2022-02-25] VITALS: BP 110/62
[2022-02-25] MEDS: SULFACETAMIDE 10% OPHTH 15 ML BOTTLE EACHEYE SCH ×4 (00:29→18:04)
[2022-02-25] MEDS: ACETYLCYSTEINE 10% SOLN 400 MG/4 ML VIAL NEB SCH ×3 (02:07→15:19)
[2022-02-25] MEDS: IPRATROPIUM NEB FS 0.5 MG/2.5 ML AMPUL.NEB NEB SCH ×4 (02:07→20:16)
[2022-02-25 04:00] VITALS: BP 98/62
[2022-02-25] MEDS: IV NS 0.9% 1,000 ML IV SCH (06:14)
--- NOTE | 2022-02-25 07:30 | NUR ---
RN OPENING NOTE PATIENT IS IN BED, AWAKE, OBTUNDED. WITH OXYGEN VIA T-PIECE AT FI02 35%, O2 SATURATION AT 95%. SINUS TACHYCARDIA ON NEW CAR INSPECTOR. WITH PEG TUBE INTACT, AND COVERED WITH DRY DRESSING. WITH RIGHT UPPER ARM MIDLINE INFUSING WITH NS AT 100 ML/HR, NO SIGNS OF INFILTRATION NOTED. BREATHING UNLABORED AND NOT IN ANY FORM OF DISTRESS. NO EDEMA NOTED. ERD CATHETER IS INTACT AND ATTACHED TO URINE BAG DRAINING TO A CLEAR YELLOW URINE. BED IS LOCKED IN LOWEST POSITION, 3 SIDE RAILS UP, CALL LIGHT WITHIN REACH. WILL CONTINUE TO MONITOR THROUGHOUT SHIFT.
[2022-02-25 08:00] VITALS: BP 100/65
[2022-02-25] MEDS: LEVETIRACETAM SOL (5 ML) 100 MG/ML UDC GT SCH ×2 (08:41→20:37)
[2022-02-25] MEDS: FERROUS SULFATE UDC 300 MG/5 ML UDC GT SCH ×2 (08:41→16:43)
[2022-02-25] MEDS: CHLORHEXIDINE GLUCONATE 15 ML UDC MM SCH ×2 (08:41→20:37)
[2022-02-25] MEDS: ZINC SULFATE 220 MG CAPSULE GT SCH (08:42)
[2022-02-25] MEDS: PANTOPRAZOLE 40 MG/PACK PACK NG SCH (08:42)
[2022-02-25] MEDS: METOPROLOL TARTRATE 25 MG TABLET GT SCH ×2 (08:43→20:48)
[2022-02-25] MEDS: MULTIVITAMINS,THERAGRAN 1 UDTAB TABLET GT SCH (08:43)
[2022-02-25] MEDS: ASCORBIC ACID 500 MG TABLET GT SCH (08:43)
[2022-02-25] MEDS: THERAHONEY GEL 1.5 OZ TUBE TP SCH (08:45)
[2022-02-25] MEDS: PROSOURCE / PROSTAT (PYXIS) 30 ML UDC GT SCH ×3 (08:45→16:43)
[2022-02-25 12:04] VITALS: BP 97/65
[2022-02-25 16:00] VITALS: BP 109/70
--- NOTE | 2022-02-25 16:27 | NUR ---
PRELIMINARY ECHO SHOWED EF 60-65%. PT HAS LARGE CIRCUMFERENTIAL PERICARDIAL EFFUSION. INFORMED BRI TAMAYO AND OF INITIAL FINDINGS.
--- NOTE | 2022-02-25 19:03 | NUR ---
RN CLOSING NOTE PATIENT IS RESTING COMFORTABLY IN BED AND REMAINED STABLE THROUGHOUT THE SHIFT. ALL DUE MEDS GIVEN, TRACHEAL SUCTIONING AND ORAL SUCTIONING DONE NEEDED. TURNING WAS DONE EVERY 2 HOURS. TRACHEOSTOMY REMAINS INTACT AND IS CONNECTED TO OXYGEN VIA T-PIECE. SINUS TACHYCARDIA ON HOTEL GENERAL MANAGER. RED CATHETER INTACT AND DRAINING TO CLEAR YELLOW URINE. PEG TUBE REMAINS INTACT AND IN CONTINUOUS FEEDING. BREATHING UNLABORED AND NOT IN ANY FORM OF DISTRESS. ALL HOSPITAL PRECAUTIONS IN PLACE. WILL ENDORSE TO BROACH SETTER NURSE.
--- NOTE | 2022-02-25 19:10 | NUR ---
RN NOTE RECEIVED PATIENT IN BED, OBTUNDED, OPENS EYES, AROUSABLE TO TACTILE STIMULI, IN NO ACUTE DISTRESS AT THIS TIME, FAMILY AT BEDSIDE. ON TRACH TO COOL AEROSOL AT 10 LPM, FIO2 OF 40%, SATURATION AT 98%, ST ON THE MONITOR, HR IS 120. DAY MIDLINE PATENT AND FLUSHING WELL, NO S/S OF INFECTION OR BLEEDING. NOTED GTUBE INTACT POSITIVE PLACEMENT NOTED, NO RESIDUAL, WITH TUBE FEEDING OF JEVITY AT 75 ML/HR. RED CATHETER DRAINING TO A CLEAR, YELLOW OUTPUT. SAFETY MEASURES IMPLEMENTED. PATIENT BED ALARM IS ON. HEAD OF BED ELEVATED. BED IS LOCKED, IN LOWEST POSITION AND SIDE RAILS UP. CALL LIGHT WITHIN REACH OF THE PATIENT. WILL CONTINUE TO MONITOR AND REASSESS FOR ANY CHANGES.
[2022-02-25 20:00] VITALS: BP 100/62
[2022-02-25] MEDS: CEFTRIAXONE 1 G in IV D5W 50 ML IV SCH (20:37)
[2022-02-25] MEDS: SENNOSIDES 8.6 MG TABLET GT SCH (20:38)
[2022-02-25] MEDS: CHLORHEXIDINE GLUCONATE 4% 118 ML BOTTLE TP SCH (20:41)
[2022-02-25] MEDS: JEVITY 1.2 CAL 1,000 ML BOTTLE GT PRN (22:45)
[2022-02-26] VITALS: BP 96/58
[2022-02-26] MEDS: SULFACETAMIDE 10% OPHTH 15 ML BOTTLE EACHEYE SCH ×5 (00:29→23:46)
[2022-02-26] MEDS: ACETAMINOPHEN 650 MG/20.3 ML UDC GT PRN ×2 (00:29→13:34)
[2022-02-26] MEDS: IPRATROPIUM NEB FS 0.5 MG/2.5 ML AMPUL.NEB NEB SCH ×4 (01:47→20:27)
[2022-02-26] MEDS: ACETYLCYSTEINE 10% SOLN 400 MG/4 ML VIAL NEB SCH ×4 (01:47→23:55)
[2022-02-26 04:00] VITALS: BP 101/71
--- NOTE | 2022-02-26 07:27 | NUR ---
RN NOTE RECEIVED PATIENT REPORT FROM NIGHTSHIFT RN. PATIENT IN BED, OBTUNDED, OPENS EYES, AROUSABLE TO TACTILE STIMULI, IN NO ACUTE DISTRESS AT THIS TIME. ON TRACHEOSTOMY COLLAR ATTACHED TO COOL AEROSOL AT 10 LPM, FIO2 OF 40%, OXYGEN SATURATION AT 98%. ATTACHED TO EXTERNAL HEART MONITOR READING SINUS TACHYCARDIA HR IS 103. RIGHT UPPER ARM MIDLINE PATENT AND FLUSHING WELL, NO SIGNS OR SYMPTOMS OF INFECTION OR BLEEDING. NOTED GTUBE INTACT POSITIVE PLACEMENT NOTED, NO RESIDUAL, TUBE FEEDING HELD FOR PROCEDURE LATER TODAY. RED CATHETER DRAINING TO A CLEAR, YELLOW OUTPUT. SAFETY MEASURES IMPLEMENTED. PATIENT BED ALARM IS ON. HEAD OF BED ELEVATED. BED IS LOCKED, IN LOWEST POSITION AND SIDE RAILS UP. CALL LIGHT WITHIN REACH OF THE PATIENT. WILL CONTINUE PLAN OF CARE AND ANTICIPATE NEEDS.
[2022-02-26 08:00] VITALS: BP 98/70
--- NOTE | 2022-02-26 08:30 | NUR ---
RN NOTE PATIENT TAKEN FOR PROCEDURE. LEFT [facility] UNIT AT 0830. WILL CONTINUE PLAN OF CARE AND ANTICIPATE NEEDS.
[2022-02-26] MEDS ORDERED: FENTANYL PF 100MCG/2ML AMPUL ONE (09:00)
[2022-02-26] MEDS: LEVETIRACETAM SOL (5 ML) 100 MG/ML UDC GT SCH ×2 (09:00→20:58)
[2022-02-26] MEDS: FERROUS SULFATE UDC 300 MG/5 ML UDC GT SCH ×2 (09:00→17:30)
[2022-02-26] MEDS: PANTOPRAZOLE 40 MG/PACK PACK NG SCH (09:00)
[2022-02-26] MEDS ORDERED: MIDAZOLAM HCL 2 MG/2ML VIAL ONE (09:00)
[2022-02-26] MEDS: METOPROLOL TARTRATE 25 MG TABLET GT SCH ×2 (09:00→21:00)
[2022-02-26] MEDS ORDERED: LIDOCAINE 1% INJ 50 ML MDV IJ ONE (09:00)
[2022-02-26] MEDS: ASCORBIC ACID 500 MG TABLET GT SCH (09:00)
[2022-02-26] MEDS: PROSOURCE / PROSTAT (PYXIS) 30 ML UDC GT SCH ×3 (09:00→17:30)
[2022-02-26] MEDS: ZINC SULFATE 220 MG CAPSULE GT SCH (09:00)
[2022-02-26] MEDS: MULTIVITAMINS,THERAGRAN 1 UDTAB TABLET GT SCH (09:00)
--- NOTE | 2022-02-26 09:00 | NUR ---
RN NOTE 0900 MEDICATIONS HELD. PATIENT LEFT UNIT AT 0830 TO UNDERGO THORACENTESIS. WILL CONTINUE PLAN OF CARE AND ANTICIPATE NEEDS.
[2022-02-26] MEDS ORDERED: IV NS 0.9% 1,000 ML ONE (09:01)
[2022-02-26] MEDS ORDERED: LIDOCAINE HCL/MPF 1% 30 ML VIAL IJ ONE (09:07)
[2022-02-26] MEDS: CHLORHEXIDINE GLUCONATE 15 ML UDC MM SCH ×2 (09:31→21:03)
[2022-02-26] MEDS: THERAHONEY GEL 1.5 OZ TUBE TP SCH (09:31)
[2022-02-26] MEDS ORDERED: METOPROLOL TARTRATE INJ 5 MG/5 ML AMPUL ONE (09:35)
--- NOTE | 2022-02-26 10:45 | NUR ---
RECIEVED PATIENT FROM PAGE TECHNICIAN. RETURNED TO BED, VITALS SIGNS STABLE. WILL CONTINUE PLAN OF CARE AND ANTICIPATE NEEDS. Addendum: 02/26/22 at 1816 by AIRAM MCCONNELL RN PERICARDIOCENTESIS PROCEDURE REMOVED 800 MLS OF FLUID.
--- NOTE | 2022-02-26 11:47 | NUR ---
BODY FLUIDS FROM PERICARDIOCENTISIS SENT TO LAB.
[2022-02-26 12:00] VITALS: BP 108/66
[2022-02-26] MEDS ORDERED: ATROPINE SULFATE 1 MG/10 ML DISP.SYRIN IV PRN (12:30)
[2022-02-26] MEDS: HEPARIN SODIUM,PORCINE/PF 50 UNIT/5 ML DISP.SYRIN IV SCH ×2 (12:55→21:03)
[2022-02-26] MEDS ORDERED: IV NS 0.9% 250 ML IV PRN (13:00)
--- NOTE | 2022-02-26 13:30 | NUR ---
per rn ivana to be done tomorrow, ok'd by ordering pmd, per rn, also notified no rad on schedule for the weekend. she's aware will possibly be done Tuesday
[2022-02-26 16:00] VITALS: BP 96/64
--- NOTE | 2022-02-26 18:32 | NUR ---
RN NOTE PATIENT REMAINS IN BED, OBTUNDED, WITH EYES OPEN, AROUSABLE TO TACTILE STIMULI, IN NO ACUTE DISTRESS AT THIS TIME. ON TRACHEOSTOMY COLLAR ATTACHED TO COOL AEROSOL AT 10 LPM, FIO2 OF 40%, OXYGEN SATURATION AT 98%. ATTACHED TO EXTERNAL HEART MONITOR READING SINUS TACHYCARDIA. RIGHT UPPER ARM MIDLINE PATENT AND FLUSHING WELL, NO SIGNS OR SYMPTOMS OF INFECTION OR BLEEDING. PATIENT HAS SURGICAL DRAIN FROM PERICARDIOCENTESIS PROCEDURE DONE EARLIER TODAY, WITH RED DRAINAGE. GASTRIC TUBE INTACT POSITIVE PLACEMENT NOTED, TUBE FEEDING OF JEVITY RUNNING AT 75MLS/HR, TOLERATING WELL EVIDENCED BY NO RESIDUAL. RED CATHETER DRAINING TO A CLEAR, YELLOW OUTPUT. SAFETY MEASURES IMPLEMENTED. PATIENT BED ALARM IS ON. HEAD OF BED ELEVATED. BED IS LOCKED, IN LOWEST POSITION AND SIDE RAILS UP. CALL LIGHT WITHIN REACH OF THE PATIENT. FAMILY MEMBERS AT THE BEDSIDE. WILL ENDORSE TO NIGHTSHIFT RN FOR CONTINUATION OF CARE.
--- NOTE | 2022-02-26 19:15 | NUR ---
RN NOTE RECEIVED PATIENT IN BED, OBTUNDED, OPENS EYES, AROUSABLE TO TACTILE STIMULI, IN NO ACUTE DISTRESS AT THIS TIME, FAMILY AT BEDSIDE. ON TRACH TO COOL AEROSOL AT 10 LPM, FIO2 OF 40%, SATURATION AT 96%, ST ON THE MONITOR, HR IS 130. DAY MIDLINE PATENT AND FLUSHING WELL, NO S/S OF INFECTION OR BLEEDING. NOTED GTUBE INTACT POSITIVE PLACEMENT NOTED, NO RESIDUAL, WITH TUBE FEEDING OF JEVITY AT 75 ML/HR. PT IS STATUS POST PERIOCARDIOCENTESIS TODAY, WITH TUBE DRAIN, NOTED A MODERATE AMOUNT OF SEROSANGUINEOUS FLUID. RED CATHETER DRAINING TO A CLOUDY, YELLOW OUTPUT. SAFETY MEASURES IMPLEMENTED. PATIENT BED ALARM IS ON. HEAD OF BED ELEVATED. BED IS LOCKED, IN LOWEST POSITION AND SIDE RAILS UP. CALL LIGHT WITHIN REACH OF THE PATIENT. WILL CONTINUE TO MONITOR AND REASSESS FOR ANY CHANGES.
[2022-02-26 20:00] VITALS: BP 100/65
[2022-02-26] MEDS: CEFTRIAXONE 1 G in IV D5W 50 ML IV SCH (20:13)
[2022-02-26] MEDS: SENNOSIDES 8.6 MG TABLET GT SCH (21:03)
[2022-02-26] MEDS: HYDROCODONE/APAP 5/325MG TABLET GT PRN (22:43)
[2022-02-27] VITALS: BP 100/63
[2022-02-27] MEDS: IPRATROPIUM NEB FS 0.5 MG/2.5 ML AMPUL.NEB NEB SCH ×4 (01:37→20:19)
[2022-02-27 04:00] VITALS: BP 109/74
[2022-02-27] MEDS: SULFACETAMIDE 10% OPHTH 15 ML BOTTLE EACHEYE SCH ×3 (05:14→17:12)
[2022-02-27] MEDS: HEPARIN SODIUM,PORCINE/PF 50 UNIT/5 ML DISP.SYRIN IV SCH ×3 (05:14→20:33)
[2022-02-27 06:31] LABS: BASOPHILS % (AUTO) 0.3 % (0.0-2.0); EOSINOPHILS % (AUTO) 1.1 % (0.0-6.0); HEMATOCRIT 37 % (39-51); LYMPHOCYTES # (AUTO) 1.5 K/uL (0.8-4.8); LYMPHOCYTES % (AUTO) 11.1 % (20.0-44.0); MEAN CORPUSCULAR HGB CONC 32 g/dl (31.0-36.0); MEAN CORPUSCULAR VOLUME 83 fL (80-96); MONOCYTES # (AUTO) 1.7 K/uL (0.1-1.30); MONOCYTES % (AUTO) 12.3 % (2.0-12.0); NEUTROPHILS # (AUTO) 10.1 K/uL (1.8-8.9); NEUTROPHILS % (AUTO) 75.2 % (43.0-81.0); PLATELET COUNT (AUTO) 386 K/uL (150-450); RED BLOOD CELL COUNT(AUTO) 4.51 MIL/uL (4.5-6.0); WHITE BLOOD COUNT (AUTO) 13.4 K/uL (4.3-11.0)
[2022-02-27 06:43] LABS: CALCIUM, SERUM 9.1 mg/dL (8.5-10.1); CREATININE 0.5 mg/dL (0.6-1.3); POTASSIUM 4.1 mmol/L (3.5-5.1)
--- NOTE | 2022-02-27 07:25 | NUR ---
RN OPENING NOTE RECEIVED PATIENT IN BED, OBTUNDED, OPENS EYES, AROUSABLE TO TACTILE STIMULI, . ON TRACH TO COOL AEROSOL AT 10 LPM, FIO2 OF 40%, SATURATION AT 96%, ST ON THE MONITOR, HR 100-130. DAY MIDLINE PATENT AND FLUSHING WELL, NOTED GTUBE INTACT POSITIVE PLACEMENT NOTED, NO RESIDUAL, WITH TUBE FEEDING OF JEVITY AT 75 ML/HR. TUBE DRAIN NOTED, MODERATE AMOUNT OF SEROSANGUINEOUS FLUID. RED CATHETER DRAINING TO A CLOUDY, YELLOW OUTPUT. SAFETY MEASURES IMPLEMENTED. WILL CONTINUE TO MONITOR THROUGHOUT SHIFT.
[2022-02-27 08:00] VITALS: BP 103/71
[2022-02-27] MEDS: ACETYLCYSTEINE 10% SOLN 400 MG/4 ML VIAL NEB SCH ×2 (08:03→14:18)
[2022-02-27] MEDS: ASCORBIC ACID 500 MG TABLET GT SCH (08:43)
[2022-02-27] MEDS: MULTIVITAMINS,THERAGRAN 1 UDTAB TABLET GT SCH (08:43)
[2022-02-27] MEDS: ZINC SULFATE 220 MG CAPSULE GT SCH (08:43)
[2022-02-27] MEDS: CHLORHEXIDINE GLUCONATE 15 ML UDC MM SCH ×2 (08:43→20:05)
[2022-02-27] MEDS: FERROUS SULFATE UDC 300 MG/5 ML UDC GT SCH ×2 (08:43→16:29)
[2022-02-27] MEDS: LEVETIRACETAM SOL (5 ML) 100 MG/ML UDC GT SCH ×2 (08:43→20:05)
[2022-02-27] MEDS: PANTOPRAZOLE 40 MG/PACK PACK NG SCH (08:43)
[2022-02-27] MEDS: PROSOURCE / PROSTAT (PYXIS) 30 ML UDC GT SCH ×3 (08:44→16:30)
[2022-02-27] MEDS: METOPROLOL TARTRATE 25 MG TABLET GT SCH ×2 (08:44→20:05)
[2022-02-27] MEDS: THERAHONEY GEL 1.5 OZ TUBE TP SCH (08:47)
--- NOTE | 2022-02-27 09:27 | NUR ---
REGARDING THORACENTESIS, SCANNED THE PATIENT TODAY UNDER ULTRASOUND, PATIENT HAS MILD PLEURAL EFFUSION LT CHEST CALLED MD SHANKS, THE IR MD PUMPER HEAD, AND APPEARS THE AMOUNT OF PLEURAL EFF IS TOO SMALL, AND NOT SAFE FOR TAPPING INFORMED RN AND AND PIN DRAFTER OPERATOR ON [facility] FLOOR
[2022-02-27] MEDS: ACETAMINOPHEN 650 MG/20.3 ML UDC GT PRN ×2 (11:14→20:26)
[2022-02-27 12:00] VITALS: BP 99/67
--- NOTE | 2022-02-27 13:30 | NUR ---
US GUIDED THORACENTESIS OF LEFT LUNG COMPLETE. 25 ML REMOVED. SPECIMEN SENT TO LAB.
[2022-02-27 16:00] VITALS: BP 85/58
[2022-02-27] MEDS: JEVITY 1.2 CAL 1,000 ML BOTTLE GT SCH (17:16)
--- NOTE | 2022-02-27 17:25 | NUR ---
RESTARTED GTUBE FEEDING @ 75ML/HR X 20HRS.
--- NOTE | 2022-02-27 18:45 | NUR ---
RN CLOSING NOTE PATIENT IN BED, OBTUNDED, OPENS EYES, AROUSABLE TO TACTILE STIMULI, . ON TRACH TO COOL AEROSOL AT ORDERED SETTINGS, ST ON THE MONITOR, HR 100-130. DAY MIDLINE PATENT AND FLUSHING WELL, NOTED GTUBE INTACT POSITIVE PLACEMENT NOTED, NO RESIDUAL, WITH TUBE FEEDING OF JEVITY AT 75 ML/HR. TUBE DRAIN NOTED, 75 ML AMOUNT OF SEROSANGUINEOUS FLUID DRAINED. RED CATHETER DRAINING TO A CLOUDY, YELLOW OUTPUT. SAFETY MEASURES IMPLEMENTED. WILL ENDORSE TO MARINE PHOTOGRAPHER NURSE FOR [facility].
[2022-02-27] MEDS ORDERED: CEFEPIME 1 GM in IV D5W 50 ML IV SCH (19:30)
[2022-02-27 20:00] VITALS: BP 102/66
[2022-02-27] MEDS ORDERED: VANCOMYCIN 1.25 GM in IV D5W 250 ML IV ONE (20:00)
[2022-02-27] MEDS: SENNOSIDES 8.6 MG TABLET GT SCH (20:02)
[2022-02-27] MEDS ORDERED: VANCOMYCIN 1 GM VIAL ONE (20:09)
[2022-02-27] MEDS ORDERED: CEFEPIME 1 GM VIAL ONE (21:53)
--- NOTE | 2022-02-27 22:14 | NUR ---
RN NOTE RECEIVED PATIENT IN BED, OBTUNDED, OPENS EYES, AROUSABLE TO TACTILE STIMULI, IN NO ACUTE DISTRESS AT THIS TIME, FAMILY AT BEDSIDE. ON TRACH TO COOL AEROSOL AT 10 LPM, FIO2 OF 40%, SATURATION AT 95%, ST ON THE MONITOR, HR IS 136. DAY MIDLINE PATENT AND FLUSHING WELL, NO S/S OF INFECTION OR BLEEDING. NOTED GTUBE INTACT POSITIVE PLACEMENT NOTED, NO RESIDUAL, WITH TUBE FEEDING OF JEVITY AT 75 ML/HR. PERICARDIAC TUBE DRAIN INTACT, NOTED A MODERATE AMOUNT OF SEROSANGUINEOUS FLUID. RED CATHETER DRAINING TO A CLEAR, YELLOW OUTPUT. SAFETY MEASURES IMPLEMENTED. PATIENT BED ALARM IS ON. HEAD OF BED ELEVATED. BED IS LOCKED, IN LOWEST POSITION AND SIDE RAILS UP. CALL LIGHT WITHIN REACH OF THE PATIENT. WILL CONTINUE TO MONITOR AND REASSESS FOR ANY CHANGES.
[2022-02-28] VITALS: BP 95/61
[2022-02-28] MEDS: SULFACETAMIDE 10% OPHTH 15 ML BOTTLE EACHEYE SCH ×4 (00:31→17:42)
[2022-02-28] MEDS: IPRATROPIUM NEB FS 0.5 MG/2.5 ML AMPUL.NEB NEB SCH ×4 (00:58→19:55)
[2022-02-28] MEDS: ACETYLCYSTEINE 10% SOLN 400 MG/4 ML VIAL NEB SCH ×3 (00:58→14:52)
[2022-02-28 04:00] VITALS: BP 95/59
[2022-02-28] MEDS: ACETAMINOPHEN 650 MG/20.3 ML UDC GT PRN ×3 (05:44→19:03)
--- NOTE | 2022-02-28 06:57 | NUR ---
RN NOTE NOTED 15 ML OF SEROSANGUINEOUS OUTPUT FROM PERICARDIAL DRAIN.
[2022-02-28] MEDS: HEPARIN SODIUM,PORCINE/PF 50 UNIT/5 ML DISP.SYRIN IV SCH ×3 (07:17→21:07)
--- NOTE | 2022-02-28 07:55 | NUR ---
television installer note patient in bed obtunded, with trach to cooler aerosol fio2 40% on tele monitor st 128 at this time, with Faust cath with yellow color urine, with g tube feeding keep hob elevated at all tome, rt upper arm mid line in place pericardial drain in chest in place with small serosanguineous drainage noted small amt bed in lowest and locked position , will con to monitor
[2022-02-28 08:00] VITALS: BP 98/62
[2022-02-28] MEDS: CHLORHEXIDINE GLUCONATE 15 ML UDC MM SCH ×2 (08:22→21:07)
[2022-02-28] MEDS: FERROUS SULFATE UDC 300 MG/5 ML UDC GT SCH ×2 (08:22→16:29)
[2022-02-28] MEDS: MULTIVITAMINS,THERAGRAN 1 UDTAB TABLET GT SCH (08:22)
[2022-02-28] MEDS: PANTOPRAZOLE 40 MG/PACK PACK NG SCH (08:22)
[2022-02-28] MEDS: ASCORBIC ACID 500 MG TABLET GT SCH (08:23)
[2022-02-28] MEDS: LEVETIRACETAM SOL (5 ML) 100 MG/ML UDC GT SCH ×2 (08:23→21:07)
[2022-02-28] MEDS: ZINC SULFATE 220 MG CAPSULE GT SCH (08:23)
[2022-02-28] MEDS: PROSOURCE / PROSTAT (PYXIS) 30 ML UDC GT SCH ×3 (08:25→16:26)
[2022-02-28] MEDS: METOPROLOL TARTRATE 25 MG TABLET GT SCH ×2 (08:25→21:05)
[2022-02-28] MEDS: VANCOMYCIN 1 GM in IV D5W 250 ML IV SCH ×2 (08:25→15:25)
--- NOTE | 2022-02-28 08:30 | NUR ---
telecommunications line mechanic note dr kong notified that hr st 132 ald last night 142
[2022-02-28] MEDS: THERAHONEY GEL 1.5 OZ TUBE TP SCH (08:39)
[2022-02-28] MEDS ORDERED: CEFEPIME 2 GM in IV D5W 100 ML IV SCH (09:00)
[2022-02-28] MEDS: JEVITY 1.2 CAL 1,000 ML BOTTLE GT SCH (09:35)
--- NOTE | 2022-02-28 10:00 | NUR ---
telephone order clerk room service note dr rivera notified that hr [address] chest stat will f\u
--- NOTE | 2022-02-28 10:49 | NUR ---
rn telephonic note ct chest done as ordered
[2022-02-28] MEDS: CEFEPIME 2 GM in IV D5W 100 ML IV SCH ×2 (11:04→23:38)
[2022-02-28 12:00] VITALS: BP 104/68
--- NOTE | 2022-02-28 13:20 | NUR ---
teletype technician note reported to dr krueger ct chest result. no new order given at this time also Tylenol given. t 1000.0 will monitor
--- NOTE | 2022-02-28 15:20 | NUR ---
TRIED TO REPOSITION THE PATIENT BUT FAMILY REFUSED AND DOES NOT WANT TO BE BOTHERED AT THIS TIME. PATIENT RESTING COMFORTABLY IN BED
[2022-02-28 16:00] VITALS: BP 112/69
--- NOTE | 2022-02-28 18:24 | NUR ---
telephone worker note reposition done o side all needs attendee family at bedside
--- NOTE | 2022-02-28 18:25 | NUR ---
telemarketer note pericardial drain 10 ml serosanguineous drainage
--- NOTE | 2022-02-28 19:04 | NUR ---
RN CLOSING NOTES PATIENT IN BED, OBTUNDED, WITH TRACH TO COOLER AEROSOL FIO2 40%. ST WITH CARDIAC HR OF 133. RED CATH IN PLACE AND DRAINING WITH YELLOW URINE, G-TUBE INTACT WITH JEVITY 1.0 AT 75 ML/HR. NO RESIDUAL AND DRESSING DRY AND INTACT. MIDLINE ON RIGHT UPPER ARM. PERICARDIAL DRAIN IN CHEST NOTED SMALL AMOUNT OF SEROSANGUINEOUS DRAINAGE. HOB IN 30 DEGREES AND KEPT BED IN LOW POSITION. REPOSITIONED FOR COMFORT. FAMILY AT BEDSIDE. WILL ENDORSE TO INCOMING SHIFT.
--- NOTE | 2022-02-28 19:20 | NUR ---
DISTRICT EXTENSION SERVICE AGENT NOTE RECEIVED CARE OF PATIENT FROM AM NURSE. PATIENT NON VERBAL, OPENS EYES, NON INTERACTIVE, PATIENT ON 2 PIECE TRACH, COOL AEROSOL, NOTED WITH BILATERAL CHEST RISE AND FALL, NO SOB NOTED, PATIENT ON TELE ST WITH HR OF 115, PERICARDIAL DRAIN WITH NO OUTPUT AT THIS POINT, WITH GTUBE RUNNING JEVITY @75ML/HR, RED CATHETER PATENT DRAINING YELLOW URINE, SAFETY MEASURES PUT IN PLACE ACCORDING TO HOSPITAL POLICIES. WILL CONTINUE TO MONITOR
[2022-02-28 20:00] VITALS: BP 111/62
[2022-02-28] MEDS: SENNOSIDES 8.6 MG TABLET GT SCH (21:06)
[2022-03-01] VITALS: BP 91/55
[2022-03-01] MEDS: VANCOMYCIN 1 GM in IV D5W 250 ML IV SCH ×2 (00:19→08:22)
[2022-03-01] MEDS: SULFACETAMIDE 10% OPHTH 15 ML BOTTLE EACHEYE SCH ×4 (00:19→18:04)
[2022-03-01] MEDS: IPRATROPIUM NEB FS 0.5 MG/2.5 ML AMPUL.NEB NEB SCH ×4 (01:39→20:17)
[2022-03-01] MEDS: ACETYLCYSTEINE 10% SOLN 400 MG/4 ML VIAL NEB SCH ×3 (01:39→15:30)
[2022-03-01 04:00] VITALS: BP 104/70
[2022-03-01] MEDS: HEPARIN SODIUM,PORCINE/PF 50 UNIT/5 ML DISP.SYRIN IV SCH ×3 (05:50→21:42)
--- NOTE | 2022-03-01 06:51 | NUR ---
RN CLOSING NOTES WILL ENDORSE CARE OF PATIENT TO AM NURSE. PATIENT REMAINS NON-VERBAL, ON T PIECE WITH AEROSOL O2 THERAPY, TOLERATING WELL. NO SIGNIFICANT FINDINGS UPON ALL NURSING ASSESSMENTS. ALL DUE MEDS GIVEN AND NEEDS ATTENDED TO. PERICARDIAL DRAIN INTACT WITH 5 ML OF OUTPUT. SAFETY MEASURES KEPT IN PLACE. WILL ENDORSE TO AM NURSE FOR CONTINUITY OF CARE.
[2022-03-01] MEDS: JEVITY 1.2 CAL 1,000 ML BOTTLE GT SCH (07:01)
[2022-03-01 07:22] LABS: CALCIUM, SERUM 9.2 mg/dL (8.5-10.1); CREATININE 0.6 mg/dL (0.6-1.3); POTASSIUM 4.2 mmol/L (3.5-5.1)
--- NOTE | 2022-03-01 07:30 | NUR ---
RN OPENING NOTE: CHECKED PATIENT IN BED,AWAKE, OBTUNDED. PATIENT WITH OXYGEN VIA T-PIECE AT FI02 35%, O2 SATURATION AT 95%. SINUS TACHYCARDIA NOTED ON TELEMETRY. SKIN WARM AND DRY TO TOUCH. PEG TUBE INTACT, WITH JEVITY 1.2 ABBIE @ 75 ML/HR. DRESSING CLEAN AND DRY. PATENT HAS MIDLINE ON RIGHT UPPER ARM, NO SIGNS OF INFECTION NOTED. NO SOB. HOB KEPT ELEVATED AT 30 DEGREES. NO EDEMA NOTED. RED CATHETER INTACT AND DRAINING WITH CLEAR YELLOW URINE. BED IS LOCKED IN LOWEST POSITION, 2 SIDE RAILS UP, CALL LIGHT WITHIN REACH. WILL CONTINUE TO MONITOR THROUGHOUT SHIFT. REPOSITIONED FOR COMFORT AND MAINTAINED SKIN INTEGRITY
[2022-03-01 08:00] VITALS: BP 121/83
[2022-03-01] MEDS: LEVETIRACETAM SOL (5 ML) 100 MG/ML UDC GT SCH ×2 (09:22→21:38)
[2022-03-01] MEDS: FERROUS SULFATE UDC 300 MG/5 ML UDC GT SCH ×2 (09:22→16:23)
[2022-03-01] MEDS: METOPROLOL TARTRATE 25 MG TABLET GT SCH ×2 (09:23→21:37)
[2022-03-01 09:24] LABS: BASOPHILS # (AUTO) 0.1 K/uL (0.0-0.2); BASOPHILS % (AUTO) 0.6 % (0.0-2.0); EOSINOPHILS % (AUTO) 0.6 % (0.0-6.0); HEMATOCRIT 35 % (39-51); LYMPHOCYTES # (AUTO) 1.6 K/uL (0.8-4.8); LYMPHOCYTES % (AUTO) 10.3 % (20.0-44.0); MEAN CORPUSCULAR HGB CONC 32 g/dl (31.0-36.0); MEAN CORPUSCULAR VOLUME 82 fL (80-96); MONOCYTES # (AUTO) 1.6 K/uL (0.1-1.30); MONOCYTES % (AUTO) 9.9 % (2.0-12.0); NEUTROPHILS # (AUTO) 12.5 K/uL (1.8-8.9); NEUTROPHILS % (AUTO) 78.6 % (43.0-81.0); PLATELET COUNT (AUTO) 447 K/uL (150-450); RED BLOOD CELL COUNT(AUTO) 4.25 MIL/uL (4.5-6.0); WHITE BLOOD COUNT (AUTO) 15.9 K/uL (4.3-11.0)
[2022-03-01] MEDS: MULTIVITAMINS,THERAGRAN 1 UDTAB TABLET GT SCH (09:24)
[2022-03-01] MEDS: ASCORBIC ACID 500 MG TABLET GT SCH (09:24)
[2022-03-01] MEDS: ZINC SULFATE 220 MG CAPSULE GT SCH (09:24)
[2022-03-01] MEDS: PANTOPRAZOLE 40 MG/PACK PACK NG SCH (09:24)
[2022-03-01] MEDS: CHLORHEXIDINE GLUCONATE 15 ML UDC MM SCH ×2 (09:24→21:36)
--- NOTE | 2022-03-01 09:30 | NUR ---
RN NOTES DUE MEDS GIVEN
[2022-03-01] MEDS: PROSOURCE / PROSTAT (PYXIS) 30 ML UDC GT SCH ×3 (09:32→16:23)
[2022-03-01] MEDS: THERAHONEY GEL 1.5 OZ TUBE TP SCH ×3 (09:42→09:44)
--- NOTE | 2022-03-01 10:05 | NUR ---
RN NOTES PER RESP THERAPIST, PER DR. FERRIS, KHRIS MUCOMYST, THIN SECRETIONS.
[2022-03-01] MEDS: CEFEPIME 2 GM in IV D5W 100 ML IV SCH ×2 (11:17→23:57)
[2022-03-01 12:00] VITALS: BP 97/59
--- NOTE | 2022-03-01 12:57 | NUR ---
RN NOTES HEPARIN FLUSH TO PERICARDIAL DRAIN DONE. UNABLE TO ASPIRATE 10 ML HEPARIN BACK.
--- NOTE | 2022-03-01 15:43 | NUR ---
RECHECKED PT'S TEMP AND IT WAS 97.6
[2022-03-01 16:00] VITALS: BP 96/61
[2022-03-01] MEDS: VANCOMYCIN 1.25 GM in IV D5W 250 ML IV SCH ×2 (16:22→21:36)
--- NOTE | 2022-03-01 16:43 | NUR ---
NOTED TO HAVE TEMP OF 100.1 TYLENOL GIVEN ORDERED. CODLING MEASURE PROVIDED
[2022-03-01] MEDS: ACETAMINOPHEN 650 MG/20.3 ML UDC GT PRN (16:53)
[2022-03-01 17:22] LABS: ABG BASE EXCESS 2.6 mmol/L; ABG PCO2 34.1 mmHg (35.0-45.0); ABG PH 7.493 (7.350-7.450); COHb 0.3 % (0.5-1.5); MetHb 0.3 % (0.0-1.5); O2Hb 96.4 % (94.0-97.0); SITE, ABG Right Radial; VENT MODE, BG 5l Tbar
--- NOTE | 2022-03-01 17:43 | NUR ---
RECHECKED PT'S TEMP AND IT WAS 97.6
--- NOTE | 2022-03-01 18:29 | NUR ---
RN CLOSING NOTE: PATIENT SLEEPING COMFORTABLY IN BED WITH FAMILY AT BEDSIDE.. TRACH TO COOLER AEROSOL FIO2 40%. ST WITH CARDIAC HR OF 106. NO RESPIRATORY DISTRESS NOTED THE ENTIRE SHIFT. SKIN WARM AND DRY TO TOUCH. RED CATH IN PLACE AND DRAINING WITH YELLOW URINE, G-TUBE INTACT WITH JEVITY 1.0 AT 75 ML/HR. NO RESIDUAL NOTED. DRESSING DRY AND INTACT. MIDLINE ON RIGHT UPPER ARM. PERICARDIAL DRAIN IN CHEST NOTED WITH 20 ML OF SEROSANGUINEOUS DRAINAGE . HOB IN 30 DEGREES AND KEPT BED IN LOW POSITION. REPOSITIONED EVERY 2 HOURS FOR COMFORT. WILL ENDORSE TO INCOMING SHIFT FOR CONTINUOUS MONITOR.
[2022-03-01 20:00] VITALS: BP 99/69
--- NOTE | 2022-03-01 20:33 | NUR ---
beam house inspector Opening Note Pt received in bed, eyes open, obtunded, non-verbal. Pt noted to have portex #8 at 8L cool aerosol. Current O2sat of 96% with no s/s of resp distress, no SOB or cough noted, non-labored and equal breathing. Pt attached to external monitor, currently ST with HR of 113. Pt's Faust intact and patent, draining clear and yellow urine. Pt also noted to have pericardial drain, intact and patent; no output as of right now; will monitor. GT dressing C/D/I with Jevity running at 75 ml/hr. DAY midline intact and patent; flushes easily with no resistance; currently has no fluids/meds running through it. Bed in lowest position, call light within reach, side rails up x3. Will continue to monitor throughout the night.
[2022-03-01] MEDS: CHLORHEXIDINE GLUCONATE 4% 118 ML BOTTLE TP SCH (21:36)
[2022-03-01] MEDS: SENNOSIDES 8.6 MG TABLET GT SCH (21:38)
[2022-03-02] VITALS: BP 113/77
[2022-03-02] MEDS: SULFACETAMIDE 10% OPHTH 15 ML BOTTLE EACHEYE SCH ×5 (00:04→23:09)
[2022-03-02] MEDS: ACETAMINOPHEN 650 MG/20.3 ML UDC GT PRN ×3 (00:04→21:19)
--- NOTE | 2022-03-02 00:05 | NUR ---
RN Note Pt noted to have temperature of 99.7. Pt administered Tylenol 650 mg. Will monitor for effectiveness.
[2022-03-02] MEDS: IPRATROPIUM NEB FS 0.5 MG/2.5 ML AMPUL.NEB NEB SCH ×4 (01:30→20:24)
[2022-03-02] MEDS: JEVITY 1.2 CAL 1,000 ML BOTTLE GT SCH ×2 (02:06→20:07)
[2022-03-02 04:00] VITALS: BP 105/64
[2022-03-02] MEDS: VANCOMYCIN 1.25 GM in IV D5W 250 ML IV SCH ×3 (05:36→21:19)
[2022-03-02] MEDS: HEPARIN SODIUM,PORCINE/PF 50 UNIT/5 ML DISP.SYRIN IV SCH ×3 (05:37→20:17)
--- NOTE | 2022-03-02 06:22 | NUR ---
RN NOTE PT HAS TEMPERATURE OF 99.0. PT ADMINISTERED TYLENOL 650 MG.
--- NOTE | 2022-03-02 07:05 | NUR ---
COST SPECIALIST CLOSING NOTE PT REMAINS IN BED, NON-VERBAL, OBTUNDED, OPENS EYES. PT REMAINS ON SAME VENT SETTINGS WITH NO CHANGES; PT TOLERATED VENT SETTINGS WELL; NO S/S OF RESP DISTRESS, NO SOB, NON-LABORED AND EQUAL BREATHING; O2SAT RANGED FROM 95%-98%. ATTACHED TO EXTERNAL MONITOR AND REMAINED ST THROUGHOUT THE NIGHT WITH HR RANGING FROM 113-121. RED INTACT AND PATENT; DRAINING CLEAR AND YELLOW URINE. PERICARDIAL DRAIN INTACT AND PATENT; NO OUTPUT NOTED DURING THE NIGHT. GT DRESSING C/D/I; JEVITY RUNNING AT 75 ML/HR. DAY MIDLINE INTACT AND PATENT; NS TKO AT 10 ML/HR. WOUND CARE DONE. ALL DUE MEDS ADMINISTERED DURING THE NIGHT. BED IN LOWEST POSITION, CALL LIGHT WITHIN REACH, SIDE RAILS UP X3. WILL ENDORSE TO DAYSHIFT NURSE TO CONTINUE CARE.
[2022-03-02 07:33] LABS: BASOPHILS % (AUTO) 0.3 % (0.0-2.0); HEMATOCRIT 32 % (39-51); HEMOGLOBIN 10.1 g/dL (13.5-17.5); LYMPHOCYTES # (AUTO) 1.1 K/uL (0.8-4.8); LYMPHOCYTES % (AUTO) 8.9 % (20.0-44.0); MEAN CORPUSCULAR HGB CONC 32 g/dl (31.0-36.0); MEAN CORPUSCULAR VOLUME 83 fL (80-96); MONOCYTES # (AUTO) 1.1 K/uL (0.1-1.30); MONOCYTES % (AUTO) 8.7 % (2.0-12.0); NEUTROPHILS # (AUTO) 9.8 K/uL (1.8-8.9); NEUTROPHILS % (AUTO) 81.1 % (43.0-81.0); PLATELET COUNT (AUTO) 362 K/uL (150-450); RED BLOOD CELL COUNT(AUTO) 3.85 MIL/uL (4.5-6.0); WHITE BLOOD COUNT (AUTO) 12.1 K/uL (4.3-11.0)
[2022-03-02 07:50] LABS: CALCIUM, SERUM 8.8 mg/dL (8.5-10.1); CREATININE 0.5 mg/dL (0.6-1.3); MAGNESIUM 2.3 mg/dL (1.8-2.4); PHOSPHORUS 3.1 mg/dL (2.5-4.9); POTASSIUM 3.8 mmol/L (3.5-5.1)
[2022-03-02 08:00] VITALS: BP 93/60
[2022-03-02] MEDS: METOPROLOL TARTRATE 25 MG TABLET GT SCH ×2 (09:00→20:11)
[2022-03-02] MEDS: FERROUS SULFATE UDC 300 MG/5 ML UDC GT SCH ×2 (09:16→18:12)
[2022-03-02] MEDS: LEVETIRACETAM SOL (5 ML) 100 MG/ML UDC GT SCH ×2 (09:16→20:08)
[2022-03-02] MEDS: CHLORHEXIDINE GLUCONATE 15 ML UDC MM SCH ×2 (09:16→20:08)
[2022-03-02] MEDS: ZINC SULFATE 220 MG CAPSULE GT SCH (09:16)
[2022-03-02] MEDS: ASCORBIC ACID 500 MG TABLET GT SCH (09:16)
[2022-03-02] MEDS: MULTIVITAMINS,THERAGRAN 1 UDTAB TABLET GT SCH (09:16)
[2022-03-02] MEDS: PANTOPRAZOLE 40 MG/PACK PACK NG SCH (09:16)
[2022-03-02] MEDS: THERAHONEY GEL 1.5 OZ TUBE TP SCH (09:17)
[2022-03-02] MEDS: PROSOURCE / PROSTAT (PYXIS) 30 ML UDC GT SCH ×3 (09:17→18:12)
[2022-03-02 12:00] VITALS: BP 99/66
[2022-03-02] MEDS: CEFEPIME 2 GM in IV D5W 100 ML IV SCH ×2 (12:06→23:08)
[2022-03-02] MEDS ORDERED: IOHEXOL-300 100 ML VIAL IV ONE (12:57)
[2022-03-02] MEDS ORDERED: IV NS 0.9% 250 ML IV ONE (12:58)
[2022-03-02 16:00] VITALS: BP 104/66
[2022-03-02] MEDS ORDERED: MEROPENEM 1 G in IV NS 0.9% 100 ML IV SCH (17:00)
[2022-03-02 20:00] VITALS: BP 96/64
[2022-03-02] MEDS: CHLORHEXIDINE GLUCONATE 4% 118 ML BOTTLE TP SCH (20:16)
--- NOTE | 2022-03-02 20:57 | NUR ---
weblogic developer Opening Note Pt laying in bed, obtunded, eyes open, non-verbal. Pt has portex #8 at 8L cool aerosol with current O2sat of 98% with no s/s of resp distress, no SOB or cough noted, non-labored and equal breathing. Pt attached to external monitor, ST with HR of 132. Pt's Faust intact and patent, draining clear and yellow urine. Pericardial drain intact and patent; no output noted. GT dressing C/D/I, Jevity running at 75 ml/hr; no residual noted. DAY midline intact and patent; flushes easily with no resistance; has NS TkO at 10 ml/hr. Bed in lowest position, call light within reach, side rails up x3. Will continue to monitor throughout the night.
[2022-03-02] MEDS: SENNOSIDES 8.6 MG TABLET GT SCH (21:19)
--- NOTE | 2022-03-02 21:21 | NUR ---
RN Note Pt noted to have temperature of 99.7. Pt administered tylenol 650 mg. Will monitor for effectiveness.
[2022-03-03] VITALS: BP 100/57
[2022-03-03] MEDS: IPRATROPIUM NEB FS 0.5 MG/2.5 ML AMPUL.NEB NEB SCH ×4 (01:40→20:07)
[2022-03-03 04:00] VITALS: BP 98/57
[2022-03-03] MEDS: VANCOMYCIN 1.25 GM in IV D5W 250 ML IV SCH ×3 (05:28→20:06)
[2022-03-03] MEDS: SULFACETAMIDE 10% OPHTH 15 ML BOTTLE EACHEYE SCH ×4 (05:29→23:29)
[2022-03-03] MEDS: HEPARIN SODIUM,PORCINE/PF 50 UNIT/5 ML DISP.SYRIN IV SCH ×3 (05:31→20:10)
--- NOTE | 2022-03-03 06:41 | NUR ---
oracle adf developer Closing Note Pt in bed, slept intermittently throughout the night; obtunded, non-verbal, opens eyes. Remains on 8L cool aerosol with portex #8; no resp distress, non-labored and equal breathing, no SOB. Suctioned pt during the night, noted to have secretions that are slightly thick in consistency. Attached to external monitor, was ST during the whole night with HR as high as 140s during beginning of shift, but had gone down to 120s after giving metoprolol at 2100 last night. Pericardial drain remains in place, intact and patent, no output noted during the shift. Faust intact and patent, draining clear and yellow urine. GT dressing changed and is C/D/I, Jevity running at 75 ml/hr. DAY midline intact and patent; flushes well with no resistance. All due meds administered during the night. bed in lowest position, call light within reach, side rails up x3. Will endorse to dayshift nurse to continue care.
[2022-03-03 07:09] LABS: CALCIUM, SERUM 8.7 mg/dL (8.5-10.1); CREATININE 0.5 mg/dL (0.6-1.3); MAGNESIUM 2.1 mg/dL (1.8-2.4); POTASSIUM 3.8 mmol/L (3.5-5.1)
[2022-03-03 07:24] LABS: BASOPHILS % (AUTO) 0.4 % (0.0-2.0); EOSINOPHILS % (AUTO) 0.9 % (0.0-6.0); HEMATOCRIT 31 % (39-51); HEMOGLOBIN 10.2 g/dL (13.5-17.5); LYMPHOCYTES # (AUTO) 1.2 K/uL (0.8-4.8); LYMPHOCYTES % (AUTO) 10.8 % (20.0-44.0); MEAN CORPUSCULAR HGB CONC 33 g/dl (31.0-36.0); MEAN CORPUSCULAR VOLUME 82 fL (80-96); MONOCYTES # (AUTO) 1.1 K/uL (0.1-1.30); MONOCYTES % (AUTO) 9.3 % (2.0-12.0); NEUTROPHILS % (AUTO) 78.6 % (43.0-81.0); PLATELET COUNT (AUTO) 366 K/uL (150-450); RED BLOOD CELL COUNT(AUTO) 3.83 MIL/uL (4.5-6.0); WHITE BLOOD COUNT (AUTO) 11.4 K/uL (4.3-11.0)
--- NOTE | 2022-03-03 07:36 | NUR ---
tax associate Opening Note Patient in bed, obtunded, non-verbal, opens eyes. Remains on 8L cool aerosol with portex #8; no resp distress, non-labored and equal breathing, no SOB. Attached to external monitor, currently reading sinus tachycardia. Pericardial drain remains in place, intact and patent. Faust intact and patent, draining clear and yellow urine. Gastric tube noted with, Jevity running at 75 ml/hr. DAY midline intact and patent; flushes well with no resistance. will continue plan of care and anticipate needs.
[2022-03-03 08:00] VITALS: BP 98/59
[2022-03-03] MEDS: MULTIVITAMINS,THERAGRAN 1 UDTAB TABLET GT SCH (08:51)
[2022-03-03] MEDS: FERROUS SULFATE UDC 300 MG/5 ML UDC GT SCH ×2 (08:51→17:25)
[2022-03-03] MEDS: ASCORBIC ACID 500 MG TABLET GT SCH (08:51)
[2022-03-03] MEDS: LEVETIRACETAM SOL (5 ML) 100 MG/ML UDC GT SCH ×2 (08:51→20:07)
[2022-03-03] MEDS: ZINC SULFATE 220 MG CAPSULE GT SCH (08:51)
[2022-03-03] MEDS: PANTOPRAZOLE 40 MG/PACK PACK NG SCH (08:51)
[2022-03-03] MEDS: CHLORHEXIDINE GLUCONATE 15 ML UDC MM SCH ×2 (08:51→20:06)
[2022-03-03] MEDS: METOPROLOL TARTRATE 25 MG TABLET GT SCH ×2 (08:52→20:46)
[2022-03-03] MEDS: THERAHONEY GEL 1.5 OZ TUBE TP SCH (08:53)
[2022-03-03] MEDS: PROSOURCE / PROSTAT (PYXIS) 30 ML UDC GT SCH ×3 (08:53→17:25)
[2022-03-03] MEDS: JEVITY 1.2 CAL 1,000 ML BOTTLE GT SCH (11:39)
[2022-03-03] MEDS: CEFEPIME 2 GM in IV D5W 100 ML IV SCH ×2 (11:39→22:05)
[2022-03-03 12:00] VITALS: BP 104/62
[2022-03-03] MEDS: ACETAMINOPHEN 650 MG/20.3 ML UDC GT PRN (13:37)
--- NOTE | 2022-03-03 13:58 | NUR ---
HEPARIN FLUSH WITHHELD. DISCONTINUED DRAIN. WILL CONTINUE PLAN OF CARE AND ANTICIPATE NEEDS
[2022-03-03 16:00] VITALS: BP 102/58
--- NOTE | 2022-03-03 18:43 | NUR ---
hide spreader Closing Note Patient in bed, obtunded, non-verbal, opens eyes. Remains on 8L cool aerosol with portex #8; no resp distress, non-labored and equal breathing, no SOB. Attached to external monitor, currently reading sinus tachycardia. Faust intact and patent, draining clear and yellow urine. Gastric tube noted with, Jevity running at 75 ml/hr. DAY midline intact and patent; flushes well with no resistance. Safety measures implemented, bed in lowest position, side rails up, call light within reach. Family members at the bedside. Will endorse to nightshift RN for continuation of care.
--- NOTE | 2022-03-03 19:30 | NUR ---
dandy tender Opening Note Pt received in bed, eyes open, obtunded, non-verbal. Family on bedside. Pt noted to have portex #8 at 8L cool aerosol. Currently sating at 99% with no s/sx of respiratory distress, no SOB or cough noted, non-labored and equal breathing. Pt attached to external monitor, currently ST with HR of 112. Pt's Faust intact and patent, draining clear and yellow urine. GT dressing C/D/I with Jevity running at 75 ml/hr. DAY midline intact and patent; flushes easily with no resistance. all safety measures in place: bed in lowest position, call light within reach, side rails up x3. Will continue to monitor throughout the night.
[2022-03-03 20:00] VITALS: BP 95/59
--- NOTE | 2022-03-03 20:52 | NUR ---
RN NOTE PT'S BP WAS 95/59 AND HR 112. WITHHELD BP MEDS FOR 2100. WILL CONTINUE TO MONITOR PT FOR ANY CHANGES.
--- NOTE | 2022-03-03 21:14 | NUR ---
RN NOTE HEPARIN FLUSH WITHHELD AND DC'D BY BIBI PHILLIPS.
[2022-03-03] MEDS: SENNOSIDES 8.6 MG TABLET GT SCH (21:41)
--- NOTE | 2022-03-03 23:31 | NUR ---
RN NOTE PT RESTING IN BED, NO APPARENT SIGNS OF DISTRESS AT THIS TIME. DUE MEDS GIVEN.
[2022-03-04] VITALS: BP 102/58
[2022-03-04] MEDS: IPRATROPIUM NEB FS 0.5 MG/2.5 ML AMPUL.NEB NEB SCH ×4 (01:19→19:43)
[2022-03-04 04:00] VITALS: BP 95/57
[2022-03-04] MEDS: VANCOMYCIN 1.25 GM in IV D5W 250 ML IV SCH ×3 (04:17→21:08)
[2022-03-04] MEDS: HYDROCODONE/APAP 10/325MG TABLET GT PRN (04:27)
--- NOTE | 2022-03-04 04:34 | NUR ---
RN NOTE PT'S HR REACHED 130s. ASSESSED PT, PT SHOWS NO SIGNS OF APPARENT DISTRESS. OTHER VS ARE WNL. GAVE PAIN MED PRN (NORCO 10-325 ORDERED). WILL MONITOR PT CLOSELY AND REASSESS AFTER 30 MINS.
[2022-03-04] MEDS: SULFACETAMIDE 10% OPHTH 15 ML BOTTLE EACHEYE SCH ×3 (05:26→17:11)
--- NOTE | 2022-03-04 05:46 | NUR ---
RN NOTE PT'S HR WENT DOWN TO THE 70s AN HOUR AFTER THE PAIN MED WAS GIVEN. PT LOOKED MORE COMFORTABLE AND CURRENTLY SLEEPING. TELE MONITOR SHOWS SINUS RHYTHM, SATING AT 95%. THE REST OF THE VS ARE WNL. AM/PM CARE DONE. NEEDS ATTENDED TO. DUE MEDS GIVEN. ALL SAFETY PRECAUTIONS IN PLACE. BED LOCKED IN LOW POSITION. CALL LIGHT WITHIN REACH. WILL ENDORSE TO AM SHIFT NURSE FOR LIBIA.
[2022-03-04] MEDS: JEVITY 1.2 CAL 1,000 ML BOTTLE GT SCH ×2 (06:37→21:18)
--- NOTE | 2022-03-04 07:16 | NUR ---
RN AM NOTE Patient is in bed with his eyes open, obtunded, non-verbal.Patient has portex #8 at 8L cool aerosol. Currently sating at 99% , breathinh evenly , non labored with no s/sx of respiratory distress, Patient attached to external monitor, currently ST with HR of 98. patient has Faust intact and patent, draining clear and yellow urine. GT dressing C/D/I with Jevity running at 75 ml/hr. DAY midline intact and patent; flushes easily with no resistance. 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 all safety measures in place: bed in lowest position, call light within reach, side rails up x3. Will continue to monitor throughout the day
[2022-03-04 07:31] LABS: BASOPHILS % (AUTO) 0.3 % (0.0-2.0); EOSINOPHILS % (AUTO) 1.1 % (0.0-6.0); HEMATOCRIT 32 % (39-51); HEMOGLOBIN 10.1 g/dL (13.5-17.5); LYMPHOCYTES # (AUTO) 1.5 K/uL (0.8-4.8); LYMPHOCYTES % (AUTO) 14.5 % (20.0-44.0); MEAN CORPUSCULAR HGB CONC 32 g/dl (31.0-36.0); MEAN CORPUSCULAR VOLUME 81 fL (80-96); MONOCYTES # (AUTO) 1.1 K/uL (0.1-1.30); MONOCYTES % (AUTO) 10.4 % (2.0-12.0); NEUTROPHILS # (AUTO) 7.7 K/uL (1.8-8.9); NEUTROPHILS % (AUTO) 73.7 % (43.0-81.0); PLATELET COUNT (AUTO) 378 K/uL (150-450); RED BLOOD CELL COUNT(AUTO) 3.87 MIL/uL (4.5-6.0); WHITE BLOOD COUNT (AUTO) 10.4 K/uL (4.3-11.0)
[2022-03-04 07:34] LABS: CALCIUM, SERUM 8.9 mg/dL (8.5-10.1); CREATININE 0.6 mg/dL (0.6-1.3); MAGNESIUM 2.3 mg/dL (1.8-2.4); PHOSPHORUS 3.6 mg/dL (2.5-4.9); POTASSIUM 3.8 mmol/L (3.5-5.1)
[2022-03-04 08:00] VITALS: BP 101/64
[2022-03-04] MEDS: MULTIVITAMINS,THERAGRAN 1 UDTAB TABLET GT SCH (08:07)
[2022-03-04] MEDS: LEVETIRACETAM SOL (5 ML) 100 MG/ML UDC GT SCH ×2 (08:07→21:07)
[2022-03-04] MEDS: FERROUS SULFATE UDC 300 MG/5 ML UDC GT SCH ×2 (08:07→16:05)
[2022-03-04] MEDS: ASCORBIC ACID 500 MG TABLET GT SCH (08:07)
[2022-03-04] MEDS: CHLORHEXIDINE GLUCONATE 15 ML UDC MM SCH ×2 (08:07→21:07)
[2022-03-04] MEDS: ZINC SULFATE 220 MG CAPSULE GT SCH (08:07)
[2022-03-04] MEDS: PANTOPRAZOLE 40 MG/PACK PACK NG SCH (08:07)
[2022-03-04] MEDS: METOPROLOL TARTRATE 25 MG TABLET GT SCH ×2 (08:09→21:00)
[2022-03-04] MEDS: PROSOURCE / PROSTAT (PYXIS) 30 ML UDC GT SCH ×3 (08:11→16:05)
[2022-03-04] MEDS: THERAHONEY GEL 1.5 OZ TUBE TP SCH (08:12)
[2022-03-04] MEDS: CEFEPIME 2 GM in IV D5W 100 ML IV SCH ×2 (10:25→23:16)
[2022-03-04 12:00] VITALS: BP 114/66
[2022-03-04 16:00] VITALS: BP 150/62
[2022-03-04] MEDS: ACETAMINOPHEN 650 MG/20.3 ML UDC GT PRN ×2 (16:15→23:35)
--- NOTE | 2022-03-04 16:16 | NUR ---
RN note Patient developed fever 101.6 , Tylenol 650 mg was administered via GT .will reassess temp in 40 min
--- NOTE | 2022-03-04 17:27 | NUR ---
rn note ice bags was placed under the patient's arm , temp was rechecked 99.8
--- NOTE | 2022-03-04 18:21 | NUR ---
RN closing note Patient is in bed , alert , nonverbal ,has Tpice in place , O2 sat 97%. No sifhns of distress. Patient has Gtube in place with Jevity running at 75 ml/hr , has Faust cath in place draining clear yellow urine . Patient has pressure sore stage 4 on his low back , wound care done , no sighs of infection noted. Patient had 3 bowel movement today soft brown .Around 6 pm patient had episode of fever 101.9 , Tylenol 650 mg was administered via G tube. Ice packs was placed under the arms , temp was rechecked in 40 min 99.8. Patient has mid line of the DAY , flushing freely , skin around the line is intact .All medications were administered , all needs were met .Bed is at lowest position , Side rails are up , call light within reach , mother at the bed side .
--- NOTE | 2022-03-04 19:35 | NUR ---
YARD PILOT NOTE RECEIVED PATIENT IN BED, OBTUNDED. 2 FAMILY MEMBERS AT BEDSIDE. NO S/S OF APPARENT DISTRESS IN T-PIECE COOL AEROSOL 8LPM. TELE MONITOR READING ST WITH 112 BPM AT THIS TIME. JEVITY RUNNING @75MLS/HR. RED CATH IN PLACE. SAFETY IN PLACE. WILL CONTINUE WITH PLAN OF CARE FOR PATIENT.
[2022-03-04 20:00] VITALS: BP 102/62
[2022-03-04] MEDS: CHLORHEXIDINE GLUCONATE 4% 118 ML BOTTLE TP SCH (21:07)
[2022-03-04] MEDS: SENNOSIDES 8.6 MG TABLET GT SCH (21:08)
--- NOTE | 2022-03-04 21:27 | NUR ---
MASTER MECHANIC NOTE-NON ADMIN BLOOD PRESSURE 102/62, LOPRESSOR HELD PER PARAMETER. OPENED TAB DISCARDED ON PROPER BIN.
--- NOTE | 2022-03-04 23:30 | NUR ---
HAND SHOES SEWER NOTE-OMNICELL DISCREPANCY patient exhibiting pain via flacc. was going to give [place]-10 but mother said no. refused norco. benefits explained to mom. mom wants only tylenol for patient. opened and crushed norco tab wasted in proper bin. Charge nurse, Danielle pearce.
[2022-03-05] VITALS: BP 119/70
[2022-03-05] MEDS: SULFACETAMIDE 10% OPHTH 15 ML BOTTLE EACHEYE SCH ×5 (00:18→23:34)
[2022-03-05] MEDS: IPRATROPIUM NEB FS 0.5 MG/2.5 ML AMPUL.NEB NEB SCH ×4 (01:28→19:21)
[2022-03-05 04:00] VITALS: BP 122/68
[2022-03-05] MEDS: VANCOMYCIN 1.25 GM in IV D5W 250 ML IV SCH ×3 (04:26→20:46)
[2022-03-05 06:52] LABS: BASOPHILS % (AUTO) 0.4 % (0.0-2.0); EOSINOPHILS % (AUTO) 1.3 % (0.0-6.0); HEMATOCRIT 33 % (39-51); HEMOGLOBIN 10.4 g/dL (13.5-17.5); LYMPHOCYTES # (AUTO) 1.4 K/uL (0.8-4.8); LYMPHOCYTES % (AUTO) 13.2 % (20.0-44.0); MEAN CORPUSCULAR HGB CONC 32 g/dl (31.0-36.0); MEAN CORPUSCULAR VOLUME 82 fL (80-96); MONOCYTES # (AUTO) 1.4 K/uL (0.1-1.30); MONOCYTES % (AUTO) 12.9 % (2.0-12.0); NEUTROPHILS # (AUTO) 7.7 K/uL (1.8-8.9); NEUTROPHILS % (AUTO) 72.2 % (43.0-81.0); PLATELET COUNT (AUTO) 376 K/uL (150-450); RED BLOOD CELL COUNT(AUTO) 4.04 MIL/uL (4.5-6.0); WHITE BLOOD COUNT (AUTO) 10.6 K/uL (4.3-11.0)
--- NOTE | 2022-03-05 07:12 | NUR ---
PIPE ASSEMBLY WORKER CLOSING NOTE PATIENT IN BED WITH EYES CLOSED, EASY TO AROUSE. EYE OPENING TO STIMULI. NO S/S OF APPARENT DISTRESS IN T-PIECE 8LPM OF AEROSOL. NOT EXHIBITING PAIN VIA FLACC. NEEDS ATTENDED. ALL SCHEDULED MEDICATIONS ADMINISTERED. ENDORSED TO BRI RODARTE FOR CONTINUITY OF CARE.
[2022-03-05 07:15] LABS: CREATININE 0.5 mg/dL (0.6-1.3); MAGNESIUM 2.3 mg/dL (1.8-2.4); PHOSPHORUS 3.7 mg/dL (2.5-4.9); POTASSIUM 4.3 mmol/L (3.5-5.1)
--- NOTE | 2022-03-05 07:16 | NUR ---
RN open note PATIENT IS IN BED ALERT ,NON VERBAL EASY TO AROUSE. EYE OPENING TO STIMULI. NO S/S OF APPARENT DISTRESS IN T-PIECE 8LPM OF AEROSOL, PATIENT HAS RED CATH IN PLACE DRAINING CLEAR YELLOW URINE, ON GT FEEDING JEVITY AT 75 ML/HR, DAY MID LINE , BED IS AT LOWEST POSITION ,, BED SIDE RAILS ARE UP , CALL LIGHT WITHIN REACH
[2022-03-05 08:00] VITALS: BP 120/91
[2022-03-05] MEDS: THERAHONEY GEL 1.5 OZ TUBE TP SCH ×2 (09:00→09:21)
[2022-03-05] MEDS: PANTOPRAZOLE 40 MG/PACK PACK NG SCH (09:19)
[2022-03-05] MEDS: CHLORHEXIDINE GLUCONATE 15 ML UDC MM SCH ×2 (09:19→20:45)
[2022-03-05] MEDS: FERROUS SULFATE UDC 300 MG/5 ML UDC GT SCH ×2 (09:19→17:03)
[2022-03-05] MEDS: LEVETIRACETAM SOL (5 ML) 100 MG/ML UDC GT SCH ×2 (09:19→20:45)
[2022-03-05] MEDS: METOPROLOL TARTRATE 25 MG TABLET GT SCH ×2 (09:20→20:46)
[2022-03-05] MEDS: MULTIVITAMINS,THERAGRAN 1 UDTAB TABLET GT SCH (09:20)
[2022-03-05] MEDS: ASCORBIC ACID 500 MG TABLET GT SCH (09:20)
[2022-03-05] MEDS: ZINC SULFATE 220 MG CAPSULE GT SCH (09:20)
[2022-03-05] MEDS: PROSOURCE / PROSTAT (PYXIS) 30 ML UDC GT SCH ×3 (09:21→17:04)
[2022-03-05] MEDS: CEFEPIME 2 GM in IV D5W 100 ML IV SCH ×2 (10:05→22:01)
--- NOTE | 2022-03-05 10:17 | NUR ---
DR. FERRIS MADE AWARE PER CT NOT ENOUGH FLUIDS TO DO PIGTAIL,GAVE DR. FERRIS CELL NUMBER TO CT SO RADIOLGIST CAN CALL HIM REGARDING PIGTAIL,WILL CONTINUE TO FOLLOW UP.
[2022-03-05 12:00] VITALS: BP 99/60
--- NOTE | 2022-03-05 12:51 | NUR ---
BERNY MAYO DIRECTOR FF. UP W/ [employer] RADIO ELECTRON[employer] OFFICER PIGTAIL INSERTION WILL BE DONE TUESDAY.DR. FERRIS NOTIFIED.NEED TO HOLD FEEDING POST MIDNITE TUESDAY.
[2022-03-05 16:28] VITALS: BP 100/62
--- NOTE | 2022-03-05 18:08 | NUR ---
IR PLACED PIGTAIL LEFT CHEST,PT. TOLERATED PROCEDURE.
--- NOTE | 2022-03-05 18:39 | NUR ---
RN closing note Patient is in bed , alert , non verbal , has T tamiko in place ,breathing non labored, no signs of distress , patient has G tube with Jevity running at 75 ml/hr . Faust catheter in place draining clear yellow urine, Patient has Iv acsess of the Right upper arm mid line , flushed easily , has TKO 10 ml/hr , at the end of the shift pig teil catheter was inserted to the left upper back with the drainage bag drained 250 ml of the serosanguineous fluid.. Patient has open wound of the low back pressure sore stage 4 , wound care was done . Bed is at the lowest position, bed side rails are up , call light within reach.
--- NOTE | 2022-03-05 19:22 | NUR ---
RCVD PT ON COOL AEROSOL 28% ,5L. BREATHING TX GIVEN PER MD'S ORDER, NO ADVERSE REACTION NOTED. SUCTIONED SMALL AMOUNT OF THICK YELLOW SECRETIONS. NO RESPIRATORY DISTRESS NOTED AT THIS TIME. WILL CONTINUE TO MONITOR T/O SHIFT.
--- NOTE | 2022-03-05 19:30 | NUR ---
INDUSTRIAL CLEANER OPENING NOTE Received patient in bed, awake. Pt is obtunded and non-verbal. Has portex #8 at 8L cool aerosol. Currently sating at 99% , breathing evenly and non labored with no s/sx of acute respiratory distress noted at this time. On tele monitor, currently ST with HR of 108. DAY midline intact and patent; flushes easily with no resistance. GT dressing C/D/I with Jevity running at 75 ml/hr. Pigtail catheter noted in the left upper back draining serosanguineous fluid. Faust is intact and patent, draining clear and yellow urine. All safety measures in place: bed in lowest position, call light within reach, side rails up x3. Will continue to monitor throughout the night.
[2022-03-05] MEDS: HYDROCODONE/APAP 10/325MG TABLET GT PRN (19:42)
[2022-03-05 20:00] VITALS: BP 110/68
--- NOTE | 2022-03-05 20:30 | NUR ---
RN NOTE SUCTIONE DPT AND DRAINED 380 CC OF SEROSANGUINEOUS FLUID FROM THE PT'S PIGTAIL CATHETER.
[2022-03-05] MEDS: SENNOSIDES 8.6 MG TABLET GT SCH (21:44)
--- NOTE | 2022-03-05 22:45 | NUR ---
RN NOTE DUE MEDS GIVEN. SUCTION DONE. PT IS AFEBRILE. NO S/SX OF ACUTE DISTRESS. WILL CONTINUE TO MONITOR.
[2022-03-06] VITALS: BP 111/65
--- NOTE | 2022-03-06 00:30 | NUR ---
RN NOTE PT IS ASLEEP. BREATHING EVEN AND UNLABORED. TURNED AND REPOSITIONED. WILL CONTINUE TO MONITOR.
[2022-03-06] MEDS: IPRATROPIUM NEB FS 0.5 MG/2.5 ML AMPUL.NEB NEB SCH ×4 (01:09→19:16)
--- NOTE | 2022-03-06 03:45 | NUR ---
RN NOTE AM/PM CARE DONE. WOUND CARE DONE. TURNED AND REPOSITIONED.
[2022-03-06 04:00] VITALS: BP 113/79
[2022-03-06] MEDS: SULFACETAMIDE 10% OPHTH 15 ML BOTTLE EACHEYE SCH ×4 (05:16→23:37)
[2022-03-06] MEDS: VANCOMYCIN 1.25 GM in IV D5W 250 ML IV SCH (05:16)
--- NOTE | 2022-03-06 06:17 | NUR ---
BUILDING SERVICEMAN CLOSING NOTE NO SIGNIFICANT CHANGES THE WHOLE NIGHT. TELE MONITOR SHOWS SINUS TACH WITH HR OF 120-130S. THE REST OF HIS VS WERE WNL. ALL DUE MEDS GIVEN. NEEDS ATTENDED TO. ALL SAFETY PRECAUTIONS IN PLACE. WILL ENDORSE TO AM SHIFT NURSE FOR LIBIA.
[2022-03-06 07:15] LABS: BASOPHILS # (AUTO) 0.1 K/uL (0.0-0.2); EOSINOPHILS % (AUTO) 1.3 % (0.0-6.0); HEMATOCRIT 33 % (39-51); HEMOGLOBIN 10.7 g/dL (13.5-17.5); LYMPHOCYTES # (AUTO) 1.6 K/uL (0.8-4.8); LYMPHOCYTES % (AUTO) 12.2 % (20.0-44.0); MEAN CORPUSCULAR HGB CONC 32 g/dl (31.0-36.0); MEAN CORPUSCULAR VOLUME 80 fL (80-96); MONOCYTES # (AUTO) 1.5 K/uL (0.1-1.30); MONOCYTES % (AUTO) 11.5 % (2.0-12.0); NEUTROPHILS # (AUTO) 9.7 K/uL (1.8-8.9); PLATELET COUNT (AUTO) 485 K/uL (150-450); RED BLOOD CELL COUNT(AUTO) 4.15 MIL/uL (4.5-6.0); WHITE BLOOD COUNT (AUTO) 13.1 K/uL (4.3-11.0)
--- NOTE | 2022-03-06 07:21 | NUR ---
RT PT RECVD ON COOL AEROSOL 28% FIO2 VIA T-BAR. TRACH IS PATENT, MIDLINE AND SECURED. SUCTION DONE PRN, NEB TX GIVEN AND LANDRY WELL. NO SOB OR RESPIRATORY DISTRESS NOTED AT THIS TIME. AMBU BAG AND SPARE TRACH AT BEDSIDE.
[2022-03-06 07:26] LABS: CALCIUM, SERUM 9.1 mg/dL (8.5-10.1); CREATININE 0.5 mg/dL (0.6-1.3); MAGNESIUM 2.4 mg/dL (1.8-2.4); PHOSPHORUS 3.8 mg/dL (2.5-4.9); POTASSIUM 4.2 mmol/L (3.5-5.1)
--- NOTE | 2022-03-06 07:43 | NUR ---
DESIGN DRAFTSMAN OPENING NOTE RECEIVED PT ASLEEP. OBTUNDED, NON VERBAL. ON T PIECE AT 8L WITH O2 SAT AT 96%. TELE MONITOR SHOWS SINUS TACH WITH HR OF 120-130S. FC PATENT DRAINING YELLOW URINE. JEVITY 1.2 INFUSING AT 75ML/HR. PT HAS PIGTAIL IN PLACE. DAY MIDLINE PATENT. ALL SAFETY PRECAUTIONS IN PLACE. WILL CONTINUE PLAN OF CARE.
[2022-03-06 08:00] VITALS: BP 94/55
[2022-03-06] MEDS: MULTIVITAMINS,THERAGRAN 1 UDTAB TABLET GT SCH (08:44)
[2022-03-06] MEDS: ZINC SULFATE 220 MG CAPSULE GT SCH (08:44)
[2022-03-06] MEDS: METOPROLOL TARTRATE 25 MG TABLET GT SCH ×3 (08:45→21:49)
[2022-03-06] MEDS: PANTOPRAZOLE 40 MG/PACK PACK NG SCH (08:46)
[2022-03-06] MEDS: CHLORHEXIDINE GLUCONATE 15 ML UDC MM SCH ×2 (08:46→21:38)
[2022-03-06] MEDS: LEVETIRACETAM SOL (5 ML) 100 MG/ML UDC GT SCH ×2 (08:46→21:38)
[2022-03-06] MEDS: ASCORBIC ACID 500 MG TABLET GT SCH (08:46)
[2022-03-06] MEDS: PROSOURCE / PROSTAT (PYXIS) 30 ML UDC GT SCH ×3 (08:47→17:34)
[2022-03-06] MEDS: THERAHONEY GEL 1.5 OZ TUBE TP SCH (08:47)
[2022-03-06] MEDS: FERROUS SULFATE UDC 300 MG/5 ML UDC GT SCH ×2 (08:50→17:34)
[2022-03-06] MEDS: CEFEPIME 2 GM in IV D5W 100 ML IV SCH ×2 (10:18→22:09)
[2022-03-06 12:00] VITALS: BP 107/67
[2022-03-06] MEDS: VANCOMYCIN 1.5 GM in IV D5W 500 ML IV SCH ×2 (14:50→21:39)
[2022-03-06] MEDS: JEVITY 1.2 CAL 1,000 ML BOTTLE GT SCH (15:16)
[2022-03-06 16:00] VITALS: BP 115/71
--- NOTE | 2022-03-06 17:42 | NUR ---
MD will place chest tube on 03/07/2022. Requested Chest tube and connector at bedside.
--- NOTE | 2022-03-06 18:00 | NUR ---
ICU NURSE PLACED ADAPTOR/CONNECTOR. PIGTAIL NOT DRAINING AFTER CONNECTOR WAS PLACED. CHARGE NURSE NOTIFIED. ICU NURSE NOTIFIED. REMOVED CONNECTOR ADVISED. EMPTIED PIGTAIL BAG.
--- NOTE | 2022-03-06 19:07 | NUR ---
INSTRUCTION ASSISTANT PRINCIPAL CLOSING NOTE PT AWAKE, OBTUNDED, NON VERBAL. ON T PIECE AT 8L WITH O2 SAT AT 95%. TELE MONITOR SHOWS SINUS TACH WITH HR OF 120S. FC PATENT DRAINING YELLOW URINE. JEVITY 1.2 INFUSING AT 75ML/HR. PT HAS PIGTAIL IN PLACE. DAY MIDLINE PATENT. ALL SAFETY PRECAUTIONS IN PLACE. WILL ENDORSE TO NEXT NURSE ON DUTY FOR CONTINUITY OF CARE.
--- NOTE | 2022-03-06 19:20 | NUR ---
RN NOTES RECEIVED PT FOR CONTINUITY OF CARE. PATIENT A/OX0 IN NO S/SX OF ACUTE DISTRESS AT THIS TIME; CURRENTLY ON 8L OF O2 VIA T-PIECE; WITH 02 SAT >95% AT THIS TIME. PT'S MOM AT BEDSIDE. IV ACCESS PATENT, INTACT AND FLUSHING WELL. WITH GTUBE FEEDING RUNNING PRESCRIBED.PT HAS PIGTAIL IN PLACE, WILL HAVE CHEST TUBE PLACEMENT TO SUCTION VIA PLEUR EVAC EDGAR. WILL ENSURE SAFETY MEASURES WITHIN THE SHIFT. PATIENT BED ALARM IS ON. HEAD OF BED ELEVATED. BED IS LOCKED, IN LOWEST POSITION AND SIDE RAILS UP. CALL LIGHT WITHIN REACH OF THE PATIENT. WILL CONTINUE TO MONITOR AND REASSESS FOR ANY CHANGES AND WILL CARRY OUT ANY ONGOING AND ACTIVE MD ORDER.
[2022-03-06 20:00] VITALS: BP 139/81
[2022-03-06] MEDS: SENNOSIDES 8.6 MG TABLET GT SCH (21:39)
--- NOTE | 2022-03-06 21:45 | NUR ---
RN NOTES FAMILY REQUESTED PT'S METOPROLOL NOT BE GIVEN , EXPLAINED RISK & BENEFITS BUT STILL REFUSED MEDICATION. RN ACKNOWLEDGED. SEND MEDICATION TO [facility]
[2022-03-07] VITALS: BP 100/62
[2022-03-07] MEDS: IPRATROPIUM NEB FS 0.5 MG/2.5 ML AMPUL.NEB NEB SCH ×4 (01:50→20:11)
[2022-03-07 04:00] VITALS: BP 115/78
--- NOTE | 2022-03-07 04:00 | NUR ---
RN NOTES PATIENT REMAINED TO BE IN NO SIGNS OF ACUTE RESPIRATORY DISTRESS , VITAL SIGNS STABLE AT THIS TIME. REGULAR TURNING AND REPOSITIONING DONE, SUCTIONING DONE, WOUND CARE AND AM PATIENT CARE RENDERED WILL CONTINUE TO MONITOR AND REASSESS FOR ANY CHANGES THROUGHOUT THE SHIFT.
[2022-03-07] MEDS: VANCOMYCIN 1.5 GM in IV D5W 500 ML IV SCH (05:41)
[2022-03-07] MEDS: SULFACETAMIDE 10% OPHTH 15 ML BOTTLE EACHEYE SCH ×4 (06:07→23:40)
--- NOTE | 2022-03-07 06:33 | NUR ---
RN CLOSING NOTE: PATIENT REMAINS IN ROOM IN NO SIGNS OF RESPIRATORY DISTRESS, PATIENT STILL ON 5L OF 02 VIA T-PIECE ;TOLERATING WELL SATURATING @ >95% SP02. SAFETY MEASURES IMPLEMENTED, BED IN LOWEST POSITION, LOCKED, SIDE RAILS UP, CALL LIGHT WITHIN REACH. ALL NEEDS AND ORDERS ADDRESSED DURING THE SHIFT. IV ACCESS MAINTAINED INTACT, SECURED AND FLUSHING WELL. ALL DUE MEDS GIVEN ORDERED & SCHEDULED ; PATIENT TOLERATED WELL. PATIENT KEPT CLEAN AND COMFORTABLE WITHIN THE SHIFT. PATIENT ENDORSED TO INCOMING SHIFT RN WITH STABLE VITAL SIGN AND FOR CONTINUITY OF CARE.
[2022-03-07 07:27] LABS: BASOPHILS % (AUTO) 0.3 % (0.0-2.0); EOSINOPHILS % (AUTO) 1.9 % (0.0-6.0); HEMATOCRIT 32 % (39-51); HEMOGLOBIN 9.9 g/dL (13.5-17.5); LYMPHOCYTES # (AUTO) 1.5 K/uL (0.8-4.8); LYMPHOCYTES % (AUTO) 12.6 % (20.0-44.0); MEAN CORPUSCULAR HGB CONC 31 g/dl (31.0-36.0); MEAN CORPUSCULAR VOLUME 81 fL (80-96); MONOCYTES # (AUTO) 1.2 K/uL (0.1-1.30); MONOCYTES % (AUTO) 10.3 % (2.0-12.0); NEUTROPHILS # (AUTO) 8.7 K/uL (1.8-8.9); NEUTROPHILS % (AUTO) 74.9 % (43.0-81.0); PLATELET COUNT (AUTO) 453 K/uL (150-450); WHITE BLOOD COUNT (AUTO) 11.7 K/uL (4.3-11.0)
--- NOTE | 2022-03-07 07:30 | NUR ---
COST ESTIMATING ENGINEER AM NOTES RECEIVED PT FOR CONTINUITY OF CARE. PATIENT A/OX0, WITH PORTEX 8 TRACH, CURRENTLY ON 8L OF O2, COOL AEROSOL, WITH 02 SAT >96% AT THIS TIME. PT'S DAD ON MONITOR PHONE, SINUS TACH HR 112 ON MONITOR. NO SIGNS OF PAIN/NO GRIMACINGS, IV ACCESS DAY MIDLINE WITH TKO, INFUSING WELL, SITE CLEAR. WITH G TUBE FEEDING HELD, TUBE BURST AND LEAKING. NOTIFIED DALJIT RIVERS CHARGE NURSE SOON. PT HAS PIGTAIL IN PLACE WITH DRAIN IN PLACE. PT WILL HAVE CHEST TUBE PLACEMENT TO SUCTION VIA PLEUR EVAC FOR TODAY C/O DR. PERKINS. WILL PERFORM PRESCRIBED WOUND TREATMENT LATER. TURNA DN REPOSITION Q 2 HOURS. WILL ENSURE SAFETY MEASURES WITHIN THE SHIFT. PATIENT BED ALARM IS ON. HEAD OF BED ELEVATED. BED IS LOCKED, IN LOWEST POSITION AND SIDE RAILS UP. CALL LIGHT WITHIN REACH OF THE PATIENT. WILL CONTINUE TO MONITOR AND REASSESS FOR ANY CHANGES AND WILL CARRY OUT ANY ONGOING AND ACTIVE MD ORDER.
[2022-03-07 07:54] LABS: CALCIUM, SERUM 9.2 mg/dL (8.5-10.1); CREATININE 0.5 mg/dL (0.6-1.3)
[2022-03-07 08:00] VITALS: BP 106/61
[2022-03-07] MEDS: LEVETIRACETAM SOL (5 ML) 100 MG/ML UDC GT SCH ×2 (08:25→21:53)
[2022-03-07] MEDS: FERROUS SULFATE UDC 300 MG/5 ML UDC GT SCH ×2 (08:25→17:41)
[2022-03-07] MEDS: CHLORHEXIDINE GLUCONATE 15 ML UDC MM SCH ×2 (08:25→21:55)
[2022-03-07] MEDS: JEVITY 1.2 CAL 1,000 ML BOTTLE GT SCH (08:25)
[2022-03-07] MEDS: MULTIVITAMINS,THERAGRAN 1 UDTAB TABLET GT SCH (08:26)
[2022-03-07] MEDS: ASCORBIC ACID 500 MG TABLET GT SCH (08:26)
[2022-03-07] MEDS: PANTOPRAZOLE 40 MG/PACK PACK NG SCH (08:26)
[2022-03-07] MEDS: PROSOURCE / PROSTAT (PYXIS) 30 ML UDC GT SCH ×3 (08:31→17:41)
[2022-03-07] MEDS: ZINC SULFATE 220 MG CAPSULE GT SCH (08:32)
[2022-03-07] MEDS: THERAHONEY GEL 1.5 OZ TUBE TP SCH (08:32)
--- NOTE | 2022-03-07 10:10 | NUR ---
RN NOTES DR. BOCANEGRA AT BEDSIDE. NOTIFIED, PT'S G TUBE HAS BURST AND EVERYTHING COMES OUT WHEN FLUSHED. DR. MANZANO NOTIFIED AND PER HIM HE WILL TALK TO GI MD. FEEDING STOPPED FOR NOW.
[2022-03-07] MEDS: CEFEPIME 2 GM in IV D5W 100 ML IV SCH (11:21)
[2022-03-07 12:00] VITALS: BP 101/65
--- NOTE | 2022-03-07 13:45 | NUR ---
RN NOTES DR. BOCANEGRA NOTIFIED ABOUT PATIENT'S MOTHER, CONCERNED ABOUT HER SON NOT EATING. AND THAT DR. MANZANO IS NOT ANSWERING UP TO THIS TIME. NURSING DIRECTOR TRADE AIYANA MADSEN. WILL CALL DR. MANZANO.
--- NOTE | 2022-03-07 14:00 | NUR ---
DR. MYNOR LESLIE, CAME AND INSERTED PT'S G-TUBE, STAT X-RAY ORDERED
--- NOTE | 2022-03-07 14:50 | NUR ---
X-RAY BAR WELDER CAME UP TO DO THE X-RAY
[2022-03-07 16:00] VITALS: BP 95/60
[2022-03-07] MEDS ORDERED: DIATR MEGLU/DIATRIZOATE SODIUM 30 ML BOTTLE (GASTROGRAPHIN) ONE (16:55)
--- NOTE | 2022-03-07 17:08 | NUR ---
CORRECTION ON THE NOTE ABOVE: DR. MANZANO CAME AT 1600 AND X-RAY DONE AT 1645
--- NOTE | 2022-03-07 18:50 | NUR ---
BUNDLE SHAKER CLOSING NOTE PATIENT IN BED WITH NO S/S OF RESPIRATORY DISTRESS, SUCTIONED PRN. PATIENT ON 5L OF 02 VIA T-PIECE ;TOLERATING WELL SATURATING @ 100%. IV ON RIGHT UPPER MIDLINE, INTACT, FLUSHING WELL. NEW GT PREVIOUSLY PLACED BY , INTACT, NO RESIDUAL NOTED. TELEMETRY MONITORING OF ST WITH HR OF 107. TURNED AND REPOSITIONED EVERY 2 HOURS AND KEPT CLEAN AND DRY AT ALL TIMES. SAFETY MEASURES IMPLEMENTED, BED IN LOWEST POSITION, LOCKED, SIDE RAILS UP, CALL LIGHT WITHIN REACH. ALL NEEDS AND ORDERS ADDRESSED DURING THE SHIFT. ENDORSED TO INCOMING SHIFT RN FOR CONTINUOS MONITORING
[2022-03-07 20:00] VITALS: BP 94/58
--- NOTE | 2022-03-07 20:22 | NUR ---
CALENDER LET OFF OPERATOR OPENING NOTE RECEIVED PT AWAKE. OBTUNDED, NON VERBAL. ON T PIECE AT 8L WITH O2 SAT AT 97%. TELE MONITOR SHOWS SINUS TACH WITH HR OF 110. FC PATENT DRAINING YELLOW URINE. JEVITY 1.2 INFUSING AT 30ML/HR, WILL INCREASE TOLERATED. PT HAS PIGTAIL IN PLACE. DAY MIDLINE PATENT. ALL SAFETY PRECAUTIONS IN PLACE. WILL CONTINUE PLAN OF CARE.
[2022-03-07] MEDS ORDERED: VANCOMYCIN 0.75 GM in IV D5W 250 ML IV SCH (21:00)
[2022-03-07] MEDS: METOPROLOL TARTRATE 25 MG TABLET GT SCH (21:00)
[2022-03-07] MEDS: SENNOSIDES 8.6 MG TABLET GT SCH (21:53)
[2022-03-08] VITALS: BP 97/55
[2022-03-08] MEDS: IPRATROPIUM NEB FS 0.5 MG/2.5 ML AMPUL.NEB NEB SCH ×4 (02:00→19:43)
[2022-03-08 04:00] VITALS: BP 105/66
[2022-03-08] MEDS: SULFACETAMIDE 10% OPHTH 15 ML BOTTLE EACHEYE SCH ×3 (06:25→17:43)
[2022-03-08 06:40] LABS: CALCIUM, SERUM 9.6 mg/dL (8.5-10.1); CREATININE 0.6 mg/dL (0.6-1.3); MAGNESIUM 2.6 mg/dL (1.8-2.4); PHOSPHORUS 4.2 mg/dL (2.5-4.9); POTASSIUM 4.2 mmol/L (3.5-5.1)
--- NOTE | 2022-03-08 06:46 | NUR ---
RN CLOSING NOTE PATIENT IS IN STABLE CONDITION DURING SHIFT, NO DISTRESS OR DISCOMFORT NOTED. ALL NEEDS ATTENDED, SUCTIONED FREQUENTLY, KEPT PATIENT CLEAN AND DRY, NO OUTPUT ON PIGTAIL DRAIN, SIDE RAILS X2, CALL LIGHT WITHIN REACH, WILL ENDORSE TO DAYSHIFT NURSE.
[2022-03-08 07:25] LABS: BASOPHILS # (AUTO) 0.1 K/uL (0.0-0.2); BASOPHILS % (AUTO) 0.4 % (0.0-2.0); EOSINOPHILS % (AUTO) 1.8 % (0.0-6.0); HEMATOCRIT 34 % (39-51); HEMOGLOBIN 10.7 g/dL (13.5-17.5); LYMPHOCYTES # (AUTO) 1.9 K/uL (0.8-4.8); LYMPHOCYTES % (AUTO) 15.7 % (20.0-44.0); MEAN CORPUSCULAR HGB CONC 32 g/dl (31.0-36.0); MEAN CORPUSCULAR VOLUME 81 fL (80-96); MONOCYTES # (AUTO) 1.2 K/uL (0.1-1.30); MONOCYTES % (AUTO) 10.2 % (2.0-12.0); NEUTROPHILS # (AUTO) 8.5 K/uL (1.8-8.9); NEUTROPHILS % (AUTO) 71.9 % (43.0-81.0); PLATELET COUNT (AUTO) 535 K/uL (150-450); RED BLOOD CELL COUNT(AUTO) 4.17 MIL/uL (4.5-6.0); WHITE BLOOD COUNT (AUTO) 11.8 K/uL (4.3-11.0)
[2022-03-08 08:00] VITALS: BP 100/58
--- NOTE | 2022-03-08 09:17 | NUR ---
AT BEDSIDE. ORDERED TO CONTACT ICU CHARGE NURSE TO CONNECT CHEST TUBE. WILL CARRY OUT ORDERED.
[2022-03-08] MEDS: MULTIVITAMINS,THERAGRAN 1 UDTAB TABLET GT SCH (10:06)
[2022-03-08] MEDS: PANTOPRAZOLE 40 MG/PACK PACK NG SCH (10:06)
[2022-03-08] MEDS: LEVETIRACETAM SOL (5 ML) 100 MG/ML UDC GT SCH ×2 (10:06→21:22)
[2022-03-08] MEDS: FERROUS SULFATE UDC 300 MG/5 ML UDC GT SCH ×2 (10:06→17:43)
[2022-03-08] MEDS: ZINC SULFATE 220 MG CAPSULE GT SCH (10:06)
[2022-03-08] MEDS: CHLORHEXIDINE GLUCONATE 15 ML UDC MM SCH ×2 (10:06→21:22)
[2022-03-08] MEDS: ASCORBIC ACID 500 MG TABLET GT SCH (10:06)
[2022-03-08] MEDS: PROSOURCE / PROSTAT (PYXIS) 30 ML UDC GT SCH ×3 (10:08→17:43)
[2022-03-08] MEDS: THERAHONEY GEL 1.5 OZ TUBE TP SCH (10:08)
[2022-03-08] MEDS: METOPROLOL TARTRATE 25 MG TABLET GT SCH ×2 (10:42→21:00)
--- NOTE | 2022-03-08 11:45 | NUR ---
was notified re; icu charge nurse JUANCARLOS, connected pig tail to low suction 20cm, but no drainage in 2 hrs stated to keep 20cm of suction
[2022-03-08 12:00] VITALS: BP 100/58
[2022-03-08] MEDS: IV D5/0.45 NACL 1,000 ML IV PRN (12:53)
[2022-03-08 16:00] VITALS: BP 98/60
--- NOTE | 2022-03-08 18:42 | NUR ---
Dr rivera notifed re; no chest tube out put since this morning stated will do CT OF CHEST with out contrast in AM and orders carried out
--- NOTE | 2022-03-08 18:55 | NUR ---
SPIKE MACHINE OPERATOR CLOSING NOTE PATIENT IN BED WITH NO S/S OF RESPIRATORY DISTRESS, SUCTIONED PRN. PATIENT ON 5L OF 02 VIA T-PIECE ;TOLERATING WELL SATURATING @ 97%. IV ON RIGHT UPPER MIDLINE, INTACT, FLUSHING WELL. NEW GT PREVIOUSLY PLACED BY , INTACT, NO RESIDUAL NOTED. TELEMETRY MONITORING SR WITH HR AT 90'S. TURNED AND REPOSITIONED EVERY 2 HOURS AND KEPT CLEAN AND DRY AT ALL TIMES. SAFETY MEASURES IMPLEMENTED, BED IN LOWEST POSITION, LOCKED, SIDE RAILS UP, CALL LIGHT WITHIN REACH. ALL NEEDS AND ORDERS ADDRESSED DURING THE SHIFT. ENDORSED TO INCOMING SHIFT RN FOR CONTINUITY OF CARE.
--- NOTE | 2022-03-08 19:30 | NUR ---
TRAINMASTER OPENING NOTE RECEIVED PATIENT AWAKE IN BED, NON VERBAL , ON COOL AERISOL FI02 28% 5L O2 TOLERATING WELL, NO S/S OF RESP DISTRESS, NO S/S OF PAIN, TELE MONITOR READING ST HR 120,DAY MIDLINE #18G D5 1/2NS RUNNING AT 75ML/HR ,NO S/S OF INFILTRATION NOTED, INTACT AND PATENT, G TUBE RUNNING JEVITY 1.2@75ML/HR, TOLERATING WELL, PRESENT INTACT AND PATENT WITH NO RESIDUAL NOTED,PIGTAIL DRAIN ON WALL SUCTION, NO OUTPUT NOTED, INTACT AND PATENT, RED CATHETER DRAINING CLEAR YELLOW URINE, REPOSITIONED FOR SKIN MANAGEMENT AND COMFORT, KEPT DRY AND CLEAN, FAMILY AT BEDSIDE,SIDE RAILS X2, CALL LIGHT WITHIN REACH, WILL CONTINUE TO MONITOR. VSS
[2022-03-08 20:00] VITALS: BP 100/61
[2022-03-08] MEDS: SENNOSIDES 8.6 MG TABLET GT SCH (21:22)
[2022-03-08] MEDS: CHLORHEXIDINE GLUCONATE 4% 118 ML BOTTLE TP SCH (21:27)
--- NOTE | 2022-03-08 23:41 | NUR ---
CONVERTER SUPERVISOR NOTE PATIENT HAS A TEMP OF 100.6, 2 ICE PACKS GIVEN, AND PRN TYLENOL 650MG GIVEN.WILL CONTINUE TO MONITOR
[2022-03-08] MEDS: ACETAMINOPHEN 650 MG/20.3 ML UDC GT PRN (23:43)
[2022-03-09] VITALS: BP 100/61
[2022-03-09] MEDS: SULFACETAMIDE 10% OPHTH 15 ML BOTTLE EACHEYE SCH ×4 (00:40→17:30)
[2022-03-09] MEDS: IPRATROPIUM NEB FS 0.5 MG/2.5 ML AMPUL.NEB NEB SCH ×4 (02:07→20:29)
[2022-03-09] MEDS: IV D5/0.45 NACL 1,000 ML IV PRN ×2 (03:05→18:22)
[2022-03-09 04:00] VITALS: BP 99/57
[2022-03-09 06:33] LABS: BASOPHILS # (AUTO) 0.1 K/uL (0.0-0.2); BASOPHILS % (AUTO) 0.5 % (0.0-2.0); EOSINOPHILS % (AUTO) 1.5 % (0.0-6.0); HEMATOCRIT 32 % (39-51); HEMOGLOBIN 10.4 g/dL (13.5-17.5); LYMPHOCYTES # (AUTO) 1.5 K/uL (0.8-4.8); LYMPHOCYTES % (AUTO) 12.5 % (20.0-44.0); MEAN CORPUSCULAR HGB CONC 32 g/dl (31.0-36.0); MEAN CORPUSCULAR VOLUME 80 fL (80-96); MONOCYTES # (AUTO) 1.3 K/uL (0.1-1.30); MONOCYTES % (AUTO) 10.7 % (2.0-12.0); NEUTROPHILS # (AUTO) 8.9 K/uL (1.8-8.9); NEUTROPHILS % (AUTO) 74.8 % (43.0-81.0); PLATELET COUNT (AUTO) 509 K/uL (150-450); RED BLOOD CELL COUNT(AUTO) 4.04 MIL/uL (4.5-6.0); WHITE BLOOD COUNT (AUTO) 11.9 K/uL (4.3-11.0)
--- NOTE | 2022-03-09 06:45 | NUR ---
SUBSCRIPTION CLERK CLOSING NOTE PATIENT IS IN STABLE CONDITION DURING SHIFT, NO DISTRESS OR DISCOMFORT NOTED. SINUS TACH HR 108, DAY MIDLINE #18G RUNNING D51/2NS@75ML/HR, ZERO DRAINAGE FROM PIGTAIL DRAINING VIA WALL SUCTION NO OUTPUT NOTED, SUCTIONED AND REPOSITIONED PATIENT FREQUENTLY, RDE CATHETER INTACT AND PATENT DRAINING CLEAR YELLOW URINE WITH 425ML OUTPUT, ALL NEEDS ATTENDED, KEPT PATIENT CLEAN AND DRY, SIDE RAILS X2, CALL LIGHT WITHIN REACH, WILL ENDORSE TO DAYSHIFT NURSE.
[2022-03-09 07:12] LABS: CALCIUM, SERUM 8.8 mg/dL (8.5-10.1); CREATININE 0.5 mg/dL (0.6-1.3); MAGNESIUM 2.4 mg/dL (1.8-2.4); POTASSIUM 3.8 mmol/L (3.5-5.1)
--- NOTE | 2022-03-09 07:27 | NUR ---
CASTING ROOM HELPER OPENING NOTES RECEIVED PT IN BED ASLEEP WITH FAMILY ON FACETIME VIA MOBILE PHONE. PT IS OBTUNDED. ON T-PIECE AT 5L/MIN, TOLERATING WELL. BREATHING UNLABORED. NOT IN ANY SIGN OF RESPIRATORY DISTRESS. ON CARDIAC TELE MONITOR WITH CURRENT READING OF SINUS RHYTHM, HR 90. NO C/O CARDIAC DISTRESS VOICED AT THIS TIME. IV ACCESS IN DAY MIDLINE INTACT AND PATENT WITH D5 1/2 NS INFUSING AT 75ML/HR. SAFETY MEASURES IN PLACE: BED IN LOWEST AND LOCKED POSITION, SIDE RAILS UPX2, BED ALARM ON, AND CALL LIGHT WITHIN REACH. WILL CONTINUE TO MONITOR PT.
[2022-03-09 08:00] VITALS: BP 103/62
[2022-03-09] MEDS: LEVETIRACETAM SOL (5 ML) 100 MG/ML UDC GT SCH ×2 (09:12→21:26)
[2022-03-09] MEDS: FERROUS SULFATE UDC 300 MG/5 ML UDC GT SCH ×2 (09:12→16:11)
[2022-03-09] MEDS: CHLORHEXIDINE GLUCONATE 15 ML UDC MM SCH ×2 (09:12→21:26)
[2022-03-09] MEDS: PANTOPRAZOLE 40 MG/PACK PACK NG SCH (09:12)
[2022-03-09] MEDS: MULTIVITAMINS,THERAGRAN 1 UDTAB TABLET GT SCH (09:13)
[2022-03-09] MEDS: METOPROLOL TARTRATE 25 MG TABLET GT SCH ×2 (09:14→21:26)
[2022-03-09] MEDS: ASCORBIC ACID 500 MG TABLET GT SCH (09:15)
[2022-03-09] MEDS: ZINC SULFATE 220 MG CAPSULE GT SCH (09:15)
[2022-03-09] MEDS: PROSOURCE / PROSTAT (PYXIS) 30 ML UDC GT SCH ×3 (09:17→16:11)
[2022-03-09] MEDS: THERAHONEY GEL 1.5 OZ TUBE TP SCH (09:20)
[2022-03-09] MEDS: JEVITY 1.2 CAL 1,000 ML BOTTLE GT SCH (11:47)
[2022-03-09 12:00] VITALS: BP 103/58
[2022-03-09 16:00] VITALS: BP 104/60
--- NOTE | 2022-03-09 19:20 | NUR ---
POWER TONG OPERATOR CLOSING NOTES PT IN BED AWAKE. PT IS OBTUNDED AND OPEN EYES. ON T-PIECE AT 5L/MIN, TOLERATING WELL. BREATHING UNLABORED. NOT IN ANY SIGN OF RESPIRATORY DISTRESS. ON CARDIAC TELE MONITOR WITH CURRENT READING OF SINUS TACH, HR 112. NO SIGNS OF CARDIAC DISTRESS AT THIS TIME. IV ACCESS IN DAY MIDLINE INTACT AND PATENT WITH D5 1/2 NS INFUSING AT 75ML/HR. GTUBE FEEDING IN PLACE WITH JEVITY 1.2 RUNNING AT 75ML/HR. KEPT HOB ELEVATED. ALL NEEDS ATTENDED. KEPT CLEAN AND COMFORTABLE. TURNED AND REPOSITIONED Q2HRS AND NEEDED. SAFETY MEASURES IN PLACE: BED IN LOWEST AND LOCKED POSITION, SIDE RAILS UPX2, BED ALARM ON, AND CALL LIGHT WITHIN REACH. WILL ENDORSE TO SOLICITOR PATENT NURSE FOR LIBIA.
[2022-03-09 20:00] VITALS: BP 110/65
[2022-03-09] MEDS: SENNOSIDES 8.6 MG TABLET GT SCH (21:26)
[2022-03-09] MEDS: CHLORHEXIDINE GLUCONATE 4% 118 ML BOTTLE TP SCH (21:28)
[2022-03-10] VITALS: BP 90/60
[2022-03-10] MEDS: SULFACETAMIDE 10% OPHTH 15 ML BOTTLE EACHEYE SCH ×5 (00:32→23:20)
[2022-03-10] MEDS: IPRATROPIUM NEB FS 0.5 MG/2.5 ML AMPUL.NEB NEB SCH ×4 (02:05→20:07)
[2022-03-10 04:00] VITALS: BP 100/64
[2022-03-10] MEDS: JEVITY 1.2 CAL 1,000 ML BOTTLE GT SCH ×2 (06:53→10:02)
--- NOTE | 2022-03-10 07:00 | NUR ---
RN CLOSING NOTES PT IN BED WITH EYES OPEN, OBTUNDED UNABLE TO TRACK, ON T-PIECE AT 5L/MIN, TOLERATING WELL. BREATHING UNLABORED. SINUS TACH IN TELE MONITOR, . GTUBE FEEDING IN PLACE WITH JEVITY 1.2 RUNNING AT 75ML/HR. KEPT HOB ELEVATED, TOLERATED WELL, NO SIGNIFICANT CHANGE IN CONDITION DURING THE NIGHT, TURNED AND REPOSITIONED Q2HRS AND NEEDED, ALL SAFETY MEASURES IN PLACE, BED LOCKED AND LOWEST POSITION, WILL ENDORSE CONTINUITY OF CARE TO ONCOMING NURSE.
--- NOTE | 2022-03-10 07:55 | NUR ---
CASHIER MANAGER NOTE RECEIVED PT IN BED, OBTUNDED. ON T-PIECE AT 5L/MIN, TOLERATING WELL. NOT IN RESPIRATORY DISTRESS. ON CARDIAC TELE MONITOR WITH CURRENT READING OF SINUS RHYTHM, HR 90. IV ACCESS IN DAY MIDLINE INTACT AND PATENT WITH D5 1/2 NS INFUSING AT 75ML/HR. SAFETY MEASURES IN PLACE: WILL CONTINUE TO MONITOR .
[2022-03-10 08:00] VITALS: BP 108/70
[2022-03-10 08:15] LABS: BASOPHILS # (AUTO) 0.1 K/uL (0.0-0.2); BASOPHILS % (AUTO) 0.6 % (0.0-2.0); EOSINOPHILS % (AUTO) 2.4 % (0.0-6.0); HEMATOCRIT 31 % (39-51); HEMOGLOBIN 10.1 g/dL (13.5-17.5); LYMPHOCYTES # (AUTO) 2.1 K/uL (0.8-4.8); LYMPHOCYTES % (AUTO) 19.2 % (20.0-44.0); MEAN CORPUSCULAR HGB CONC 32 g/dl (31.0-36.0); MEAN CORPUSCULAR VOLUME 81 fL (80-96); NEUTROPHILS # (AUTO) 7.4 K/uL (1.8-8.9); NEUTROPHILS % (AUTO) 68.8 % (43.0-81.0); PLATELET COUNT (AUTO) 534 K/uL (150-450); WHITE BLOOD COUNT (AUTO) 10.7 K/uL (4.3-11.0)
[2022-03-10 08:33] LABS: CREATININE 0.5 mg/dL (0.6-1.3); POTASSIUM 3.8 mmol/L (3.5-5.1)
[2022-03-10] MEDS: THERAHONEY GEL 1.5 OZ TUBE TP SCH ×2 (08:34→08:36)
[2022-03-10] MEDS: PROSOURCE / PROSTAT (PYXIS) 30 ML UDC GT SCH ×3 (08:34→16:32)
[2022-03-10] MEDS: ZINC SULFATE 220 MG CAPSULE GT SCH (08:35)
[2022-03-10] MEDS: CHLORHEXIDINE GLUCONATE 15 ML UDC MM SCH ×2 (08:35→21:26)
[2022-03-10] MEDS: LEVETIRACETAM SOL (5 ML) 100 MG/ML UDC GT SCH ×2 (08:35→21:26)
[2022-03-10] MEDS: FERROUS SULFATE UDC 300 MG/5 ML UDC GT SCH ×2 (08:35→16:32)
[2022-03-10] MEDS: PANTOPRAZOLE 40 MG/PACK PACK NG SCH (08:35)
[2022-03-10] MEDS: MULTIVITAMINS,THERAGRAN 1 UDTAB TABLET GT SCH (08:35)
[2022-03-10] MEDS: METOPROLOL TARTRATE 25 MG TABLET GT SCH ×2 (08:36→21:00)
[2022-03-10] MEDS: ASCORBIC ACID 500 MG TABLET GT SCH (08:36)
[2022-03-10] MEDS: IV D5/0.45 NACL 1,000 ML IV PRN (10:08)
[2022-03-10 12:00] VITALS: BP 108/70
[2022-03-10 16:00] VITALS: BP 99/55
--- NOTE | 2022-03-10 19:00 | NUR ---
GENERAL PRACTITIONER NOTE PT RESTING IN BED, OBTUNDED. ON T-PIECE AT 5L/MIN, TOLERATING WELL. NOT IN RESPIRATORY DISTRESS. ON CARDIAC TELE MONITOR WITH CURRENT READING OF SINUS RHYTHM, HR 90-100'S. IV ACCESS IN DAY MIDLINE INTACT AND PATENT WITH D5 1/2 NS INFUSING AT 75ML/HR. SAFETY MEASURES IN PLACE: GT IN PLACE WITH FEEDING JEVITY 1.2 @75/HR. ASPIRATION PREC FOLLOWED. WILL CONTINUE TO MONITOR .ALL DUE MEDS GIVEN. AM/PM CARE DONE.
[2022-03-10 20:00] VITALS: BP 97/67
[2022-03-10] MEDS: SENNOSIDES 8.6 MG TABLET GT SCH (21:27)
[2022-03-11] VITALS: BP 101/62
[2022-03-11] MEDS: IPRATROPIUM NEB FS 0.5 MG/2.5 ML AMPUL.NEB NEB SCH ×3 (01:30→13:33)
[2022-03-11 04:00] VITALS: BP 100/60
[2022-03-11] MEDS: SULFACETAMIDE 10% OPHTH 15 ML BOTTLE EACHEYE SCH ×3 (05:29→17:04)
--- NOTE | 2022-03-11 06:16 | NUR ---
RN CLOSING NOTES, PT IN BED WITH EYES , OPEN EYES SPONTANEOUSLY, OBTUNDED UNABLE TO TRACK, T-PIECE IN PLACE, AT 5L/MIN, 28% FI02, TOLERATING WELL, NO SOB/ACUTE DISTRESS NOTED DURING THE NIGHT, NSR-SINUS TACHY IN TELE MONITOR, GTUBE FEEDING IN PLACE WITH JEVITY 1.2 RUNNING AT 75ML/HR. KEPT HOB ELEVATED, TOLERATED FEEDING WELL, NO SIGNIFICANT CHANGE IN CONDITION DURING THE NIGHT, TURNED AND REPOSITIONED Q2HRS AND NEEDED, WELL SUCTIONING PRN, ALL SAFETY MEASURES IN PLACE, BED LOCKED AND LOWEST POSITION, WILL ENDORSE CONTINUITY OF CARE TO ONCOMING NURSE.
[2022-03-11 06:57] LABS: BASOPHILS % (AUTO) 0.5 % (0.0-2.0); EOSINOPHILS % (AUTO) 2.2 % (0.0-6.0); HEMATOCRIT 34 % (39-51); HEMOGLOBIN 10.6 g/dL (13.5-17.5); LYMPHOCYTES # (AUTO) 1.8 K/uL (0.8-4.8); LYMPHOCYTES % (AUTO) 18.6 % (20.0-44.0); MEAN CORPUSCULAR HGB CONC 32 g/dl (31.0-36.0); MEAN CORPUSCULAR VOLUME 80 fL (80-96); MONOCYTES # (AUTO) 0.8 K/uL (0.1-1.30); MONOCYTES % (AUTO) 8.3 % (2.0-12.0); NEUTROPHILS # (AUTO) 6.8 K/uL (1.8-8.9); NEUTROPHILS % (AUTO) 70.4 % (43.0-81.0); PLATELET COUNT (AUTO) 539 K/uL (150-450); RED BLOOD CELL COUNT(AUTO) 4.18 MIL/uL (4.5-6.0); WHITE BLOOD COUNT (AUTO) 9.6 K/uL (4.3-11.0)
[2022-03-11 07:02] LABS: CALCIUM, SERUM 9.2 mg/dL (8.5-10.1); CREATININE 0.5 mg/dL (0.6-1.3); MAGNESIUM 2.1 mg/dL (1.8-2.4); POTASSIUM 3.8 mmol/L (3.5-5.1)
--- NOTE | 2022-03-11 07:49 | NUR ---
RN OPENING NOTE RECEIVED PT IN BED, A/O X1-2. ON T-PIECE AT 5L/MIN, TOLERATING WELL. NOT IN RESPIRATORY DISTRESS. ON CARDIAC TELE MONITOR WITH CURRENT READING OF SINUS RHYTHM, HR 100. IV ACCESS IN DAY MIDLINE INTACT AND PATENT. SAFETY FALL PRECAUTIONS MEASURES IN PLACE: WILL CONTINUE TO MONITOR THROUGHOUT SHIFT.
[2022-03-11 08:00] VITALS: BP 100/68
--- NOTE | 2022-03-11 08:51 | NUR ---
Chest tube removal completed by Dr. Ramírez. approx [phone]. Catheter intact, vasoline taryn applied. No complications noted.
[2022-03-11] MEDS: LEVETIRACETAM SOL (5 ML) 100 MG/ML UDC GT SCH (08:57)
[2022-03-11] MEDS: METOPROLOL TARTRATE 25 MG TABLET GT SCH (08:57)
[2022-03-11] MEDS: CHLORHEXIDINE GLUCONATE 15 ML UDC MM SCH (08:57)
[2022-03-11] MEDS: PANTOPRAZOLE 40 MG/PACK PACK NG SCH (08:57)
[2022-03-11] MEDS: THERAHONEY GEL 1.5 OZ TUBE TP SCH (08:58)
[2022-03-11] MEDS: MULTIVITAMINS,THERAGRAN 1 UDTAB TABLET GT SCH (08:58)
[2022-03-11] MEDS: PROSOURCE / PROSTAT (PYXIS) 30 ML UDC GT SCH ×3 (08:58→16:46)
[2022-03-11] MEDS: FERROUS SULFATE UDC 300 MG/5 ML UDC GT SCH ×2 (08:58→16:46)
[2022-03-11] MEDS: ZINC SULFATE 220 MG CAPSULE GT SCH (08:58)
[2022-03-11] MEDS: ASCORBIC ACID 500 MG TABLET GT SCH (08:58)
--- NOTE | 2022-03-11 11:45 | NUR ---
Covid antigen specimen delivered to lab.
[2022-03-11 12:00] VITALS: BP 100/57
--- NOTE | 2022-03-11 17:00 | NUR ---
DISCHARGE NOTE REPORT WAS GIVEN TO THE AMBULANCE TRANSPORTERS. REPORT WAS GIVEN TO ROSAIRO LORENZO AT TO BRI MARTINS. PATIENT WAS COVID NEGATIVE ON 03/11/22. ALL BELONGING WERE GIVEN TO THE MOTHER. PATIENT'S STATUS WAS STABLE FOR TRANSPORTATION ALL VSS, PATIENT SATTING AT 100% ON 5L AIRSOLE, PATIENT WAS CLEANED . PATIENT SHOWED NO SIGNS OF DISTRESS UPON DISCHARGE. DISCHARGE PAPERS WERE GIVEN TO THE AMBULANCE. DEPARTURE TIME 1800.
== END 2022-03-11 17:58 | DRG 853 ==
LOC: ER 19:10 → TELE1 22:09 → TELE-TD 02-26 11:55 → TELE1 02-27 08:44
PROVIDERS: ADMIT Nurse Practitioner Acute Care; ATTEND Internal Medicine
PROC: 05H533Z Insertion of Infusion Device into Right Subclavian Vein, Percutaneous Approach (ICD-10-PCS; 2022-02-20)
PROC: B546ZZA Ultrasonography of Right Subclavian Vein, Guidance (ICD-10-PCS; 2022-02-20)
PROC: 0KBP0ZZ Excision of Left Hip Muscle, Open Approach (ICD-10-PCS; principal; 2022-02-23)
PROC: 0KBN0ZZ Excision of Right Hip Muscle, Open Approach (ICD-10-PCS; 2022-02-23)
PROC: 0W9B3ZZ Drainage of Left Pleural Cavity, Percutaneous Approach (ICD-10-PCS; 2022-02-25)
PROC: 0W9D30Z Drainage of Pericardial Cavity with Drainage Device, Percutaneous Approach (ICD-10-PCS; 2022-02-26)
PROC: 0W9B3ZZ Drainage of Left Pleural Cavity, Percutaneous Approach (ICD-10-PCS; 2022-02-27)
PROC: 0KBP0ZZ Excision of Left Hip Muscle, Open Approach (ICD-10-PCS; 2022-03-01)
PROC: 0KBN0ZZ Excision of Right Hip Muscle, Open Approach (ICD-10-PCS; 2022-03-01)
PROC: 0W9B30Z Drainage of Left Pleural Cavity with Drainage Device, Percutaneous Approach (ICD-10-PCS; 2022-03-05)
PROC: 0D20XUZ Change Feeding Device in Upper Intestinal Tract, External Approach (ICD-10-PCS; 2022-03-07)
DX: A41.9 Sepsis, unspecified organism (principal); G93.41 Metabolic encephalopathy; L89.154 Pressure ulcer of sacral region, stage 4; D68.59 Other primary thrombophilia; E44.0 Moderate protein-calorie malnutrition; N39.0 Urinary tract infection, site not specified; I31.3 Pericardial effusion (noninflammatory); E87.2 Acidosis; I31.4 Cardiac tamponade; J90 Pleural effusion, not elsewhere classified; Z99.11 Dependence on respirator [ventilator] status; Z68.1 Body mass index [BMI] 19.9 or less, adult; T17.890A Other foreign object in other parts of respiratory tract causing asphyxiation, initial encounter; J98.11 Atelectasis; K94.23 Gastrostomy malfunction; J96.10 Chronic respiratory failure, unspecified whether with hypoxia or hypercapnia; J81.1 Chronic pulmonary edema; Z20.822 Contact with and (suspected) exposure to COVID-19; Z93.0 Tracheostomy status; E88.09 Other disorders of plasma-protein metabolism, not elsewhere classified; G40.909 Epilepsy, unspecified, not intractable, without status epilepticus; I10 Essential (primary) hypertension; R13.10 Dysphagia, unspecified; Z87.820 Personal history of traumatic brain injury; Z98.2 Presence of cerebrospinal fluid drainage device; Z87.440 Personal history of urinary (tract) infections; Z86.73 Personal history of transient ischemic attack (TIA), and cerebral infarction without residual deficits; V89.2XXS Person injured in unspecified motor-vehicle accident, traffic, sequela; Z74.09 Other reduced mobility; X58.XXXA Exposure to other specified factors, initial encounter; Y93.9 Activity, unspecified; Y92.129 Unspecified place in nursing home as the place of occurrence of the external cause; M24.542 Contracture, left hand; M24.541 Contracture, right hand; M62.838 Other muscle spasm; R00.0 Tachycardia, unspecified; Z74.01 Bed confinement status; R91.8 Other nonspecific abnormal finding of lung field; M95.4 Acquired deformity of chest and rib
CPT/HCPCS: 31720; 33010; 36415; 36600; 71045-TC; 71250-TC; 71260-TC; 74018; 76604-TC; 80048-TC; 80076-TC; 80202-TC; 81001; 82247-TC; 82962-TC; 83605-TC; 83735-TC; 84100-TC; 84484-TC; 85025-TC; 85730-TC; 87040-TC; 87070-TC; 87075-TC; 87081-TC; 87086-TC; 87102-TC; 87116; 87186-TC; 87206; 89051-TC; 93307-TC; 93308-TC; 94640-TC; 94664-TC; 94760-TC; 94762-TC; 94799-TC; 99082-TC; A4623; A6253; A6403; C1769; C9113; G0378; J0692; J0696; J1642; J1644; J1650; J1953; J2185; J2250; J3010; J3370; J3490; J7030; J7042; J7050; J7060; J7120; Q9963; Q9967; U0003

== ENCOUNTER 2022-03-18 07:09 | Inpatient (IN) | payer BC, OTHER ==
[~2022-03-18] VITALS: Ht 170.2 cm; Wt 50.3 kg
[~2022-03-18 07:09] MED LIST changes: +CEFT1VIA15 IV; -ENOX40DI SQ
--- NOTE | 2022-03-18 07:30 | NUR ---
joanna from SNF for noted fever tachycardia since yesterday. ON sat 98%. Connected to the monitor and pulse ox. kept comfortable, will continue to monitor accordingly.
[2022-03-18] MEDS ORDERED: ACETAMINOPHEN 650 MG/SUPP.RECT RC ONE ×2 (07:39→08:00)
[2022-03-18] MEDS ORDERED: IV NS 0.9% 1,000 ML BAG IV ONE (08:00)
[2022-03-18] MEDS ORDERED: VANCOMYCIN 1 GM in IV D5W 250 ML IV ONE (08:00)
[2022-03-18] MEDS ORDERED: CEFEPIME 1 GM in IV D5W 50 ML IV ONE (08:00)
[2022-03-18 08:05] LABS: BASOPHILS # (AUTO) 0.1 K/uL (0.0-0.2); BASOPHILS % (AUTO) 0.7 % (0.0-2.0); EOSINOPHILS % (AUTO) 0.5 % (0.0-6.0); HEMATOCRIT 32 % (39-51); HEMOGLOBIN 10.3 g/dL (13.5-17.5); LYMPHOCYTES # (AUTO) 1.3 K/uL (0.8-4.8); LYMPHOCYTES % (AUTO) 8.9 % (20.0-44.0); MEAN CORPUSCULAR HGB CONC 32 g/dl (31.0-36.0); MEAN CORPUSCULAR VOLUME 79 fL (80-96); MONOCYTES # (AUTO) 1.5 K/uL (0.1-1.30); MONOCYTES % (AUTO) 10.4 % (2.0-12.0); NEUTROPHILS # (AUTO) 11.5 K/uL (1.8-8.9); NEUTROPHILS % (AUTO) 79.5 % (43.0-81.0); PLATELET COUNT (AUTO) 345 K/uL (150-450); RED BLOOD CELL COUNT(AUTO) 4.11 MIL/uL (4.5-6.0); WHITE BLOOD COUNT (AUTO) 14.5 K/uL (4.3-11.0)
[2022-03-18 08:20] LABS: CALCIUM, SERUM 8.6 mg/dL (8.5-10.1); CREATININE 0.5 mg/dL (0.6-1.3); POTASSIUM 4.2 mmol/L (3.5-5.1)
[2022-03-18 08:31] LABS: ALBUMIN 2.1 g/dL (3.4-5.0); BILIRUBIN,DIRECT 0.2 mg/dL (0.0-0.2); BILIRUBIN,TOTAL 0.5 mg/dL (0.2-1.0); TOTAL PROTEIN, SERUM 8.2 g/dL (6.4-8.2)
[2022-03-18 08:50] LABS: BILIRUBIN,URINE NEGATIVE (NEGATIVE); COLOR,URINE YELLOW (YELLOW); LEUKOCYTE ESTERASE ,URINE SMALL (NEGATIVE); NITRITE, URINE NEGATIVE (NEGATIVE); PROTEIN,URINE 30 mg/dl (NEGATIVE); UGLUCOSE NEGATIVE (NEGATIVE); UROBILINOGEN,URINE 0.2 EU/dL (0.2)
[2022-03-18 09:15] LABS: BACTERIA,URINE Few /HPF (None Seen); SQUAMOUS EPITHELIAL CELL,UR Moderate /HPF (None Seen)
--- NOTE | 2022-03-18 10:40 | NUR ---
MOVE SHEET SUBMITTED.
[2022-03-18] MEDS ORDERED: HYDROCODONE/APAP 5/325MG TABLET GT PRN (12:00)
[2022-03-18] MEDS ORDERED: GLUCERNA 1.5 1,000 ML BOTTLE NG PRN (12:00)
[2022-03-18] MEDS ORDERED: ACETAMINOPHEN ES 500 MG TABLET GT PRN (12:00)
[2022-03-18] MEDS ORDERED: Z GUARD REMEDY 4 OZ OINT TP PRN (12:00)
[2022-03-18] MEDS ORDERED: NA PHOS,M-B/NA PHOS,DI-BA 1 EA ENEMA RC PRN (12:00)
[2022-03-18] MEDS ORDERED: ONDANSETRON HCL/PF 4 MG/2 ML VIAL IVP PRN (12:00)
--- NOTE | 2022-03-18 12:06 | NUR ---
bed 117-1
[2022-03-18] MEDS ORDERED: THERAHONEY GEL 1.5 OZ TUBE TP SCH (13:00)
--- NOTE | 2022-03-18 13:05 | NUR ---
report given to Kristie GREGORY to continue care.
--- NOTE | 2022-03-18 13:30 | NUR ---
RN/TELE RECEIVING NOTE REPORT RECEIVED OVER THE PHONE FROM CEASAR IN THE ER. PATIENT ARRIVED ASLEEP ON BED A&OX0, ALL VSS. SR. PATIENT SATTING AT 99% ON T- PIECE. DIET CURRENTLY NPO. VOIDING VIA RED CATHETER PATENT AND DRAINING BELOW THE BLADDER. SKIN SACRAL WOUND PICTURE TAKEN AND IN THE CHART. IV LAC #20G PATENT, INTACT, AND FLUSHED WITH NS. PATIENT RUNNING 0.9% NS @75MLS/HR. ALL SAFETY FALL PRECAUTIONS IN PLACE BED LOCK ON, BED IN THE LOWEST POSITION, SIDE RAILS UP, BED ALARM ON, CALL LIGHT WITHIN REACH. WILL CONTINUE TO MONITOR.
[2022-03-18] MEDS: IV NS 0.9% 1,000 ML IV PRN (15:10)
[2022-03-18] MEDS: CHLORHEXIDINE GLUCONATE 4% 118 ML BOTTLE TP SCH (15:10)
[2022-03-18] MEDS: CEFEPIME 2 GM in IV D5W 100 ML IV SCH ×2 (15:10→21:19)
[2022-03-18] MEDS: VANCOMYCIN 1 GM in IV D5W 250ml IV SCH (15:11)
[2022-03-18] MEDS: ENOXAPARIN SODIUM 40 MG/0.4 ML DISP.SYRIN SQ SCH (15:12)
[2022-03-18] MEDS: LEVETIRACETAM (250 MG) 250 MG TABLET PO SCH ×2 (15:14→21:20)
--- NOTE | 2022-03-18 16:29 | NUR ---
RT Received pt on 4LPM via Tmask with vitals as noted. Pt on Portex 8 Cuffless trach. No SOB noted Pt placed on CA 5LPM/28% post negative COVID 19 rapid test. Ambu bag + back up trach at bedside. Will continue to monitor.
--- NOTE | 2022-03-18 16:30 | NUR ---
RN/TELE NOTE \PATIENT RECEIVED A BED BATH, ALL LINEN AND GOWN WAS CHANGED. WOUND CARE WAS PROVIDED. ALL SAFETY FALL PRECAUTIONS IN PLACE.
[2022-03-18] MEDS: FERROUS SULFATE UDC 300 MG/5 ML UDC GT SCH (17:27)
[2022-03-18] MEDS: SULFACETAMIDE 10% OPHTH 15 ML BOTTLE EACHEYE SCH (18:00)
--- NOTE | 2022-03-18 19:02 | NUR ---
RN/TELE closing NOTE PATIENT ASLEEP ON BED A&OX0, ALL VSS. SR. PATIENT SATTING AT 99% ON T- PIECE. IV LAC #20G PATENT, INTACT, AND FLUSHED WITH NS. PATIENT RUNNING 0.9% NS @75MLS/HR. ALL SAFETY FALL PRECAUTIONS IN PLACE BED LOCK ON, BED IN THE LOWEST POSITION, SIDE RAILS UP, BED ALARM ON, CALL LIGHT WITHIN REACH.PATIENT SHOWS NO SIGNS OF DISTRESS.
--- NOTE | 2022-03-18 19:52 | NUR ---
DIRECTOR OF PRIMARY CARE OPENING RECEIVED PATIENT IN BED. A/OX1, NON-VERBAL. NO S/S OF APPARENT DISTRESS IN T-PIECE. NOT EXHIBITING PAIN VIA FLACC. TELE MONITOR READING SR WITH 100 BPM. L.AC #20G RUNNING IV NS @75MLS/HR. MELITON NOTED IN PLACE. 2 FAMILY MEMBERS AT BEDSIDE AT THIS TIME. SAFETY IN PLACE. WILL CONTINUE WITH PLAN OF CARE FOR PATIENT.
[2022-03-18 20:00] VITALS: BP 104/64
[2022-03-18] MEDS: METOPROLOL TARTRATE 25 MG TABLET GT SCH (21:00)
[2022-03-18] MEDS: SENNOSIDES 8.6 MG TABLET GT SCH (21:20)
[2022-03-18] MEDS: THERAHONEY GEL 1.5 OZ TUBE TP SCH (22:30)
--- NOTE | 2022-03-18 22:45 | NUR ---
SERIAL WOUND DEBRIDEMENT TELEPHONE CONSENT OBTAINED FROM MOTHER PAPOAMERICACHANDNI ROMAINELEBRON AT THIS TIME.
[2022-03-19] VITALS: BP 104/61
[2022-03-19] MEDS: VANCOMYCIN 1 GM in IV D5W 250ml IV SCH ×3 (00:06→16:33)
[2022-03-19] MEDS: SULFACETAMIDE 10% OPHTH 15 ML BOTTLE EACHEYE SCH ×4 (00:13→17:09)
[2022-03-19] MEDS ORDERED: GLUCERNA 1.2 1,000 ML BOTTLE GT PRN (02:30)
[2022-03-19] MEDS: CEFEPIME 2 GM in IV D5W 100 ML IV SCH ×3 (05:06→20:34)
--- NOTE | 2022-03-19 07:18 | NUR ---
EDGE FINISHER CLOSING NOTE PATIENT IN BED WITH EYES CLOSED EASY TO AROUSE, NON-VERBAL, EYE-OPENING TO STIMULI. NO S/S OF APPARENT DISTRESS IN T-PIECE AEROSOL 5LPM OF O2. TELE MONITOR READING ST WITH 103 BPM THIS AM, IV NS RUNNING @75MLS/HR. G-TUBE RUNNING GLUCERNA 1.2 @75MLS/HR. WOUND TREATMENT RENDERED. RED CATH DRAINING CLEAR, DARK YELLOW URINE WITH UO OF 750MLS. ALL NEEDS ATTENDED. FOR WOUND DEBRIDEMENT TODAY, ENDORSED TO BRI ALEGRIA FOR CONTINUITY OF CARE.
--- NOTE | 2022-03-19 07:37 | NUR ---
RN OPENING NOTE PATIENT IN BED WITH EYES CLOSED EASY TO AROUSE, NON-VERBAL, EYE-OPENING TO STIMULI. NO S/S OF APPARENT DISTRESS IN T-PIECE AEROSOL 5LPM OF O2. TELE MONITOR READING ST WITH 103 BPM THIS AM, IV ACCESS ON LEFT ANTECUBITAL 20 GAUGE.NS RUNNING @75MLS/HR. G-TUBE RUNNING GLUCERNA 1.2 @75MLS/HR. RED CATH DRAINING CLEAR, DARK YELLOW URINE. SKIN ALTERATIONS DOCUMENTED IN PHYSICAL CHART. WILL CONTINUE PLAN OF CARE AND ANTICIPATE NEEDS.
[2022-03-19 07:39] LABS: BASOPHILS % (AUTO) 0.3 % (0.0-2.0); EOSINOPHILS % (AUTO) 2.2 % (0.0-6.0); HEMATOCRIT 29 % (39-51); LYMPHOCYTES % (AUTO) 13.7 % (20.0-44.0); MEAN CORPUSCULAR HGB CONC 32 g/dl (31.0-36.0); MEAN CORPUSCULAR VOLUME 79 fL (80-96); MONOCYTES # (AUTO) 0.8 K/uL (0.1-1.30); MONOCYTES % (AUTO) 10.4 % (2.0-12.0); NEUTROPHILS # (AUTO) 5.6 K/uL (1.8-8.9); NEUTROPHILS % (AUTO) 73.4 % (43.0-81.0); PLATELET COUNT (AUTO) 256 K/uL (150-450); RED BLOOD CELL COUNT(AUTO) 3.63 MIL/uL (4.5-6.0); WHITE BLOOD COUNT (AUTO) 7.7 K/uL (4.3-11.0)
[2022-03-19 07:52] LABS: CALCIUM, SERUM 8.6 mg/dL (8.5-10.1); CREATININE 0.5 mg/dL (0.6-1.3); MAGNESIUM 2.2 mg/dL (1.8-2.4); PHOSPHORUS 3.5 mg/dL (2.5-4.9); POTASSIUM 3.6 mmol/L (3.5-5.1)
[2022-03-19] MEDS: ASCORBIC ACID 500 MG TABLET GT SCH (08:03)
[2022-03-19] MEDS: LEVETIRACETAM (250 MG) 250 MG TABLET PO SCH ×2 (08:03→20:35)
[2022-03-19] MEDS: FERROUS SULFATE UDC 300 MG/5 ML UDC GT SCH ×2 (08:03→16:33)
[2022-03-19] MEDS: PANTOPRAZOLE 40 MG TABLET.DR PO SCH (08:04)
[2022-03-19] MEDS: METOPROLOL TARTRATE 25 MG TABLET GT SCH ×2 (08:04→20:37)
[2022-03-19] MEDS: THERAHONEY GEL 1.5 OZ TUBE TP SCH (08:06)
[2022-03-19] MEDS ORDERED: OMEPRAZOLE 20 MG CAPSULE.DR GT SCH (09:00)
[2022-03-19] MEDS: ENOXAPARIN SODIUM 40 MG/0.4 ML DISP.SYRIN SQ SCH (12:09)
[2022-03-19] MEDS: IV NS 0.9% 1,000 ML IV PRN (12:17)
[2022-03-19] MEDS: IPRATROPIUM NEB FS 0.5 MG/2.5 ML AMPUL.NEB NEB SCH ×3 (13:21→19:56)
[2022-03-19] MEDS: ALBUTEROL HALF STRENGTH 1.25 MG/3 ML VIAL.NEB NEB SCH ×3 (13:22→19:56)
[2022-03-19] MEDS: ACETYLCYSTEINE 10% SOLN 400 MG/4 ML VIAL NEB SCH ×2 (13:22→15:35)
[2022-03-19] MEDS: JEVITY 1.2 CAL 1,000 ML BOTTLE GT PRN (16:43)
--- NOTE | 2022-03-19 19:30 | NUR ---
RN CLOSING NOTE PATIENT IN BED WITH EYES CLOSED EASY TO AROUSE, NON-VERBAL, EYE-OPENING TO STIMULI. NO S/S OF APPARENT DISTRESS IN T-PIECE AEROSOL 5LPM OF O2. TELE MONITOR READING ST WITH 103 BPM THIS AM, IV ACCESS ON LEFT ANTECUBITAL 20 GAUGE.NS RUNNING @75MLS/HR. G-TUBE RUNNING GLUCERNA 1.2 @75MLS/HR. RED CATH DRAINING CLEAR, DARK YELLOW URINE. SKIN ALTERATIONS DOCUMENTED IN PHYSICAL CHART. ALL DUE MEDS GIVEN. KEPT CLEAN AND DRY THROUGHOUT SHIFT. WILL ENDORSE TO NIGHTSHIFT RN FOR LIBIA.
--- NOTE | 2022-03-19 19:54 | NUR ---
RN note Received patient in bed, awake, non-verbal, withdraws from localized touch. Trach, [place] 8, on t-piece at 5L. tolerating well, o2 saturation of 97 percent. No s/s of respiratory distress. patient suctioned via trach and oral, small amount of thick white mucous. On tele monitoring. No s/s of distress. Skin is warm and moist. patient is diaphoretic. Right upper arm midline intact, infusing ns at 75/cc/hr. Jevity infusing at 75 cc/hr. Paused for 4 hours, to resume at 0000. No residual. HOB elevated 35 degrees. Peg tube dressing intact. Indwelling hunt catheter intact, draining urine by gravity. Assisted patient with turning and repositioning/ Bed low, in locked position. Will continue to monitor.
[2022-03-19 20:00] VITALS: BP 102/64
[2022-03-19] MEDS: SENNOSIDES 8.6 MG TABLET GT SCH (21:37)
[2022-03-20] VITALS: BP 109/61
[2022-03-20] MEDS: VANCOMYCIN 1 GM in IV D5W 250ml IV SCH ×4 (00:34→23:54)
[2022-03-20] MEDS: SULFACETAMIDE 10% OPHTH 15 ML BOTTLE EACHEYE SCH ×5 (00:35→23:56)
[2022-03-20] MEDS: IV NS 0.9% 1,000 ML IV PRN ×2 (01:26→13:15)
[2022-03-20] MEDS: ALBUTEROL HALF STRENGTH 1.25 MG/3 ML VIAL.NEB NEB SCH ×7 (03:41→23:35)
[2022-03-20] MEDS: IPRATROPIUM NEB FS 0.5 MG/2.5 ML AMPUL.NEB NEB SCH ×7 (03:41→23:35)
[2022-03-20 04:00] VITALS: BP 127/79
[2022-03-20] MEDS: CEFEPIME 2 GM in IV D5W 100 ML IV SCH ×3 (05:03→20:56)
[2022-03-20 06:57] LABS: BASOPHILS % (AUTO) 0.3 % (0.0-2.0); EOSINOPHILS % (AUTO) 1.5 % (0.0-6.0); HEMATOCRIT 30 % (39-51); HEMOGLOBIN 9.6 g/dL (13.5-17.5); LYMPHOCYTES # (AUTO) 1.1 K/uL (0.8-4.8); LYMPHOCYTES % (AUTO) 14.4 % (20.0-44.0); MEAN CORPUSCULAR HGB CONC 32 g/dl (31.0-36.0); MEAN CORPUSCULAR VOLUME 78 fL (80-96); MONOCYTES # (AUTO) 0.8 K/uL (0.1-1.30); MONOCYTES % (AUTO) 11.5 % (2.0-12.0); NEUTROPHILS # (AUTO) 5.3 K/uL (1.8-8.9); NEUTROPHILS % (AUTO) 72.3 % (43.0-81.0); PLATELET COUNT (AUTO) 300 K/uL (150-450); RED BLOOD CELL COUNT(AUTO) 3.82 MIL/uL (4.5-6.0); WHITE BLOOD COUNT (AUTO) 7.3 K/uL (4.3-11.0)
[2022-03-20 07:09] LABS: ALBUMIN 1.9 g/dL (3.4-5.0); BILIRUBIN,TOTAL 0.3 mg/dL (0.2-1.0); CALCIUM, SERUM 8.5 mg/dL (8.5-10.1); CREATININE 0.5 mg/dL (0.6-1.3); MAGNESIUM 2.3 mg/dL (1.8-2.4); PHOSPHORUS 3.4 mg/dL (2.5-4.9); POTASSIUM 3.6 mmol/L (3.5-5.1)
[2022-03-20] MEDS: PANTOPRAZOLE 40 MG TABLET.DR PO SCH (07:47)
[2022-03-20 08:00] VITALS: BP 131/64
[2022-03-20] MEDS: ACETYLCYSTEINE 10% SOLN 400 MG/4 ML VIAL NEB SCH ×4 (08:20→23:35)
[2022-03-20] MEDS: ASCORBIC ACID 500 MG TABLET GT SCH (09:10)
[2022-03-20] MEDS: FERROUS SULFATE UDC 300 MG/5 ML UDC GT SCH ×2 (09:10→17:46)
[2022-03-20] MEDS: LEVETIRACETAM (250 MG) 250 MG TABLET PO SCH ×2 (09:11→21:18)
[2022-03-20] MEDS: METOPROLOL TARTRATE 25 MG TABLET GT SCH ×2 (09:13→21:17)
[2022-03-20] MEDS: THERAHONEY GEL 1.5 OZ TUBE TP SCH (09:14)
[2022-03-20 12:00] VITALS: BP 110/63
[2022-03-20] MEDS: ENOXAPARIN SODIUM 40 MG/0.4 ML DISP.SYRIN SQ SCH (13:11)
[2022-03-20] MEDS: JEVITY 1.2 CAL 1,000 ML BOTTLE GT PRN (13:42)
[2022-03-20 16:00] VITALS: BP 125/66
[2022-03-20 20:00] VITALS: BP 116/67
--- NOTE | 2022-03-20 20:00 | NUR ---
BASTING MACHINE OPERATOR NOTES RECEIVED ON HIGH FOWLERS POSITION,OPEN EYES,NON VERBAL.ON T-PIECE 5L TOLERATED WELL,IVF NS75ML/HR RATE INFUSING WELL ON RIGHT UPPER ARM MIDLINE VIA IV PUMP,RED CATH IN PLACE DRAINING YELLOWISH OUTPUT.JEVITY FEEDING OFF THIS TIME ,ON AT 1200 MIDNIGHT.NO RESIDUAL VOLUME.NO DIARRHEA NOTED.WILL REPOSITION Q 2 HOURS PER PROTOCOL.WILL CONTINUE TO MONITOR STATUS.
[2022-03-20] MEDS: SENNOSIDES 8.6 MG TABLET GT SCH (21:17)
[2022-03-21] VITALS: BP 112/69
[2022-03-21 04:00] VITALS: BP 135/57
[2022-03-21] MEDS: ALBUTEROL HALF STRENGTH 1.25 MG/3 ML VIAL.NEB NEB SCH ×6 (04:27→23:45)
[2022-03-21] MEDS: IPRATROPIUM NEB FS 0.5 MG/2.5 ML AMPUL.NEB NEB SCH ×6 (04:27→23:45)
[2022-03-21] MEDS: CEFEPIME 2 GM in IV D5W 100 ML IV SCH ×3 (04:55→21:41)
[2022-03-21] MEDS: SULFACETAMIDE 10% OPHTH 15 ML BOTTLE EACHEYE SCH ×4 (05:05→23:43)
--- NOTE | 2022-03-21 06:14 | NUR ---
RADIOLOGY AIDE NOTES NO SIGNIFICANT CHANGE IN STATUS.MORNING CARE RENDERED TOLERATED WELL,IV ABX ADMINISTERED SCHEDULED,NO REACTION NOTED.SUCTION TRACH NEEDED,AFEBRILE,BREATHING NORMAL.HOB ELEVATED AT ALL TIMES,IN NO ACUTE DISTRESS.
[2022-03-21 06:57] LABS: CALCIUM, SERUM 8.7 mg/dL (8.5-10.1); CREATININE 0.5 mg/dL (0.6-1.3); POTASSIUM 3.9 mmol/L (3.5-5.1)
--- NOTE | 2022-03-21 07:30 | NUR ---
RN/TELE OPENING NOTE REPORT RECEIVED. PATIENT ASLEEP ON BED A&OX0, ALL VSS. SR. PATIENT SATTING AT 99% ON T- PIECE. DIET CURRENTLY JEVITY 1.2 @ 75 NO RESIDUAL. VOIDING VIA RED CATHETER PATENT AND DRAINING BELOW THE BLADDER. SKIN SACRAL WOUND. IV DAY MIDLINE #20G PATENT, INTACT, AND FLUSHED WITH NS. PATIENT RUNNING 0.9% NS @75MLS/HR. ALL SAFETY FALL PRECAUTIONS IN PLACE BED LOCK ON, BED IN THE LOWEST POSITION,BED LOCK ON, SIDE RAILS UP, BED ALARM ON, CALL LIGHT WITHIN REACH. WILL CONTINUE TO MONITOR.
[2022-03-21 08:00] VITALS: BP 110/63
[2022-03-21] MEDS: ACETYLCYSTEINE 10% SOLN 400 MG/4 ML VIAL NEB SCH ×3 (08:16→23:45)
[2022-03-21] MEDS: LEVETIRACETAM (250 MG) 250 MG TABLET PO SCH ×2 (08:40→21:39)
[2022-03-21] MEDS: FERROUS SULFATE UDC 300 MG/5 ML UDC GT SCH ×2 (08:40→18:32)
[2022-03-21] MEDS: VANCOMYCIN 1 GM in IV D5W 250ml IV SCH ×2 (08:40→16:38)
[2022-03-21] MEDS: METOPROLOL TARTRATE 25 MG TABLET GT SCH ×2 (08:42→21:41)
[2022-03-21] MEDS: PANTOPRAZOLE 40 MG TABLET.DR PO SCH (08:42)
[2022-03-21] MEDS: ASCORBIC ACID 500 MG TABLET GT SCH (08:42)
[2022-03-21] MEDS: THERAHONEY GEL 1.5 OZ TUBE TP SCH (08:43)
[2022-03-21 12:00] VITALS: BP 99/62
[2022-03-21 16:00] VITALS: BP 99/62
[2022-03-21 20:00] VITALS: BP 99/62
--- NOTE | 2022-03-21 20:30 | NUR ---
RT NOTE PT ASLEEP WHEN RECEIVED ON CA 28%. SPO2 98%. HIGH HR 112. TOLERATED BREATHING TX. FAMILY ON FACETIME AND NOTIFIED OF TX GIVEN. NO RESP DISTRESS. Addendum: 03/21/22 at 2033 by Porfirio Garcia RT Amended: Links added.
[2022-03-21] MEDS: SENNOSIDES 8.6 MG TABLET GT SCH (21:39)
[2022-03-22] VITALS: BP 108/66
[2022-03-22] MEDS ORDERED: IV D5/ 0.9% NACL 1,000 ML IV ONE
[2022-03-22] MEDS: VANCOMYCIN 1 GM in IV D5W 250ml IV SCH ×3 (00:28→18:38)
[2022-03-22] MEDS: IPRATROPIUM NEB FS 0.5 MG/2.5 ML AMPUL.NEB NEB SCH ×6 (03:39→23:15)
[2022-03-22] MEDS: ALBUTEROL HALF STRENGTH 1.25 MG/3 ML VIAL.NEB NEB SCH ×6 (03:39→23:15)
[2022-03-22 04:00] VITALS: BP 102/66
--- NOTE | 2022-03-22 04:48 | NUR ---
RT NOTE TRACH CHANGE DONE PER MD ORDER. CHANGED FROM P8 CUFFLESS TO P8 CUFFED. PT TOLERATED TRACH CHANGE. MINIMAL BLEEDING NOTED. RN ALANA AWARE. WILL CONTINUE TO MONITOR CLOSELY. TRACH CARE DONE.
[2022-03-22] MEDS: SULFACETAMIDE 10% OPHTH 15 ML BOTTLE EACHEYE SCH ×3 (06:14→18:39)
[2022-03-22 06:39] LABS: BASOPHILS % (AUTO) 0.7 % (0.0-2.0); EOSINOPHILS % (AUTO) 2.5 % (0.0-6.0); HEMATOCRIT 34 % (39-51); HEMOGLOBIN 10.8 g/dL (13.5-17.5); LYMPHOCYTES # (AUTO) 1.5 K/uL (0.8-4.8); LYMPHOCYTES % (AUTO) 23.5 % (20.0-44.0); MEAN CORPUSCULAR HGB CONC 32 g/dl (31.0-36.0); MEAN CORPUSCULAR VOLUME 78 fL (80-96); MONOCYTES # (AUTO) 0.6 K/uL (0.1-1.30); MONOCYTES % (AUTO) 8.7 % (2.0-12.0); NEUTROPHILS # (AUTO) 4.2 K/uL (1.8-8.9); NEUTROPHILS % (AUTO) 64.6 % (43.0-81.0); PLATELET COUNT (AUTO) 372 K/uL (150-450); RED BLOOD CELL COUNT(AUTO) 4.28 MIL/uL (4.5-6.0); WHITE BLOOD COUNT (AUTO) 6.6 K/uL (4.3-11.0)
[2022-03-22 07:12] LABS: ALBUMIN 2.3 g/dL (3.4-5.0); BILIRUBIN,TOTAL 0.3 mg/dL (0.2-1.0); CALCIUM, SERUM 9.9 mg/dL (8.5-10.1); CREATININE 0.6 mg/dL (0.6-1.3); MAGNESIUM 2.4 mg/dL (1.8-2.4); PHOSPHORUS 3.6 mg/dL (2.5-4.9); POTASSIUM 4.2 mmol/L (3.5-5.1); TOTAL PROTEIN, SERUM 8.9 g/dL (6.4-8.2)
[2022-03-22] MEDS: PANTOPRAZOLE 40 MG TABLET.DR PO SCH (07:30)
--- NOTE | 2022-03-22 07:30 | NUR ---
PT RECEIVED RESTING COMFORTABLY IN BED. NO S/S OR C/O PAIN OR DISTRESS NOTED. SIDE RAILS UP X2, CALL LIGHT LEFT WITHIN REACH. WILL CONTINUE PLAN OF CARE.
--- NOTE | 2022-03-22 07:31 | NUR ---
RN CLOSING NOTE PATIENT STABLE REPORT GIVEN TO DAY NURSE ALL QUESTIONS ANSWERED.
[2022-03-22] MEDS: ACETYLCYSTEINE 10% SOLN 400 MG/4 ML VIAL NEB SCH ×3 (07:35→23:15)
[2022-03-22 08:00] VITALS: BP 110/71
[2022-03-22] MEDS: CEFEPIME 2 GM in IV D5W 100 ML IV SCH ×3 (08:02→21:57)
[2022-03-22] MEDS: FERROUS SULFATE UDC 300 MG/5 ML UDC GT SCH ×2 (09:00→17:02)
[2022-03-22] MEDS: METOPROLOL TARTRATE 25 MG TABLET GT SCH ×2 (09:00→21:00)
[2022-03-22] MEDS: LEVETIRACETAM (250 MG) 250 MG TABLET PO SCH ×2 (09:00→21:57)
[2022-03-22] MEDS: ASCORBIC ACID 500 MG TABLET GT SCH (09:00)
[2022-03-22 12:00] VITALS: BP 119/73
[2022-03-22] MEDS: THERAHONEY GEL 1.5 OZ TUBE TP SCH (13:15)
[2022-03-22] MEDS ORDERED: ROCURONIUM BROMIDE 50 MG/5 ML ONE (14:11)
[2022-03-22] MEDS ORDERED: SEVOFLURANE 250 ML BOTTLE IH ONE (14:11)
[2022-03-22] MEDS ORDERED: GLYCOPYRROLATE 0.2 MG/ML VIAL ONE (14:12)
--- NOTE | 2022-03-22 14:37 | NUR ---
PT TO SURGERY
[2022-03-22] MEDS ORDERED: LIDOCAINE 5% OINT 35.44 GM TUBE ONE (14:49)
[2022-03-22 16:00] VITALS: BP 122/77
[2022-03-22] MEDS: CHLORHEXIDINE GLUCONATE 4% 118 ML BOTTLE TP SCH (17:02)
--- NOTE | 2022-03-22 19:26 | NUR ---
CHANGE OF SHIFT REPORT PT RESTING COMFORTABLY IN BED. NO S/S OR C/O PAIN OR DISTRESS NOTED. SIDE RAILS UP X2, CALL [facility] TLEFT WITHIN REACH. PT KEPT CLEAN, DRY, AND COMFORTABLE. NO SIGNIFICANT CHANGES SINCE PREVIOUS SHIFT. REPORT GIVEN TO PEYMAN GREGORY.
--- NOTE | 2022-03-22 19:34 | NUR ---
RN OPENING NOTE PATIENT AWAKE IN BED W/ FAMILY AT BEDSIDE. OBTUNDED. NO S/S OF DISTRESS, BREATHING W/O DIFFICULTY ON T-PIECE COOL AEROSOL. DAY MIDLINE #18 INTACT AND PATENT. TELE MONITOR REVEALS ST105 (ENDORSED PATIENT'S CURRENT BASELINE). SAFETY MEASURES IN PLACE: BED LOCKED AND AT LOWEST POSITION, RAILS UP X2, CALL MOLINA WITHIN REACH. WILL CONTINUE TO MONITOR THE PATIENT.
[2022-03-22 20:00] VITALS: BP 100/58
[2022-03-22] MEDS: SENNOSIDES 8.6 MG TABLET GT SCH (21:57)
[2022-03-23] VITALS (7 sets, daily range): BP systolic 97–110; BP diastolic 45–67
[2022-03-23] MEDS: SULFACETAMIDE 10% OPHTH 15 ML BOTTLE EACHEYE SCH ×4 (00:05→17:31)
[2022-03-23] MEDS: VANCOMYCIN 1 GM in IV D5W 250ml IV SCH ×3 (00:05→17:32)
--- NOTE | 2022-03-23 00:33 | NUR ---
RN NOTE DR. JOSHI, ON-CALL MD, WAS NOTIFIED OF METOPROLOL MEDICATION BEING HELD DUE TO BP BEING 100/58, HR 107. MD ACKNOWLEDGED - NO ORDERS AT THIS TIME. PATIENT STABLE, WILL CONTINUE TO MONITOR PATIENT.
[2022-03-23] MEDS: IPRATROPIUM NEB FS 0.5 MG/2.5 ML AMPUL.NEB NEB SCH ×6 (03:11→23:54)
[2022-03-23] MEDS: ALBUTEROL HALF STRENGTH 1.25 MG/3 ML VIAL.NEB NEB SCH ×6 (03:11→23:54)
[2022-03-23] MEDS: CEFEPIME 2 GM in IV D5W 100 ML IV SCH ×3 (05:21→20:54)
--- NOTE | 2022-03-23 06:52 | NUR ---
RN CLOSING NOTE PATIENT ASLEEP IN BED. EYE OPENING. NO S/S OF DISTRESS, BREATHING W/O DIFFICULTY ON COOL AEROSOL & T-PIECE. DAY MIDLINE #18 INTACT AND PATENT. TELE MONITOR REVEALS SR92. SAFETY MEASURES IN PLACE: BED LOCKED & AT LOWEST POSITION, RAILS UP X2, CALL MOLINA WITHIN REACH. WILL ENDORSE TO NEXT SHIFT FOR LIBIA.
[2022-03-23 06:53] LABS: BASOPHILS # (AUTO) 0.1 K/uL (0.0-0.2); BASOPHILS % (AUTO) 0.9 % (0.0-2.0); EOSINOPHILS % (AUTO) 2.7 % (0.0-6.0); HEMATOCRIT 32 % (39-51); LYMPHOCYTES # (AUTO) 1.5 K/uL (0.8-4.8); LYMPHOCYTES % (AUTO) 20.2 % (20.0-44.0); MEAN CORPUSCULAR HGB CONC 31 g/dl (31.0-36.0); MEAN CORPUSCULAR VOLUME 78 fL (80-96); MONOCYTES # (AUTO) 0.6 K/uL (0.1-1.30); MONOCYTES % (AUTO) 8.7 % (2.0-12.0); NEUTROPHILS # (AUTO) 4.9 K/uL (1.8-8.9); NEUTROPHILS % (AUTO) 67.5 % (43.0-81.0); PLATELET COUNT (AUTO) 390 K/uL (150-450); WHITE BLOOD COUNT (AUTO) 7.2 K/uL (4.3-11.0)
[2022-03-23 07:30] LABS: ALBUMIN 2.2 g/dL (3.4-5.0); BILIRUBIN,TOTAL 0.4 mg/dL (0.2-1.0); CALCIUM, SERUM 9.3 mg/dL (8.5-10.1); CREATININE 0.6 mg/dL (0.6-1.3); MAGNESIUM 2.3 mg/dL (1.8-2.4); PHOSPHORUS 3.6 mg/dL (2.5-4.9); TOTAL PROTEIN, SERUM 8.2 g/dL (6.4-8.2)
--- NOTE | 2022-03-23 07:32 | NUR ---
RN OPENING NOTE PATIENT RESTING COMFORTABLY IN BED. NO S/S OR C/O PAIN OR DISTRESS NOTED. SIDE RAILS UP X2, PATIENT HAS RIGHT UPPER ARM MIDLINE, NO S/S OF INFILTRATION. PATIENT HAS TRACHEOSTOMY WITH COOL AEROSOL. TOLERATING WELL WITHOUT DISTRESS. PATIENT HAS G TUBE WITH FEEDING JEVITY 1.2 AT 50 CC/HR. HEAD OF THE BED ELEVATED 45 DEGREE. WILL CONTINUE PLAN OF CARE.
[2022-03-23] MEDS: ACETYLCYSTEINE 10% SOLN 400 MG/4 ML VIAL NEB SCH ×3 (08:11→23:54)
[2022-03-23] MEDS: ASCORBIC ACID 500 MG TABLET GT SCH (08:21)
[2022-03-23] MEDS: FERROUS SULFATE UDC 300 MG/5 ML UDC GT SCH ×2 (08:21→17:30)
[2022-03-23] MEDS: LEVETIRACETAM (250 MG) 250 MG TABLET PO SCH ×2 (08:21→20:55)
[2022-03-23] MEDS: PANTOPRAZOLE 40 MG TABLET.DR PO SCH (08:21)
[2022-03-23] MEDS: METOPROLOL TARTRATE 25 MG TABLET GT SCH ×2 (08:22→20:56)
[2022-03-23] MEDS: THERAHONEY GEL 1.5 OZ TUBE TP SCH (08:33)
--- NOTE | 2022-03-23 09:20 | NUR ---
Aron through level 23, IV Aron held. Pharmacy was notified.
[2022-03-23] MEDS: CHLORHEXIDINE GLUCONATE 4% 118 ML BOTTLE TP SCH (14:15)
[2022-03-23] MEDS: JEVITY 1.2 CAL 1,000 ML BOTTLE GT PRN (16:45)
--- NOTE | 2022-03-23 18:17 | NUR ---
RN CLOSING NOTE PATIENT ASLEEP IN BED. EYE OPENING. NO S/S OF DISTRESS, BREATHING W/O DIFFICULTY ON COOL AEROSOL & T-PIECE. DAY MIDLINE #18 INTACT AND PATENT. TELE MONITOR REVEALS SR95. SAFETY MEASURES IN PLACE: BED LOCKED & AT LOWEST POSITION, RAILS UP X2, CALL MOLINA WITHIN REACH. WILL ENDORSE TO NEXT SHIFT FOR LIBIA. REPOSITION EVERY 2 HRS TO THE L&R LATERAL.
--- NOTE | 2022-03-23 19:41 | NUR ---
RN OPENING NOTE PATIENT RESTING COMFORTABLY IN BED. NO SIGN SOB/DISTRESS NOTED.PATIENT HAS RIGHT UPPER ARM MIDLINE, PATENT AND INTACT.PATIENT HAS TRACHEOSTOMY WITH COOL AEROSOL.INTACT.PATIENT HAS G TUBE WITH FEEDING JEVITY 1.2 AT 50 CC/HR. HEAD OF THE BED ELEVATED AT ALL TIME.WILL CONTINUE PLAN OF CARE.
[2022-03-23] MEDS: SENNOSIDES 8.6 MG TABLET GT SCH (21:01)
[2022-03-24] VITALS: BP 102/64
[2022-03-24] MEDS: SULFACETAMIDE 10% OPHTH 15 ML BOTTLE EACHEYE SCH ×3 (02:09→11:02)
[2022-03-24] MEDS: IPRATROPIUM NEB FS 0.5 MG/2.5 ML AMPUL.NEB NEB SCH ×4 (03:48→15:57)
[2022-03-24] MEDS: ALBUTEROL HALF STRENGTH 1.25 MG/3 ML VIAL.NEB NEB SCH ×4 (03:48→15:57)
[2022-03-24 04:00] VITALS: BP 99/67
[2022-03-24] MEDS: CEFEPIME 2 GM in IV D5W 100 ML IV SCH ×2 (04:00→13:18)
[2022-03-24] MEDS: VANCOMYCIN 1 GM in IV D5W 250ml IV SCH (05:01)
--- NOTE | 2022-03-24 06:15 | NUR ---
RN CLOSING NOTE PATIENT IN BED SLEEPING BUT EASY TO AROUSED.NO SIGN SOB/DISTRESS NOTED.PATIENT HAS RIGHT UPPER ARM MIDLINE, PATENT AND INTACT.DUE MEDS GIVEN ORDER.ALL NEEDS ATTENDED.PATIENT HAS TRACHEOSTOMY WITH COOL AEROSOL.INTACT.PATIENT HAS G TUBE WITH FEEDING JEVITY 1.2 AT 60 CC/HR LANDRY WELL.HEAD OF THE BED ELEVATED AT ALL TIME.WILL ENDORSED TO NEXT SHIFT.
[2022-03-24 07:15] LABS: BASOPHILS % (AUTO) 0.5 % (0.0-2.0); EOSINOPHILS % (AUTO) 2.4 % (0.0-6.0); HEMATOCRIT 33 % (39-51); HEMOGLOBIN 10.4 g/dL (13.5-17.5); LYMPHOCYTES # (AUTO) 1.5 K/uL (0.8-4.8); LYMPHOCYTES % (AUTO) 22.4 % (20.0-44.0); MEAN CORPUSCULAR HGB CONC 32 g/dl (31.0-36.0); MEAN CORPUSCULAR VOLUME 78 fL (80-96); MONOCYTES # (AUTO) 0.7 K/uL (0.1-1.30); MONOCYTES % (AUTO) 11.2 % (2.0-12.0); NEUTROPHILS # (AUTO) 4.1 K/uL (1.8-8.9); NEUTROPHILS % (AUTO) 63.5 % (43.0-81.0); PLATELET COUNT (AUTO) 405 K/uL (150-450); RED BLOOD CELL COUNT(AUTO) 4.24 MIL/uL (4.5-6.0); WHITE BLOOD COUNT (AUTO) 6.5 K/uL (4.3-11.0)
--- NOTE | 2022-03-24 07:15 | NUR ---
RN/TELE OPENING NOTE, PATIENT ASLEEP ON THE BED A&OX1 OPENS EYES BUT NON VERBAL. ALL VSS. PATIENT SATTING AT 98% ON T-PIECE SHILEY #8. DIET JEVITY 1.2 @ 70ML/HR GOAL 75. IV DAY #18G PATENT, INTACT, AND FLUSHED WITH NS. ALL SAFETY FALL PRECAUTIONS IN PLACE BED LOCK ON, BED IN LOWEST POSITION, BED ALARM ON, SIDE RAILS UP, CALL LIGHT WITHIN REACH. WILL CONTINUE TO MONITOR.
[2022-03-24 07:27] LABS: ALBUMIN 2.3 g/dL (3.4-5.0); BILIRUBIN,TOTAL 0.4 mg/dL (0.2-1.0); CALCIUM, SERUM 9.3 mg/dL (8.5-10.1); CREATININE 0.6 mg/dL (0.6-1.3); MAGNESIUM 2.4 mg/dL (1.8-2.4); TOTAL PROTEIN, SERUM 8.4 g/dL (6.4-8.2)
[2022-03-24] MEDS: ACETYLCYSTEINE 10% SOLN 400 MG/4 ML VIAL NEB SCH ×2 (07:31→15:57)
[2022-03-24 08:00] VITALS: BP 100/67
[2022-03-24] MEDS: PANTOPRAZOLE 40 MG TABLET.DR PO SCH (08:21)
[2022-03-24] MEDS: FERROUS SULFATE UDC 300 MG/5 ML UDC GT SCH (08:22)
[2022-03-24] MEDS: LEVETIRACETAM (250 MG) 250 MG TABLET PO SCH (08:23)
[2022-03-24] MEDS: METOPROLOL TARTRATE 25 MG TABLET GT SCH (08:23)
[2022-03-24] MEDS: THERAHONEY GEL 1.5 OZ TUBE TP SCH (08:23)
[2022-03-24] MEDS: ASCORBIC ACID 500 MG TABLET GT SCH (08:23)
[2022-03-24 12:00] VITALS: BP 109/56
--- NOTE | 2022-03-24 12:54 | NUR ---
RN/TELE NOTE REPORT GIVEN TO ABRAHAM VENTURA. ALL QUESTIONS ANSWERED. PATIENT STABLE FOR TRANSPORT. INSTRUCTION, AND MED RECONCILIATION COMPLETED AND WILL BE SENT WITH PATIENT.
== END 2022-03-24 16:49 | DRG 853 ==
LOC: ER 07:16 → TELE 12:22 → TELE1 14:13
PROC: 0BJ08ZZ Inspection of Tracheobronchial Tree, Via Natural or Artificial Opening Endoscopic (ICD-10-PCS; principal; 2022-03-22)
PROC: 05H533Z Insertion of Infusion Device into Right Subclavian Vein, Percutaneous Approach (ICD-10-PCS; 2022-03-22)
PROC: B546ZZA Ultrasonography of Right Subclavian Vein, Guidance (ICD-10-PCS; 2022-03-22)
PROC: 0QB10ZZ Excision of Sacrum, Open Approach (ICD-10-PCS; 2022-03-23)
DX: A41.9 Sepsis, unspecified organism (principal); E43 Unspecified severe protein-calorie malnutrition; L89.154 Pressure ulcer of sacral region, stage 4; J18.9 Pneumonia, unspecified organism; G93.41 Metabolic encephalopathy; J96.10 Chronic respiratory failure, unspecified whether with hypoxia or hypercapnia; D68.59 Other primary thrombophilia; E87.1 Hypo-osmolality and hyponatremia; R40.3 Persistent vegetative state; Z99.11 Dependence on respirator [ventilator] status; Z68.1 Body mass index [BMI] 19.9 or less, adult; J98.11 Atelectasis; Z87.820 Personal history of traumatic brain injury; D50.9 Iron deficiency anemia, unspecified; E88.09 Other disorders of plasma-protein metabolism, not elsewhere classified; G40.909 Epilepsy, unspecified, not intractable, without status epilepticus; R13.10 Dysphagia, unspecified; Z20.822 Contact with and (suspected) exposure to COVID-19; Z86.73 Personal history of transient ischemic attack (TIA), and cerebral infarction without residual deficits; Z98.2 Presence of cerebrospinal fluid drainage device; Z87.440 Personal history of urinary (tract) infections; I10 Essential (primary) hypertension; Z74.09 Other reduced mobility; M24.542 Contracture, left hand; M24.541 Contracture, right hand; Z93.1 Gastrostomy status; R31.9 Hematuria, unspecified; V89.2XXS Person injured in unspecified motor-vehicle accident, traffic, sequela; Z93.0 Tracheostomy status; M62.50 Muscle wasting and atrophy, not elsewhere classified, unspecified site; M24.574 Contracture, right foot; M24.575 Contracture, left foot; Z98.1 Arthrodesis status
CPT/HCPCS: 31720; 36415; 71045-TC; 71250-TC; 80048-TC; 80053-TC; 80076-TC; 80202-TC; 81001; 83605-TC; 83735-TC; 83880; 84100-TC; 85025-TC; 85730-TC; 87040-TC; 87081-TC; 87086-TC; 94640-TC; 94668-TC; 94799-TC; 99082-TC; A4217; A6253; A6403; A7526; C9803; G0378; J0692; J1650; J3370; J3490; J7030; J7040; J7042; J7050; J7060

== ENCOUNTER 2022-05-11 19:54 | Inpatient (IN) | payer BC, OTHER ==
[~2022-05-11] VITALS: Ht 172.7 cm; Wt 54.0 kg
[~2022-05-11 19:54] MED LIST changes: -CEFT1VIA15 IV
--- NOTE | 2022-05-11 20:15 | NUR ---
BIBPA FROM SNF C/O FEVER AND PALPITATIONS STARTED THIS MORNING. PLACED ON BED, NON VERBAL, HISTORY OF TRAUMATIC BRAIN INJURY, ATTACHED TO MONITOR SHOWS TACHYCARDIC WA- 134, BREATHING EVEN AND UNLABORED SATURATING AT 98% WITH 4LIT O2 VIA TRACH. TUBE. WILL CONTINUE TO MONITOR.
[2022-05-11] MEDS ORDERED: VANCOMYCIN 1 GM in IV D5W 250 ML IV ONE (20:30)
[2022-05-11] MEDS ORDERED: LEVOFLOXACIN 750 MG /D5W 150ML 150 ML IV ONE ×2 (20:30→21:23)
[2022-05-11] MEDS ORDERED: IV NS 0.9% 1,000 ML BAG IV ONE (20:30)
--- NOTE | 2022-05-11 20:43 | NUR ---
COVID SWAB FOR COVID19 SENT TO LAB
--- NOTE | 2022-05-11 20:50 | NUR ---
LENS SILVERER AT BED SIDE
--- NOTE | 2022-05-11 21:00 | NUR ---
[facility] [place]
[2022-05-11 21:22] LABS: BASOPHILS % (AUTO) 0.1 % (0.0-2.0); EOSINOPHILS % (AUTO) 0.2 % (0.0-6.0); HEMATOCRIT 40 % (39-51); LYMPHOCYTES # (AUTO) 0.5 K/uL (0.8-4.8); LYMPHOCYTES % (AUTO) 7.3 % (20.0-44.0); MEAN CORPUSCULAR HGB CONC 33 g/dl (31.0-36.0); MEAN CORPUSCULAR VOLUME 80 fL (80-96); MONOCYTES # (AUTO) 0.3 K/uL (0.1-1.30); MONOCYTES % (AUTO) 4.1 % (2.0-12.0); NEUTROPHILS # (AUTO) 6.1 K/uL (1.8-8.9); NEUTROPHILS % (AUTO) 88.3 % (43.0-81.0); PLATELET COUNT (AUTO) 220 K/uL (150-450); RED BLOOD CELL COUNT(AUTO) 4.95 MIL/uL (4.5-6.0); WHITE BLOOD COUNT (AUTO) 6.9 K/uL (4.3-11.0)
[2022-05-11 21:43] LABS: CALCIUM, SERUM 9.7 mg/dL (8.5-10.1); CARBON DIOXIDE 32 mmol/L (21-32); CHLORIDE 98 mmol/L (98-107); CREATININE 0.9 mg/dL (0.6-1.3); GLUCOSE 85 mg/dL (74-106); SODIUM SERUM 138 mmol/L (136-145); UREA NITROGEN, BLOOD 14 mg/dL (7-18)
[2022-05-11] MEDS ORDERED: VANCOMYCIN 1 GM VIAL ONE (21:47)
--- NOTE | 2022-05-11 21:53 | NUR ---
URINE SAMPLE SENT TO LAB
[2022-05-11 21:54] LABS: ALANINE AMINOTRANSFERASE 28 U/L (12-78); ALBUMIN 3.5 g/dL (3.4-5.0); ALKALINE PHOSPHATASE 177 U/L (46-116); ASPARTATE AMINOTRANSFERASE 21 U/L (15-37); BILIRUBIN,DIRECT 0.2 mg/dL (0.0-0.2); BILIRUBIN,TOTAL 0.5 mg/dL (0.2-1.0); TOTAL PROTEIN, SERUM 9.3 g/dL (6.4-8.2)
--- NOTE | 2022-05-11 22:21 | NUR ---
HOSPITALIST AT BED SIDE
[2022-05-11 22:48] LABS: BILIRUBIN,URINE NEGATIVE (NEGATIVE); LEUKOCYTE ESTERASE ,URINE MODERATE (NEGATIVE); NITRITE, URINE NEGATIVE (NEGATIVE); PH,URINE 8.5 (5.0-8.0); PROTEIN,URINE 30 mg/dl (NEGATIVE); UGLUCOSE NEGATIVE (NEGATIVE); UROBILINOGEN,URINE 0.2 EU/dL (0.2)
[2022-05-11 22:49] LABS: COLOR,URINE CLOUDY (YELLOW)
[2022-05-11] MEDS ORDERED: ACETAMINOPHEN 650 MG/SUPP.RECT RC ONE ×2 (22:50→23:00)
[2022-05-11 22:59] LABS: BACTERIA,URINE Many /HPF (None Seen); RBC,URINE 21-50 /HPF (0-2); SQUAMOUS EPITHELIAL CELL,UR Rare /HPF (None Seen); TRIPLE PHOSPHATE CRYSTAL,UR Many /HPF (None Seen)
[2022-05-11] MEDS ORDERED: BISACODYL SUPP (10 MG) 10 MG/SUPP.RECT SUPP.RECT RC PRN (23:30)
[2022-05-11] MEDS ORDERED: MAGNESIUM HYDROXIDE 30 ML UDC GT PRN (23:30)
[2022-05-11] MEDS ORDERED: NA PHOS,M-B/NA PHOS,DI-BA 1 EA ENEMA RC PRN (23:30)
[2022-05-12] MEDS ORDERED: Z GUARD REMEDY 4 OZ OINT TP PRN
[2022-05-12] MEDS ORDERED: ONDANSETRON HCL/PF 4 MG/2 ML VIAL IVP PRN
--- NOTE | 2022-05-12 00:32 | NUR ---
REPORT GIVEN TO MARTIN ON FIRST FLOOR
--- NOTE | 2022-05-12 00:54 | NUR ---
TRANSFERRED TO 114 UNDERB ACLS
[2022-05-12] MEDS: ENOXAPARIN SODIUM 40 MG/0.4 ML DISP.SYRIN SQ SCH ×2 (01:13→22:00)
[2022-05-12] MEDS: IV NS 0.9% 1,000 ML IV PRN ×2 (01:14→20:33)
[2022-05-12 01:25] VITALS: BP 114/62
--- NOTE | 2022-05-12 01:59 | NUR ---
RN NOTE PT NON VERBAL OPENS EYES NOTED WITH A T - PIECE CONNECTED TO COOL AEROSOL TOLERATING WELL. PT WITH NO TOTES KORINA OR RESPIRATORY DISTRESS. PT PLACED ON TELE MONITO READING ST AT THIS TIME. PT NOTED WITH ELEVATED TEMPERATURE COOLING MEASURES PROVIDED PT WAS GIVEN TYLENOL IN THE ER. PT NOTED WITH IV ACCESS ONT HE AKIRA 20G RUNNING NS @75ML/HR TOLERATING WELL. PT NOTED WITH G TUBE SITE CLEAN. PT NOTED WITH SKIN ISSUES PICTURES TAKEN PLACED IN CHART. WOPUND CONSULT ORDERED. PT HOB ELEVATED FOR ASPIRATION PRECAUTIONS. BED CATY DIN LOW POSITION BED ALARM RESIN COATER LIGHT WITHIN REACH.
[2022-05-12] MEDS: JEVITY 1.2 CAL 1,000 ML BOTTLE GT PRN ×2 (02:48→16:42)
[2022-05-12 04:00] VITALS: BP 125/71
[2022-05-12] MEDS: ACETAMINOPHEN ES 500 MG TABLET GT PRN ×2 (04:48→16:59)
[2022-05-12] MEDS: SULFACETAMIDE 10% OPHTH 15 ML BOTTLE EACHEYE SCH ×4 (05:40→17:02)
[2022-05-12 06:20] LABS: HEMATOCRIT 36 % (39-51); HEMOGLOBIN 11.5 g/dL (13.5-17.5); LYMPHOCYTES # (AUTO) 0.3 K/uL (0.8-4.8); LYMPHOCYTES % (AUTO) 4.4 % (20.0-44.0); MEAN CORPUSCULAR HGB CONC 32 g/dl (31.0-36.0); MEAN CORPUSCULAR VOLUME 80 fL (80-96); MONOCYTES # (AUTO) 0.5 K/uL (0.1-1.30); MONOCYTES % (AUTO) 6.5 % (2.0-12.0); NEUTROPHILS # (AUTO) 6.4 K/uL (1.8-8.9); NEUTROPHILS % (AUTO) 89.1 % (43.0-81.0); PLATELET COUNT (AUTO) 173 K/uL (150-450); RED BLOOD CELL COUNT(AUTO) 4.45 MIL/uL (4.5-6.0); WHITE BLOOD COUNT (AUTO) 7.2 K/uL (4.3-11.0)
--- NOTE | 2022-05-12 06:36 | NUR ---
RN CLOSING NOTE PT NON VERBAL OPENS EYES NOTED WITH A T - PIECE CONNECTED TO COOL AEROSOL TOLERATING WELL. PT WITH NO PAIN OR RESPIRATORY DISTRESS. PT PLACED ON TELE MONITOR READING ST AT THIS TIME. PT NOTED WITH ELEVATED TEMPERATURE 102 COOLING MEASURES PROVIDED WELL GIVEN TYLENOL GIVEN. PT WITH IV ACCESS ON THE AKIRA 20G RUNNING NS @75ML/HR TOLERATING WELL. PT WITH G TUBE RUNNING JEVITY 1.2 @89CC/HR X18HRS TOLERATING WELL. HOB ELEVATED FOR ASPIRATION PRECAUTIONS. BED LOCKED IN LOW POSITION BED ALARM HEAD SULFIDE OPERATOR LIGHT WITHIN REACH. WILL ENDORSE LIBIA TO DAY SHIFT NURSE.
[2022-05-12 07:27] LABS: CREATININE 0.5 mg/dL (0.6-1.3); MAGNESIUM 1.8 mg/dL (1.8-2.4); PHOSPHORUS 2.5 mg/dL (2.5-4.9); POTASSIUM 3.8 mmol/L (3.5-5.1)
--- NOTE | 2022-05-12 07:30 | NUR ---
RN/ OPENING NOTE REPORT RECEIVED PATIENT A&OX1-2 AWAKE LAYING ON THE BED NON VERBAL USES EYES TO COMMUNICATE. ALL VSS. PATIENT SATTING AT 98% ON T- PIECE COOL AEROSOL. DIET JEVITY 1.2 @89MLS/HR. IV AKIRA PATENT, INTACT AND FLUSHED RUNNING NS @75 MLS/HR. NO SIGNS OF DISTRESS. ALL SAFETY FALL PRECAUTIONS IN PLACE,BED LOCK ON, BED IN LOWEST POSITION, BED ALARM ON, SIDE RAILS UP, CALL LIGHT WITHIN REACH. WILL CONTINUE TO MONITOR.
[2022-05-12] MEDS: IPRATROPIUM NEB FS 0.5 MG/2.5 ML AMPUL.NEB NEB SCH ×3 (07:43→19:39)
[2022-05-12] MEDS: ALBUTEROL FS 2.5 MG/3 ML VIAL.NEB NEB SCH ×3 (07:43→19:39)
--- NOTE | 2022-05-12 07:58 | NUR ---
WOUND CARE CONSULT: PT HAVING PROCEDURE AT THIS TIME. REVIEWED CHART, NURSING DOCUMENTATION AND PHOTOS WHICH INDICATE SACRAL STAGE 4 PRESSURE ULCER, LEFT HAND REDNESS, RT KNEE AND RT HIP REDNESS AND SOME AREAS OF DISCOLORATION TO ABDOMEN, ALL PRESENT ON ADMISSION. DR COX NOTIFIED OF SURGICAL CONSULT REQUEST. FIRST STEP LOW AIRLOSS MATTRESS IS ON ORDER. MD IN AGREEMENT WITH PLAN OF CARE.
[2022-05-12 08:00] VITALS: BP 123/69
[2022-05-12] MEDS ORDERED: PANT40SU2 GT (08:21)
[2022-05-12] MEDS ORDERED: NUTR250L50 GT (08:21)
[2022-05-12] MEDS ORDERED: DOCU50LI GT (08:21)
[2022-05-12] MEDS ORDERED: SULF1TAB48 GT (08:21)
[2022-05-12] MEDS ORDERED: POLY15DR40 EACHEYE (08:21)
[2022-05-12] MEDS ORDERED: PROSOURCE / PROSTAT (PYXIS) 30 ML UDC GT SCH (09:00)
[2022-05-12] MEDS ORDERED: PANTOPRAZOLE 40 MG VIAL IV SCH (09:00)
[2022-05-12] MEDS ORDERED: OMEPRAZOLE 20 MG CAPSULE.DR GT SCH (09:00)
[2022-05-12] MEDS: CHLORHEXIDINE GLUCONATE 15 ML UDC MM SCH ×2 (09:15→16:59)
[2022-05-12] MEDS: ASCORBIC ACID 500 MG TABLET GT SCH (09:15)
[2022-05-12] MEDS: LEVETIRACETAM (250 MG) 250 MG TABLET PO SCH ×2 (09:16→20:58)
[2022-05-12] MEDS: METOPROLOL TARTRATE 25 MG TABLET GT SCH ×2 (09:16→20:58)
[2022-05-12] MEDS: VANCOMYCIN 1.25 GM in IV D5W 250 ML IV SCH ×2 (09:18→20:57)
[2022-05-12] MEDS: FERROUS SULFATE UDC 300 MG/5 ML UDC GT SCH ×2 (09:20→16:59)
[2022-05-12 12:00] VITALS: BP 126/70
[2022-05-12] MEDS: ACETAMINOPHEN 325 MG TABLET PO PRN (13:01)
[2022-05-12] MEDS ORDERED: CEFTRIAXONE 1 G in IV D5W 50 ML IV SCH (13:30)
[2022-05-12] MEDS ORDERED: MEROPENEM 500 MG in IV NS 0.9% 50 ML IV SCH (13:30)
[2022-05-12] MEDS ORDERED: MEROPENEM 1 G in IV NS 0.9% 100 ML IV SCH (14:00)
[2022-05-12 16:00] VITALS: BP 111/70
--- NOTE | 2022-05-12 18:48 | NUR ---
RN/NOTE PATIENT AWAKE AND ALERT A&OX1-2 NON VERBAL EYES OPEN. ALL VSS PATIENT SATTING AT 98% ON T-PIECE. PATIENT ST 110-120. DIET JEVITY 1.2 @75 MLS/HR. ALL SAFETY FALL PRECAUTIONS IN PLACE BED LOCK ON, BED ALARM ON, SIDE RAILS UP, CALL LIGHT WITHIN REACH, NO SIGNS OF DISTRESS. ALL QUESTIONS ANSWERED. ALL CARE ENDORSED TO ASSOCIATE PROFESSOR OF MUSIC RN.
--- NOTE | 2022-05-12 19:39 | NUR ---
RCVD PT ON COOL AEROSOL 28%, BREATHING TX GIVEN PER MD'S ORDER. SUCTIONED MODERATE AMOUNT OF YELLOW THICK SECRETIONS. WILL CONTINUE TO MONITOR T/O SHIFT.
[2022-05-12 20:00] VITALS: BP 101/70
[2022-05-12] MEDS ORDERED: LEVOFLOXACIN 750 MG /D5W 150ML 750 MG in PREMIX 1 EA IV SCH (22:00)
[2022-05-12] MEDS: MEROPENEM 1 G in IV NS 0.9% 100 ML IV SCH (22:35)
[2022-05-13] VITALS: BP 113/68
[2022-05-13] MEDS: SULFACETAMIDE 10% OPHTH 15 ML BOTTLE EACHEYE SCH ×4 (00:49→17:25)
[2022-05-13 04:00] VITALS: BP 121/72
[2022-05-13] MEDS: MEROPENEM 1 G in IV NS 0.9% 100 ML IV SCH ×3 (05:17→22:51)
--- NOTE | 2022-05-13 07:00 | NUR ---
END OF SHIFT, PT AWAKE, OPEN EYES SPONTANEOUSLY, UNABLE TO FOLLOW COMMANDS, CONTINUE ON COOL AEROSOL 28%, 5L, NO SOB/ACUTE DISTRESS NOTED THROUGHOUT THE SHIFT, FREQUENT SUCTION PROVIDED, CONT ON ANTIBIOTIC, AND IVF ORDERED, AFEBRILE DURING THE NIGHT, WILL CONTINUE ENDORSE CONTINUITY OF CARE TO ONCOMING NURSE.
--- NOTE | 2022-05-13 07:30 | NUR ---
PRECISION AGRICULTURE SPECIALIST OPENING NOTES: RECEIVED PT AWAKE, OPEN EYES SPONTANEOUSLY, UNABLE TO FOLLOW COMMANDS, CONTINUE ON COOL AEROSOL 28%, 5L VIA TRACH, NO SOB NOTED, RIGHT HAND SALINE LOCK IVF ORDERED,RED CATHETER PATENT DRAINING YELLOW CLOUDY URINE ON ATB FOR RECURRENT URI.GTF OF JEVITY 75 ML/HR WELL TOLERATED , 0 RESIDUAL WILL. BED IN LOW AND LOCKED POSITION, SAFETY MEASURES IN PLACE, WILL MONITOR FOR CONTINUITY OF CARE
[2022-05-13] MEDS: IPRATROPIUM NEB FS 0.5 MG/2.5 ML AMPUL.NEB NEB SCH ×3 (07:47→19:34)
[2022-05-13] MEDS: ALBUTEROL FS 2.5 MG/3 ML VIAL.NEB NEB SCH ×3 (07:47→19:34)
[2022-05-13 08:00] VITALS: BP 114/72
[2022-05-13 08:27] LABS: BASOPHILS % (AUTO) 0.1 % (0.0-2.0); EOSINOPHILS % (AUTO) 0.1 % (0.0-6.0); HEMATOCRIT 35 % (39-51); HEMOGLOBIN 11.1 g/dL (13.5-17.5); LYMPHOCYTES # (AUTO) 0.6 K/uL (0.8-4.8); LYMPHOCYTES % (AUTO) 11.6 % (20.0-44.0); MEAN CORPUSCULAR HGB CONC 32 g/dl (31.0-36.0); MEAN CORPUSCULAR VOLUME 79 fL (80-96); MONOCYTES # (AUTO) 0.6 K/uL (0.1-1.30); MONOCYTES % (AUTO) 11.6 % (2.0-12.0); NEUTROPHILS # (AUTO) 3.7 K/uL (1.8-8.9); NEUTROPHILS % (AUTO) 76.6 % (43.0-81.0); PLATELET COUNT (AUTO) 170 K/uL (150-450); RED BLOOD CELL COUNT(AUTO) 4.35 MIL/uL (4.5-6.0); WHITE BLOOD COUNT (AUTO) 4.8 K/uL (4.3-11.0)
[2022-05-13] MEDS: FERROUS SULFATE UDC 300 MG/5 ML UDC GT SCH ×2 (08:36→17:25)
[2022-05-13] MEDS: CHLORHEXIDINE GLUCONATE 15 ML UDC MM SCH ×2 (08:36→17:25)
[2022-05-13] MEDS: ASCORBIC ACID 500 MG TABLET GT SCH (08:37)
[2022-05-13] MEDS: PANTOPRAZOLE 40 MG/PACK PACK GT SCH (08:37)
[2022-05-13] MEDS: METOPROLOL TARTRATE 25 MG TABLET GT SCH ×2 (08:37→21:16)
[2022-05-13] MEDS: LEVETIRACETAM (250 MG) 250 MG TABLET PO SCH ×2 (08:37→21:16)
[2022-05-13 08:45] LABS: CALCIUM, SERUM 8.9 mg/dL (8.5-10.1); CREATININE 0.5 mg/dL (0.6-1.3); MAGNESIUM 1.9 mg/dL (1.8-2.4); PHOSPHORUS 2.6 mg/dL (2.5-4.9); POTASSIUM 3.9 mmol/L (3.5-5.1)
--- NOTE | 2022-05-13 08:57 | NUR ---
RN NOTES: RECEIVED VANCO TROUGH LEVEL 5 SPOKE TO SHERIN SANON WITH ORDER TO GIVE THEDOSE NOW OF VANCOMYCIN 1.25 GM AND SHE WILL ADJUST THE DOSE.
[2022-05-13] MEDS: VANCOMYCIN 1.25 GM in IV D5W 250 ML IV SCH (08:59)
[2022-05-13] MEDS: PROSOURCE / PROSTAT (PYXIS) 30 ML UDC GT SCH ×2 (09:10→17:25)
--- NOTE | 2022-05-13 11:48 | NUR ---
RN NOTES: CHANGED RED CATHTER PER ID , NOTED 2 SMALL STONES CAME OUT, MILD BLEEDING NOTED POST INSERTION, MOTHER AT BEDSIDE SAID IT HAPPEN BEFORE WITH HIM, NANCY MAX NP AWARE
[2022-05-13 12:00] VITALS: BP 115/69
[2022-05-13] MEDS: JEVITY 1.2 CAL 1,000 ML BOTTLE GT PRN (13:14)
[2022-05-13] MEDS: VANCOMYCIN 1 GM in IV D5W 250ml IV SCH ×2 (15:22→23:17)
[2022-05-13 16:00] VITALS: BP 112/69
[2022-05-13] MEDS: ACETAMINOPHEN ES 500 MG TABLET GT PRN (17:48)
--- NOTE | 2022-05-13 19:05 | NUR ---
SANITARY LANDFILL SUPERVISOR OPENING NOTES: RECEIVED PT AWAKE, OPEN EYES SPONTANEOUSLY, UNABLE TO FOLLOW COMMANDS, CONTINUE ON COOL AEROSOL 28%, 5L VIA TRACH, NO SOB NOTED, IV RIGHT HAND RUNNING 75MLS OF NS ORDERED, RED CATHETER PATENT DRAINING YELLOW CLOUDY URINE. ON ATB FOR RECURRENT URI. GTF OF JEVITY 75 ML/HR TOLERATING WELL. ALL SAFETY MEASURES IN PLACE, BED LOCKED AND IN LOWEST POSITION, SAFETY MEASURES. WILL MONITOR FOR CONTINUITY OF CARE
--- NOTE | 2022-05-13 19:40 | NUR ---
ACCREDITED FARM MANAGER CLOSING NOTES: RECEIVED PT AWAKE, OPEN EYES SPONTANEOUSLY, UNABLE TO FOLLOW COMMANDS, CONTINUE ON COOL AEROSOL 28%, 5L VIA TRACH, NO SOB NOTED, RIGHT HAND SALINE LOCK IVF ORDERED,RED CATHETER PATENT DRAINING YELLOW CLOUDY URINE ON ATB FOR RECURRENT URI.GTF OF JEVITY 75 ML/HR WELL TOLERATED , 0 RESIDUAL WILL. BED IN LOW AND LOCKED POSITION, SAFETY MEASURES IN PLACE, ENDORSE TO DIRECTOR INDEPENDENT RN FOR LIBIA
[2022-05-13 20:00] VITALS: BP 118/71
[2022-05-13] MEDS: ENOXAPARIN SODIUM 40 MG/0.4 ML DISP.SYRIN SQ SCH (22:53)
[2022-05-14] VITALS: BP 114/66
[2022-05-14] MEDS: SULFACETAMIDE 10% OPHTH 15 ML BOTTLE EACHEYE SCH ×2 (02:11→06:10)
[2022-05-14] MEDS: IV NS 0.9% 1,000 ML IV PRN (03:33)
[2022-05-14 04:00] VITALS: BP 116/70
[2022-05-14] MEDS: MEROPENEM 1 G in IV NS 0.9% 100 ML IV SCH ×3 (05:41→21:00)
[2022-05-14] MEDS: ACETAMINOPHEN ES 500 MG TABLET GT PRN ×2 (06:44→20:55)
[2022-05-14 06:55] LABS: BASOPHILS % (AUTO) 0.3 % (0.0-2.0); EOSINOPHILS % (AUTO) 0.2 % (0.0-6.0); HEMATOCRIT 34 % (39-51); HEMOGLOBIN 11.3 g/dL (13.5-17.5); LYMPHOCYTES # (AUTO) 1.2 K/uL (0.8-4.8); LYMPHOCYTES % (AUTO) 22.3 % (20.0-44.0); MEAN CORPUSCULAR HGB CONC 33 g/dl (31.0-36.0); MEAN CORPUSCULAR VOLUME 78 fL (80-96); MONOCYTES # (AUTO) 0.9 K/uL (0.1-1.30); MONOCYTES % (AUTO) 17.2 % (2.0-12.0); NEUTROPHILS # (AUTO) 3.2 K/uL (1.8-8.9); PLATELET COUNT (AUTO) 229 K/uL (150-450); WHITE BLOOD COUNT (AUTO) 5.3 K/uL (4.3-11.0)
[2022-05-14 07:22] LABS: CALCIUM, SERUM 8.8 mg/dL (8.5-10.1); CREATININE 0.5 mg/dL (0.6-1.3); PHOSPHORUS 2.8 mg/dL (2.5-4.9); POTASSIUM 3.5 mmol/L (3.5-5.1)
--- NOTE | 2022-05-14 07:30 | NUR ---
THERMAL MOLDER OPENING NOTES: RECEIVED PT AWAKE, OPEN EYES SPONTANEOUSLY, UNABLE TO FOLLOW COMMANDS, CONTINUE ON COOL AEROSOL 28%, 5L VIA TRACH, NO SOB NOTED, LEFT HAND SALINE LOCK IVF ORDERED,RED CATHETER PATENT DRAINING YELLOW CLOUDY URINE ON ATB FOR RECURRENT URI.GTF OF JEVITY 75 ML/HR WELL TOLERATED , 0 RESIDUAL WILL. BED IN LOW AND LOCKED POSITION, SAFETY MEASURES IN PLACE, WILL MONITOR FOR CONTINUITY OF CARE
[2022-05-14] MEDS: VANCOMYCIN 1 GM in IV D5W 250ml IV SCH (07:33)
--- NOTE | 2022-05-14 07:52 | NUR ---
RN/ CLOSING NOTE ALL CARE ENDORSED TO DAY SHIFT RN. PATIENT IS STABLE AND SHOWS NO SIGNS OF DISTRESS. ALL QUESTIONS ANSWERED.
[2022-05-14] MEDS: IPRATROPIUM NEB FS 0.5 MG/2.5 ML AMPUL.NEB NEB SCH ×3 (07:57→19:21)
[2022-05-14] MEDS: ALBUTEROL FS 2.5 MG/3 ML VIAL.NEB NEB SCH ×3 (07:57→19:21)
[2022-05-14 08:00] VITALS: BP 108/70
[2022-05-14] MEDS: LEVETIRACETAM (250 MG) 250 MG TABLET PO SCH ×2 (09:53→20:55)
[2022-05-14] MEDS: FERROUS SULFATE UDC 300 MG/5 ML UDC GT SCH ×2 (09:53→17:42)
[2022-05-14] MEDS: ASCORBIC ACID 500 MG TABLET GT SCH (09:53)
[2022-05-14] MEDS: CHLORHEXIDINE GLUCONATE 15 ML UDC MM SCH ×2 (09:53→17:42)
[2022-05-14] MEDS: PANTOPRAZOLE 40 MG/PACK PACK GT SCH (09:54)
[2022-05-14] MEDS: METOPROLOL TARTRATE 25 MG TABLET GT SCH ×2 (09:54→20:55)
[2022-05-14] MEDS: PROSOURCE / PROSTAT (PYXIS) 30 ML UDC GT SCH ×2 (09:54→17:42)
[2022-05-14] MEDS: THERAHONEY GEL 1.5 OZ TUBE TP SCH (10:44)
[2022-05-14 12:00] VITALS: BP 102/62
--- NOTE | 2022-05-14 12:17 | NUR ---
rn notes: ct of head done
[2022-05-14 13:14] LABS: BAND % (MANUAL) 6 % (0.0-5.0); LYMPHOCYTES % (MANUAL) 24 % (16-48); MONOCYTES % (MANUAL) 9 % (0-11.0); NEUTROPHILS % (MANUAL) 61 (42-76)
[2022-05-14] MEDS: JEVITY 1.2 CAL 1,000 ML BOTTLE GT PRN (13:23)
[2022-05-14] MEDS: VANCOMYCIN 1.25 GM in IV D5W 250 ML IV SCH ×2 (15:57→23:59)
[2022-05-14 16:00] VITALS: BP 114/68
[2022-05-14] MEDS: ACETAMINOPHEN 325 MG TABLET PO PRN (17:42)
--- NOTE | 2022-05-14 19:15 | NUR ---
RN NOTES RECEIVED PT FOR CONTINUITY OF CARE. PATIENT IN NO S/SX OF ACUTE DISTRESS AT THIS TIME; CURRENTLY ON COOL AEROSOL OF 28% 5L OF 02 VIA T-PIECE; WITH 02 SAT >95% AT THIS TIME.WITH IV ACCESS ON R FA #22 AND L HAND#20 PATENT, INTACT AND FLUSHING WELL. WITH RUNNING NS@75CC/HR. WITH TUBE FEEDING RUNNING ORDERED. WILL ENSURE SAFETY MEASURES WITHIN THE SHIFT. PATIENT BED ALARM IS ON. HEAD OF BED ELEVATED. BED IS LOCKED, IN LOWEST POSITION AND SIDE RAILS UP. CALL LIGHT WITHIN REACH OF THE PATIENT. APPLICABLE ISOLATION PRECAUTIONS IN PLACE. WILL CONTINUE TO MONITOR AND REASSESS FOR ANY CHANGES AND WILL CARRY OUT ANY ONGOING AND ACTIVE MD ORDER.
--- NOTE | 2022-05-14 19:23 | NUR ---
OXYGEN THERAPIST CLOSING NOTES: RECEIVED PT AWAKE, OPEN EYES SPONTANEOUSLY, UNABLE TO FOLLOW COMMANDS, CONTINUE ON COOL AEROSOL 28%, 5L VIA TRACH, NO SOB NOTED, RIGHT FOREARM SALINE LOCK IVF ORDERED,RED CATHETER PATENT DRAINING YELLOW CLOUDY URINE ON ATB FOR RECURRENT URI.GTF OF JEVITY 75 ML/HR WELL TOLERATED , 0 RESIDUAL WILL. BED IN LOW AND LOCKED POSITION, SAFETY MEASURES IN PLACE, ENDORSE TO CLINIC NURSE RN FOR LIBIA
[2022-05-14 20:00] VITALS: BP 108/61
--- NOTE | 2022-05-14 20:32 | NUR ---
RT NOTE Received pt on cool aerosol: FiO2 28% at 5LPM. Patient appears comfortable with no signs of respiratory distress. SPO2 97% upon assessment. Q6 nebulizer tx given and tolerated with no adverse reaction. Family was bedside and educated on purpose of tx. Trach confirmed to be patent and secured. Emergency trach and ambu bag are bedside. Pt was suctioned x2, and orally per family request. Replaced bubble humidifier.
[2022-05-14] MEDS: ENOXAPARIN SODIUM 40 MG/0.4 ML DISP.SYRIN SQ SCH (21:00)
[2022-05-15] VITALS: BP 96/57
[2022-05-15 04:00] VITALS: BP 99/55
[2022-05-15] MEDS: IV NS 0.9% 1,000 ML IV PRN ×2 (05:02→23:14)
[2022-05-15] MEDS: MEROPENEM 1 G in IV NS 0.9% 100 ML IV SCH ×3 (05:03→21:16)
[2022-05-15] MEDS: VANCOMYCIN 1.25 GM in IV D5W 250 ML IV SCH ×3 (06:04→23:25)
--- NOTE | 2022-05-15 06:44 | NUR ---
RN CLOSING NOTE: PATIENT REMAINS IN ROOM IN NO SIGNS OF RESPIRATORY DISTRESS, PATIENT STILL ON COOL AEROSOL OF 28% 5L OF 02 VIA T-PIECE;TOLERATING WELL SATURATING @ >95% SP02. ONE EPISODE OF TEMP; TMAX:100.7; COOLING MEASURES RENDERED AND PRN MED. SAFETY MEASURES IMPLEMENTED, BED IN LOWEST POSITION, LOCKED, SIDE RAILS UP, CALL LIGHT WITHIN REACH. ALL NEEDS AND ORDERS ADDRESSED DURING THE SHIFT. IV ACCESS MAINTAINED INTACT, SECURED AND FLUSHING WELL. IV FLUIDS RUNNING ORDERED AND TUBE FEEDING RUNNING PRESCRIBED. ALL DUE MEDS GIVEN ORDERED & SCHEDULED ; PATIENT TOLERATED WELL. PATIENT KEPT CLEAN AND COMFORTABLE WITHIN THE SHIFT. PATIENT ENDORSED TO INCOMING SHIFT RN WITH STABLE VITAL SIGN AND FOR CONTINUITY OF CARE.
[2022-05-15 07:36] LABS: BASOPHILS % (AUTO) 0.5 % (0.0-2.0); EOSINOPHILS % (AUTO) 1.5 % (0.0-6.0); HEMATOCRIT 34 % (39-51); LYMPHOCYTES # (AUTO) 1.6 K/uL (0.8-4.8); LYMPHOCYTES % (AUTO) 25.4 % (20.0-44.0); MEAN CORPUSCULAR HGB CONC 33 g/dl (31.0-36.0); MEAN CORPUSCULAR VOLUME 79 fL (80-96); MONOCYTES # (AUTO) 0.8 K/uL (0.1-1.30); MONOCYTES % (AUTO) 13.1 % (2.0-12.0); NEUTROPHILS # (AUTO) 3.8 K/uL (1.8-8.9); NEUTROPHILS % (AUTO) 59.5 % (43.0-81.0); PLATELET COUNT (AUTO) 209 K/uL (150-450); RED BLOOD CELL COUNT(AUTO) 4.27 MIL/uL (4.5-6.0); WHITE BLOOD COUNT (AUTO) 6.4 K/uL (4.3-11.0)
[2022-05-15] MEDS: ALBUTEROL FS 2.5 MG/3 ML VIAL.NEB NEB SCH ×3 (07:39→19:08)
[2022-05-15] MEDS: IPRATROPIUM NEB FS 0.5 MG/2.5 ML AMPUL.NEB NEB SCH ×3 (07:40→19:08)
[2022-05-15 08:00] VITALS: BP 106/61
[2022-05-15] MEDS: JEVITY 1.2 CAL 1,000 ML BOTTLE GT PRN (08:00)
[2022-05-15 08:19] LABS: CALCIUM, SERUM 8.8 mg/dL (8.5-10.1); CREATININE 0.5 mg/dL (0.6-1.3); PHOSPHORUS 2.6 mg/dL (2.5-4.9); POTASSIUM 3.6 mmol/L (3.5-5.1)
[2022-05-15] MEDS: CHLORHEXIDINE GLUCONATE 15 ML UDC MM SCH ×2 (08:57→18:00)
[2022-05-15] MEDS: PANTOPRAZOLE 40 MG/PACK PACK GT SCH (08:57)
[2022-05-15] MEDS: ASCORBIC ACID 500 MG TABLET GT SCH (08:58)
[2022-05-15] MEDS: FERROUS SULFATE UDC 300 MG/5 ML UDC GT SCH ×2 (08:58→18:00)
[2022-05-15] MEDS: METOPROLOL TARTRATE 25 MG TABLET GT SCH ×2 (08:59→21:21)
[2022-05-15] MEDS: PROSOURCE / PROSTAT (PYXIS) 30 ML UDC GT SCH ×2 (09:00→17:19)
[2022-05-15] MEDS: LEVETIRACETAM (250 MG) 250 MG TABLET PO SCH ×2 (09:01→21:16)
[2022-05-15] MEDS: THERAHONEY GEL 1.5 OZ TUBE TP SCH (09:01)
[2022-05-15 12:00] VITALS: BP 103/64
[2022-05-15 16:00] VITALS: BP 103/64
--- NOTE | 2022-05-15 19:00 | NUR ---
RN CLOSING NOTE: PATIENT REMAINS IN ROOM IN NO SIGNS OF RESPIRATORY DISTRESS ; PATIENT ON P8 28% 5L O2 TOLERATING WELL SATURATING @ >97% SP02. SAFETY MEASURES IN PLACE, BED IN LOWEST POSITION, LOCKED, SIDE RAILS UP, CALL LIGHT WITHIN REACH. ALL NEEDS AND ORDERS ADDRESSED DURING THE SHIFT. IV ACCESS MAINTAINED INTACT, EXCEPT LEFT HAND IV WAS INFILTRATED AND REMOVED, ICE PACK PROVIDED AND LEFT HAND ELEVATED. RIGHT IV SITE SECURED AND FLUSHING WELL. IV FLUIDS RUNNING ORDERED AND TUBE FEEDING RUNNING PRESCRIBED. ALL DUE MEDS GIVEN ORDERED & SCHEDULED. PATIENT ENDORSED TO THE NIGHTSHIFT NURSE WITH STABLE VITAL SIGN AND READY FOR CONTINUITY OF CARE.
--- NOTE | 2022-05-15 19:09 | NUR ---
Patient received on cool aerosol 28% 5LPM and tolerating well. Airway patent and secured. Suction PRN. Breathing treatment given and tolerated well without adverse effect. No respiratory distress noted at this time.
--- NOTE | 2022-05-15 19:15 | NUR ---
RN NOTES RECEIVED PT FOR CONTINUITY OF CARE. PATIENT IN NO S/SX OF ACUTE DISTRESS AT THIS TIME; CURRENTLY ON COOL AEROSOL OF 28% 5L OF 02 VIA T-PIECE; WITH 02 SAT >95% AT THIS TIME.WITH IV ACCESS ON R FA #22 PATENT, INTACT AND FLUSHING WELL; WAITING FOR MIDLINE INSERTION-WILL FOLLOW UP. WITH RUNNING NS@75CC/HR. WITH TUBE FEEDING RUNNING [id number] HOURS. WILL ENSURE SAFETY MEASURES WITHIN THE SHIFT. PATIENT BED ALARM IS ON. HEAD OF BED ELEVATED. BED IS LOCKED, IN LOWEST POSITION AND SIDE RAILS UP. CALL LIGHT WITHIN REACH OF THE PATIENT. APPLICABLE ISOLATION PRECAUTIONS IN PLACE. WILL CONTINUE TO MONITOR AND REASSESS FOR ANY CHANGES AND WILL CARRY OUT ANY ONGOING AND ACTIVE MD ORDER.
[2022-05-15 20:00] VITALS: BP 105/64
[2022-05-15] MEDS: ENOXAPARIN SODIUM 40 MG/0.4 ML DISP.SYRIN SQ SCH (21:17)
[2022-05-16] VITALS: BP 101/62
[2022-05-16 04:00] VITALS: BP 97/56
--- NOTE | 2022-05-16 04:00 | NUR ---
RN NOTES PATIENT REMAINED TO BE IN NO SIGNS OF ACUTE RESPIRATORY DISTRESS , VITAL SIGNS STABLE AT THIS TIME. REGULAR TURNING AND REPOSITIONING DONE Q2H AND SUCTIONING RENDERED. AM PATIENT CARE DONE. WILL CONTINUE TO MONITOR AND REASSESS FOR ANY CHANGES THROUGHOUT THE SHIFT.
[2022-05-16] MEDS: MEROPENEM 1 G in IV NS 0.9% 100 ML IV SCH ×3 (05:03→21:13)
[2022-05-16] MEDS: VANCOMYCIN 1.25 GM in IV D5W 250 ML IV SCH (06:22)
--- NOTE | 2022-05-16 06:32 | NUR ---
RN CLOSING NOTE: PATIENT REMAINS IN ROOM IN NO SIGNS OF RESPIRATORY DISTRESS, PATIENT STILL ON COOL AEROSOL OF 28% 5L OF 02 VIA T-PIECE;TOLERATING WELL SATURATING @ >95% SP02. SAFETY MEASURES IMPLEMENTED, BED IN LOWEST POSITION, LOCKED, SIDE RAILS UP, CALL LIGHT WITHIN REACH. ALL NEEDS AND ORDERS ADDRESSED DURING THE SHIFT. IV ACCESS MAINTAINED INTACT, SECURED AND FLUSHING WELL. IV FLUIDS RUNNING ORDERED AND TUBE FEEDING RUNNING PRESCRIBED. ALL DUE MEDS GIVEN ORDERED & SCHEDULED ; PATIENT TOLERATED WELL. PATIENT KEPT CLEAN AND COMFORTABLE WITHIN THE SHIFT. PATIENT ENDORSED TO INCOMING SHIFT RN WITH STABLE VITAL SIGN AND FOR CONTINUITY OF CARE.
--- NOTE | 2022-05-16 07:16 | NUR ---
BULLET CHARGING MACHINE OPERATOR OPENING NOTES: RECEIVED PT AWAKE, OPEN EYES SPONTANEOUSLY, UNABLE TO FOLLOW COMMANDS, CONTINUE ON COOL AEROSOL 28%, 5L VIA TRACH, NO SOB NOTED, RIGHT FOREARM SALINE LOCK IVF ORDERED,RED CATHETER PATENT DRAINING YELLOW CLOUDY URINE ON ATB FOR RECURRENT UTI AND PNEUMONIA.GTF OF JEVITY 75 ML/HR WELL TOLERATED , 0 RESIDUAL WILL. BED IN LOW AND LOCKED POSITION, SAFETY MEASURES IN PLACE, WILL MONITOR FOR CONTINUITY OF CARE
[2022-05-16 07:28] LABS: BASOPHILS % (AUTO) 0.4 % (0.0-2.0); EOSINOPHILS % (AUTO) 3.4 % (0.0-6.0); HEMATOCRIT 36 % (39-51); HEMOGLOBIN 11.8 g/dL (13.5-17.5); LYMPHOCYTES # (AUTO) 1.6 K/uL (0.8-4.8); LYMPHOCYTES % (AUTO) 20.7 % (20.0-44.0); MEAN CORPUSCULAR HGB CONC 32 g/dl (31.0-36.0); MEAN CORPUSCULAR VOLUME 79 fL (80-96); MONOCYTES # (AUTO) 0.9 K/uL (0.1-1.30); MONOCYTES % (AUTO) 11.3 % (2.0-12.0); NEUTROPHILS % (AUTO) 64.2 % (43.0-81.0); PLATELET COUNT (AUTO) 257 K/uL (150-450); RED BLOOD CELL COUNT(AUTO) 4.62 MIL/uL (4.5-6.0); WHITE BLOOD COUNT (AUTO) 7.8 K/uL (4.3-11.0)
[2022-05-16] MEDS ORDERED: LORAZEPAM 1 MG TABLET GT PRN (07:30)
--- NOTE | 2022-05-16 07:33 | NUR ---
RN NOTES: SEEN BY DR BURTON NEUROLOGIST WITH ORDER TO INCREASE KEPPRA TO 1000 MG BID, STAT EEG AND ATIVAN 1 MG VIA GT NEEDED EVERY 4 HOURS FOR FACIAL TWITCHING, PT FATHER AWARE OF THE NEW ORDERS
[2022-05-16 08:00] VITALS: BP 107/70
[2022-05-16 08:13] LABS: CALCIUM, SERUM 9.1 mg/dL (8.5-10.1); CREATININE 0.5 mg/dL (0.6-1.3); MAGNESIUM 2.2 mg/dL (1.8-2.4); PHOSPHORUS 3.4 mg/dL (2.5-4.9); POTASSIUM 3.6 mmol/L (3.5-5.1)
[2022-05-16] MEDS: FERROUS SULFATE UDC 300 MG/5 ML UDC GT SCH ×2 (08:19→16:57)
[2022-05-16] MEDS: LEVETIRACETAM SOL (5 ML) 100 MG/ML UDC GT SCH ×2 (08:20→21:37)
[2022-05-16] MEDS: CHLORHEXIDINE GLUCONATE 15 ML UDC MM SCH ×2 (08:20→16:57)
[2022-05-16] MEDS: ASCORBIC ACID 500 MG TABLET GT SCH (08:21)
[2022-05-16] MEDS: METOPROLOL TARTRATE 25 MG TABLET GT SCH ×2 (08:21→21:38)
[2022-05-16] MEDS: PROSOURCE / PROSTAT (PYXIS) 30 ML UDC GT SCH ×2 (08:22→16:57)
[2022-05-16] MEDS: THERAHONEY GEL 1.5 OZ TUBE TP SCH (08:26)
[2022-05-16] MEDS: PANTOPRAZOLE 40 MG/PACK PACK GT SCH (08:26)
[2022-05-16] MEDS: IPRATROPIUM NEB FS 0.5 MG/2.5 ML AMPUL.NEB NEB SCH ×3 (08:31→20:06)
[2022-05-16] MEDS: ALBUTEROL FS 2.5 MG/3 ML VIAL.NEB NEB SCH ×3 (08:31→20:06)
[2022-05-16] MEDS: JEVITY 1.2 CAL 1,000 ML BOTTLE GT PRN (10:01)
[2022-05-16 12:00] VITALS: BP 98/67
[2022-05-16] MEDS: VANCOMYCIN 1.5 GM in IV D5W 500 ML IV SCH ×2 (14:48→22:56)
[2022-05-16 16:00] VITALS: BP 104/69
--- NOTE | 2022-05-16 19:26 | NUR ---
TROUSSEAU CONSULTANT CLOSING NOTES: PT IN BED AWAKE, OPEN EYES SPONTANEOUSLY, UNABLE TO FOLLOW COMMANDS, CONTINUE ON COOL AEROSOL 28%, 5L VIA TRACH, NO SOB NOTED, RIGHT FOREARM MIDLINE IVF ORDERED,RED CATHETER PATENT DRAINING YELLOW CLOUDY URINE ON ATB FOR RECURRENT URI.GTF OF JEVITY 75 ML/HR WELL TOLERATED , 0 RESIDUAL WILL. BED IN LOW AND LOCKED POSITION, SAFETY MEASURES IN PLACE, ENDORSE TO CREATIVE SERVICES INTERN RN FOR LIBIA
--- NOTE | 2022-05-16 19:40 | NUR ---
RN OPENING NOTES: RECEIVED PT IN BED, AWAKE, OPEN BOTH EYES, OBTUNDED. CONTINUE ON COOL AEROSOL 28%,5L VIA TRACH AND PT TOLERATED WELL. IV ACCESS ON RFA MIDLINE INTACT AND PATENT. RUNNING NS AT 75CC/HR. NO FACIAL GRIMACING NOTED. NO ACUTE DISTRESS. RED CATHETER IN PLACE. DRAINING YELLOWISH/ CLOUDY URINE. MOM AT BEDSIDE. GTF WELL TOLERATED WELL. ON JEVITY 75 ML/HR X20 HOURS. N0 RESIDUAL NOTED. ALL SAFETY MEASURES IN PLACE. BED IN LOWEST POSITION AND LOCKED, SIDE RAILS UPX 3, PLACE CALL LIGHT WITH IN REACH. WILL CONTINUE TO MONITOR
[2022-05-16 20:00] VITALS: BP 100/62
[2022-05-16] MEDS: ENOXAPARIN SODIUM 40 MG/0.4 ML DISP.SYRIN SQ SCH (21:37)
[2022-05-16] MEDS: IV NS 0.9% 1,000 ML IV PRN (23:21)
[2022-05-17] VITALS: BP 101/60
[2022-05-17 04:00] VITALS: BP 96/60
[2022-05-17] MEDS: MEROPENEM 1 G in IV NS 0.9% 100 ML IV SCH (05:12)
--- NOTE | 2022-05-17 06:34 | NUR ---
RN CLOSING NOTES: PT IN BED, AWAKE, OPEN BOTH EYES, OBTUNDED. CONTINUE ON COOL AEROSOL 28%,5L VIA TRACH AND PT TOLERATED WELL. O2 SAT 99%. IV ACCESS ON RFA MIDLINE INTACT AND PATENT. RUNNING NS AT 75CC/HR. NO FACIAL GRIMACING NOTED. NO ACUTE DISTRESS. RED CATHETER IN PLACE. DRAINING YELLOWISH/ CLOUDY URINE. GTF WELL TOLERATED WELL. ON JEVITY 75 ML/HR X20 HOURS. N0 RESIDUAL NOTED.ALL DUE MEDS GIVEN ORDERED. ALL SAFETY MEASURES IN PLACE. BED IN LOWEST POSITION AND LOCKED, SIDE RAILS UPX 3, PLACE CALL LIGHT WITH IN REACH. WILL ENDORSE TO MORNING SHIFT NURSE.
[2022-05-17 07:17] LABS: CALCIUM, SERUM 9.5 mg/dL (8.5-10.1); CREATININE 0.5 mg/dL (0.6-1.3); POTASSIUM 3.9 mmol/L (3.5-5.1)
--- NOTE | 2022-05-17 07:29 | NUR ---
RN OPENING NOTES: PT IN BED, AWAKE, OPEN BOTH EYES, OBTUNDED. CONTINUE ON COOL AEROSOL 28%,5L VIA TRACH AND PT TOLERATED WELL. O2 SAT 99%. IV ACCESS ON RFA MIDLINE INTACT AND PATENT. RUNNING NS AT 75CC/HR. NO FACIAL GRIMACING NOTED. NO ACUTE DISTRESS. RED CATHETER IN PLACE. DRAINING YELLOWISH/ CLOUDY URINE. GTF WELL TOLERATED WELL. ON JEVITY 75 ML/HR X20 HOURS. N0 RESIDUAL NOTED. ALL SAFETY MEASURES IN PLACE. BED IN LOWEST POSITION AND LOCKED, SIDE RAILS UP X 3, PLACE CALL LIGHT WITH IN REACH. WILL CONTINUE PLAN OF CARE AND ANTICIPATE NEEDS.
[2022-05-17] MEDS: VANCOMYCIN 1.5 GM in IV D5W 500 ML IV SCH (07:32)
[2022-05-17 08:00] VITALS: BP 104/62
[2022-05-17] MEDS: CHLORHEXIDINE GLUCONATE 15 ML UDC MM SCH ×2 (08:32→16:40)
[2022-05-17] MEDS: PANTOPRAZOLE 40 MG/PACK PACK GT SCH (08:33)
[2022-05-17] MEDS: LEVETIRACETAM SOL (5 ML) 100 MG/ML UDC GT SCH ×2 (08:33→21:33)
[2022-05-17] MEDS: PROSOURCE / PROSTAT (PYXIS) 30 ML UDC GT SCH ×2 (08:33→16:40)
[2022-05-17] MEDS: FERROUS SULFATE UDC 300 MG/5 ML UDC GT SCH ×2 (08:33→16:40)
[2022-05-17] MEDS: ASCORBIC ACID 500 MG TABLET GT SCH (08:33)
[2022-05-17] MEDS: METOPROLOL TARTRATE 25 MG TABLET GT SCH ×2 (08:34→21:33)
[2022-05-17] MEDS: THERAHONEY GEL 1.5 OZ TUBE TP SCH (08:34)
[2022-05-17] MEDS: ALBUTEROL FS 2.5 MG/3 ML VIAL.NEB NEB SCH ×3 (08:58→20:08)
[2022-05-17] MEDS: IPRATROPIUM NEB FS 0.5 MG/2.5 ML AMPUL.NEB NEB SCH ×3 (08:58→20:08)
[2022-05-17] MEDS: JEVITY 1.2 CAL 1,000 ML BOTTLE GT PRN (10:27)
[2022-05-17] MEDS: CEFEPIME 1 GM in IV D5W 50 ML IV SCH ×2 (11:15→21:33)
[2022-05-17 12:00] VITALS: BP 97/58
[2022-05-17 16:00] VITALS: BP 100/66
--- NOTE | 2022-05-17 19:11 | NUR ---
RN CLOSING NOTES: PT IN BED, AWAKE, OPEN BOTH EYES, OBTUNDED. CONTINUE ON COOL AEROSOL 28%,5L VIA TRACH AND PT TOLERATED WELL. O2 SAT 99%. IV ACCESS ON RFA MIDLINE INTACT AND PATENT. RUNNING NS AT 75CC/HR. NO FACIAL GRIMACING NOTED. NO ACUTE DISTRESS. RED CATHETER IN PLACE. DRAINING YELLOWISH/ CLOUDY URINE. GTF WELL TOLERATED WELL. ON JEVITY 75 ML/HR X20 HOURS. N0 RESIDUAL NOTED. ALL SAFETY MEASURES IN PLACE. BED IN LOWEST POSITION AND LOCKED, SIDE RAILS UP X 3, PLACE CALL LIGHT WITH IN REACH. ALL DUE MEDICATIONS ADMINISTERED. FAMILY AT BEDSIDE. ENDORSED TO NIGHTSHIFT RN FOR CONTINUATION OF CARE.
--- NOTE | 2022-05-17 19:30 | NUR ---
RN OPENING NOTES: RECEIVED PT IN BED AWAKE OBTUNDED, A/OX0, FAMILY AT BEDSIDE. ON RA, TOLERATING WELL, WITH T PIECE TRACH, NO S/S OF ACUTE DISTRESS. IV ACCESS ON RFA MIDLINE, INTACT AND PATENT, RUNNING NS@75ML/HR, PT HAS G TUBE RUNNING JEVITY@75ML/HR, NO RESIDUAL NOTED. RED CATHETER IN PLACE, DRAINING CLEAR YWLLOW URINE. ALL SAFETY MEASURES IN PLACE. BED IN LOWEST POSITION AND LOCKED. SIDE RAILS UP X3, PLACE CALL LIGHT WITHIN REACH. WILL CONTINUE TO MONITOR THROUGH SHIFT.
[2022-05-17 20:00] VITALS: BP 104/62
[2022-05-17] MEDS: ENOXAPARIN SODIUM 40 MG/0.4 ML DISP.SYRIN SQ SCH (21:36)
[2022-05-18] VITALS: BP 104/72
--- NOTE | 2022-05-18 03:44 | NUR ---
RT Received pt on cool aerosol 5 LPM, FiO2 28%. Tolerating settings with an SPO2 of 97%. No respiratory distress. Trach is patent and secured. Emergency trach and Ambu-bag are at the bedside.
[2022-05-18 04:00] VITALS: BP 92/62
[2022-05-18] MEDS: JEVITY 1.2 CAL 1,000 ML BOTTLE GT PRN (06:46)
--- NOTE | 2022-05-18 07:01 | NUR ---
RN CLOSING NOTES: PT IN BED AWAKE OBTUNDED, A/OX0, ON RA, TOLERATING WELL, WITH T PIECE TRACH, NO S/S OF ACUTE DISTRESS. IV ACCESS ON RFA MIDLINE, INTACT AND PATENT, RUNNING NS@75ML/HR, PT HAS G TUBE RUNNING JEVITY@75ML/HR, NO RESIDUAL NOTED. RED CATHETER IN PLACE OUTPUT RECORDED. DRAINING CLEAR YELLOW URINE. ALL DUE MEDS GIVIN. ALL SAFETY MEASURES IN PLACE. ALL SAFETY MEASURES IN PLACE. BED IN LOWEST POSITION AND LOCKED. SIDE RAILS UP X3, PLACE CALL LIGHT WITHIN REACH. WILL ENDORSE TO MORNING SHIFT.
--- NOTE | 2022-05-18 07:20 | NUR ---
TECHNOLOGY INTERNSHIP OPENING NOTES PATIENT IN BED, AWAKE, OPENS EYES,NONVERBAL AND OBTUNDED. PATIENT IS ON COOL AEROSAL 28%, 5L VIA TRACH AND PATIENT IS TOLERATING WELL AT 100%.PATIENT HAS IV ACCESS ON RIGHT FOREARM MIDLINE INTACT AND PATENT. RUNNING NORMAL SALINE 75 ML/HR. RED CATHETHER DRAINING TO GRAVITY YELLOW COLOR UINE. PATIENT HAS GTUBE INTACT AND PATENT. PATIENT IS ON JEVITY 75 ML/HR X20 HOURS. NO RESIDUAL VOLUME NOTED. ALL SAFETY MEASURES IN PLACE. BED LOCKED AND IN LOWEST POSITION. SIDE RAILS UP X2.CALL LIGHT WITHIN REACH.
[2022-05-18 08:00] VITALS: BP 105/63
[2022-05-18] MEDS ORDERED: CEFEPIME 2 GM in IV D5W 50 ML IV SCH (08:00)
[2022-05-18] MEDS: IPRATROPIUM NEB FS 0.5 MG/2.5 ML AMPUL.NEB NEB SCH ×3 (08:07→20:23)
[2022-05-18] MEDS: ALBUTEROL FS 2.5 MG/3 ML VIAL.NEB NEB SCH ×3 (08:07→20:23)
[2022-05-18] MEDS: METOPROLOL TARTRATE 25 MG TABLET GT SCH ×2 (09:00→21:00)
--- NOTE | 2022-05-18 10:00 | NUR ---
MADE ROUNDS AND FOLLOW UP WITH DEBRIDEMENT ASKED IF METOPROL CAN BE HELD DUE TO LOW BP 105/63. SAID TO HOLD METOPROL
[2022-05-18] MEDS: CHLORHEXIDINE GLUCONATE 15 ML UDC MM SCH ×2 (10:07→16:55)
[2022-05-18] MEDS: THERAHONEY GEL 1.5 OZ TUBE TP SCH (10:07)
[2022-05-18] MEDS: ASCORBIC ACID 500 MG TABLET GT SCH (10:08)
[2022-05-18] MEDS: LEVETIRACETAM SOL (5 ML) 100 MG/ML UDC GT SCH ×2 (10:08→21:18)
[2022-05-18] MEDS: FERROUS SULFATE UDC 300 MG/5 ML UDC GT SCH ×2 (10:09→16:55)
[2022-05-18] MEDS: PROSOURCE / PROSTAT (PYXIS) 30 ML UDC GT SCH ×2 (10:09→16:55)
[2022-05-18] MEDS: PANTOPRAZOLE 40 MG/PACK PACK GT SCH (10:15)
[2022-05-18 12:00] VITALS: BP 98/59
--- NOTE | 2022-05-18 12:00 | NUR ---
MOM AT BEDSIDE. ASKED TO HOLD LOVENOX. MOM SPOKE WITH DR. GOODEN VIA PHONE
[2022-05-18] MEDS: IV NS 0.9% 1,000 ML IV PRN (15:36)
[2022-05-18 16:00] VITALS: BP 98/62
--- NOTE | 2022-05-18 18:39 | NUR ---
FLUME RIDE OPERATOR CLOSING NOTE PATIENT IS ASLEEP IN BED. PATIENT ABLE TO OPEN EYES, OBTUNDED AND NONVERBAL. PATIENT IS COOL AEROSOL TOLERATING WELL AT 99%.TRACH. PATIENT HAS RIGHT UPPER ARM MIDLINE. INTACT AND PATENT. RED CATHETER YELLOW COLOR DRAINING TO GRAVITY. NO KINKS OR OBSTRUCTION. ALL NEEDS.FAMILY AT BEDSIDE. PATIENT IS ON GTUBE FEEDING JEVITY 75ML/HR. NO KINKS OR OBSTRUCTION NOTED. GTUBE INTACT AND PATENT. FAMILY ASKED TO HOLD LOVENOX. WILL ENDORSE TO AIRCRAFT ORDNANCE SYSTEMS MECHANIC RN.ALL SAFETY MEASURES IN PLACE. CALL LIGHT WITHIN REACH. BED LOCKED AT LOWEST POSITION. SIDE RAILS UP X2.
--- NOTE | 2022-05-18 18:39 | NUR ---
MOM AT BEDSIDE. ASKED TO HOLD LOVENOX. MOM SPOKE WITH DR. GOODEN
--- NOTE | 2022-05-18 18:56 | NUR ---
family at bedside
--- NOTE | 2022-05-18 19:40 | NUR ---
RN OPENING NOTES: RECEIVED PT IN BED, AWAKE, OPEN BOTH EYES, OBTUNDED. CONTINUE ON COOL AEROSOL 28%,5L VIA TRACH AND PT TOLERATED WELL. IV ACCESS ON RFA MIDLINE INTACT AND PATENT. RUNNING NS AT 75CC/HR. NO FACIAL GRIMACING NOTED. NO ACUTE DISTRESS. RED CATHETER IN PLACE. DRAINING YELLOWISH/ CLOUDY URINE. MOM AT BEDSIDE. GTF WELL TOLERATED. ON JEVITY 75 ML/HR X20 HOURS. N0 RESIDUAL NOTED. ALL SAFETY MEASURES IN PLACE. BED IN LOWEST POSITION AND LOCKED, SIDE RAILS UPX 3, PLACE CALL LIGHT WITH IN REACH. WILL CONTINUE TO MONITOR
[2022-05-18 20:00] VITALS: BP 94/58
[2022-05-18] MEDS: ENOXAPARIN SODIUM 40 MG/0.4 ML DISP.SYRIN SQ SCH (21:19)
--- NOTE | 2022-05-18 21:20 | NUR ---
RN NOTES: LOPRESSOR ON HOLD DUE BP- 94/56, PULSE 86. NO S/S OF HYPER/HYPOTENSION. UNABLE TO ADMINISTER LOVENOX. MOM STRONGLY REFUSED. MENTIONED, HE DOESN'T NEED IT. EXPLAINED THE AND BENEFITS BUT STILL REFUSED. ALSO MENTIONED SHE ALREADY TALKED TO DR. JEFFERSON. WILL F/U IN THE MORNING.
[2022-05-19] VITALS: BP 101/65
[2022-05-19 04:00] VITALS: BP 102/62
[2022-05-19] MEDS: JEVITY 1.2 CAL 1,000 ML BOTTLE GT PRN (04:52)
[2022-05-19] MEDS: IV NS 0.9% 1,000 ML IV PRN (05:36)
--- NOTE | 2022-05-19 06:31 | NUR ---
RN CLOSING NOTES: PT IN BED, AWAKE, OPEN BOTH EYES, OBTUNDED. CONTINUE ON COOL AEROSOL 28%,5L VIA TRACH AND PT TOLERATED WELL. IV ACCESS ON RFA MIDLINE INTACT AND PATENT. RUNNING NS AT 75CC/HR. NO FACIAL GRIMACING NOTED. NO ACUTE DISTRESS. RED CATHETER IN PLACE. DRAINING YELLOWISH/ CLOUDY URINE. GTF WELL TOLERATED. ON JEVITY 75 ML/HR X20 HOURS. N0 RESIDUAL NOTED. ALL DUE MEDS GIVEN ORDERED. ALL SAFETY MEASURES IN PLACE. BED IN LOWEST POSITION AND LOCKED, SIDE RAILS UP X 3, PLACE CALL LIGHT WITH IN REACH. NO SIGNIFICANT CHANGES DURING THIS SHIFT. WILL ENDORSE TO MORNING SHIFT NURSE.
--- NOTE | 2022-05-19 07:07 | NUR ---
RN NOTES: DR. CARTER CALLED, NEW ORDER TO DECREASED THE KEPPRA TO 500MG/5 ML Q12HRS. ORDER NOTED AND CARRIED OUT.
--- NOTE | 2022-05-19 07:25 | NUR ---
POWER PROJECT MANAGER OPENING NOTES PATIENT IN BED, AWAKE, OPENS EYES,NONVERBAL AND OBTUNDED. PATIENT IS ON COOL AEROSAL 28%, 5L VIA TRACH AND PATIENT IS TOLERATING WELL AT 100%.PATIENT HAS IV ACCESS ON RIGHT FOREARM MIDLINE INTACT AND PATENT. RUNNING NORMAL SALINE 75 ML/HR. RED CATHETER DRAINING TO GRAVITY YELLOW COLOR UINE. PATIENT HAS GTUBE INTACT AND PATENT. PATIENT IS ON JEVITY 75 ML/HR X20 HOURS. NO RESIDUAL VOLUME NOTED. ALL SAFETY MEASURES IN PLACE. BED LOCKED AND IN LOWEST POSITION. SIDE RAILS UP X2.CALL LIGHT WITHIN REACH.
[2022-05-19] MEDS: ALBUTEROL FS 2.5 MG/3 ML VIAL.NEB NEB SCH ×2 (07:55→14:13)
[2022-05-19] MEDS: IPRATROPIUM NEB FS 0.5 MG/2.5 ML AMPUL.NEB NEB SCH ×2 (07:55→14:13)
[2022-05-19 08:00] VITALS: BP 95/72
[2022-05-19 08:21] VITALS: BP 104/64
[2022-05-19] MEDS ORDERED: LEVETIRACETAM SOL (5 ML) 100 MG/ML UDC GT SCH (09:00)
[2022-05-19] MEDS: METOPROLOL TARTRATE 25 MG TABLET GT SCH (09:00)
--- NOTE | 2022-05-19 10:00 | NUR ---
RN NOTE SPOKE WITH MD ABOUT DISCONTINUE LOVENOX. MD SAID OK TO DISCONTINUE AND PROVIDED UPDATE THAT DR. CARTER DECREASED THE DOSE OF KEPPRA TO 500 MG. MD AWARE. PATIENT METOPROL DUE TO LOW BLOOD PRESSURE AND PER PATIENT MOM REQUEST
[2022-05-19] MEDS: FERROUS SULFATE UDC 300 MG/5 ML UDC GT SCH (10:05)
[2022-05-19] MEDS: ASCORBIC ACID 500 MG TABLET GT SCH (10:05)
[2022-05-19] MEDS: CHLORHEXIDINE GLUCONATE 15 ML UDC MM SCH (10:05)
[2022-05-19] MEDS: PANTOPRAZOLE 40 MG/PACK PACK GT SCH (10:09)
[2022-05-19] MEDS: PROSOURCE / PROSTAT (PYXIS) 30 ML UDC GT SCH (10:10)
[2022-05-19] MEDS: THERAHONEY GEL 1.5 OZ TUBE TP SCH (10:43)
[2022-05-19 12:00] VITALS: BP 95/60
--- NOTE | 2022-05-19 14:30 | NUR ---
RN NOTE PATIENT DISCHARGED. PROVIDED DISCHARGE INSTRUCTIONS. PATIENT'S MOM VERBALIZED UNDERSTANDING.REMOVED IV. RETURNED PATIENT BELONGINGS. PATIENT STABLE CONDITION. REMOVED MIDLINE
== END 2022-05-19 16:22 | DRG 853 ==
LOC: ER 19:55 → TELE-TD 05-12 00:05 → TELE1 05-12 00:51
PROVIDERS: ADMIT Nurse Practitioner Acute Care; ATTEND Internal Medicine
PROC: 0QB10ZZ Excision of Sacrum, Open Approach (ICD-10-PCS; principal; 2022-05-13)
PROC: 05H933Z Insertion of Infusion Device into Right Brachial Vein, Percutaneous Approach (ICD-10-PCS; 2022-05-16)
DX: A41.9 Sepsis, unspecified organism (principal); E43 Unspecified severe protein-calorie malnutrition; L89.154 Pressure ulcer of sacral region, stage 4; G93.41 Metabolic encephalopathy; J96.20 Acute and chronic respiratory failure, unspecified whether with hypoxia or hypercapnia; R53.2 Functional quadriplegia; J15.9 Unspecified bacterial pneumonia; D68.59 Other primary thrombophilia; N39.0 Urinary tract infection, site not specified; G91.9 Hydrocephalus, unspecified; I47.1 Supraventricular tachycardia; E87.1 Hypo-osmolality and hyponatremia; E87.2 Acidosis; L03.115 Cellulitis of right lower limb; J98.11 Atelectasis; R64 Cachexia; G40.909 Epilepsy, unspecified, not intractable, without status epilepticus; Z93.1 Gastrostomy status; Z93.0 Tracheostomy status; R13.10 Dysphagia, unspecified; Z20.822 Contact with and (suspected) exposure to COVID-19; Z87.820 Personal history of traumatic brain injury; Z98.2 Presence of cerebrospinal fluid drainage device; Z87.440 Personal history of urinary (tract) infections; Z86.19 Personal history of other infectious and parasitic diseases; Z86.718 Personal history of other venous thrombosis and embolism; Z86.14 Personal history of Methicillin resistant Staphylococcus aureus infection; Z88.1 Allergy status to other antibiotic agents; Z79.51 Long term (current) use of inhaled steroids; Z79.899 Other long term (current) drug therapy; D64.9 Anemia, unspecified; E86.0 Dehydration; E86.1 Hypovolemia; G93.89 Other specified disorders of brain; Z98.890 Other specified postprocedural states; B96.89 Other specified bacterial agents as the cause of diseases classified elsewhere; Z74.01 Bed confinement status; R31.9 Hematuria, unspecified; M62.461 Contracture of muscle, right lower leg; M62.462 Contracture of muscle, left lower leg; M62.422 Contracture of muscle, left upper arm; M62.421 Contracture of muscle, right upper arm; R65.20 Severe sepsis without septic shock; I50.9 Heart failure, unspecified; I11.0 Hypertensive heart disease with heart failure; Z87.09 Personal history of other diseases of the respiratory system; Z86.79 Personal history of other diseases of the circulatory system
CPT/HCPCS: 31720; 36415; 70450-TC; 71045-TC; 80048-TC; 80076-TC; 80202-TC; 81001; 83605-TC; 83735-TC; 84100-TC; 84484-TC; 85025-TC; 85730-TC; 86803; 87040-TC; 87070-TC; 87081-TC; 87086-TC; 87186-TC; 87806; 93970-TC; 94640-TC; 94760-TC; 94762-TC; 94799-TC; 95819-TC; A4216; A6403; A7526; C9113; C9803; G0378; J0692; J1650; J1953; J1956; J2185; J3370; J7030; J7050; J7060

== ENCOUNTER 2022-08-25 18:23 | Inpatient (IN) | payer BC, OTHER ==
[~2022-08-25] VITALS: Ht 172.7 cm; Wt 57.2 kg
[~2022-08-25 18:23] MED LIST changes: -CHLO118L6 TP; +DOCU50LI GT; -HYDR-4384 GT; -LACT100027 GT; -MINE3.5O EACHEYE; -MULT-447 GT; -NUTR1PAC14 GT; +NUTR250L50 GT; -OMEP20CA15 GT; -ONDA4TAB5 GT; +PANT40SU2 GT; +POLY15DR40 EACHEYE
[2022-08-25] MEDS ORDERED: ALBUTEROL FS 2.5 MG/3 ML VIAL.NEB CONTNEB ONE (19:00)
--- NOTE | 2022-08-25 19:33 | NUR ---
BIB PA FROM CARE FACILITY DUE TO LOW O2SAT (88%) FOR THE LAST 2 DAYS WELL TACHYCARDIA. 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 PT ORIENTED 0X AT BASELINE. PLACED ON MONITOR AND PULSE OX.
--- NOTE | 2022-08-25 19:38 | NUR ---
RT PAGED FOR VENT
--- NOTE | 2022-08-25 20:34 | NUR ---
RAPID COVID, RAPID FLU, RSV SWAB COLLECTED AND SENT TO LAB.
[2022-08-25 20:41] LABS: ABG PH 7.474 (7.350-7.450); ABG PO2 67.1 mmHg (75.0-100.0); MetHb 0.5 % (0.0-1.5); O2Hb 93.3 % (94.0-97.0); SITE, ABG Left Radial; VENT MODE, BG AC 16 500 60% +5
[2022-08-25 21:00] LABS: BASOPHILS % (AUTO) 0.2 % (0.0-2.0); EOSINOPHILS % (AUTO) 0.6 % (0.0-6.0); HEMATOCRIT 41 % (39-51); HEMOGLOBIN 13.2 g/dL (13.5-17.5); LYMPHOCYTES # (AUTO) 1.5 K/uL (0.8-4.8); LYMPHOCYTES % (AUTO) 13.6 % (20.0-44.0); MEAN CORPUSCULAR HGB CONC 33 g/dl (31.0-36.0); MEAN CORPUSCULAR VOLUME 86 fL (80-96); MONOCYTES # (AUTO) 1.2 K/uL (0.1-1.30); MONOCYTES % (AUTO) 10.2 % (2.0-12.0); NEUTROPHILS # (AUTO) 8.5 K/uL (1.8-8.9); NEUTROPHILS % (AUTO) 75.4 % (43.0-81.0); PLATELET COUNT (AUTO) 260 K/uL (150-450); RED BLOOD CELL COUNT(AUTO) 4.75 MIL/uL (4.5-6.0); WHITE BLOOD COUNT (AUTO) 11.3 K/uL (4.3-11.0)
[2022-08-25 21:11] LABS: D-DIMER 0.7 mg/L(FEU (0.17-0.50)
[2022-08-25 21:33] LABS: ALANINE AMINOTRANSFERASE 30 U/L (12-78); ALBUMIN 3.1 g/dL (3.4-5.0); ALKALINE PHOSPHATASE 126 U/L (46-116); ASPARTATE AMINOTRANSFERASE 23 U/L (15-37); BILIRUBIN,DIRECT 0.1 mg/dL (0.0-0.2); BILIRUBIN,TOTAL 0.5 mg/dL (0.2-1.0); CALCIUM, SERUM 9.1 mg/dL (8.5-10.1); CARBON DIOXIDE 30 mmol/L (21-32); CHLORIDE 102 mmol/L (98-107); CREATININE 0.6 mg/dL (0.6-1.3); GLUCOSE 92 mg/dL (74-106); POTASSIUM 3.5 mmol/L (3.5-5.1); SODIUM SERUM 137 mmol/L (136-145); TOTAL PROTEIN, SERUM 7.7 g/dL (6.4-8.2); UREA NITROGEN, BLOOD 18 mg/dL (7-18)
[2022-08-25] MEDS ORDERED: IOHEXOL-350 100 ML VIAL IV ONE (22:26)
[2022-08-25] MEDS ORDERED: IV NS 0.9% 250 ML IV ONE (22:26)
[2022-08-25] MEDS ORDERED: CT SWABBABLE VALVE TRANS SET 1 EA INFUS.SET MC ONE (22:26)
[2022-08-25] MEDS ORDERED: ENOXAPARIN SODIUM 60 MG/0.6 ML DISP.SYRIN SQ ONE (22:30)
[2022-08-25] MEDS ORDERED: ENOXAPARIN SODIUM 80 MG/0.8 ML DISP.SYRIN SQ ONE (23:26)
[2022-08-26] MEDS ORDERED: MAGNESIUM HYDROXIDE 30 ML UDC PO PRN
[2022-08-26] MEDS ORDERED: MAG HYDROX/AL HYDROX/SIMETH 30 ML UDC PO PRN
[2022-08-26] MEDS ORDERED: Z GUARD REMEDY 4 OZ OINT TP PRN
[2022-08-26] MEDS ORDERED: ZOLPIDEM TARTRATE 5 MG TABLET PO PRN
[2022-08-26] MEDS ORDERED: ONDANSETRON HCL/PF 4 MG/2 ML VIAL IVP PRN
--- NOTE | 2022-08-26 | NUR ---
PT IS RSV POSITIVE. DR BENNETT AWARE
[2022-08-26] MEDS ORDERED: CT SWABBABLE VALVE TRANS SET 1 EA INFUS.SET MC ONE (01:13)
[2022-08-26] MEDS ORDERED: IOHEXOL-350 100 ML VIAL IV ONE (01:30)
[2022-08-26] MEDS ORDERED: ACETAMINOPHEN 325 MG TABLET PO PRN ×2 (02:00)
[2022-08-26] MEDS ORDERED: BISACODYL SUPP (10 MG) 10 MG/SUPP.RECT SUPP.RECT RC PRN (02:00)
[2022-08-26] MEDS ORDERED: MAGNESIUM HYDROXIDE 30 ML UDC GT PRN (02:00)
[2022-08-26] MEDS ORDERED: NA PHOS,M-B/NA PHOS,DI-BA 1 EA ENEMA RC PRN (02:00)
[2022-08-26] MEDS ORDERED: ACETAMINOPHEN ES 500 MG TABLET GT PRN (02:00)
[2022-08-26] MEDS ORDERED: POLYVINYL ALCOHOL 15 ML BOTTLE EACHEYE PRN (03:00)
[2022-08-26] MEDS ORDERED: IPRATROPIUM NEB FS 0.5 MG/2.5 ML AMPUL.NEB NEB PRN ×2 (03:00)
[2022-08-26] MEDS: SULFACETAMIDE 10% OPHTH 15 ML BOTTLE EACHEYE SCH ×2 (06:00→12:00)
[2022-08-26 06:19] LABS: HEMATOCRIT 39 % (39-51); HEMOGLOBIN 12.7 g/dL (13.5-17.5); MEAN CORPUSCULAR HGB CONC 33 g/dl (31.0-36.0); MEAN CORPUSCULAR VOLUME 85 fL (80-96); RED BLOOD CELL COUNT(AUTO) 4.61 MIL/uL (4.5-6.0); WHITE BLOOD COUNT (AUTO) 10.8 K/uL (4.3-11.0)
[2022-08-26 06:20] LABS: BASOPHILS % (AUTO) 0.4 % (0.0-2.0); EOSINOPHILS % (AUTO) 0.3 % (0.0-6.0); LYMPHOCYTES # (AUTO) 1.8 K/uL (0.8-4.8); LYMPHOCYTES % (AUTO) 16.9 % (20.0-44.0); MONOCYTES % (AUTO) 9.1 % (2.0-12.0); NEUTROPHILS # (AUTO) 7.9 K/uL (1.8-8.9); NEUTROPHILS % (AUTO) 73.3 % (43.0-81.0); PLATELET COUNT (AUTO) 254 K/uL (150-450)
[2022-08-26 07:29] LABS: CALCIUM, SERUM 8.8 mg/dL (8.5-10.1); CREATININE 0.6 mg/dL (0.6-1.3); MAGNESIUM 2.5 mg/dL (1.8-2.4); PHOSPHORUS 3.5 mg/dL (2.5-4.9)
[2022-08-26 08:34] LABS: THYROID STIMULATING HORMONE 1.255 uIU/mL (0.358-3.74)
[2022-08-26] MEDS ORDERED: PANTOPRAZOLE 40 MG VIAL IV SCH (09:00)
[2022-08-26] MEDS ORDERED: THERAHONEY GEL 1.5 OZ TUBE TP SCH (09:00)
[2022-08-26] MEDS ORDERED: Medication Not On Formulary EA (Cran/Vitc/Mannose/Inulin/Brom (Uti-Stat Liquid) 3,875 MG GT SCH (09:00)
[2022-08-26] MEDS ORDERED: LEVETIRACETAM (250 MG) 250 MG TABLET PO SCH (09:00)
[2022-08-26] MEDS: PROSOURCE / PROSTAT (PYXIS) 30 ML UDC GT SCH ×3 (09:00→16:25)
[2022-08-26] MEDS: CHLORHEXIDINE GLUCONATE 15 ML UDC MM SCH ×2 (09:00→16:25)
--- NOTE | 2022-08-26 09:25 | NUR ---
TECH AT BEDSIDE FOR ULTRASOUND
[2022-08-26] MEDS ORDERED: FERROUS SULFATE UDC 300 MG/5 ML UDC ONE (09:27)
[2022-08-26] MEDS ORDERED: LEVETIRACETAM (500MG) 500 MG/5 ML VIAL IV ONE (09:27)
[2022-08-26] MEDS ORDERED: ENOXAPARIN SODIUM 60 MG/0.6 ML DISP.SYRIN SQ ONE (09:27)
[2022-08-26] MEDS ORDERED: DOCUSATE SODIUM LIQ 100 MG/10 ML UDC ONE (09:27)
[2022-08-26] MEDS ORDERED: ZINC SULFATE 220 MG CAPSULE ONE (09:28)
[2022-08-26] MEDS ORDERED: METOPROLOL TARTRATE 25 MG TABLET ONE (09:28)
[2022-08-26] MEDS ORDERED: PANTOPRAZOLE 40 MG/PACK PACK ONE (09:28)
[2022-08-26] MEDS ORDERED: ASCORBIC ACID 500 MG TABLET ONE (09:28)
[2022-08-26] MEDS: DOCUSATE SODIUM LIQ 100 MG/10 ML UDC GT SCH (09:30)
[2022-08-26] MEDS: FERROUS SULFATE UDC 300 MG/5 ML UDC GT SCH (09:30)
[2022-08-26] MEDS: ASCORBIC ACID 500 MG TABLET GT SCH (09:30)
[2022-08-26] MEDS: ZINC SULFATE 220 MG CAPSULE GT SCH (09:30)
[2022-08-26] MEDS: PANTOPRAZOLE 40 MG/PACK PACK GT SCH (09:53)
[2022-08-26] MEDS: METOPROLOL TARTRATE 25 MG TABLET GT SCH ×2 (09:54→20:25)
[2022-08-26] MEDS: ENOXAPARIN SODIUM 60 MG/0.6 ML DISP.SYRIN SQ SCH ×2 (09:55→20:26)
[2022-08-26] MEDS ORDERED: LEVETIRACETAM SOL (5 ML) 100 MG/ML UDC ONE (09:56)
[2022-08-26] MEDS: LEVETIRACETAM SOL (5 ML) 100 MG/ML UDC GT SCH ×2 (09:57→20:22)
[2022-08-26 10:05] LABS: ABG BASE EXCESS 5.4 mmol/L; ABG OXYGEN SATURATION 95.2 % (92.0-98.5); ABG PCO2 39.2 mmHg (35.0-45.0); ABG PH 7.488 (7.350-7.450); ABG PO2 70.7 mmHg (75.0-100.0); AaDO2 458.5 mmHg; COHb 0.7 % (0.5-1.5); MetHb 0.2 % (0.0-1.5); O2Hb 94.3 % (94.0-97.0); PEEP,BG 5 cm H2O; SITE, ABG Right Radial; VT, ABG 500 mL
--- NOTE | 2022-08-26 10:20 | NUR ---
NOTED W/ GTUBE, INTACT AND PATENT, FLUSHES WELL. NO RESIDUAL NOTED. MEDS GIVEN INDICATED, LANDRY WELL.
[2022-08-26] MEDS ORDERED: MEROPENEM 500 MG in IV NS 0.9% 50 ML IV SCH (10:30)
[2022-08-26] MEDS: MEROPENEM 1 G in IV NS 0.9% 100 ML IV SCH ×2 (11:30→20:51)
--- NOTE | 2022-08-26 11:55 | NUR ---
CALLED FOR MIDLINE
--- NOTE | 2022-08-26 13:00 | NUR ---
COVID PCR SWAB OBTAINED AND SENT TO LAB
--- NOTE | 2022-08-26 13:15 | NUR ---
PT REPOSITIONED IN BED W/ SHUTTLE BUGGY OPERATOR AT BEDSIDE; KEPT COMFORTABLE. FAMILY AT BEDSIDE.
--- NOTE | 2022-08-26 16:07 | NUR ---
ROOM 257
--- NOTE | 2022-08-26 17:03 | NUR ---
PT REPORT GIVEN TO FENG, BAG MACHINE SET UP OPERATOR
--- NOTE | 2022-08-26 17:03 | NUR ---
CALLED AGAIN FOR MIDLINE; PER BHUPENDRA SUP, NO ETA YET
--- NOTE | 2022-08-26 17:05 | NUR ---
TRACH/VENT SETTINGS: PORTEX 8, FIO2-80%, TV-500ML, R-16, PEEP-5
--- NOTE | 2022-08-26 17:13 | NUR ---
RT AT BEDSIDE; INCREASED FIO2 TO 90% AT THIS TIME
--- NOTE | 2022-08-26 17:58 | NUR ---
PT TRANSFERRED TO [facility] ACLS PROTOCOL, RT ACCOMPANYING PT. WARM HANDOFF GIVEN TO FENG, HYDROGRAPHY TEACHER.
[2022-08-26] MEDS: IPRATROPIUM NEB FS 0.5 MG/2.5 ML AMPUL.NEB NEB SCH (19:30)
--- NOTE | 2022-08-26 19:35 | NUR ---
CLOSING PT IN BED AWAKE BUT OBTUNDED EYES OPEN SPONTANEOUSLY A/O X0. BREATHING IS EVEN AND UNLABORED NO S/S OF ACUTE DISTRESS OF ANY KIND. PT CONTINUES TO BE 80% FI O2 VENT TRACH SAT IS 94%. PT'S FAMILY REQUESTED TO GIVE PT WATER FLUSH BECAUSE DID NOT RECEIVE ANY FEEDING OR WATER IN THE ER. PT GIVEN 180ML OF FLUIDS THROUGH THE G'TUBE PATENT AND NO S/S OF LEAKAGE. RED CATHETER IN PLACE DRAINING CLEAR YELLOW URINE.
[2022-08-26 20:00] VITALS: BP 103/63
--- NOTE | 2022-08-26 20:00 | NUR ---
horticulture supervisor notes RECEIVED PTS IN BED WITH EYE CLOSE . OBTUNDED A/O X0. NON VERBAL ,ON MECHANICAL VENTILATOR AC SETTINGS WELL TOLERATED . BREATHING IS EVEN AND UNLABORED NO S/S OF ACUTE DISTRESS OF ANY KIND. PT CONTINUES TO BE 97 %. MOTHER UPDATED WITH PTS CONDITION ,PTS NOTED FEBRILE 100.5 BED BATH GIVEN TO PTS ,TYLENOL GIVEN ORDERED , BODY CHECKED DONE NOTED WITH SACRAL WOUND RIGHT ABDOMEN AND RIGHT ARM RASHES , INITAL TREATMENT GIVEN ORDERED. G'TUBE PATENT AND NO S/S OF LEAKAGE. RED CATHETER IN PLACE DRAINING CLEAR YELLOW URINE. PTS NPO STATUS AT THIS TIME EXCEPT MEDS .COLLING MEASURES APPLIED TP PTS . WILL CONTINUE TO MONITOR PTS, DUE MEDS GIVEN ORDERED. NO ASE NOTED. BED LOCKED IN SAFETY POSITION . PTS ON ISOLATION D/T POSITIVE RSV AND PENDING RESULT PCR .
[2022-08-26] MEDS: ACETAMINOPHEN 650 MG/20.3 ML UDC GT PRN (20:23)
[2022-08-26 21:00] VITALS: BP 97/54
[2022-08-26 22:00] VITALS: BP 93/56
[2022-08-26] MEDS: SENNOSIDES 8.6 MG TABLET GT SCH (22:31)
[2022-08-26 23:00] VITALS: BP 96/56
[2022-08-27] VITALS (24 sets, daily range): BP systolic 86–110; BP diastolic 50–67
[2022-08-27] MEDS: IPRATROPIUM NEB FS 0.5 MG/2.5 ML AMPUL.NEB NEB SCH ×4 (01:03→19:30)
[2022-08-27] MEDS: MEROPENEM 1 G in IV NS 0.9% 100 ML IV SCH ×3 (05:04→20:31)
[2022-08-27 05:32] LABS: BASOPHILS % (AUTO) 0.2 % (0.0-2.0); EOSINOPHILS % (AUTO) 0.3 % (0.0-6.0); HEMATOCRIT 37 % (39-51); HEMOGLOBIN 11.9 g/dL (13.5-17.5); LYMPHOCYTES # (AUTO) 1.7 K/uL (0.8-4.8); LYMPHOCYTES % (AUTO) 16.1 % (20.0-44.0); MEAN CORPUSCULAR HGB CONC 32 g/dl (31.0-36.0); MEAN CORPUSCULAR VOLUME 86 fL (80-96); MONOCYTES # (AUTO) 0.9 K/uL (0.1-1.30); MONOCYTES % (AUTO) 9.2 % (2.0-12.0); NEUTROPHILS # (AUTO) 7.6 K/uL (1.8-8.9); NEUTROPHILS % (AUTO) 74.2 % (43.0-81.0); PLATELET COUNT (AUTO) 239 K/uL (150-450); RED BLOOD CELL COUNT(AUTO) 4.28 MIL/uL (4.5-6.0); WHITE BLOOD COUNT (AUTO) 10.3 K/uL (4.3-11.0)
[2022-08-27 06:01] LABS: ALBUMIN 2.7 g/dL (3.4-5.0); BILIRUBIN,TOTAL 0.7 mg/dL (0.2-1.0); CALCIUM, SERUM 8.9 mg/dL (8.5-10.1); CREATININE 0.7 mg/dL (0.6-1.3); MAGNESIUM 2.3 mg/dL (1.8-2.4); PHOSPHORUS 2.9 mg/dL (2.5-4.9); POTASSIUM 3.8 mmol/L (3.5-5.1)
--- NOTE | 2022-08-27 06:09 | NUR ---
ASSISTANT SALES DIRECTOR CLOSING NOTES PT REMAIN IN BED AWAKE OBTUNDED A/O X0.REMAIN ON VENT SETTINGS ORDER BREATHING IS EVEN AND UNLABORED NO S/S OF ACUTE DISTRESS G'TUBE PATENT AND NO S/S OF LEAKAGE. RED CATHETER IN PLACE DRAINING CLEAR YELLOW URINE. WILL ENDORSE TO RN DAY SHIFT FOR CONTINUITY OF CARE.
[2022-08-27] MEDS: ACETAMINOPHEN 650 MG/20.3 ML UDC GT PRN ×2 (06:38→20:32)
[2022-08-27] MEDS: METOPROLOL TARTRATE 25 MG TABLET GT SCH ×2 (09:00→21:15)
--- NOTE | 2022-08-27 09:00 | NUR ---
ZIPPER TRIMMER HAND OPENING NOTE: RECEIVED PT. FROM [facility]. REPORT GIVEN AT BEDSIDE. PT. IN BED, TRACH TO VENT WITH SETTINGS: PORTEX #8; AC - 16; VT - 500; FIO2 - 90%; PEEP - 5. MOVES EYELIDS WITH TACTILE AND PAINFUL STIMULI. DOESN'T OPEN EYES. NO S/S OF RESPIRATORY DISTRESS. DIAL MARKER READS NSR WITH HR OF 70 BPM AT THIS TIME. MULTIPLE SKIN ISSUES NOTED, WILL DO WOUND TREATMENT ORDERED. HAS G-TUBE, CURRENTLY CLAMPED, WAITING FOR TUBE FEEDING ORDER. 10 ML GASTRIC RESIDUAL NOTED. ON RED CATHETER, WITH NOHEMI CLOUDY URINE NOTED. IV ACCESS ON L HAND #20G, PATENT AND SALINE LOCKED, WAITING FOR MIDLINE INSERTION. IV SITE DRESSING C/D/I WITH NO S/S OF INFILTRATION. SAFETY MEASURES IN PLACE: BED IN LOWEST AND LOCKED POSITION, HOB ELEVATED AT 30 DEGREES, BED ALARM ON, CALL LIGHT WITHIN REACH, SIDE RAILS UP X2. WILL TURN AND REPOSITION IN BED AT LEAST Q2H. WILL CONTINUE TO MONITOR PT. FOR ANY CHANGES.
[2022-08-27] MEDS: IV D5/ 0.9% NACL 1,000 ML IV PRN ×2 (09:16→22:58)
[2022-08-27] MEDS: CHLORHEXIDINE GLUCONATE 15 ML UDC MM SCH ×2 (09:17→16:00)
[2022-08-27] MEDS: FERROUS SULFATE UDC 300 MG/5 ML UDC GT SCH (09:17)
[2022-08-27] MEDS: PROSOURCE / PROSTAT (PYXIS) 30 ML UDC GT SCH ×3 (09:17→16:00)
[2022-08-27] MEDS: PANTOPRAZOLE 40 MG/PACK PACK GT SCH (09:18)
[2022-08-27] MEDS: LEVETIRACETAM SOL (5 ML) 100 MG/ML UDC GT SCH ×2 (09:18→20:30)
[2022-08-27] MEDS: ZINC SULFATE 220 MG CAPSULE GT SCH (09:18)
[2022-08-27] MEDS: ASCORBIC ACID 500 MG TABLET GT SCH (09:18)
[2022-08-27] MEDS: DOCUSATE SODIUM LIQ 100 MG/10 ML UDC GT SCH (09:18)
[2022-08-27] MEDS: ENOXAPARIN SODIUM 60 MG/0.6 ML DISP.SYRIN SQ SCH ×2 (09:19→20:32)
--- NOTE | 2022-08-27 09:38 | NUR ---
WOUND CARE CONSULT: REVIEWED CHART, NURSING DOCUMENTATION AND PHOTOS WHICH INDICATE SACRAL STAGE 4 ULCER AND DISCOLORATION/SCABS TO LOWER EXTREMITIES, PRESENT ON ADMISSION. RECOMMENDATIONS MADE FOR SKIN PROTECTION AND WOUND CARE. DISCUSSED WITH NURSING STAFF AND SURGICAL P.A. FOR DR KOHANZADEH. OSCAR IN AGREEMENT WITH PLAN OF CARE. PT IS ON THI ISOFLEX LOW AIRLOSS BED.
[2022-08-27] MEDS ORDERED: IOHEXOL-350 100 ML VIAL IV ONE (11:30)
[2022-08-27] MEDS ORDERED: CT SWABBABLE VALVE TRANS SET 1 EA INFUS.SET MC ONE (11:30)
[2022-08-27] MEDS ORDERED: IV NS 0.9% 250 ML IV ONE (11:31)
[2022-08-27] MEDS: JEVITY 1.2 CAL 1,000 ML BOTTLE GT PRN (12:29)
[2022-08-27 13:54] LABS: BILIRUBIN,URINE NEGATIVE (NEGATIVE); COLOR,URINE YELLOW (YELLOW); LEUKOCYTE ESTERASE ,URINE TRACE (NEGATIVE); NITRITE, URINE NEGATIVE (NEGATIVE); PROTEIN,URINE TRACE mg/dl (NEGATIVE); UGLUCOSE NEGATIVE (NEGATIVE)
[2022-08-27 14:22] LABS: BACTERIA,URINE Rare /HPF (None Seen); CALCIUM OXALATE CRYSTALS,UR Few /HPF (None Seen); SQUAMOUS EPITHELIAL CELL,UR Few /HPF (None Seen); WBC,URINE 0-2 /HPF (0-3)
--- NOTE | 2022-08-27 19:05 | NUR ---
MCAT INSTRUCTOR CLOSING NOTE: PT. REMAINS IN BED, TRACH TO VENT WITH SETTINGS: PORTEX #8; AC - 16; VT - 500; FIO2 - 60%; PEEP - 8. MOVES EYELIDS WITH TACTILE AND PAINFUL STIMULI. DOESN'T OPEN EYES. TACHYPNEIC WITH RESPIRATION AT 22 BPM AT THIS TIME. ELEVATOR EXAMINER READS NSR WITH HR OF 98 BPM AT THIS TIME. WOUND TREATMENT DONE ORDERED. HAS G-TUBE WITH JEVITY 1.2 RUNNING AT 70 ML/HR FOR 18 HRS, 5 ML GASTRIC RESIDUAL NOTED. RED CATHETER DRAINED 625 ML OF NOHEMI CLOUDY URINE THIS SHIFT. IV ACCESS ON L HAND #20G, PATENT AND SALINE LOCKED; AKIRA MIDLINE WITH D5 NS RUNNING AT 75 ML/HR. IV SITE DRESSINGS C/D/I WITH NO S/S OF INFILTRATION. SAFETY MEASURES MAINTAINED: BED IN LOWEST AND LOCKED POSITION, HOB ELEVATED AT 30 DEGREES, BED ALARM ON, CALL LIGHT WITHIN REACH, SIDE RAILS UP X2. TURNED AND REPOSITIONED IN BED AT LEAST Q2H. ENDORSED CONTINUITY OF CARE TO TROLLEY WORKER BRI FREEMAN.
--- NOTE | 2022-08-27 20:00 | NUR ---
director of agriculture OPENING notes RECEIVED PTS IN BED . OBTUNDED A/O X0. NON VERBAL ,ON MECHANICAL VENTILATOR AC SETTINGS WELL TOLERATED . BREATHING EVEN AND UNLABORED NO S/S OF ACUTE DISTRESS SATING 95 %.PTS ON FACETIME WITH FAMILY ,PTS NOTED FEBRILE 100.8 BED BATH GIVEN TO PTS ,TYLENOL GIVEN ORDERED . G'TUBE PATENT AND NO S/S OF LEAKAGE. JEVITY 1.2 AT 70CC/HR ON PROGRESS NO RESIDUAL NOTED TOLERATING FEEDING WELL .IV ACCESS ON AKIRA MIDLINE, INTACT PATENT ALSO LEFT HAND g#20 SL INTACT AND PATENT , IVF RUNNING D5NS AT 75CC/HR , RED CATHETER IN PLACE DRAINING CLEAR YELLOW URINE . WILL CONTINUE TO MONITOR PTS, DUE MEDS GIVEN ORDERED. NO ASE NOTED. BED LOCKED IN SAFETY POSITION . PTS ON ISOLATION D/T POSITIVE RSV AND STILL PENDING RESULT PCR .WILL CONTINUE TO MONITOR PTS.
[2022-08-27] MEDS: SENNOSIDES 8.6 MG TABLET GT SCH (21:16)
--- NOTE | 2022-08-27 22:00 | NUR ---
[employer] WORKER HELPER NOTES PTS PLACE ON [employer] MAT[employer]ESS ORDERED , PTS TURNED AND REPOSITION , SUCTION SECRETION NEEDED. NO SOB NO DISTRESS NOTED AT THIS TIME.
[2022-08-28] VITALS (24 sets, daily range): BP systolic 91–126; BP diastolic 51–83
[2022-08-28] MEDS: IPRATROPIUM NEB FS 0.5 MG/2.5 ML AMPUL.NEB NEB SCH ×5 (01:30→20:09)
[2022-08-28] MEDS: MEROPENEM 1 G in IV NS 0.9% 100 ML IV SCH ×3 (04:10→20:09)
[2022-08-28 05:20] LABS: BASOPHILS % (AUTO) 0.3 % (0.0-2.0); EOSINOPHILS % (AUTO) 1.1 % (0.0-6.0); HEMATOCRIT 35 % (39-51); HEMOGLOBIN 11.2 g/dL (13.5-17.5); LYMPHOCYTES # (AUTO) 1.7 K/uL (0.8-4.8); LYMPHOCYTES % (AUTO) 18.9 % (20.0-44.0); MEAN CORPUSCULAR HGB CONC 33 g/dl (31.0-36.0); MEAN CORPUSCULAR VOLUME 85 fL (80-96); MONOCYTES % (AUTO) 10.5 % (2.0-12.0); NEUTROPHILS # (AUTO) 6.3 K/uL (1.8-8.9); NEUTROPHILS % (AUTO) 69.2 % (43.0-81.0); PLATELET COUNT (AUTO) 221 K/uL (150-450); RED BLOOD CELL COUNT(AUTO) 4.05 MIL/uL (4.5-6.0); WHITE BLOOD COUNT (AUTO) 9.1 K/uL (4.3-11.0)
[2022-08-28 05:36] LABS: ALBUMIN 2.6 g/dL (3.4-5.0); BILIRUBIN,TOTAL 0.4 mg/dL (0.2-1.0); CALCIUM, SERUM 8.5 mg/dL (8.5-10.1); CREATININE 0.6 mg/dL (0.6-1.3); MAGNESIUM 2.1 mg/dL (1.8-2.4); PHOSPHORUS 2.8 mg/dL (2.5-4.9); POTASSIUM 3.5 mmol/L (3.5-5.1); TOTAL PROTEIN, SERUM 6.7 g/dL (6.4-8.2)
--- NOTE | 2022-08-28 06:13 | NUR ---
TERMITE CONTROL SERVICE REPRESENTATIVE CLOSING NOTES PT REMAIN IN BED AWAKE OBTUNDED A/O X0.REMAIN ON VENT SETTINGS ORDERED AC 16 TV 500 FIO2 50% PEEP OF 5 WELL TOLERATED ,BREATHING EVEN AND UNLABORED NO S/S OF ACUTE DISTRESS .AT 0600HRS G'TUBE FEEDING JEVITY 1.2 ON AT 70CC/HR WELL TOLERATED NO RESIDUAL NOTED , IVF D5NS AT 70CC/HR ON PROGRESS INTACT AND PATENT . RED CATHETER IN PLACE DRAINING CLEAR YELLOW URINE. WILL ENDORSE TO RN DAY SHIFT FOR CONTINUITY OF CARE.
--- NOTE | 2022-08-28 07:05 | NUR ---
REVERSING MILL ROLLER OPENING NOTE: RECEIVED PT. IN BED, TRACH TO VENT WITH SETTINGS: PORTEX #8; AC - 16; VT - 500; FIO2 - 50%; PEEP - 8. NON-VERBAL, OBTUNDED, MOVES EYELIDS WITH TACTILE AND PAINFUL STIMULI. DOESN'T OPEN EYES. TACHYPNEIC WITH RESPIRATION AT 21 BPM AT THIS TIME. ENVIRONMENTAL SERVICE AIDE READS NSR WITH HR OF 90 BPM AT THIS TIME. MULTIPLE SKIN ISSUES NOTED, WILL DO WOUND TREATMENT ORDERED. HAS G-TUBE WITH JEVITY 1.2 RUNNING AT 70 ML/HR FOR 18 HRS, 5 ML GASTRIC RESIDUAL NOTED AT THIS TIME. HAS RED CATHETER WITH NOHEMI CLOUDY URINE NOTED. IV ACCESS ON L HAND #20G, PATENT AND SALINE LOCKED; AKIRA MIDLINE WITH D5 NS RUNNING AT 75 ML/HR. IV SITE DRESSINGS C/D/I WITH NO S/S OF INFILTRATION. SAFETY MEASURES MAINTAINED: BED IN LOWEST AND LOCKED POSITION, HOB ELEVATED AT 30 DEGREES, BED ALARM ON, CALL LIGHT WITHIN REACH, SIDE RAILS UP X2. WILL TURN AND REPOSITION IN BED AT LEAST Q2H. WILL CONTINUE TO MONITOR PT. FOR ANY CHANGES.
[2022-08-28] MEDS: METOPROLOL TARTRATE 25 MG TABLET GT SCH ×2 (09:00→20:13)
[2022-08-28] MEDS: FERROUS SULFATE UDC 300 MG/5 ML UDC GT SCH (09:07)
[2022-08-28] MEDS: ASCORBIC ACID 500 MG TABLET GT SCH (09:08)
[2022-08-28] MEDS: DOCUSATE SODIUM LIQ 100 MG/10 ML UDC GT SCH (09:08)
[2022-08-28] MEDS: PANTOPRAZOLE 40 MG/PACK PACK GT SCH (09:08)
[2022-08-28] MEDS: ZINC SULFATE 220 MG CAPSULE GT SCH (09:08)
[2022-08-28] MEDS: LEVETIRACETAM SOL (5 ML) 100 MG/ML UDC GT SCH ×2 (09:08→20:09)
[2022-08-28] MEDS: CHLORHEXIDINE GLUCONATE 15 ML UDC MM SCH ×2 (09:08→17:28)
[2022-08-28] MEDS: ENOXAPARIN SODIUM 60 MG/0.6 ML DISP.SYRIN SQ SCH (09:11)
[2022-08-28] MEDS: PROSOURCE / PROSTAT (PYXIS) 30 ML UDC GT SCH ×3 (09:12→17:28)
[2022-08-28] MEDS: JEVITY 1.2 CAL 1,000 ML BOTTLE GT PRN (09:13)
[2022-08-28] MEDS: IV D5/ 0.9% NACL 1,000 ML IV PRN (11:17)
[2022-08-28] MEDS: OFLOXACIN 0.3% OPHTH 5 ML BOTTLE EACHEYE SCH (17:29)
--- NOTE | 2022-08-28 19:05 | NUR ---
INSPECTOR MACHINED PARTS CLOSING NOTE: PT. REMAINS IN BED, TRACH TO VENT WITH SETTINGS: PORTEX #8; AC - 16; VT - 500; FIO2 - 50%; PEEP - 8. MOVES EYELIDS WITH TACTILE AND PAINFUL STIMULI. NO S/S OF RESPIRATORY DISTRESS AT THIS TIME. PROPELLER TESTER READS SINUS TACH WITH HR OF 112 BPM AT THIS TIME. WOUND TREATMENT DONE ORDERED. HAS G-TUBE WITH JEVITY 1.2 RUNNING AT 70 ML/HR FOR 18 HRS, 5 ML GASTRIC RESIDUAL NOTED. RED CATHETER DRAINED 1,000 ML OF NOHEMI CLOUDY URINE THIS SHIFT. IV ACCESS ON L HAND #20G, PATENT AND SALINE LOCKED; AKIRA MIDLINE WITH D5 NS RUNNING AT 75 ML/HR. IV SITE DRESSINGS C/D/I WITH NO S/S OF INFILTRATION. SAFETY MEASURES MAINTAINED: BED IN LOWEST AND LOCKED POSITION, HOB ELEVATED AT 30 DEGREES, BED ALARM ON, CALL LIGHT WITHIN REACH, SIDE RAILS UP X2. TURNED AND REPOSITIONED IN BED AT LEAST Q2H. ENDORSED CONTINUITY OF CARE TO PHOTOGRAPHIC DOUBLE BRI FREEMAN.
--- NOTE | 2022-08-28 20:00 | NUR ---
rn telehealth OPENING notes RECEIVED PTS IN BED . OBTUNDED A/O X0. NON VERBAL ,ON MECHANICAL VENTILATOR AC SETTINGS AC 16 TV 500 FIO2 50% PEEP 8 ,WELL TOLERATED . BREATHING EVEN AND UNLABORED NO S/S OF ACUTE DISTRESS SATING 94 %.PTS ON FACETIME WITH FAMILY ,PTS NOTED AFEBRILE 99.1 BED BATH GIVEN TO PTS ,TYLENOL GIVEN ORDERED . G'TUBE PATENT AND NO S/S OF LEAKAGE. JEVITY 1.2 AT 70CC/HR ON PROGRESS NO RESIDUAL NOTED TOLERATING FEEDING WELL .IV ACCESS ON AKIRA MIDLINE, INTACT PATENT ALSO LEFT HAND g#20 SL INTACT AND PATENT , IVF RUNNING D5NS AT 75CC/HR , RED CATHETER IN PLACE DRAINING CLEAR YELLOW URINE . WILL CONTINUE TO MONITOR PTS, DUE MEDS GIVEN ORDERED. NO ASE NOTED. BED LOCKED IN SAFETY POSITION . PTS ON ISOLATION D/T POSITIVE RSV ON DROPLET ISOLATION PRECAUTIONARY MEASURES OBSERVED AT ALL TIMES .WILL CONTINUE TO MONITOR PTS.
[2022-08-28] MEDS: ACETAMINOPHEN 650 MG/20.3 ML UDC GT PRN (20:18)
[2022-08-28] MEDS: SENNOSIDES 8.6 MG TABLET GT SCH (21:06)
[2022-08-29] VITALS (24 sets, daily range): BP systolic 87–118; BP diastolic 48–71
--- NOTE | 2022-08-29 00:46 | NUR ---
APPEALS AND GENERALIST CLERK NOTES [facility] EYE DROPS NOT GIVEN D/T UNAVAILABILITY WILL FOLLOW UP IN THE PHARMACY IN AM
[2022-08-29] MEDS: IPRATROPIUM NEB FS 0.5 MG/2.5 ML AMPUL.NEB NEB SCH ×4 (00:59→19:56)
[2022-08-29] MEDS: IV D5/ 0.9% NACL 1,000 ML IV PRN ×2 (01:33→12:41)
[2022-08-29] MEDS: MEROPENEM 1 G in IV NS 0.9% 100 ML IV SCH ×3 (04:08→20:20)
[2022-08-29] MEDS: ACETAMINOPHEN 650 MG/20.3 ML UDC GT PRN (04:58)
[2022-08-29] MEDS: OFLOXACIN 0.3% OPHTH 5 ML BOTTLE EACHEYE SCH ×4 (05:01→17:02)
[2022-08-29 05:41] LABS: BASOPHILS % (AUTO) 0.4 % (0.0-2.0); EOSINOPHILS % (AUTO) 2.6 % (0.0-6.0); HEMATOCRIT 35 % (39-51); HEMOGLOBIN 11.4 g/dL (13.5-17.5); LYMPHOCYTES # (AUTO) 1.8 K/uL (0.8-4.8); LYMPHOCYTES % (AUTO) 23.6 % (20.0-44.0); MEAN CORPUSCULAR HGB CONC 33 g/dl (31.0-36.0); MEAN CORPUSCULAR VOLUME 85 fL (80-96); MONOCYTES # (AUTO) 0.7 K/uL (0.1-1.30); MONOCYTES % (AUTO) 9.3 % (2.0-12.0); NEUTROPHILS % (AUTO) 64.1 % (43.0-81.0); PLATELET COUNT (AUTO) 238 K/uL (150-450); WHITE BLOOD COUNT (AUTO) 7.8 K/uL (4.3-11.0)
[2022-08-29 06:01] LABS: ALBUMIN 2.5 g/dL (3.4-5.0); BILIRUBIN,TOTAL 0.3 mg/dL (0.2-1.0); CALCIUM, SERUM 8.5 mg/dL (8.5-10.1); CREATININE 0.7 mg/dL (0.6-1.3); MAGNESIUM 2.1 mg/dL (1.8-2.4); PHOSPHORUS 2.8 mg/dL (2.5-4.9); POTASSIUM 3.6 mmol/L (3.5-5.1); TOTAL PROTEIN, SERUM 6.7 g/dL (6.4-8.2)
--- NOTE | 2022-08-29 06:29 | NUR ---
MICROSOFT BI CONSULTANT CLOSING NOTES PT REMAIN IN BED AWAKE OBTUNDED A/O X0.REMAIN ON VENT SETTINGS ORDER BREATHING IS EVEN AND UNLABORED NO S/S OF ACUTE DISTRESS G'TUBE PATENT JEVITY 1.2 AT 70CC/HR ON AT 0600HRS NO RESIDUAL NOTED. RED CATHETER IN PLACE DRAINING CLEAR YELLOW URINE. WILL ENDORSE TO RN DAY SHIFT FOR CONTINUITY OF CARE.
[2022-08-29] MEDS: JEVITY 1.2 CAL 1,000 ML BOTTLE GT PRN (10:17)
[2022-08-29] MEDS: FERROUS SULFATE UDC 300 MG/5 ML UDC GT SCH (10:18)
[2022-08-29] MEDS: ENOXAPARIN SODIUM 40 MG/0.4 ML DISP.SYRIN SQ SCH (10:18)
[2022-08-29] MEDS: DOCUSATE SODIUM LIQ 100 MG/10 ML UDC GT SCH (10:19)
[2022-08-29] MEDS: ASCORBIC ACID 500 MG TABLET GT SCH (10:19)
[2022-08-29] MEDS: LEVETIRACETAM SOL (5 ML) 100 MG/ML UDC GT SCH ×2 (10:19→20:19)
[2022-08-29] MEDS: CHLORHEXIDINE GLUCONATE 15 ML UDC MM SCH ×2 (10:19→17:02)
[2022-08-29] MEDS: ZINC SULFATE 220 MG CAPSULE GT SCH (10:19)
[2022-08-29] MEDS: METOPROLOL TARTRATE 25 MG TABLET GT SCH ×2 (10:20→20:22)
[2022-08-29] MEDS: PROSOURCE / PROSTAT (PYXIS) 30 ML UDC GT SCH ×3 (10:21→17:02)
[2022-08-29] MEDS: PANTOPRAZOLE 40 MG/PACK PACK GT SCH (10:25)
--- NOTE | 2022-08-29 19:50 | NUR ---
BLOOD BANK ASSISTANT CLOSING NOTES PT REMAIN IN BED AWAKE OBTUNDED A/O X0. VENT SETTINGS ORDERED, BREATHING IS EVEN AND UNLABORED NO S/S OF ACUTE DISTRESS G-TUBE PATENT JEVITY 1.2 AT 70CC/HR. NO RESIDUAL NOTED. RED CATHETER IN PLACE DRAINING CLEAR YELLOW URINE. WILL ENDORSE TO ICE GUARD INSPECTOROFF PREMISE SERVICE REPRESENTATIVE FOR CONTINUITY OF CARE.
[2022-08-29] MEDS: SENNOSIDES 8.6 MG TABLET GT SCH (22:13)
[2022-08-30] VITALS (20 sets, daily range): BP systolic 91–122; BP diastolic 49–72
[2022-08-30] MEDS: OFLOXACIN 0.3% OPHTH 5 ML BOTTLE EACHEYE SCH ×4 (00:11→17:23)
[2022-08-30] MEDS: IPRATROPIUM NEB FS 0.5 MG/2.5 ML AMPUL.NEB NEB SCH ×4 (01:37→20:29)
[2022-08-30] MEDS: IV D5/ 0.9% NACL 1,000 ML IV PRN ×2 (02:21→15:46)
[2022-08-30 05:14] LABS: BASOPHILS % (AUTO) 0.3 % (0.0-2.0); EOSINOPHILS % (AUTO) 3.6 % (0.0-6.0); HEMATOCRIT 37 % (39-51); LYMPHOCYTES # (AUTO) 1.7 K/uL (0.8-4.8); LYMPHOCYTES % (AUTO) 26.5 % (20.0-44.0); MEAN CORPUSCULAR HGB CONC 32 g/dl (31.0-36.0); MEAN CORPUSCULAR VOLUME 85 fL (80-96); MONOCYTES # (AUTO) 0.5 K/uL (0.1-1.30); MONOCYTES % (AUTO) 7.1 % (2.0-12.0); NEUTROPHILS # (AUTO) 4.1 K/uL (1.8-8.9); NEUTROPHILS % (AUTO) 62.5 % (43.0-81.0); PLATELET COUNT (AUTO) 223 K/uL (150-450); RED BLOOD CELL COUNT(AUTO) 4.34 MIL/uL (4.5-6.0); WHITE BLOOD COUNT (AUTO) 6.6 K/uL (4.3-11.0)
[2022-08-30] MEDS: JEVITY 1.2 CAL 1,000 ML BOTTLE GT PRN ×2 (05:25→22:43)
[2022-08-30] MEDS: MEROPENEM 1 G in IV NS 0.9% 100 ML IV SCH ×3 (05:25→22:07)
[2022-08-30 05:55] LABS: ALBUMIN 2.7 g/dL (3.4-5.0); BILIRUBIN,TOTAL 0.3 mg/dL (0.2-1.0); CALCIUM, SERUM 8.8 mg/dL (8.5-10.1); CREATININE 0.5 mg/dL (0.6-1.3); MAGNESIUM 2.1 mg/dL (1.8-2.4); PHOSPHORUS 2.7 mg/dL (2.5-4.9); POTASSIUM 3.6 mmol/L (3.5-5.1); TOTAL PROTEIN, SERUM 7.1 g/dL (6.4-8.2)
--- NOTE | 2022-08-30 07:41 | NUR ---
RN CLOSING NOTE MAINTAINED ISOLATION FOR RSV. PATIENT IS OBTUNDED AND NONVERBAL. NO CHANGES IN VENT SETTINGS. SUCTIONS PATIENT. SINUS RHYTHM THROUGHOUT SHIFT. HR LOW 47. DOES NOT SUSTAIN. GTUBE OFF AT 0000 AND TURNED ON AT 0600. RED CATHETER MAINTAINED. NO BM. WOUND CARE ORDERED. IVF RUNNING. ABX GIVEN ORDERED. PLAN FOR WOUND DEBRIDEMENT. CONSENT IN CHART.
--- NOTE | 2022-08-30 08:19 | NUR ---
WOUND CARE CONSULT: RECEIVED CONSULT FOR RASH ON RT ARM AND ABDOMEN, WHICH WAS NOTED TO BE PRESENT ON ADMISSION, UNKNOWN ETIOLOGY. DEFER TO PMD AND SURGICAL TEAM CURRENTLY ON CASE. ALL SKIN PROTECTION MEASURES IN PLACE AND DISCUSSED WITH NURSING STAFF. PT FOLLOWED BY SURGICAL TEAM FOR STAGE 4 SACRAL ULCER, PRESENT ON ADMISSION. MD IN AGREEMENT WITH PLAN OF CARE.
[2022-08-30] MEDS: ENOXAPARIN SODIUM 40 MG/0.4 ML DISP.SYRIN SQ SCH (09:19)
[2022-08-30] MEDS: ZINC SULFATE 220 MG CAPSULE GT SCH (09:21)
[2022-08-30] MEDS: PANTOPRAZOLE 40 MG/PACK PACK GT SCH (09:21)
[2022-08-30] MEDS: CHLORHEXIDINE GLUCONATE 15 ML UDC MM SCH ×2 (09:21→17:23)
[2022-08-30] MEDS: FERROUS SULFATE UDC 300 MG/5 ML UDC GT SCH (09:21)
[2022-08-30] MEDS: PROSOURCE / PROSTAT (PYXIS) 30 ML UDC GT SCH ×3 (09:21→17:22)
[2022-08-30] MEDS: ASCORBIC ACID 500 MG TABLET GT SCH (09:21)
[2022-08-30] MEDS: LEVETIRACETAM SOL (5 ML) 100 MG/ML UDC GT SCH ×2 (09:21→22:08)
[2022-08-30] MEDS: DOCUSATE SODIUM LIQ 100 MG/10 ML UDC GT SCH (09:21)
--- NOTE | 2022-08-30 17:03 | NUR ---
RN NOTE GAVE REPORT TO BRI ALMANZA, PATIENT TO TRANSFER TO [facility]/ TELE ROOM 155-2, ACCOMPANIED WITH RT ON VENT. ALL VITALS STABLE. NOTIFIED FAMILY OF TRANSFER.
--- NOTE | 2022-08-30 18:05 | NUR ---
RN Receiving Report Patient arrived to unit. RT set up pt to room. Not able to assess patients mental status, pt turns to touch. VSS. All safety precautions taken, call light and table within reach, bed at lowest position. Will endorse to night nurse for continuity of care.
--- NOTE | 2022-08-30 18:30 | NUR ---
RN NOTE CHANGED ROOM FROM 115/2 TO 105. TRANSFERRED VIA ACLS PROTOCOL. NOTIFIED FAMILY, CHARGE NURSE AWARE.
--- NOTE | 2022-08-30 20:00 | NUR ---
rn clinical coordinator OPENING notes RECEIVED PTS IN BED . OBTUNDED A/O X0. NON VERBAL ,V/S STABLE AFEBRILE ,ON MECHANICAL VENTILATOR AC SETTINGS AC 16 TV 500 FIO2 50% PEEP 8 ,WELL TOLERATED . BREATHING EVEN AND UNLABORED NO S/S OF ACUTE DISTRESS SATING 95 %.PTS ON FACETIME WITH FAMILY , JEVITY 1.2 AT 70CC/HR ON PROGRESS NO RESIDUAL NOTED TOLERATING FEEDING WELL .IV ACCESS ON AKIRA MIDLINE, INTACT PATENT IVF RUNNING D5NS AT 75CC/HR , RED CATHETER IN PLACE DRAINING CLEAR YELLOW URINE . WILL CONTINUE TO MONITOR PTS, DUE MEDS GIVEN ORDERED. NO ASE NOTED. BED LOCKED IN SAFETY POSITION . PTS ON ISOLATION D/T POSITIVE RSV ON DROPLET ISOLATION PRECAUTIONARY MEASURES OBSERVED AT ALL TIMES .WILL CONTINUE TO MONITOR PTS.
[2022-08-30] MEDS: SENNOSIDES 8.6 MG TABLET GT SCH (22:07)
[2022-08-31] VITALS: BP 102/61
[2022-08-31] MEDS: OFLOXACIN 0.3% OPHTH 5 ML BOTTLE EACHEYE SCH ×4 (00:33→17:27)
[2022-08-31] MEDS: IPRATROPIUM NEB FS 0.5 MG/2.5 ML AMPUL.NEB NEB SCH ×4 (01:22→20:07)
[2022-08-31 04:00] VITALS: BP 111/65
[2022-08-31] MEDS: MEROPENEM 1 G in IV NS 0.9% 100 ML IV SCH ×3 (05:27→21:57)
--- NOTE | 2022-08-31 07:05 | NUR ---
BODS DEVELOPER CLOSING NOTES PT REMAIN IN BED AWAKE OBTUNDED A/O X0.REMAIN ON VENT SETTINGS ORDER BREATHING IS EVEN AND UNLABORED NO S/S OF ACUTE DISTRESS G'TUBE PATENT JEVITY 1.2 AT 70CC/HR ON AT 0600HRS NO RESIDUAL NOTED. RED CATHETER IN PLACE DRAINING CLEAR YELLOW URINE. WILL ENDORSE TO RN DAY SHIFT FOR CONTINUITY OF CARE.
[2022-08-31 07:13] LABS: BASOPHILS # (AUTO) 0.1 K/uL (0.0-0.2); BASOPHILS % (AUTO) 0.7 % (0.0-2.0); EOSINOPHILS % (AUTO) 3.1 % (0.0-6.0); HEMATOCRIT 36 % (39-51); HEMOGLOBIN 11.9 g/dL (13.5-17.5); LYMPHOCYTES # (AUTO) 1.9 K/uL (0.8-4.8); LYMPHOCYTES % (AUTO) 22.9 % (20.0-44.0); MEAN CORPUSCULAR HGB CONC 33 g/dl (31.0-36.0); MEAN CORPUSCULAR VOLUME 84 fL (80-96); MONOCYTES # (AUTO) 0.8 K/uL (0.1-1.30); NEUTROPHILS # (AUTO) 5.4 K/uL (1.8-8.9); NEUTROPHILS % (AUTO) 64.3 % (43.0-81.0); PLATELET COUNT (AUTO) 261 K/uL (150-450); RED BLOOD CELL COUNT(AUTO) 4.28 MIL/uL (4.5-6.0); WHITE BLOOD COUNT (AUTO) 8.4 K/uL (4.3-11.0)
--- NOTE | 2022-08-31 07:43 | NUR ---
RN OPENING NOTES RECEIVED PTS IN BED . OBTUNDED A/O X0. NON VERBAL ,V/S STABLE AFEBRILE ,ON MECHANICAL VENTILATOR AC SETTINGS AC 16 TV 500 FIO2 50% PEEP 8 ,WELL TOLERATED . BREATHING EVEN AND UNLABORED NO S/S OF ACUTE DISTRESS SATING 98 %.PTS ON FACETIME WITH FAMILY , JEVITY 1.2 AT 70CC/HR ON PROGRESS NO RESIDUAL NOTED TOLERATING FEEDING WELL .IV ACCESS ON AKIRA MIDLINE, INTACT PATENT IVF RUNNING D5NS AT 75CC/HR , RED CATHETER IN PLACE DRAINING CLEAR YELLOW URINE. BED LOCKED IN SAFETY POSITION . PTS ON ISOLATION D/T POSITIVE RSV ON DROPLET ISOLATION PRECAUTIONARY MEASURES OBSERVED AT ALL TIMES.
[2022-08-31 07:51] LABS: ALBUMIN 2.6 g/dL (3.4-5.0); BILIRUBIN,TOTAL 0.3 mg/dL (0.2-1.0); CALCIUM, SERUM 8.7 mg/dL (8.5-10.1); CREATININE 0.7 mg/dL (0.6-1.3); MAGNESIUM 2.3 mg/dL (1.8-2.4); PHOSPHORUS 2.7 mg/dL (2.5-4.9); POTASSIUM 3.8 mmol/L (3.5-5.1); TOTAL PROTEIN, SERUM 6.8 g/dL (6.4-8.2)
[2022-08-31 08:00] VITALS: BP 104/62
[2022-08-31] MEDS: CHLORHEXIDINE GLUCONATE 15 ML UDC MM SCH ×2 (08:18→17:27)
[2022-08-31] MEDS: LEVETIRACETAM SOL (5 ML) 100 MG/ML UDC GT SCH ×2 (08:18→21:56)
[2022-08-31] MEDS: PANTOPRAZOLE 40 MG/PACK PACK GT SCH (08:19)
[2022-08-31] MEDS: ASCORBIC ACID 500 MG TABLET GT SCH (08:19)
[2022-08-31] MEDS: DOCUSATE SODIUM LIQ 100 MG/10 ML UDC GT SCH (08:19)
[2022-08-31] MEDS: FERROUS SULFATE UDC 300 MG/5 ML UDC GT SCH (08:19)
[2022-08-31] MEDS: ZINC SULFATE 220 MG CAPSULE GT SCH (08:19)
[2022-08-31] MEDS: ENOXAPARIN SODIUM 40 MG/0.4 ML DISP.SYRIN SQ SCH (08:20)
[2022-08-31] MEDS: PROSOURCE / PROSTAT (PYXIS) 30 ML UDC GT SCH ×3 (08:21→17:27)
[2022-08-31 12:00] VITALS: BP 101/56
--- NOTE | 2022-08-31 14:18 | NUR ---
RN NOTE DISCUSSED PATIENTS RASH WITH WINTER FLETCHER. RECEIVED VERBAL ORDER FOR BENADRYL 25MG IV Q6HR ORDERS REPEATED TO PROVIDER AND PLACED
[2022-08-31] MEDS ORDERED: diphenhydrAMINE HCL 50 MG/ML VIAL IV PRN (14:30)
[2022-08-31] MEDS: IV D5/ 0.9% NACL 1,000 ML IV PRN (15:10)
[2022-08-31 16:00] VITALS: BP 101/52
--- NOTE | 2022-08-31 18:43 | NUR ---
RN CLOSING NOTES PT REMAIN IN BED AWAKE OBTUNDED A/O X0.REMAIN ON VENT SETTINGS ORDER BREATHING IS EVEN AND UNLABORED NO S/S OF ACUTE DISTRESS G'TUBE PATENT JEVITY 1.2 AT 70CC/HR OFF 0000 ON AT 0600HRS NO RESIDUAL NOTED. RED CATHETER IN PLACE DRAINING CLEAR YELLOW URINE. SAFETY MEASURE IN PLACE PER HOSPITAL POLICY. WILL ENDORSE TO PREFORM PLATE MAKERTENANT RELATIONS COORDINATOR FOR CONTINUITY OF CARE.
[2022-08-31 20:00] VITALS: BP 101/61
--- NOTE | 2022-08-31 20:00 | NUR ---
[facility] RN NOTE PT IN BED OBTUNDED. ON VENT/TRACH TOLERATING THE SETTINGS WELL. SUCTIONED HIM FREQUENTLY. ON TELE SR HR 82. RED CATH INTACT AND PATENT DRAINING YELLOWISH COLOR URINE. ON GTF JEVITY1.2 ABBIE AT 70 ML/HR, 0 ML RESIDUAL NOTED. AKIRA MIDLINE INTACT AND PATENT INFUSING D5NS AT 70 ML/HR, NO S/S OF INFILTRATION NOTED. SIDE RAILS UP X 3 AND CALL LIGHT WITHIN REACH. REPOSITION HIM Q2H, AND KEPT HIM DRY AND CLEAN. ALL NEEDS ATTENDED.
[2022-08-31] MEDS ORDERED: MEROPENEM 1 G VIAL IV ONE (21:54)
[2022-08-31] MEDS: SENNOSIDES 8.6 MG TABLET GT SCH (21:57)
[2022-09-01] VITALS: BP 105/59
[2022-09-01] MEDS: OFLOXACIN 0.3% OPHTH 5 ML BOTTLE EACHEYE SCH ×5 (00:48→23:36)
[2022-09-01] MEDS: IPRATROPIUM NEB FS 0.5 MG/2.5 ML AMPUL.NEB NEB SCH ×4 (02:07→20:20)
[2022-09-01 04:00] VITALS: BP 101/74
[2022-09-01] MEDS ORDERED: MEROPENEM 1 G VIAL IV ONE (04:47)
[2022-09-01] MEDS: MEROPENEM 1 G in IV NS 0.9% 100 ML IV SCH ×3 (04:50→21:13)
[2022-09-01] MEDS: JEVITY 1.2 CAL 1,000 ML BOTTLE GT PRN ×2 (05:50→21:28)
--- NOTE | 2022-09-01 06:42 | NUR ---
[facility] RN NOTE PT IN BED OBTUNDED. NO CHANGE IN CONDITION. NO SOB, NO DISTRESS OR DISCOMFORT NOTED. NO S/S OF PAIN NOTED. IVF INFUSING WELL. F/C INTACT AND PATENT. REPOSITION HIM Q2H, KEPT HIM DRY AND CLEAN. ALL NEEDS ATTENDED. WILL ENDORSE TO DAY SHIFT NURSE FOR CONTINUE TO CARE.
[2022-09-01] MEDS: IV D5/ 0.9% NACL 1,000 ML IV PRN ×2 (07:49→23:42)
[2022-09-01 08:00] VITALS: BP 97/54
[2022-09-01] MEDS: LEVETIRACETAM SOL (5 ML) 100 MG/ML UDC GT SCH ×2 (08:44→21:14)
[2022-09-01] MEDS: CHLORHEXIDINE GLUCONATE 15 ML UDC MM SCH ×2 (08:44→16:37)
[2022-09-01] MEDS: DOCUSATE SODIUM LIQ 100 MG/10 ML UDC GT SCH (08:44)
[2022-09-01] MEDS: FERROUS SULFATE UDC 300 MG/5 ML UDC GT SCH (08:45)
[2022-09-01] MEDS: PANTOPRAZOLE 40 MG/PACK PACK GT SCH (08:45)
[2022-09-01] MEDS: ASCORBIC ACID 500 MG TABLET GT SCH (08:45)
[2022-09-01] MEDS: ZINC SULFATE 220 MG CAPSULE GT SCH (08:45)
[2022-09-01] MEDS: ENOXAPARIN SODIUM 40 MG/0.4 ML DISP.SYRIN SQ SCH (08:47)
[2022-09-01] MEDS: PROSOURCE / PROSTAT (PYXIS) 30 ML UDC GT SCH ×3 (08:48→16:37)
[2022-09-01 12:00] VITALS: BP 104/63
[2022-09-01] MEDS: KETOCONAZOLE 2% CREAM 15 GM TUBE TP SCH (15:47)
[2022-09-01 16:00] VITALS: BP 109/67
--- NOTE | 2022-09-01 18:29 | NUR ---
TELE CLOSING RN NOTES PT REMAIN IN BED AWAKE OBTUNDED A/O X0, FAMILY AT THE BEDSIDE, REMAIN ON VENT SETTINGS ORDER BREATHING IS EVEN AND UNLABORED NO S/S OF ACUTE DISTRESS. NOTED WITH G'TUBE PATENT AND INTACT, FLUSHES WELL, WITH JEVITY 1.2 AT 70CC/HR RUNNING, TOLERATING WELL, NO RESIDUAL NOTED. RED CATHETER IN PLACE DRAINING 1200ML CLEAR YELLOW URINE. HOB ELEVATED. SAFETY MEASURE IN PLACE. DAY MIDLINE NOTED PATENT AND INTACT, FLUSHES WELL, ON IV FLUIDS RUNNING ORDERED. CALL LIGHT WITHIN REACH. WILL ENDORSE TO WASTEWATER PROJECT MANAGERBINGO FLOATER FOR CONTINUITY OF CARE. Addendum: 09/01/22 at 1831 by REGAN LUCIO RN RASHES STILL NOTED, KETOCONAZOLE CREAM APPLIED. SACRUM WOUND CARE RENDERED.
--- NOTE | 2022-09-01 19:30 | NUR ---
PUBLIC TRANSPORTATION INSPECTOR OPENING NOTES RECEIVED PT IN BED AWAKE, OBTUNDED A/O X0, FAMILY AT THE BEDSIDE, REMAIN ON VENT SETTINGS ORDER BREATHING IS EVEN AND UNLABORED NO S/S OF ACUTE DISTRESS. AKIRA MIDLINE NOTED PATENT AND INTACT, FLUSHES WELL, ON IV FLUIDS RUNNING ORDERED. NOTED WITH G'TUBE PATENT AND INTACT, FLUSHES WELL, WITH JEVITY 1.2 AT 70CC/HR RUNNING, TOLERATING WELL, NO RESIDUAL NOTED. RED CATHETER IN PLACE DRAINING CLEAR YELLOW URINE TO GRAVITY. HOB ELEVATED. SAFETY MEASURES IN PLACE. CALL LIGHT WITHIN REACH. WILL CONTINUE TO MONITOR THROUGHOUT THE SHIFT.
[2022-09-01 20:00] VITALS: BP 99/63
[2022-09-01] MEDS: SENNOSIDES 8.6 MG TABLET GT SCH (21:14)
[2022-09-02] VITALS: BP 99/56
[2022-09-02] MEDS: IPRATROPIUM NEB FS 0.5 MG/2.5 ML AMPUL.NEB NEB SCH ×4 (01:52→19:51)
[2022-09-02 04:00] VITALS: BP 105/56
[2022-09-02] MEDS: MEROPENEM 1 G in IV NS 0.9% 100 ML IV SCH (05:23)
[2022-09-02] MEDS: OFLOXACIN 0.3% OPHTH 5 ML BOTTLE EACHEYE SCH ×3 (05:24→17:04)
--- NOTE | 2022-09-02 06:33 | NUR ---
RN CLOSING NOTES PT REMAINS IN BED OBTUNDED A/O X0, REMAIN ON VENT SETTINGS ORDER BREATHING IS EVEN AND UNLABORED NO S/S OF ACUTE DISTRESS. NOTED WITH G'TUBE PATENT AND INTACT, FLUSHES WELL, WITH JEVITY 1.2 AT 70CC/HR RUNNING, TOLERATING WELL, NO RESIDUAL NOTED. RED CATHETER IN PLACE DRAINING CLEAR YELLOW URINE. HOB ELEVATED. SAFETY MEASURE IN PLACE. DAY MIDLINE NOTED PATENT AND INTACT, FLUSHES WELL, ON IV FLUIDS RUNNING ORDERED. ALL DUE MEDS GIVEN, KEPT DRY AND CLEAN, CALL LIGHT WITHIN REACH. RASHES STILL NOTED, KETOCONAZOLE CREAM APPLIED. WOUND CARE RENDERED. WILL ENDORSE TO AM SHIFT NURSE FOR CONTINUITY OF CARE.
--- NOTE | 2022-09-02 07:15 | NUR ---
RN NOTE RECEIVED PATIENT IN BED RESTING OBTUNDED,CONTRACTED,ON MECHANICAL VENT SETTING PRESCRIBED,ON G-TUBE FEEDING JEVITY 1.2 70CC/HR CHECKED PLACEMENT IN PLACE,NO RESIDUAL NOTED,IV SITE IS ON LEFT UPPER ARM MIDLINE INTACT PATENT,ON IV HYDRATION D5NS 75CC/HR,RED CATH IN PLACE,URINE DRAINING YELLOW BY GRAVITY SAFETY MEASURE IMPLEMENT BED IN LOW POSITON AND LOCKED,HEAD OF THE BED ELEVATED,CONTINUE TO MONITOR.
[2022-09-02 08:00] VITALS: BP 91/56
[2022-09-02] MEDS: PANTOPRAZOLE 40 MG/PACK PACK GT SCH (08:41)
[2022-09-02] MEDS: ZINC SULFATE 220 MG CAPSULE GT SCH (08:41)
[2022-09-02] MEDS: LEVETIRACETAM SOL (5 ML) 100 MG/ML UDC GT SCH ×2 (08:41→22:01)
[2022-09-02] MEDS: FERROUS SULFATE UDC 300 MG/5 ML UDC GT SCH (08:41)
[2022-09-02] MEDS: ASCORBIC ACID 500 MG TABLET GT SCH (08:41)
[2022-09-02] MEDS: CHLORHEXIDINE GLUCONATE 15 ML UDC MM SCH ×2 (08:41→17:02)
[2022-09-02] MEDS: DOCUSATE SODIUM LIQ 100 MG/10 ML UDC GT SCH (08:41)
[2022-09-02] MEDS: PROSOURCE / PROSTAT (PYXIS) 30 ML UDC GT SCH ×3 (08:45→17:02)
[2022-09-02] MEDS: ENOXAPARIN SODIUM 40 MG/0.4 ML DISP.SYRIN SQ SCH (08:46)
[2022-09-02] MEDS: KETOCONAZOLE 2% CREAM 15 GM TUBE TP SCH (08:50)
[2022-09-02 12:00] VITALS: BP 90/51
[2022-09-02] MEDS: IV D5/ 0.9% NACL 1,000 ML IV PRN (14:07)
[2022-09-02 16:00] VITALS: BP 112/67
--- NOTE | 2022-09-02 19:08 | NUR ---
RN NOTE PATIENT REMAINS OBTUNDED,NON VERBAL,CONTRACTED,ON MECHANICAL VENT SETTING PRESCRIBED, NO SOB NOT ACUTE DISTRESS NOTED,ON G-TUBE FEEDING,ON RED CATH,IV SITE IS ON LEFT UPPER ARM MIDLINE INTACT PATENT,ON D5NS 75CC/HR.ALL DUE MEDS GIVEN MD ORDERED,KEPT CLEAN AND DRY ALL THE TIME,TURNED AND REPOSITIONED EVERY 2 HOURS,KEPT HEAD OF THE BED ELEVATED,ALL NEEDS MET,ENDORSE NEXT COMING SHIFT FOR CONTINUATION OF CARE
--- NOTE | 2022-09-02 19:51 | NUR ---
RT Pt recvd on vent with the current settings: AC/VC rr16, vt500, fio2, 50%, peep+5 with alarms on and audible. Pt has a portex 8 cuffed trach that is patent and secured. Suction done Q2/PRN, neb tx given and holly well. vent is plugged into red outlet, spare trach and ambu bag at bedside. Pt family is on facetime via phone.
[2022-09-02 20:00] VITALS: BP 101/63
--- NOTE | 2022-09-02 20:09 | NUR ---
MACHINIST MECHANIC OPENING NOTES: RECEIVED PATIENT AWAKE IN BED, BED IN LOW LOW POSITION CALL LIGHTS WITHIN REACH, NO COMPLAIN OF PAIN AND DISCOMFORT AT THIS TIME, ON MECHANICAL VENT SATURATING WELL, AT 100%, PATIENT IS OBTUNDED OPENS EYES, ON GTUBE FEEDING OF JEVITY 1.2@70ML/HR INFUSING WELL, ON TELE MONITOR- ST-101, IV LINE AT AKIRA ML, D5NS@70ML/HR INFUSING WELL, PATIENT ON RED CATHETER- 50 CC URINE OUTPUT, PATIENT KEPT CLEAN AND DRY ALL NEEDS MET WILL CONTINUE TO MONITOR.
[2022-09-02] MEDS: SENNOSIDES 8.6 MG TABLET GT SCH (22:01)
[2022-09-03] VITALS: BP 115/70
[2022-09-03] MEDS: OFLOXACIN 0.3% OPHTH 5 ML BOTTLE EACHEYE SCH ×3 (00:07→12:07)
[2022-09-03] MEDS: IPRATROPIUM NEB FS 0.5 MG/2.5 ML AMPUL.NEB NEB SCH ×3 (01:54→14:17)
[2022-09-03 04:00] VITALS: BP 110/66
[2022-09-03] MEDS: JEVITY 1.2 CAL 1,000 ML BOTTLE GT PRN (05:16)
--- NOTE | 2022-09-03 06:33 | NUR ---
POULTRY FARM WORKER CLOSING NOTES: RECEIVED PATIENT AWAKE IN BED OPENS EYES, BED IN LOW POSITION CALL LIGHTS WITHIN REACH, NO COMPLAIN OF PAIN AND DISCOMFORT AT THIS TIME, ON MECHANICAL VENT SATURATING WELL, HOB AT 45 DEGREE, ASPIRATION PRECAUTION, PATIENT ON TELE [id number], PATIENT ON G TUBE FEEDING WITH JEVITY 1.2@70 ML SATURATING WELL, RED CATHETER-1200ML URINE OUTPUT, PATIENT KEPT CLEAN AND DRY ALL NEEDS MET ENDORSE TO INCOMING SHIFT.
--- NOTE | 2022-09-03 07:16 | NUR ---
WOUND CARE CONSULT: RECEIVED ANOTHER CONSULT FOR RASH, UNKNOWN ETIOLOGY. SURGICAL TEAM AWARE. DEFER TO PMD FOR RASH. FIRST STEP LOW AIRLOSS MATTRESS TO BE PLACED. DISCUSSED SKIN PROTECTION WITH NURSING STAFF. MD IN AGREEMENT WITH PLAN OF CARE.
--- NOTE | 2022-09-03 07:30 | NUR ---
COMPUTER TECHNOLOGIST OPENING NOTES RECEIVED PATIENT ON BED RESTING. ON MECHANICAL VENT TOLERATING CURRENT SETTING WELL. NO SOB NOTED. NOT IN DISTRESS. IN NO SIGNS OF PAIN VIA FLACC LEVEL OF PAIN. WITH IV ACCESS AT THE LEFT UPPER ARM MIDLINE SALINE LOCKED, PATENT AND INTACT. ON TELE MONITOR CURRENTLY READING SINUS RHYTHM AT 84BPM. ON JEVITY 1.2 AT 70ML/HR VIA G-TUBE FEEDING. SAFETY MEASURES IN PLACED. CALL LIGHT WITHIN REACH. BED ON LOWEST LOCKED POSITION, SIDE RAILS UP X2. WILL CONTINUE TO MONITOR.
[2022-09-03 08:00] VITALS: BP 102/61
[2022-09-03] MEDS: PANTOPRAZOLE 40 MG/PACK PACK GT SCH (08:37)
[2022-09-03] MEDS: CHLORHEXIDINE GLUCONATE 15 ML UDC MM SCH (08:37)
[2022-09-03] MEDS: FERROUS SULFATE UDC 300 MG/5 ML UDC GT SCH (08:37)
[2022-09-03] MEDS: LEVETIRACETAM SOL (5 ML) 100 MG/ML UDC GT SCH (08:37)
[2022-09-03] MEDS: ZINC SULFATE 220 MG CAPSULE GT SCH (08:37)
[2022-09-03] MEDS: DOCUSATE SODIUM LIQ 100 MG/10 ML UDC GT SCH (08:37)
[2022-09-03] MEDS: ASCORBIC ACID 500 MG TABLET GT SCH (08:37)
[2022-09-03] MEDS: ENOXAPARIN SODIUM 40 MG/0.4 ML DISP.SYRIN SQ SCH (08:39)
[2022-09-03] MEDS: KETOCONAZOLE 2% CREAM 15 GM TUBE TP SCH (08:40)
[2022-09-03] MEDS: PROSOURCE / PROSTAT (PYXIS) 30 ML UDC GT SCH ×2 (08:40→12:07)
[2022-09-03 12:00] VITALS: BP 107/69
--- NOTE | 2022-09-03 15:45 | NUR ---
PITCH FLAKER NOTES PATIENT WAS SEEN BY DR. MAX AND ORDERED PATIENT FOR DISCHARGE TO SNF. DISCHARGE INSTRUCTION AND MEDICATION INSTRUCTION PROVIDED TO PATIENT'S MOM. PATIENT'S MOTHER VERBALIZED UNDERSTANDING. PATIENT IS GOING BACK TO [facility]. GIVEN REPORT TO RN STEFANO FROM THE FACILITY. PATIENT UNABLE TO SIGN. PATIENT'S MOTHER SIGNED DISCHARGE PAPERS AND BELONGINGS LIST. REMOVED IV LINE AND NAME WRIST BAND. PICKED UP BY AMBULANCE PERSONNEL WITH RT IN STABLE CONDITION VIA GURNEY. MD AND CHARGE NURSE ARE AWARE OF THE DISCHARGE.
== END 2022-09-03 20:12 | DRG 981 ==
LOC: ER 20:12 → TRANSITION 08-26 01:13 → ICU 08-26 16:20 → TELE-TD 08-30 17:56 → TELE1 09-01 09:57 → UNDODISIN 09-02 18:00
PROVIDERS: ADMIT Student in an Organized Health Care Education/Training Program; ATTEND Nurse Practitioner Acute Care
PROC: 5A1955Z Respiratory Ventilation, Greater than 96 Consecutive Hours (ICD-10-PCS; principal; 2022-08-26)
PROC: 05H933Z Insertion of Infusion Device into Right Brachial Vein, Percutaneous Approach (ICD-10-PCS; 2022-08-27)
PROC: 0KBN0ZZ Excision of Right Hip Muscle, Open Approach (ICD-10-PCS; 2022-08-31)
PROC: 0KBP0ZZ Excision of Left Hip Muscle, Open Approach (ICD-10-PCS; 2022-08-31)
DX: J12.1 Respiratory syncytial virus pneumonia (principal); E43 Unspecified severe protein-calorie malnutrition; L89.154 Pressure ulcer of sacral region, stage 4; R53.2 Functional quadriplegia; J96.21 Acute and chronic respiratory failure with hypoxia; D68.59 Other primary thrombophilia; E87.1 Hypo-osmolality and hyponatremia; R64 Cachexia; G93.40 Encephalopathy, unspecified; Z99.11 Dependence on respirator [ventilator] status; Z20.822 Contact with and (suspected) exposure to COVID-19; Z87.820 Personal history of traumatic brain injury; V89.2XXS Person injured in unspecified motor-vehicle accident, traffic, sequela; R13.10 Dysphagia, unspecified; Z93.1 Gastrostomy status; Z98.2 Presence of cerebrospinal fluid drainage device; K21.9 Gastro-esophageal reflux disease without esophagitis; Z88.1 Allergy status to other antibiotic agents; Z79.51 Long term (current) use of inhaled steroids; Z79.899 Other long term (current) drug therapy; D64.9 Anemia, unspecified; G40.909 Epilepsy, unspecified, not intractable, without status epilepticus; E86.1 Hypovolemia; Z86.16 Personal history of COVID-19; I10 Essential (primary) hypertension; Z93.0 Tracheostomy status; Z86.718 Personal history of other venous thrombosis and embolism; Z74.01 Bed confinement status; B36.9 Superficial mycosis, unspecified; Z86.79 Personal history of other diseases of the circulatory system; M62.422 Contracture of muscle, left upper arm; M62.421 Contracture of muscle, right upper arm; M62.462 Contracture of muscle, left lower leg; M62.461 Contracture of muscle, right lower leg; Y92.9 Unspecified place or not applicable; T44.7X5A Adverse effect of beta-adrenoreceptor antagonists, initial encounter; R00.1 Bradycardia, unspecified
CPT/HCPCS: 31720; 36415; 36600; 71045-TC; 80048-TC; 80053-TC; 80076-TC; 81001; 82803-TC; 83605-TC; 83735-TC; 83880; 84100-TC; 84443-TC; 84484-TC; 85025-TC; 85378-TC; 85730-TC; 87040-TC; 87081-TC; 87086-TC; 93970-TC; 94002-TC; 94003-TC; 94760-TC; 94762-TC; 94799-TC; 99082-TC; C9113; C9803; G0378; J1650; J1953; J2185; J2405; J3490; J7030; J7042; J7050; Q9967; U0003

== ENCOUNTER 2022-10-24 07:15 | Emergency (ER) | payer BC, OTHER ==
[~2022-10-24] VITALS: Ht 167.6 cm; Wt 61.2 kg
[~2022-10-24 07:15] MED LIST changes: +ACET-868 GT; -ACET-868 PO
[2022-10-24] MEDS ORDERED: VANCOMYCIN 1 GM in IV D5W 250 ML IV ONE (07:30)
[2022-10-24] MEDS ORDERED: CEFEPIME 1 GM in IV D5W 50 ML IV ONE (07:30)
[2022-10-24 07:53] LABS: BASOPHILS % (AUTO) 0.2 % (0.0-2.0); EOSINOPHILS % (AUTO) 2.3 % (0.0-6.0); HEMATOCRIT 47 % (39-51); LYMPHOCYTES # (AUTO) 1.3 K/uL (0.8-4.8); LYMPHOCYTES % (AUTO) 9.7 % (20.0-44.0); MEAN CORPUSCULAR HGB CONC 32 g/dl (31.0-36.0); MEAN CORPUSCULAR VOLUME 87 fL (80-96); MONOCYTES # (AUTO) 1.4 K/uL (0.1-1.30); MONOCYTES % (AUTO) 9.9 % (2.0-12.0); NEUTROPHILS # (AUTO) 10.7 K/uL (1.8-8.9); NEUTROPHILS % (AUTO) 77.9 % (43.0-81.0); PLATELET COUNT (AUTO) 265 K/uL (150-450); RED BLOOD CELL COUNT(AUTO) 5.35 MIL/uL (4.5-6.0); WHITE BLOOD COUNT (AUTO) 13.7 K/uL (4.3-11.0)
[2022-10-24] MEDS ORDERED: IV NS 0.9% 1,000 ML IV ONE (08:00)
[2022-10-24 08:04] LABS: CALCIUM, SERUM 9.4 mg/dL (8.5-10.1); CARBON DIOXIDE 30 mmol/L (21-32); CHLORIDE 105 mmol/L (98-107); CREATININE 0.7 mg/dL (0.6-1.3); GLUCOSE 114 mg/dL (74-106); POTASSIUM 4.2 mmol/L (3.5-5.1); SODIUM SERUM 141 mmol/L (136-145); UREA NITROGEN, BLOOD 20 mg/dL (7-18)
[2022-10-24 08:09] LABS: ALANINE AMINOTRANSFERASE 39 U/L (12-78); ALBUMIN 3.5 g/dL (3.4-5.0); ALKALINE PHOSPHATASE 133 U/L (46-116); ASPARTATE AMINOTRANSFERASE 17 U/L (15-37); BILIRUBIN,DIRECT 0.1 mg/dL (0.0-0.2); BILIRUBIN,TOTAL 0.5 mg/dL (0.2-1.0); TOTAL PROTEIN, SERUM 7.9 g/dL (6.4-8.2)
[2022-10-24] MEDS ORDERED: diphenhydrAMINE HCL 50 MG/ML VIAL ONE (08:40)
[2022-10-24] MEDS ORDERED: diphenhydrAMINE HCL 50 MG/ML VIAL IV ONE (09:00)
[2022-10-24] MEDS ORDERED: DOXY100C2 GT (09:22)
[2022-10-24] MEDS ORDERED: NUTR1PAC14 GT (09:22)
[2022-10-24] MEDS ORDERED: COLL30OI TP (09:22)
[2022-10-24] MEDS ORDERED: LACT100027 GT (09:22)
[2022-10-24] MEDS ORDERED: IPRA4AER IH ×2 (09:22)
[2022-10-24 09:29] LABS: BILIRUBIN,URINE NEGATIVE (NEGATIVE); COLOR,URINE DARK YELLOW (YELLOW); LEUKOCYTE ESTERASE ,URINE 3+ (NEGATIVE); NITRITE, URINE POSITIVE (NEGATIVE); PROTEIN,URINE TRACE mg/dl (NEGATIVE); UGLUCOSE NEGATIVE (NEGATIVE); UROBILINOGEN,URINE 0.2 EU/dL (0.2)
[2022-10-24 09:33] LABS: BACTERIA,URINE Many /HPF (None Seen); SQUAMOUS EPITHELIAL CELL,UR Many /HPF (None Seen)
[2022-10-24] MEDS ORDERED: SULF1TAB48 PO (10:00)
[2022-10-24 12:10] VITALS: BP 122/76
== END 2022-10-24 12:10 ==
LOC: ER 07:20
DX: N39.0 Urinary tract infection, site not specified (principal); J95.00 Unspecified tracheostomy complication; Z20.822 Contact with and (suspected) exposure to COVID-19; I10 Essential (primary) hypertension; K21.9 Gastro-esophageal reflux disease without esophagitis; Z87.440 Personal history of urinary (tract) infections; Z88.8 Allergy status to other drugs, medicaments and biological substances; Z79.899 Other long term (current) drug therapy
CPT/HCPCS: 99285; 96374; 71045; 96361; 87426; 86592; 86593; 93005; 70360; 84145; 85025; 80048; 87040 ×2; 87086; 83605; 80076; 81001; 36415; 84484; 85730; J1200; J7030; J7040; C9803; A4223; J0692; J3370; J7060

== ENCOUNTER 2023-04-02 06:48 | Inpatient (IN) | payer MEDICARE, BC, OTHER ==
[~2023-04-02] VITALS: Ht 172.7 cm; Wt 68.9 kg
[~2023-04-02 06:48] MED LIST changes: -CRAN3875 GT; +DOXY100C2 GT; -IPRA12.9 IH; +IPRA4AER IH; +LACT100027 GT; -METO25TA20 GT; +NUTR1PAC14 GT; -NUTR250L50 GT; -SULF15DR6 EACHEYE; +SULF1TAB48 PO
[2023-04-02] MEDS ORDERED: IV NS 0.9% 1,000 ML BAG IV ONE (07:00)
[2023-04-02] MEDS ORDERED: CEFEPIME 1 GM in IV D5W 50 ML IV ONE (07:00)
[2023-04-02] MEDS ORDERED: VANCOMYCIN 1 GM in IV D5W 250 ML IV ONE (07:00)
[2023-04-02] MEDS ORDERED: KETOROLAC TROMETHAMINE 15 MG/ML VIAL ONE (07:09)
[2023-04-02] MEDS ORDERED: ACETAMINOPHEN 650 MG/SUPP.RECT RC ONE ×2 (07:09→07:30)
[2023-04-02] MEDS ORDERED: KETOROLAC TROMETHAMINE INJ 30 MG/ML VIAL IV ONE (07:30)
[2023-04-02 07:40] LABS: CALCIUM, SERUM 9.3 mg/dL (8.5-10.1); CARBON DIOXIDE 28 mmol/L (21-32); CHLORIDE 101 mmol/L (98-107); CREATININE 0.6 mg/dL (0.6-1.3); GLUCOSE 121 mg/dL (74-106); POTASSIUM 3.8 mmol/L (3.5-5.1); SODIUM SERUM 137 mmol/L (136-145); UREA NITROGEN, BLOOD 14 mg/dL (7-18)
[2023-04-02 07:46] LABS: ALANINE AMINOTRANSFERASE 71 U/L (12-78); ALBUMIN 3.2 g/dL (3.4-5.0); ALKALINE PHOSPHATASE 163 U/L (46-116); ASPARTATE AMINOTRANSFERASE 38 U/L (15-37); BASOPHILS % (AUTO) 0.1 % (0.0-2.0); BILIRUBIN,DIRECT 0.2 mg/dL (0.0-0.2); BILIRUBIN,TOTAL 0.5 mg/dL (0.2-1.0); HEMATOCRIT 44 % (39-51); HEMOGLOBIN 14.9 g/dL (13.5-17.5); LYMPHOCYTES # (AUTO) 0.7 K/uL (0.8-4.8); LYMPHOCYTES % (AUTO) 6.9 % (20.0-44.0); MEAN CORPUSCULAR HEMOGLOBIN 28 PG (26.0-33.0); MEAN CORPUSCULAR HGB CONC 34 g/dl (31.0-36.0); MEAN CORPUSCULAR VOLUME 85 fL (80-96); MONOCYTES % (AUTO) 9.8 % (2.0-12.0); NEUTROPHILS # (AUTO) 8.3 K/uL (1.8-8.9); NEUTROPHILS % (AUTO) 83.2 % (43.0-81.0); PLATELET COUNT (AUTO) 148 K/uL (150-450); RED BLOOD CELL COUNT(AUTO) 5.24 MIL/uL (4.5-6.0); RED CELL DISTRIBUTION WIDTH 13.6 % (11.5-15.0); TOTAL PROTEIN, SERUM 7.8 g/dL (6.4-8.2)
[2023-04-02 07:48] LABS: LACTIC ACID 1.3 mmol/L (0.4-2.0)
[2023-04-02 07:51] LABS: INR 1.09 (0.91-1.10); PARTIAL THROMBOPLASTIN TIME 32.1 SEC (24.3-34.3); PROTHROMBIN TIME 11.4 SECS (9.2-11.1)
[2023-04-02 08:21] LABS: APPEARANCE,URINE TURBID (CLEAR); BILIRUBIN,URINE NEGATIVE (NEGATIVE); BLOOD, URINE 3+ Ery/uL (NEGATIVE); COLOR,URINE DARK YELLOW (YELLOW); KETONES,URINE TRACE mg/dL (NEGATIVE); LEUKOCYTE ESTERASE ,URINE 2+ (NEGATIVE); NITRITE, URINE POSITIVE (NEGATIVE); PH,URINE 8.5 (5.0-8.0); PROTEIN,URINE 3+ mg/dl (NEGATIVE); UGLUCOSE NEGATIVE (NEGATIVE)
[2023-04-02 08:22] LABS: ADD URINE CULTURE YES; BACTERIA,URINE Moderate /HPF (None Seen); SQUAMOUS EPITHELIAL CELL,UR Rare /HPF (None Seen); WBC,URINE 51-80 /HPF (0-3)
[2023-04-02] MEDS ORDERED: DOCU50LI GT (08:56)
[2023-04-02] MEDS ORDERED: FERR220S2 GT (08:56)
[2023-04-02] MEDS ORDERED: CYCL5.5D EACHEYE (08:56)
[2023-04-02] MEDS ORDERED: OMEP20TA5 GT (08:56)
[2023-04-02] MEDS ORDERED: HYDR-4303 GT (08:56)
[2023-04-02] MEDS ORDERED: ZINC50TA39 GT (08:56)
[2023-04-02] MEDS ORDERED: MULT-213 GT (08:56)
[2023-04-02] MEDS ORDERED: NUTR250L50 GT (08:56)
[2023-04-02] MEDS ORDERED: CHLO473M5 MM (08:56)
[2023-04-02] MEDS ORDERED: NORM210S TP (08:56)
[2023-04-02] MEDS ORDERED: [UNRECOGNIZED DRUG - OTHER] EACHEYE (08:56)
[2023-04-02] MEDS ORDERED: LEVE500T20 GT (08:56)
[2023-04-02] MEDS ORDERED: COLLAGEN TP (08:56)
[2023-04-02] MEDS ORDERED: ASCO-495 GT (08:56)
[2023-04-02] MEDS ORDERED: VITS5OIN2 TP (08:58)
[2023-04-02 12:00] VITALS: BP 94/61; TEMP 98.9; O2SAT 96
[2023-04-02 12:08] VITALS: O2SAT 96
[2023-04-02] MEDS: IV LR 1000 ML 1,000 ML IV SCH (14:28)
[2023-04-02] MEDS ORDERED: ONDANSETRON HCL/PF 4 MG/2 ML VIAL IVP PRN (14:30)
[2023-04-02] MEDS ORDERED: Z GUARD REMEDY 4 OZ OINT TP PRN (14:30)
[2023-04-02 14:39] LABS: THYROID STIMULATING HORMONE 0.933 uIU/mL (0.358-3.74)
[2023-04-02] MEDS: ENOXAPARIN SODIUM 40 MG/0.4 ML DISP.SYRIN SQ SCH (15:28)
[2023-04-02] MEDS: CEFEPIME 2 GM in IV D5W 100 ML IV SCH ×2 (15:31→22:26)
[2023-04-02] MEDS ORDERED: ACETAMINOPHEN ES 500 MG TABLET PO PRN (16:30)
[2023-04-02] MEDS: ACETAMINOPHEN 325 MG TABLET PO PRN (16:36)
[2023-04-02] MEDS: VANCOMYCIN 0.75 GM in IV D5W 250 ML IV SCH (16:40)
[2023-04-02 17:09] VITALS: BP 106/60; TEMP 101.3; O2SAT 99
[2023-04-02] MEDS: PROSOURCE / PROSTAT (PYXIS) 30 ML UDC GT SCH (18:04)
[2023-04-02] MEDS: TWOCAL HN 1,000 ML LIQUID GT PRN (18:05)
[2023-04-02] MEDS: ALBUTEROL FS 2.5 MG/0.5 ML VIAL.NEB NEB SCH (19:53)
[2023-04-02] MEDS: IPRATROPIUM NEB FS 0.5 MG/2.5 ML AMPUL.NEB NEB SCH (19:53)
[2023-04-02 19:57] VITALS: O2SAT 99
[2023-04-02 20:00] VITALS: BP 112/61; TEMP 98.2; O2SAT 97
[2023-04-02 20:12] VITALS: O2SAT 99
[2023-04-02] MEDS: LEVETIRACETAM SOL (5 ML) 100 MG/ML UDC GT SCH (20:51)
[2023-04-03] VITALS (14 sets, daily range): BP systolic 101–119; BP diastolic 56–64; TEMP 98–102; O2SAT 94–98
[2023-04-03] MEDS: VANCOMYCIN 0.75 GM in IV D5W 250 ML IV SCH ×3 (00:16→16:02)
[2023-04-03] MEDS: ACETAMINOPHEN 325 MG TABLET PO PRN (00:16)
[2023-04-03] MEDS: IPRATROPIUM NEB FS 0.5 MG/2.5 ML AMPUL.NEB NEB SCH ×4 (01:36→19:38)
[2023-04-03] MEDS: ALBUTEROL FS 2.5 MG/0.5 ML VIAL.NEB NEB SCH ×4 (01:36→19:38)
[2023-04-03] MEDS: IV LR 1000 ML 1,000 ML IV SCH ×3 (02:25→20:35)
[2023-04-03] MEDS: TWOCAL HN 1,000 ML LIQUID GT PRN ×2 (05:56→19:59)
[2023-04-03] MEDS: CEFEPIME 2 GM in IV D5W 100 ML IV SCH ×4 (05:56→20:36)
[2023-04-03 06:46] LABS: CALCIUM, SERUM 8.8 mg/dL (8.5-10.1); CREATININE 0.5 mg/dL (0.6-1.3); MAGNESIUM 2.1 mg/dL (1.8-2.4); PHOSPHORUS 2.4 mg/dL (2.5-4.9); POTASSIUM 3.7 mmol/L (3.5-5.1)
[2023-04-03 06:55] LABS: BASOPHILS % (AUTO) 0.3 % (0.0-2.0); EOSINOPHILS % (AUTO) 0.2 % (0.0-6.0); HEMATOCRIT 37 % (39-51); HEMOGLOBIN 12.4 g/dL (13.5-17.5); LYMPHOCYTES # (AUTO) 0.6 K/uL (0.8-4.8); LYMPHOCYTES % (AUTO) 18.9 % (20.0-44.0); MEAN CORPUSCULAR HEMOGLOBIN 29 PG (26.0-33.0); MEAN CORPUSCULAR HGB CONC 33 g/dl (31.0-36.0); MEAN CORPUSCULAR VOLUME 86 fL (80-96); MONOCYTES # (AUTO) 0.6 K/uL (0.1-1.30); MONOCYTES % (AUTO) 17.7 % (2.0-12.0); NEUTROPHILS % (AUTO) 62.9 % (43.0-81.0); PLATELET COUNT (AUTO) 106 K/uL (150-450); RED BLOOD CELL COUNT(AUTO) 4.35 MIL/uL (4.5-6.0); RED CELL DISTRIBUTION WIDTH 13.7 % (11.5-15.0); WHITE BLOOD COUNT (AUTO) 3.2 K/uL (4.3-11.0)
[2023-04-03] MEDS: PROSOURCE / PROSTAT (PYXIS) 30 ML UDC GT SCH ×3 (08:26→16:02)
[2023-04-03] MEDS: LEVETIRACETAM SOL (5 ML) 100 MG/ML UDC GT SCH ×2 (08:26→21:07)
[2023-04-03] MEDS: FERROUS SULFATE (325 MG) 325 MG/TAB TABLET GT SCH (08:26)
[2023-04-03] MEDS: PANTOPRAZOLE 40 MG/PACK PACK GT SCH (08:26)
[2023-04-03] MEDS: DOCUSATE SODIUM LIQ 100 MG/10 ML UDC GT SCH (08:26)
[2023-04-03] MEDS: ENOXAPARIN SODIUM 40 MG/0.4 ML DISP.SYRIN SQ SCH (08:28)
[2023-04-03] MEDS ORDERED: POTASSIUM CHLORIDE 20 MEQ POWDER PACKET NG SCH (10:30)
[2023-04-03] MEDS ORDERED: NEUTRA PHOS 1 POWD.PACKET GT ONE (16:00)
[2023-04-03] MEDS ORDERED: NEUTRA PHOS 1 POWD.PACKET NG ONE (16:00)
[2023-04-04] VITALS (17 sets, daily range): BP systolic 99–117; BP diastolic 59–67; TEMP 98.2–99.1; O2SAT 95–100
[2023-04-04] MEDS: VANCOMYCIN 0.75 GM in IV D5W 250 ML IV SCH ×3 (01:08→16:30)
[2023-04-04] MEDS: IPRATROPIUM NEB FS 0.5 MG/2.5 ML AMPUL.NEB NEB SCH ×4 (02:06→20:26)
[2023-04-04] MEDS: ALBUTEROL FS 2.5 MG/0.5 ML VIAL.NEB NEB SCH ×4 (02:06→20:26)
[2023-04-04] MEDS: CEFEPIME 2 GM in IV D5W 100 ML IV SCH ×3 (04:20→20:42)
[2023-04-04] MEDS: IV LR 1000 ML 1,000 ML IV SCH (05:07)
[2023-04-04 05:48] LABS: BASOPHILS % (AUTO) 0.3 % (0.0-2.0); HEMATOCRIT 37 % (39-51); HEMOGLOBIN 12.3 g/dL (13.5-17.5); LYMPHOCYTES # (AUTO) 1.2 K/uL (0.8-4.8); LYMPHOCYTES % (AUTO) 26.5 % (20.0-44.0); MEAN CORPUSCULAR HEMOGLOBIN 29 PG (26.0-33.0); MEAN CORPUSCULAR HGB CONC 33 g/dl (31.0-36.0); MEAN CORPUSCULAR VOLUME 87 fL (80-96); MONOCYTES # (AUTO) 0.8 K/uL (0.1-1.30); MONOCYTES % (AUTO) 17.3 % (2.0-12.0); NEUTROPHILS # (AUTO) 2.5 K/uL (1.8-8.9); NEUTROPHILS % (AUTO) 54.9 % (43.0-81.0); PLATELET COUNT (AUTO) 94 K/uL (150-450); RED BLOOD CELL COUNT(AUTO) 4.28 MIL/uL (4.5-6.0); RED CELL DISTRIBUTION WIDTH 14.6 % (11.5-15.0); WHITE BLOOD COUNT (AUTO) 4.6 K/uL (4.3-11.0)
[2023-04-04 06:05] LABS: CREATININE 0.4 mg/dL (0.6-1.3); MAGNESIUM 2.1 mg/dL (1.8-2.4); PHOSPHORUS 2.8 mg/dL (2.5-4.9)
[2023-04-04] MEDS: DOCUSATE SODIUM LIQ 100 MG/10 ML UDC GT SCH (08:41)
[2023-04-04] MEDS: LEVETIRACETAM SOL (5 ML) 100 MG/ML UDC GT SCH ×2 (08:41→20:35)
[2023-04-04] MEDS: PANTOPRAZOLE 40 MG/PACK PACK GT SCH (08:41)
[2023-04-04] MEDS: FERROUS SULFATE (325 MG) 325 MG/TAB TABLET GT SCH (08:41)
[2023-04-04] MEDS: ENOXAPARIN SODIUM 40 MG/0.4 ML DISP.SYRIN SQ SCH (08:58)
[2023-04-04] MEDS: PROSOURCE / PROSTAT (PYXIS) 30 ML UDC GT SCH ×3 (09:16→17:15)
[2023-04-04] MEDS ORDERED: ACETAMINOPHEN 650 MG/20.3 ML UDC GT PRN (10:00)
[2023-04-04] MEDS ORDERED: ACETAMINOPHEN 650 MG/20.3 ML UDC PO PRN (10:00)
[2023-04-04 12:18] LABS: ANISOCYTOSIS 1+; BASOPHILS % (MANUAL) 0 % (0.0-2.0); EOSINOPHILS % (MANUAL) 0 % (0-4); LYMPHOCYTES % (MANUAL) 24 % (16-48); MONOCYTES % (MANUAL) 15 % (0-11.0); NEUTROPHILS % (MANUAL) 61 (42-76); PLATELET ESTIMATE DECREASED
[2023-04-04] MEDS: JEVITY 1.2 CAL 1,000 ML BOTTLE GT PRN (16:40)
[2023-04-05] VITALS (16 sets, daily range): BP systolic 97–128; BP diastolic 57–70; TEMP 98.3–99.7; O2SAT 94–99
[2023-04-05] MEDS: VANCOMYCIN 0.75 GM in IV D5W 250 ML IV SCH (00:42)
[2023-04-05] MEDS: IV LR 1000 ML 1,000 ML IV PRN ×2 (01:38→15:14)
[2023-04-05] MEDS: ALBUTEROL FS 2.5 MG/0.5 ML VIAL.NEB NEB SCH ×4 (02:14→20:38)
[2023-04-05] MEDS: IPRATROPIUM NEB FS 0.5 MG/2.5 ML AMPUL.NEB NEB SCH ×4 (02:14→20:37)
[2023-04-05] MEDS: CEFEPIME 2 GM in IV D5W 100 ML IV SCH (04:02)
[2023-04-05 05:43] LABS: BASOPHILS % (AUTO) 0.5 % (0.0-2.0); EOSINOPHILS # (AUTO) 0.1 K/uL (0.0-0.7); HEMATOCRIT 37 % (39-51); HEMOGLOBIN 12.4 g/dL (13.5-17.5); LYMPHOCYTES # (AUTO) 1.6 K/uL (0.8-4.8); LYMPHOCYTES % (AUTO) 31.4 % (20.0-44.0); MEAN CORPUSCULAR HEMOGLOBIN 29 PG (26.0-33.0); MEAN CORPUSCULAR HGB CONC 33 g/dl (31.0-36.0); MEAN CORPUSCULAR VOLUME 86 fL (80-96); MONOCYTES # (AUTO) 0.6 K/uL (0.1-1.30); MONOCYTES % (AUTO) 11.3 % (2.0-12.0); NEUTROPHILS # (AUTO) 2.9 K/uL (1.8-8.9); NEUTROPHILS % (AUTO) 54.8 % (43.0-81.0); PLATELET COUNT (AUTO) 153 K/uL (150-450); RED BLOOD CELL COUNT(AUTO) 4.32 MIL/uL (4.5-6.0); RED CELL DISTRIBUTION WIDTH 14.1 % (11.5-15.0); WHITE BLOOD COUNT (AUTO) 5.2 K/uL (4.3-11.0)
[2023-04-05 06:06] LABS: CALCIUM, SERUM 9.4 mg/dL (8.5-10.1); CREATININE 0.5 mg/dL (0.6-1.3); MAGNESIUM 2.1 mg/dL (1.8-2.4); PHOSPHORUS 4.5 mg/dL (2.5-4.9); POTASSIUM 3.9 mmol/L (3.5-5.1)
[2023-04-05] MEDS ORDERED: VANCOMYCIN 1 GM in IV D5W 250ml IV SCH (08:00)
[2023-04-05] MEDS: DOCUSATE SODIUM LIQ 100 MG/10 ML UDC GT SCH ×2 (10:07→19:42)
[2023-04-05] MEDS: LEVETIRACETAM SOL (5 ML) 100 MG/ML UDC GT SCH ×2 (10:07→20:51)
[2023-04-05] MEDS: FERROUS SULFATE (325 MG) 325 MG/TAB TABLET GT SCH (10:08)
[2023-04-05] MEDS: PANTOPRAZOLE 40 MG/PACK PACK GT SCH (10:08)
[2023-04-05] MEDS: PROSOURCE / PROSTAT (PYXIS) 30 ML UDC GT SCH ×3 (10:08→17:53)
[2023-04-05] MEDS: ENOXAPARIN SODIUM 40 MG/0.4 ML DISP.SYRIN SQ SCH (10:13)
[2023-04-05] MEDS: CEFTRIAXONE 1 G in IV D5W 50 ML IV SCH (11:22)
[2023-04-05] MEDS: JEVITY 1.2 CAL 1,000 ML BOTTLE GT PRN (15:10)
[2023-04-05] MEDS ORDERED: POLYETHYLENE GLYCOL 3350 17 GM POWD.PACK PO PRN (19:00)
[2023-04-06] VITALS (8 sets, daily range): BP systolic 100–106; BP diastolic 56–59; TEMP 98.2–98.7; O2SAT 94–99
[2023-04-06] MEDS: IPRATROPIUM NEB FS 0.5 MG/2.5 ML AMPUL.NEB NEB SCH ×3 (01:43→13:30)
[2023-04-06] MEDS: ALBUTEROL FS 2.5 MG/0.5 ML VIAL.NEB NEB SCH ×3 (01:43→13:30)
[2023-04-06] MEDS: IV LR 1000 ML 1,000 ML IV PRN (03:15)
[2023-04-06 06:48] LABS: BASOPHILS % (AUTO) 0.4 % (0.0-2.0); EOSINOPHILS # (AUTO) 0.1 K/uL (0.0-0.7); EOSINOPHILS % (AUTO) 1.9 % (0.0-6.0); HEMATOCRIT 38 % (39-51); HEMOGLOBIN 12.7 g/dL (13.5-17.5); LYMPHOCYTES # (AUTO) 1.9 K/uL (0.8-4.8); LYMPHOCYTES % (AUTO) 31.7 % (20.0-44.0); MEAN CORPUSCULAR HEMOGLOBIN 29 PG (26.0-33.0); MEAN CORPUSCULAR HGB CONC 33 g/dl (31.0-36.0); MEAN CORPUSCULAR VOLUME 86 fL (80-96); MONOCYTES # (AUTO) 0.7 K/uL (0.1-1.30); MONOCYTES % (AUTO) 11.1 % (2.0-12.0); NEUTROPHILS # (AUTO) 3.3 K/uL (1.8-8.9); NEUTROPHILS % (AUTO) 54.9 % (43.0-81.0); PLATELET COUNT (AUTO) 179 K/uL (150-450); RED BLOOD CELL COUNT(AUTO) 4.41 MIL/uL (4.5-6.0); RED CELL DISTRIBUTION WIDTH 14.1 % (11.5-15.0)
[2023-04-06 07:09] LABS: CALCIUM, SERUM 9.7 mg/dL (8.5-10.1); CREATININE 0.5 mg/dL (0.6-1.3); MAGNESIUM 2.2 mg/dL (1.8-2.4); PHOSPHORUS 4.2 mg/dL (2.5-4.9); POTASSIUM 3.9 mmol/L (3.5-5.1)
[2023-04-06] MEDS: CEFTRIAXONE 1 G in IV D5W 50 ML IV SCH (08:46)
[2023-04-06] MEDS: ENOXAPARIN SODIUM 40 MG/0.4 ML DISP.SYRIN SQ SCH (09:00)
[2023-04-06] MEDS: FERROUS SULFATE (325 MG) 325 MG/TAB TABLET GT SCH (09:02)
[2023-04-06] MEDS: DOCUSATE SODIUM LIQ 100 MG/10 ML UDC GT SCH (09:02)
[2023-04-06] MEDS: PANTOPRAZOLE 40 MG/PACK PACK GT SCH (09:02)
[2023-04-06] MEDS: LEVETIRACETAM SOL (5 ML) 100 MG/ML UDC GT SCH (09:02)
[2023-04-06] MEDS: PROSOURCE / PROSTAT (PYXIS) 30 ML UDC GT SCH ×2 (09:52→13:34)
[2023-04-06] MEDS ORDERED: POLYETHYLENE GLYCOL 3350 17 GM POWD.PACK GT PRN (10:12)
[2023-04-06] MEDS ORDERED: CEFT1FRO2 IV (11:28)
== END 2023-04-06 14:40 | DRG 871 ==
LOC: ER 06:50 → TELE 10:23
PROVIDERS: ADMIT Nurse Practitioner Acute Care; ATTEND Internal Medicine
DX: A41.9 Sepsis, unspecified organism (principal); R53.2 Functional quadriplegia; N39.0 Urinary tract infection, site not specified; J96.10 Chronic respiratory failure, unspecified whether with hypoxia or hypercapnia; G91.9 Hydrocephalus, unspecified; Z99.11 Dependence on respirator [ventilator] status; G93.49 Other encephalopathy; Z87.820 Personal history of traumatic brain injury; I10 Essential (primary) hypertension; G40.909 Epilepsy, unspecified, not intractable, without status epilepticus; K21.9 Gastro-esophageal reflux disease without esophagitis; D69.6 Thrombocytopenia, unspecified; R13.10 Dysphagia, unspecified; Z93.0 Tracheostomy status; Z93.1 Gastrostomy status; M62.50 Muscle wasting and atrophy, not elsewhere classified, unspecified site; L90.5 Scar conditions and fibrosis of skin; Z86.718 Personal history of other venous thrombosis and embolism; L89.90 Pressure ulcer of unspecified site, unspecified stage; Z20.822 Contact with and (suspected) exposure to COVID-19
CPT/HCPCS: 31720; 36415; 71045-TC; 80048-TC; 80061-TC; 80076-TC; 80202-TC; 81001; 83605-TC; 83735-TC; 84100-TC; 84443-TC; 84484-TC; 85025-TC; 85730-TC; 87040-TC; 87086-TC; 93970-TC; 94640-TC; 94799-TC; A4223; A4349; A4623; A4624; C9803; G0378; J0692; J0696; J1650; J1885; J1953; J3370; J7030; J7060; J7120

== ENCOUNTER 2023-08-15 07:58 | Inpatient (IN) | payer MEDICARE, BC, OTHER ==
[~2023-08-15] VITALS: Ht 175.3 cm; Wt 71.7 kg
[2023-08-15] VITALS (8 sets, daily range): BP systolic 90–116; BP diastolic 60–80; TEMP 97.6–99.1; O2SAT 95–98
[~2023-08-15 07:58] MED LIST changes: -ASCO-352 GT; +ASCO-495 GT; +CEFT1FRO2 IV; -COLL30OI TP; +COLLAGEN TP; +CYCL5.5D EACHEYE; -DOXY100C2 GT; +FERR220S2 GT; -FERR300L GT; +HYDR-4303 GT; -LACT100027 GT; -LEVE250T2 GT; +LEVE500T20 GT; +MULT-213 GT; +NORM210S TP; -NUTR1PAC14 GT; +NUTR250L50 GT; +OMEP20TA5 GT; -PANT40SU2 GT; -POLY15DR40 EACHEYE; -SENN-261 GT; -SULF1TAB48 PO; +VITS5OIN2 TP; -ZINC1CAP2 GT; +ZINC50TA39 GT; +[UNRECOGNIZED DRUG - OTHER] EACHEYE
[2023-08-15] MEDS ORDERED: CEFEPIME 1 GM in IV D5W 50 ML IV ONE (08:00)
[2023-08-15] MEDS ORDERED: VANCOMYCIN 1 GM in IV D5W 250 ML IV ONE (08:00)
[2023-08-15] MEDS ORDERED: IV NS 0.9% 1,000 ML BAG IV ONE (08:30)
[2023-08-15] MEDS ORDERED: ACETAMINOPHEN ES 500 MG TABLET GT ONE (08:30)
[2023-08-15 08:47] LABS: BASOPHILS # (AUTO) 0.1 K/uL (0.0-0.2); BASOPHILS % (AUTO) 1.9 % (0.0-2.0); EOSINOPHILS % (AUTO) 0.2 % (0.0-6.0); HEMATOCRIT 41 % (39-51); HEMOGLOBIN 13.9 g/dL (13.5-17.5); LYMPHOCYTES # (AUTO) 0.4 K/uL (0.8-4.8); LYMPHOCYTES % (AUTO) 6.3 % (20.0-44.0); MEAN CORPUSCULAR HEMOGLOBIN 29 PG (26.0-33.0); MEAN CORPUSCULAR HGB CONC 34 g/dl (31.0-36.0); MEAN CORPUSCULAR VOLUME 85 fL (80-96); MONOCYTES # (AUTO) 0.5 K/uL (0.1-1.30); MONOCYTES % (AUTO) 7.9 % (2.0-12.0); NEUTROPHILS # (AUTO) 5.3 K/uL (1.8-8.9); NEUTROPHILS % (AUTO) 83.7 % (43.0-81.0); PLATELET COUNT (AUTO) 104 K/uL (150-450); RED CELL DISTRIBUTION WIDTH 14.3 % (11.5-15.0); WHITE BLOOD COUNT (AUTO) 6.3 K/uL (4.3-11.0)
[2023-08-15] MEDS ORDERED: ACETAMINOPHEN ES 500 MG TABLET ONE (08:52)
[2023-08-15 08:57] LABS: INR 1.23 (0.91-1.10); PARTIAL THROMBOPLASTIN TIME 34.3 SEC (24.3-34.3); PROTHROMBIN TIME 12.9 SECS (9.2-11.1)
[2023-08-15] MEDS ORDERED: CEFT1FRO2 IV (08:58)
[2023-08-15] MEDS ORDERED: SULF15DR6 EACHEYE (08:58)
[2023-08-15] MEDS ORDERED: ONDA4TAB5 GT (08:58)
[2023-08-15 09:06] LABS: CALCIUM, SERUM 8.8 mg/dL (8.5-10.1); CARBON DIOXIDE 30 mmol/L (21-32); CHLORIDE 100 mmol/L (98-107); CREATININE 0.6 mg/dL (0.6-1.3); GLUCOSE 97 mg/dL (74-106); POTASSIUM 3.7 mmol/L (3.5-5.1); SODIUM SERUM 134 mmol/L (136-145); UREA NITROGEN, BLOOD 14 mg/dL (7-18)
[2023-08-15 09:12] LABS: ALANINE AMINOTRANSFERASE 59 U/L (12-78); ALBUMIN 3.1 g/dL (3.4-5.0); ALKALINE PHOSPHATASE 143 U/L (46-116); ASPARTATE AMINOTRANSFERASE 36 U/L (15-37); BILIRUBIN,DIRECT 0.3 mg/dL (0.0-0.2); BILIRUBIN,TOTAL 0.9 mg/dL (0.2-1.0); TOTAL PROTEIN, SERUM 7.5 g/dL (6.4-8.2)
[2023-08-15 09:14] LABS: APPEARANCE,URINE CLOUDY (CLEAR); BILIRUBIN,URINE NEGATIVE (NEGATIVE); BLOOD, URINE 2+ Ery/uL (NEGATIVE); COLOR,URINE DARK YELLOW (YELLOW); KETONES,URINE NEGATIVE (NEGATIVE); LEUKOCYTE ESTERASE ,URINE 2+ (NEGATIVE); NITRITE, URINE NEGATIVE (NEGATIVE); PROTEIN,URINE 2+ mg/dl (NEGATIVE); UGLUCOSE NEGATIVE (NEGATIVE); UROBILINOGEN,URINE 0.2 EU/dL (0.2)
[2023-08-15 09:14] LABS: LACTIC ACID 1.5 mmol/L (0.4-2.0)
[2023-08-15 09:15] LABS: ADD URINE CULTURE YES; BACTERIA,URINE Few /HPF (None Seen); SQUAMOUS EPITHELIAL CELL,UR Rare /HPF (None Seen)
[2023-08-15] MEDS ORDERED: ACETAMINOPHEN 650 MG/SUPP.RECT RC PRN (10:30)
[2023-08-15] MEDS ORDERED: ONDANSETRON HCL/PF 4 MG/2 ML VIAL IVP PRN (10:30)
[2023-08-15] MEDS ORDERED: Z GUARD REMEDY 4 OZ OINT TP PRN (10:30)
[2023-08-15] MEDS ORDERED: ALBUTEROL FS 2.5 MG/3 ML VIAL.NEB NEB PRN (10:30)
[2023-08-15] MEDS ORDERED: IPRATROPIUM NEB FS 0.5 MG/2.5 ML AMPUL.NEB NEB PRN (10:30)
[2023-08-15] MEDS ORDERED: HYDROCODONE/APAP 5/325MG TABLET GT PRN (10:30)
[2023-08-15] MEDS ORDERED: BISACODYL SUPP (10 MG) 10 MG/SUPP.RECT SUPP.RECT RC PRN (11:00)
[2023-08-15] MEDS ORDERED: TOBRAMYCIN IV ONE (11:00)
[2023-08-15] MEDS ORDERED: ACETAMINOPHEN ES 500 MG TABLET GT PRN (11:00)
[2023-08-15] MEDS: ENOXAPARIN SODIUM 60 MG/0.6 ML DISP.SYRIN SQ SCH ×2 (11:00→11:35)
[2023-08-15] MEDS ORDERED: NS 0.9% IV ONE (11:00)
[2023-08-15] MEDS ORDERED: ACETAMINOPHEN 325 MG TABLET PO PRN (11:00)
[2023-08-15] MEDS ORDERED: NUTR250L50 GT (11:00)
[2023-08-15] MEDS ORDERED: NA PHOS,M-B/NA PHOS,DI-BA 1 EA ENEMA RC PRN (11:00)
[2023-08-15] MEDS ORDERED: ACETAMINOPHEN 650 MG/20.3 ML UDC GT PRN (11:30)
[2023-08-15] MEDS ORDERED: TOBRAMYCIN 120 MG in IV D5W 100 ML IV ONE (11:30)
[2023-08-15] MEDS ORDERED: MORPHINE SULFATE INJ 4 MG/ML DISP.SYRIN IV PRN (11:30)
[2023-08-15] MEDS ORDERED: ENOXAPARIN SODIUM 40 MG/0.4 ML DISP.SYRIN SQ ONE (11:34)
[2023-08-15] MEDS ORDERED: [UNRECOGNIZED DRUG - REMARK] XX PRN (12:00)
[2023-08-15] MEDS ORDERED: SULFACETAMIDE 10% OPHTH 15 ML BOTTLE EACHEYE SCH (13:00)
[2023-08-15] MEDS: PROSOURCE / PROSTAT (PYXIS) 30 ML UDC GT SCH ×2 (14:51→18:31)
[2023-08-15] MEDS: IV NS 0.9% 1,000 ML IV PRN (14:52)
[2023-08-15] MEDS: JEVITY 1.2 CAL 1,000 ML BOTTLE GT PRN (17:10)
[2023-08-15] MEDS: MULTIVITAMINS,THERAGRAN 1 UDTAB TABLET PO SCH (18:31)
[2023-08-15] MEDS: DOCUSATE SODIUM LIQ 100 MG/10 ML UDC GT SCH (18:33)
[2023-08-15] MEDS: CHLORHEXIDINE GLUCONATE 15 ML UDC MM SCH (18:34)
[2023-08-15] MEDS: LEVETIRACETAM SOL (5 ML) 100 MG/ML UDC GT SCH (20:47)
[2023-08-15] MEDS: MEROPENEM 1 G in IV NS 0.9% 100 ML IV SCH (20:47)
[2023-08-15] MEDS: TOBRAMYCIN 120 MG in IV D5W 100 ML IV SCH (22:51)
[2023-08-16] VITALS (12 sets, daily range): BP systolic 97–133; BP diastolic 57–69; TEMP 97.7–98.8; O2SAT 94–99
[2023-08-16] MEDS: JEVITY 1.2 CAL 1,000 ML BOTTLE GT PRN (06:00)
[2023-08-16 07:48] LABS: BASOPHILS % (AUTO) 0.2 % (0.0-2.0); EOSINOPHILS % (AUTO) 0.7 % (0.0-6.0); HEMATOCRIT 35 % (39-51); HEMOGLOBIN 12.1 g/dL (13.5-17.5); LYMPHOCYTES # (AUTO) 0.9 K/uL (0.8-4.8); LYMPHOCYTES % (AUTO) 20.3 % (20.0-44.0); MEAN CORPUSCULAR HEMOGLOBIN 29 PG (26.0-33.0); MEAN CORPUSCULAR HGB CONC 34 g/dl (31.0-36.0); MEAN CORPUSCULAR VOLUME 86 fL (80-96); MONOCYTES # (AUTO) 0.7 K/uL (0.1-1.30); MONOCYTES % (AUTO) 17.2 % (2.0-12.0); NEUTROPHILS # (AUTO) 2.7 K/uL (1.8-8.9); NEUTROPHILS % (AUTO) 61.6 % (43.0-81.0); PLATELET COUNT (AUTO) 110 K/uL (150-450); RED BLOOD CELL COUNT(AUTO) 4.13 MIL/uL (4.5-6.0); RED CELL DISTRIBUTION WIDTH 14.1 % (11.5-15.0); WHITE BLOOD COUNT (AUTO) 4.4 K/uL (4.3-11.0)
[2023-08-16 08:35] LABS: CALCIUM, SERUM 8.8 mg/dL (8.5-10.1); CREATININE 0.4 mg/dL (0.6-1.3); MAGNESIUM 1.9 mg/dL (1.8-2.4); PHOSPHORUS 2.8 mg/dL (2.5-4.9); POTASSIUM 3.6 mmol/L (3.5-5.1)
[2023-08-16] MEDS: FERROUS SULFATE UDC 300 MG/5 ML UDC GT SCH (08:52)
[2023-08-16] MEDS: MULTIVITAMINS,THERAGRAN 1 UDTAB TABLET PO SCH (08:52)
[2023-08-16] MEDS: LEVETIRACETAM SOL (5 ML) 100 MG/ML UDC GT SCH ×2 (08:52→21:37)
[2023-08-16] MEDS: ASCORBIC ACID 500 MG TABLET GT SCH (08:52)
[2023-08-16] MEDS: DOCUSATE SODIUM LIQ 100 MG/10 ML UDC GT SCH ×3 (08:52→17:50)
[2023-08-16] MEDS: CHLORHEXIDINE GLUCONATE 15 ML UDC MM SCH ×2 (08:52→17:50)
[2023-08-16] MEDS: ZINC SULFATE 220 MG CAPSULE GT SCH (08:53)
[2023-08-16] MEDS: SULFACETAMIDE 10% OPHTH 15 ML BOTTLE EACHEYE SCH ×3 (09:00→17:44)
[2023-08-16] MEDS ORDERED: PANTOPRAZOLE 40 MG VIAL IV SCH (09:00)
[2023-08-16] MEDS: MEROPENEM 1 G in IV NS 0.9% 100 ML IV SCH ×2 (09:09→21:38)
[2023-08-16] MEDS: PROSOURCE / PROSTAT (PYXIS) 30 ML UDC GT SCH ×3 (09:09→17:50)
[2023-08-16] MEDS: TOBRAMYCIN 120 MG in IV D5W 100 ML IV SCH ×2 (12:39→23:27)
[2023-08-16] MEDS: ENOXAPARIN SODIUM 60 MG/0.6 ML DISP.SYRIN SQ SCH (12:40)
[2023-08-16] MEDS: ENOXAPARIN SODIUM 40 MG/0.4 ML DISP.SYRIN SQ SCH (13:50)
[2023-08-16] MEDS: IV NS 0.9% 1,000 ML IV PRN (18:04)
[2023-08-17] VITALS (12 sets, daily range): BP systolic 98–111; BP diastolic 63–73; TEMP 97.2–99.5; O2SAT 96–99
[2023-08-17] MEDS: JEVITY 1.2 CAL 1,000 ML BOTTLE GT PRN ×2 (00:58→22:54)
[2023-08-17 07:40] LABS: CALCIUM, SERUM 8.3 mg/dL (8.5-10.1); CREATININE 0.4 mg/dL (0.6-1.3); POTASSIUM 3.6 mmol/L (3.5-5.1)
[2023-08-17 07:44] LABS: BASOPHILS % (AUTO) 0.3 % (0.0-2.0); HEMATOCRIT 36 % (39-51); HEMOGLOBIN 11.9 g/dL (13.5-17.5); LYMPHOCYTES # (AUTO) 1.3 K/uL (0.8-4.8); LYMPHOCYTES % (AUTO) 28.3 % (20.0-44.0); MEAN CORPUSCULAR HEMOGLOBIN 29 PG (26.0-33.0); MEAN CORPUSCULAR HGB CONC 34 g/dl (31.0-36.0); MEAN CORPUSCULAR VOLUME 86 fL (80-96); MONOCYTES # (AUTO) 0.6 K/uL (0.1-1.30); MONOCYTES % (AUTO) 12.4 % (2.0-12.0); NEUTROPHILS # (AUTO) 2.6 K/uL (1.8-8.9); PLATELET COUNT (AUTO) 115 K/uL (150-450); RED BLOOD CELL COUNT(AUTO) 4.13 MIL/uL (4.5-6.0); RED CELL DISTRIBUTION WIDTH 14.4 % (11.5-15.0); WHITE BLOOD COUNT (AUTO) 4.6 K/uL (4.3-11.0)
[2023-08-17] MEDS: DOCUSATE SODIUM LIQ 100 MG/10 ML UDC GT SCH ×2 (08:34→16:01)
[2023-08-17] MEDS: FERROUS SULFATE UDC 300 MG/5 ML UDC GT SCH (08:55)
[2023-08-17] MEDS: ASCORBIC ACID 500 MG TABLET GT SCH (08:56)
[2023-08-17] MEDS: MULTIVITAMINS,THERAGRAN 1 UDTAB TABLET PO SCH (08:56)
[2023-08-17] MEDS: PANTOPRAZOLE 40 MG/PACK PACK NG SCH (08:56)
[2023-08-17] MEDS: LEVETIRACETAM SOL (5 ML) 100 MG/ML UDC GT SCH ×2 (08:56→22:36)
[2023-08-17] MEDS: CHLORHEXIDINE GLUCONATE 15 ML UDC MM SCH ×2 (08:56→16:22)
[2023-08-17] MEDS: ZINC SULFATE 220 MG CAPSULE GT SCH (08:56)
[2023-08-17] MEDS: MEROPENEM 1 G in IV NS 0.9% 100 ML IV SCH ×2 (09:00→22:37)
[2023-08-17] MEDS: PROSOURCE / PROSTAT (PYXIS) 30 ML UDC GT SCH ×3 (09:00→16:09)
[2023-08-17] MEDS: SULFACETAMIDE 10% OPHTH 15 ML BOTTLE EACHEYE SCH ×3 (12:35→16:22)
[2023-08-17] MEDS: TOBRAMYCIN 120 MG in IV D5W 100 ML IV SCH ×2 (12:42→23:00)
[2023-08-17] MEDS: IV NS 0.9% 1,000 ML IV PRN (12:43)
[2023-08-17] MEDS: ENOXAPARIN SODIUM 40 MG/0.4 ML DISP.SYRIN SQ SCH (13:08)
[2023-08-18] VITALS (12 sets, daily range): BP systolic 98–120; BP diastolic 63–70; TEMP 97.9–98.4; O2SAT 96–99
[2023-08-18] MEDS: IV NS 0.9% 1,000 ML IV PRN ×2 (05:45→22:36)
[2023-08-18] MEDS: MEROPENEM 1 G in IV NS 0.9% 100 ML IV SCH ×2 (08:23→21:38)
[2023-08-18] MEDS: ZINC SULFATE 220 MG CAPSULE GT SCH (08:23)
[2023-08-18] MEDS: CHLORHEXIDINE GLUCONATE 15 ML UDC MM SCH ×2 (08:23→16:55)
[2023-08-18] MEDS: LEVETIRACETAM SOL (5 ML) 100 MG/ML UDC GT SCH ×2 (08:23→22:36)
[2023-08-18] MEDS: DOCUSATE SODIUM LIQ 100 MG/10 ML UDC GT SCH ×2 (08:23→16:55)
[2023-08-18] MEDS: PROSOURCE / PROSTAT (PYXIS) 30 ML UDC GT SCH ×3 (08:23→16:56)
[2023-08-18] MEDS: PANTOPRAZOLE 40 MG/PACK PACK NG SCH (08:24)
[2023-08-18] MEDS: MULTIVITAMINS,THERAGRAN 1 UDTAB TABLET PO SCH (08:24)
[2023-08-18] MEDS: ASCORBIC ACID 500 MG TABLET GT SCH (08:24)
[2023-08-18] MEDS: FERROUS SULFATE UDC 300 MG/5 ML UDC GT SCH (08:24)
[2023-08-18] MEDS: SULFACETAMIDE 10% OPHTH 15 ML BOTTLE EACHEYE SCH ×3 (08:26→17:35)
[2023-08-18 09:51] LABS: BASOPHILS % (AUTO) 0.2 % (0.0-2.0); EOSINOPHILS # (AUTO) 0.1 K/uL (0.0-0.7); EOSINOPHILS % (AUTO) 1.6 % (0.0-6.0); HEMATOCRIT 40 % (39-51); HEMOGLOBIN 13.2 g/dL (13.5-17.5); LYMPHOCYTES # (AUTO) 1.6 K/uL (0.8-4.8); LYMPHOCYTES % (AUTO) 29.8 % (20.0-44.0); MEAN CORPUSCULAR HEMOGLOBIN 29 PG (26.0-33.0); MEAN CORPUSCULAR HGB CONC 33 g/dl (31.0-36.0); MEAN CORPUSCULAR VOLUME 86 fL (80-96); MONOCYTES # (AUTO) 0.6 K/uL (0.1-1.30); MONOCYTES % (AUTO) 10.8 % (2.0-12.0); NEUTROPHILS # (AUTO) 3.2 K/uL (1.8-8.9); NEUTROPHILS % (AUTO) 57.6 % (43.0-81.0); PLATELET COUNT (AUTO) 150 K/uL (150-450); RED BLOOD CELL COUNT(AUTO) 4.61 MIL/uL (4.5-6.0); RED CELL DISTRIBUTION WIDTH 14.4 % (11.5-15.0); WHITE BLOOD COUNT (AUTO) 5.5 K/uL (4.3-11.0)
[2023-08-18 10:12] LABS: CALCIUM, SERUM 9.3 mg/dL (8.5-10.1); CREATININE 0.5 mg/dL (0.6-1.3); POTASSIUM 3.9 mmol/L (3.5-5.1)
[2023-08-18] MEDS: TOBRAMYCIN 120 MG in IV D5W 100 ML IV SCH (11:00)
[2023-08-18] MEDS: ENOXAPARIN SODIUM 40 MG/0.4 ML DISP.SYRIN SQ SCH (13:05)
[2023-08-18] MEDS: TOBRAMYCIN 320 MG in IV D5W 100 ML IV SCH (16:02)
[2023-08-19] VITALS (10 sets, daily range): BP systolic 105–149; BP diastolic 64–71; TEMP 98.1–98.7; O2SAT 95–99
[2023-08-19 06:42] LABS: BASOPHILS # (AUTO) 0.1 K/uL (0.0-0.2); BASOPHILS % (AUTO) 0.5 % (0.0-2.0); EOSINOPHILS # (AUTO) 0.2 K/uL (0.0-0.7); EOSINOPHILS % (AUTO) 1.6 % (0.0-6.0); HEMATOCRIT 40 % (39-51); HEMOGLOBIN 12.7 g/dL (13.5-17.5); LYMPHOCYTES # (AUTO) 3.1 K/uL (0.8-4.8); LYMPHOCYTES % (AUTO) 26.3 % (20.0-44.0); MEAN CORPUSCULAR HEMOGLOBIN 28 PG (26.0-33.0); MEAN CORPUSCULAR HGB CONC 32 g/dl (31.0-36.0); MEAN CORPUSCULAR VOLUME 87 fL (80-96); MONOCYTES # (AUTO) 1.6 K/uL (0.1-1.30); MONOCYTES % (AUTO) 13.4 % (2.0-12.0); NEUTROPHILS # (AUTO) 6.7 K/uL (1.8-8.9); NEUTROPHILS % (AUTO) 58.2 % (43.0-81.0); PLATELET COUNT (AUTO) 165 K/uL (150-450); RED BLOOD CELL COUNT(AUTO) 4.59 MIL/uL (4.5-6.0); RED CELL DISTRIBUTION WIDTH 14.5 % (11.5-15.0); WHITE BLOOD COUNT (AUTO) 11.6 K/uL (4.3-11.0)
[2023-08-19 06:52] LABS: CALCIUM, SERUM 9.2 mg/dL (8.5-10.1); CREATININE 0.5 mg/dL (0.6-1.3)
[2023-08-19] MEDS: SULFACETAMIDE 10% OPHTH 15 ML BOTTLE EACHEYE SCH ×3 (09:00→16:28)
[2023-08-19] MEDS: CHLORHEXIDINE GLUCONATE 15 ML UDC MM SCH ×2 (09:26→16:30)
[2023-08-19] MEDS: DOCUSATE SODIUM LIQ 100 MG/10 ML UDC GT SCH ×2 (09:26→16:30)
[2023-08-19] MEDS: LEVETIRACETAM SOL (5 ML) 100 MG/ML UDC GT SCH ×2 (09:26→20:59)
[2023-08-19] MEDS: ASCORBIC ACID 500 MG TABLET GT SCH (09:26)
[2023-08-19] MEDS: FERROUS SULFATE UDC 300 MG/5 ML UDC GT SCH (09:26)
[2023-08-19] MEDS: PROSOURCE / PROSTAT (PYXIS) 30 ML UDC GT SCH ×3 (09:27→16:30)
[2023-08-19] MEDS: MULTIVITAMINS,THERAGRAN 1 UDTAB TABLET GT SCH (09:27)
[2023-08-19] MEDS: ZINC SULFATE 220 MG CAPSULE GT SCH (09:27)
[2023-08-19] MEDS: PANTOPRAZOLE 40 MG/PACK PACK NG SCH (09:27)
[2023-08-19] MEDS: MEROPENEM 1 G in IV NS 0.9% 100 ML IV SCH ×2 (10:11→20:35)
[2023-08-19] MEDS: IV NS 0.9% 1,000 ML IV PRN (11:33)
[2023-08-19] MEDS: JEVITY 1.2 CAL 1,000 ML BOTTLE GT PRN (11:33)
[2023-08-19] MEDS: ENOXAPARIN SODIUM 40 MG/0.4 ML DISP.SYRIN SQ SCH (13:39)
[2023-08-19] MEDS: TOBRAMYCIN 320 MG in IV D5W 100 ML IV SCH (14:29)
[2023-08-19] MEDS: NEOMY SULF/BACITRAC ZN/POLY 15 GM TUBE TP SCH (19:00)
[2023-08-20] VITALS (10 sets, daily range): BP systolic 102–112; BP diastolic 65–77; TEMP 97.2–99.1; O2SAT 95–100
[2023-08-20] MEDS: IV NS 0.9% 1,000 ML IV PRN (03:03)
[2023-08-20] MEDS: JEVITY 1.2 CAL 1,000 ML BOTTLE GT PRN (05:10)
[2023-08-20] MEDS: MEROPENEM 1 G in IV NS 0.9% 100 ML IV SCH ×3 (05:10→20:36)
[2023-08-20 07:56] LABS: BASOPHILS % (AUTO) 0.3 % (0.0-2.0); EOSINOPHILS # (AUTO) 0.1 K/uL (0.0-0.7); EOSINOPHILS % (AUTO) 1.9 % (0.0-6.0); HEMATOCRIT 42 % (39-51); HEMOGLOBIN 13.7 g/dL (13.5-17.5); LYMPHOCYTES # (AUTO) 2.5 K/uL (0.8-4.8); LYMPHOCYTES % (AUTO) 32.5 % (20.0-44.0); MEAN CORPUSCULAR HEMOGLOBIN 29 PG (26.0-33.0); MEAN CORPUSCULAR HGB CONC 33 g/dl (31.0-36.0); MEAN CORPUSCULAR VOLUME 87 fL (80-96); MONOCYTES # (AUTO) 0.7 K/uL (0.1-1.30); MONOCYTES % (AUTO) 8.8 % (2.0-12.0); NEUTROPHILS # (AUTO) 4.4 K/uL (1.8-8.9); NEUTROPHILS % (AUTO) 56.5 % (43.0-81.0); PLATELET COUNT (AUTO) 213 K/uL (150-450); RED BLOOD CELL COUNT(AUTO) 4.79 MIL/uL (4.5-6.0); RED CELL DISTRIBUTION WIDTH 14.9 % (11.5-15.0); WHITE BLOOD COUNT (AUTO) 7.7 K/uL (4.3-11.0)
[2023-08-20 08:15] LABS: CALCIUM, SERUM 9.3 mg/dL (8.5-10.1); CREATININE 0.5 mg/dL (0.6-1.3); POTASSIUM 3.9 mmol/L (3.5-5.1)
[2023-08-20] MEDS: FERROUS SULFATE UDC 300 MG/5 ML UDC GT SCH (08:41)
[2023-08-20] MEDS: PANTOPRAZOLE 40 MG/PACK PACK NG SCH (08:41)
[2023-08-20] MEDS: LEVETIRACETAM SOL (5 ML) 100 MG/ML UDC GT SCH ×2 (08:41→21:41)
[2023-08-20] MEDS: MULTIVITAMINS,THERAGRAN 1 UDTAB TABLET GT SCH (08:42)
[2023-08-20] MEDS: PROSOURCE / PROSTAT (PYXIS) 30 ML UDC GT SCH ×3 (08:43→17:43)
[2023-08-20] MEDS: ASCORBIC ACID 500 MG TABLET GT SCH (08:43)
[2023-08-20] MEDS: DOCUSATE SODIUM LIQ 100 MG/10 ML UDC GT SCH ×2 (08:43→17:43)
[2023-08-20] MEDS: SULFACETAMIDE 10% OPHTH 15 ML BOTTLE EACHEYE SCH ×3 (08:47→17:43)
[2023-08-20] MEDS: NEOMY SULF/BACITRAC ZN/POLY 15 GM TUBE TP SCH (08:47)
[2023-08-20] MEDS: ZINC SULFATE 220 MG CAPSULE GT SCH (08:47)
[2023-08-20] MEDS: CHLORHEXIDINE GLUCONATE 15 ML UDC MM SCH ×2 (09:13→17:43)
[2023-08-20] MEDS: ENOXAPARIN SODIUM 40 MG/0.4 ML DISP.SYRIN SQ SCH (14:00)
[2023-08-20] MEDS: TOBRAMYCIN 320 MG in IV D5W 100 ML IV SCH (15:07)
[2023-08-21] VITALS (8 sets, daily range): BP systolic 103–113; BP diastolic 68–77; TEMP 97.5–98.6; O2SAT 95–99
[2023-08-21 00:05] LABS: CALCIUM, SERUM 9.6 mg/dL (8.5-10.1); CREATININE 0.4 mg/dL (0.6-1.3); POTASSIUM 4.3 mmol/L (3.5-5.1)
[2023-08-21] MEDS: MEROPENEM 1 G in IV NS 0.9% 100 ML IV SCH ×2 (05:16→13:13)
[2023-08-21 07:50] LABS: BASOPHILS % (AUTO) 0.4 % (0.0-2.0); EOSINOPHILS # (AUTO) 0.2 K/uL (0.0-0.7); EOSINOPHILS % (AUTO) 1.7 % (0.0-6.0); HEMATOCRIT 42 % (39-51); HEMOGLOBIN 14.4 g/dL (13.5-17.5); LYMPHOCYTES # (AUTO) 2.4 K/uL (0.8-4.8); LYMPHOCYTES % (AUTO) 27.4 % (20.0-44.0); MEAN CORPUSCULAR HEMOGLOBIN 29 PG (26.0-33.0); MEAN CORPUSCULAR HGB CONC 34 g/dl (31.0-36.0); MEAN CORPUSCULAR VOLUME 86 fL (80-96); MONOCYTES # (AUTO) 0.7 K/uL (0.1-1.30); MONOCYTES % (AUTO) 7.7 % (2.0-12.0); NEUTROPHILS # (AUTO) 5.6 K/uL (1.8-8.9); NEUTROPHILS % (AUTO) 62.8 % (43.0-81.0); PLATELET COUNT (AUTO) 261 K/uL (150-450); RED CELL DISTRIBUTION WIDTH 14.7 % (11.5-15.0); WHITE BLOOD COUNT (AUTO) 8.9 K/uL (4.3-11.0)
[2023-08-21] MEDS: CHLORHEXIDINE GLUCONATE 15 ML UDC MM SCH (08:14)
[2023-08-21] MEDS: FERROUS SULFATE UDC 300 MG/5 ML UDC GT SCH (08:14)
[2023-08-21] MEDS: LEVETIRACETAM SOL (5 ML) 100 MG/ML UDC GT SCH (08:15)
[2023-08-21] MEDS: ASCORBIC ACID 500 MG TABLET GT SCH (08:15)
[2023-08-21] MEDS: MULTIVITAMINS,THERAGRAN 1 UDTAB TABLET GT SCH (08:15)
[2023-08-21] MEDS: SULFACETAMIDE 10% OPHTH 15 ML BOTTLE EACHEYE SCH ×2 (08:15→13:13)
[2023-08-21] MEDS: DOCUSATE SODIUM LIQ 100 MG/10 ML UDC GT SCH (08:15)
[2023-08-21] MEDS: ZINC SULFATE 220 MG CAPSULE GT SCH (08:15)
[2023-08-21] MEDS: PANTOPRAZOLE 40 MG/PACK PACK NG SCH (08:16)
[2023-08-21] MEDS: PROSOURCE / PROSTAT (PYXIS) 30 ML UDC GT SCH ×2 (08:16→13:13)
[2023-08-21] MEDS: NEOMY SULF/BACITRAC ZN/POLY 15 GM TUBE TP SCH (08:17)
[2023-08-21 08:26] LABS: CALCIUM, SERUM 9.3 mg/dL (8.5-10.1); CREATININE 0.5 mg/dL (0.6-1.3); POTASSIUM 3.9 mmol/L (3.5-5.1)
[2023-08-21] MEDS ORDERED: MERO1PIG IV (13:15)
[2023-08-21] MEDS ORDERED: SULF15DR6 EACHEYE (13:15)
[2023-08-21] MEDS ORDERED: MULT-24 GT (13:15)
[2023-08-21] MEDS ORDERED: TOBR40VI2 IV (13:15)
[2023-08-21] MEDS ORDERED: PANT40SU2 NG (13:15)
[2023-08-21] MEDS: ENOXAPARIN SODIUM 40 MG/0.4 ML DISP.SYRIN SQ SCH (13:18)
[2023-08-21] MEDS: TOBRAMYCIN 320 MG in IV D5W 100 ML IV SCH (13:39)
== END 2023-08-21 16:46 | DRG 871 ==
LOC: ER 08:11 → TELE1 11:39 → MEDSG1 08-20 10:23
PROVIDERS: ADMIT Nurse Practitioner Acute Care; ATTEND Nurse Practitioner Acute Care
DX: A41.9 Sepsis, unspecified organism (principal); G93.41 Metabolic encephalopathy; J15.69 Pneumonia due to other Gram-negative bacteria; J96.20 Acute and chronic respiratory failure, unspecified whether with hypoxia or hypercapnia; R53.2 Functional quadriplegia; J69.0 Pneumonitis due to inhalation of food and vomit; E44.0 Moderate protein-calorie malnutrition; N39.0 Urinary tract infection, site not specified; R64 Cachexia; Z99.11 Dependence on respirator [ventilator] status; G91.9 Hydrocephalus, unspecified; K21.9 Gastro-esophageal reflux disease without esophagitis; Z74.01 Bed confinement status; Z86.16 Personal history of COVID-19; Z87.01 Personal history of pneumonia (recurrent); Z87.820 Personal history of traumatic brain injury; Z93.0 Tracheostomy status; Z93.1 Gastrostomy status; Z98.2 Presence of cerebrospinal fluid drainage device; Z87.440 Personal history of urinary (tract) infections; Z86.718 Personal history of other venous thrombosis and embolism; R13.10 Dysphagia, unspecified; D69.6 Thrombocytopenia, unspecified; G40.909 Epilepsy, unspecified, not intractable, without status epilepticus; M62.50 Muscle wasting and atrophy, not elsewhere classified, unspecified site; Z68.23 Body mass index [BMI] 23.0-23.9, adult; R74.8 Abnormal levels of other serum enzymes; M24.542 Contracture, left hand; M24.541 Contracture, right hand; M24.574 Contracture, right foot; M24.575 Contracture, left foot; L90.5 Scar conditions and fibrosis of skin; D64.9 Anemia, unspecified; L84 Corns and callosities; V89.2XXS Person injured in unspecified motor-vehicle accident, traffic, sequela; B95.2 Enterococcus as the cause of diseases classified elsewhere; L27.1 Localized skin eruption due to drugs and medicaments taken internally; T36.1X5A Adverse effect of cephalosporins and other beta-lactam antibiotics, initial encounter; Y92.129 Unspecified place in nursing home as the place of occurrence of the external cause; I10 Essential (primary) hypertension
CPT/HCPCS: 31720; 36415; 71045-TC; 80048-TC; 80076-TC; 81001; 83605-TC; 83690-TC; 83735-TC; 84100-TC; 84484-TC; 85025-TC; 85730-TC; 87040-TC; 87086-TC; 94640-TC; 94799-TC; 99082-TC; A4223; A4623; A6403; C9113; G0378; J0692; J1650; J1953; J2185; J3260; J3370; J7030; J7060

== ENCOUNTER 2023-12-10 06:42 | Inpatient (IN) | payer MEDICARE, BC, OTHER ==
[2023-12-10] VITALS (7 sets, daily range): BP systolic 109–118; BP diastolic 74–80; TEMP 98.4–99.6; O2SAT 94–99
[~2023-12-10] VITALS: Ht 172.7 cm; Wt 73.1 kg
[~2023-12-10 06:42] MED LIST changes: -CEFT1FRO2 IV; -COLLAGEN TP; -CYCL5.5D EACHEYE; -HYDR-4303 GT; +MERO1PIG IV; +MULT-24 GT; -NORM210S TP; +ONDA4TAB5 GT; +PANT40SU2 NG; +SULF15DR6 EACHEYE; +TOBR40VI2 IV; -VITS5OIN2 TP; -[UNRECOGNIZED DRUG - OTHER] EACHEYE
[2023-12-10] MEDS: IV NS 0.9% 1,000 ML BAG IV ONE ×2 (07:30→07:42)
[2023-12-10] MEDS ORDERED: PANTOPRAZOLE 40 MG VIAL ONE (07:34)
[2023-12-10] MEDS ORDERED: ONDANSETRON HCL/PF 4 MG/2 ML VIAL ONE (07:34)
[2023-12-10] MEDS ORDERED: LEVOFLOXACIN 750 MG /D5W 150ML 150 ML IV ONE (07:34)
[2023-12-10] MEDS: PANTOPRAZOLE 40 MG VIAL IV ONE (07:42)
[2023-12-10] MEDS: ONDANSETRON HCL/PF 4 MG/2 ML VIAL IVP ONE (07:42)
[2023-12-10] MEDS: LEVOFLOXACIN 750 MG /D5W 150ML PIGGYBACK IV ONE (07:42)
[2023-12-10 07:58] LABS: BASOPHILS % (AUTO) 0.2 % (0.0-2.0); EOSINOPHILS % (AUTO) 0.2 % (0.0-6.0); HEMATOCRIT 51 % (39-51); HEMOGLOBIN 17.2 g/dL (13.5-17.5); LYMPHOCYTES # (AUTO) 1.6 K/uL (0.8-4.8); MEAN CORPUSCULAR HEMOGLOBIN 30 PG (26.0-33.0); MEAN CORPUSCULAR HGB CONC 34 g/dl (31.0-36.0); MEAN CORPUSCULAR VOLUME 87 fL (80-96); MONOCYTES # (AUTO) 1.3 K/uL (0.1-1.30); MONOCYTES % (AUTO) 8.8 % (2.0-12.0); NEUTROPHILS # (AUTO) 11.9 K/uL (1.8-8.9); NEUTROPHILS % (AUTO) 79.8 % (43.0-81.0); PLATELET COUNT (AUTO) 269 K/uL (150-450); RED CELL DISTRIBUTION WIDTH 13.2 % (11.5-15.0); WHITE BLOOD COUNT (AUTO) 14.9 K/uL (4.3-11.0)
[2023-12-10 08:00] LABS: APPEARANCE,URINE SLIGHTLY CLOUDY (CLEAR); BILIRUBIN,URINE NEGATIVE (NEGATIVE); BLOOD, URINE 1+ Ery/uL (NEGATIVE); COLOR,URINE YELLOW (YELLOW); KETONES,URINE NEGATIVE (NEGATIVE); LEUKOCYTE ESTERASE ,URINE 3+ (NEGATIVE); NITRITE, URINE POSITIVE (NEGATIVE); PH,URINE 8.5 (5.0-8.0); PROTEIN,URINE 1+ mg/dl (NEGATIVE); UGLUCOSE NEGATIVE (NEGATIVE); UROBILINOGEN,URINE 0.2 EU/dL (0.2)
[2023-12-10 08:11] LABS: INR 1.06 (0.91-1.10); PARTIAL THROMBOPLASTIN TIME 24.1 SEC (24.3-34.3); PROTHROMBIN TIME 11.2 SECS (9.2-11.1)
[2023-12-10 08:16] LABS: CALCIUM, SERUM 9.4 mg/dL (8.5-10.1); CREATININE 0.8 mg/dL (0.6-1.3)
[2023-12-10 08:21] LABS: ADD URINE CULTURE YES; BACTERIA,URINE 2+ /HPF (None Seen); RBC,URINE 0-2 /HPF (0-2); SQUAMOUS EPITHELIAL CELL,UR None Seen /HPF (None Seen); YEAST,URINE None Seen /HPF (None Seen)
[2023-12-10 08:28] LABS: LACTIC ACID 2.2 mmol/L (0.4-2.0)
[2023-12-10 08:30] LABS: TRIPLE PHOSPHATE CRYSTAL,UR Few /HPF (None Seen)
[2023-12-10 08:31] LABS: ALBUMIN 3.6 g/dL (3.4-5.0); BILIRUBIN,DIRECT 0.2 mg/dL (0.0-0.2); BILIRUBIN,TOTAL 0.6 mg/dL (0.2-1.0); TOTAL PROTEIN, SERUM 8.4 g/dL (6.4-8.2)
[2023-12-10 08:31] LABS: URINE AMORPHOUS PHOSPHATES Many /HPF (None Seen)
[2023-12-10 08:32] LABS: OCCULT BLOOD STOOL NEGATIVE (NEGATIVE)
[2023-12-10] MEDS ORDERED: DOCU100C36 GT (08:42)
[2023-12-10] MEDS ORDERED: LEVE100S GT (08:43)
[2023-12-10] MEDS ORDERED: ASCO500T10 GT (08:43)
[2023-12-10] MEDS ORDERED: SENN-261 GT (08:43)
[2023-12-10] MEDS ORDERED: LACT1CAP89 GT (08:43)
[2023-12-10] MEDS ORDERED: CRAN3875 GT (08:43)
[2023-12-10] MEDS ORDERED: OMEP20CA15 GT (08:43)
[2023-12-10] MEDS ORDERED: ONDANSETRON HCL/PF 4 MG/2 ML VIAL IVP PRN (14:00)
[2023-12-10] MEDS: ENOXAPARIN SODIUM 40 MG/0.4 ML DISP.SYRIN SQ SCH (14:00)
[2023-12-10] MEDS ORDERED: Z GUARD REMEDY 4 OZ OINT TP PRN (14:00)
[2023-12-10] MEDS: IV NS 0.9% 1,000 ML IV PRN (15:41)
[2023-12-10] MEDS: METRONIDAZOLE 500MG/ NS 100ML 500 MG in PREMIX 1 EA IV SCH (15:41)
[2023-12-10] MEDS: JEVITY 1.2 CAL 1,000 ML BOTTLE GT SCH (16:48)
[2023-12-10] MEDS: CHLORHEXIDINE GLUCONATE 15 ML UDC MM SCH (17:24)
[2023-12-10] MEDS: SENNOSIDES 8.6 MG TABLET GT SCH (17:24)
[2023-12-10] MEDS: MEROPENEM 1 G in IV NS 0.9% 100 ML IV SCH (21:51)
[2023-12-10] MEDS: LEVETIRACETAM SOL (5 ML) 100 MG/ML UDC GT SCH (21:51)
[2023-12-11] VITALS (10 sets, daily range): BP systolic 94–132; BP diastolic 61–73; TEMP 98.6–98.8; O2SAT 94–100
[2023-12-11] MEDS: PANTOPRAZOLE 40 MG/PACK PACK GT SCH (08:31)
[2023-12-11 08:44] LABS: BASOPHILS % (AUTO) 0.3 % (0.0-2.0); EOSINOPHILS # (AUTO) 0.1 K/uL (0.0-0.7); EOSINOPHILS % (AUTO) 1.3 % (0.0-6.0); HEMATOCRIT 42 % (39-51); HEMOGLOBIN 13.9 g/dL (13.5-17.5); LYMPHOCYTES # (AUTO) 2.3 K/uL (0.8-4.8); LYMPHOCYTES % (AUTO) 27.4 % (20.0-44.0); MEAN CORPUSCULAR HEMOGLOBIN 29 PG (26.0-33.0); MEAN CORPUSCULAR HGB CONC 33 g/dl (31.0-36.0); MEAN CORPUSCULAR VOLUME 87 fL (80-96); MONOCYTES # (AUTO) 0.6 K/uL (0.1-1.30); MONOCYTES % (AUTO) 7.5 % (2.0-12.0); NEUTROPHILS # (AUTO) 5.2 K/uL (1.8-8.9); NEUTROPHILS % (AUTO) 63.5 % (43.0-81.0); PLATELET COUNT (AUTO) 222 K/uL (150-450); RED BLOOD CELL COUNT(AUTO) 4.83 MIL/uL (4.5-6.0); RED CELL DISTRIBUTION WIDTH 13.2 % (11.5-15.0); WHITE BLOOD COUNT (AUTO) 8.2 K/uL (4.3-11.0)
[2023-12-11 09:25] LABS: CALCIUM, SERUM 8.4 mg/dL (8.5-10.1); CREATININE 0.7 mg/dL (0.6-1.3); PHOSPHORUS 2.7 mg/dL (2.5-4.9); POTASSIUM 3.5 mmol/L (3.5-5.1)
[2023-12-12] VITALS (11 sets, daily range): BP systolic 95–115; BP diastolic 47–65; TEMP 97.5–99.2; O2SAT 94–97
[2023-12-12] MEDS: NA PHOS,M-B/NA PHOS,DI-BA 1 EA ENEMA RC PRN (03:18)
[2023-12-12] MEDS: ACETAMINOPHEN ES 500 MG TABLET GT PRN (03:20)
[2023-12-12 07:58] LABS: BASOPHILS % (AUTO) 0.2 % (0.0-2.0); EOSINOPHILS # (AUTO) 0.2 K/uL (0.0-0.7); EOSINOPHILS % (AUTO) 1.6 % (0.0-6.0); HEMATOCRIT 39 % (39-51); HEMOGLOBIN 13.2 g/dL (13.5-17.5); LYMPHOCYTES # (AUTO) 1.7 K/uL (0.8-4.8); LYMPHOCYTES % (AUTO) 15.1 % (20.0-44.0); MEAN CORPUSCULAR HEMOGLOBIN 29 PG (26.0-33.0); MEAN CORPUSCULAR HGB CONC 34 g/dl (31.0-36.0); MEAN CORPUSCULAR VOLUME 87 fL (80-96); MONOCYTES % (AUTO) 8.7 % (2.0-12.0); NEUTROPHILS # (AUTO) 8.5 K/uL (1.8-8.9); NEUTROPHILS % (AUTO) 74.4 % (43.0-81.0); PLATELET COUNT (AUTO) 205 K/uL (150-450); RED BLOOD CELL COUNT(AUTO) 4.52 MIL/uL (4.5-6.0); RED CELL DISTRIBUTION WIDTH 12.9 % (11.5-15.0); WHITE BLOOD COUNT (AUTO) 11.5 K/uL (4.3-11.0)
[2023-12-12 09:35] LABS: CALCIUM, SERUM 8.7 mg/dL (8.5-10.1); CREATININE 0.8 mg/dL (0.6-1.3); MAGNESIUM 2.1 mg/dL (1.8-2.4); PHOSPHORUS 2.3 mg/dL (2.5-4.9); POTASSIUM 3.8 mmol/L (3.5-5.1)
[2023-12-12] MEDS: NEUTRA PHOS 1 POWD.PACKET NG ONE (20:35)
[2023-12-12] MEDS: JEVITY 1.2 CAL 1,000 ML BOTTLE GT PRN (21:11)
[2023-12-13] VITALS: BP 103/64; TEMP 99.1; TEMP 99.2; O2SAT 96; O2SAT 99
[2023-12-13 03:48] VITALS: O2SAT 96
[2023-12-13 04:00] VITALS: BP 101/73; TEMP 98.6; O2SAT 97
[2023-12-13 07:30] VITALS: BP 101/74; TEMP 98.2; O2SAT 99
[2023-12-13 07:36] LABS: BASOPHILS % (AUTO) 0.4 % (0.0-2.0); EOSINOPHILS # (AUTO) 0.3 K/uL (0.0-0.7); EOSINOPHILS % (AUTO) 4.1 % (0.0-6.0); HEMATOCRIT 39 % (39-51); HEMOGLOBIN 13.2 g/dL (13.5-17.5); LYMPHOCYTES # (AUTO) 2.1 K/uL (0.8-4.8); LYMPHOCYTES % (AUTO) 31.7 % (20.0-44.0); MEAN CORPUSCULAR HEMOGLOBIN 30 PG (26.0-33.0); MEAN CORPUSCULAR HGB CONC 34 g/dl (31.0-36.0); MEAN CORPUSCULAR VOLUME 87 fL (80-96); MONOCYTES # (AUTO) 0.6 K/uL (0.1-1.30); MONOCYTES % (AUTO) 9.4 % (2.0-12.0); NEUTROPHILS # (AUTO) 3.7 K/uL (1.8-8.9); NEUTROPHILS % (AUTO) 54.4 % (43.0-81.0); PLATELET COUNT (AUTO) 206 K/uL (150-450); RED BLOOD CELL COUNT(AUTO) 4.43 MIL/uL (4.5-6.0); RED CELL DISTRIBUTION WIDTH 13.2 % (11.5-15.0); WHITE BLOOD COUNT (AUTO) 6.8 K/uL (4.3-11.0)
[2023-12-13 08:01] LABS: CALCIUM, SERUM 8.6 mg/dL (8.5-10.1); CREATININE 0.6 mg/dL (0.6-1.3); PHOSPHORUS 3.3 mg/dL (2.5-4.9); POTASSIUM 3.6 mmol/L (3.5-5.1)
[2023-12-13] MEDS: METRONIDAZOLE 500 MG TABLET GT SCH (13:29)
[2023-12-13 16:00] VITALS: BP 96/63; TEMP 98.2; O2SAT 96
[2023-12-13 17:42] VITALS: O2SAT 95
== END 2023-12-13 16:30 | DRG 189 ==
LOC: ER 06:56 → TELE 10:36
PROVIDERS: ADMIT Nurse Practitioner Acute Care; ATTEND Nurse Practitioner Family
PROC: 05HD33Z Insertion of Infusion Device into Right Cephalic Vein, Percutaneous Approach (ICD-10-PCS; principal; 2023-12-11)
PROC: B54MZZA Ultrasonography of Right Upper Extremity Veins, Guidance (ICD-10-PCS; 2023-12-11)
DX: J96.21 Acute and chronic respiratory failure with hypoxia (principal); J69.0 Pneumonitis due to inhalation of food and vomit; G93.41 Metabolic encephalopathy; R53.2 Functional quadriplegia; J15.9 Unspecified bacterial pneumonia; D68.69 Other thrombophilia; J98.11 Atelectasis; E87.20 Acidosis, unspecified; R40.3 Persistent vegetative state; G91.9 Hydrocephalus, unspecified; D64.9 Anemia, unspecified; K21.9 Gastro-esophageal reflux disease without esophagitis; Z86.73 Personal history of transient ischemic attack (TIA), and cerebral infarction without residual deficits; Z87.01 Personal history of pneumonia (recurrent); Z93.0 Tracheostomy status; Z93.1 Gastrostomy status; Z87.820 Personal history of traumatic brain injury; Z86.718 Personal history of other venous thrombosis and embolism; Z20.822 Contact with and (suspected) exposure to COVID-19; I10 Essential (primary) hypertension; Z95.828 Presence of other vascular implants and grafts; Z98.2 Presence of cerebrospinal fluid drainage device; V89.2XXS Person injured in unspecified motor-vehicle accident, traffic, sequela; I25.2 Old myocardial infarction; M24.574 Contracture, right foot; M24.575 Contracture, left foot; M24.542 Contracture, left hand; M24.541 Contracture, right hand; L90.5 Scar conditions and fibrosis of skin; L84 Corns and callosities; K59.00 Constipation, unspecified; N21.0 Calculus in bladder; N30.90 Cystitis, unspecified without hematuria; B96.4 Proteus (mirabilis) (morganii) as the cause of diseases classified elsewhere
CPT/HCPCS: 31720; 36415; 70450-TC; 71045-TC; 80048-TC; 80061-TC; 80076-TC; 81001; 82272-TC; 83605-TC; 83690-TC; 83735-TC; 84100-TC; 84484-TC; 85025-TC; 85730-TC; 86850-TC; 87040-TC; 87081-TC; 87086-TC; 93307-TC; 94640-TC; 94760-TC; 94761-TC; 94799-TC; 99082-TC; A4216; A4217; A4223; A4623; C9113; G0378; J1650; J1953; J1956; J2185; J2405; J7030

== ENCOUNTER 2024-05-17 12:09 | Inpatient (IN) | payer MEDICARE, BC, OTHER ==
[~2024-05-17] VITALS: Ht 170.2 cm; Wt 67.1 kg
[~2024-05-17 12:09] MED LIST changes: -AMIN30LI2 GT; -ASCO-495 GT; +ASCO500T10 GT; -BISA10SU11 RC; +CRAN3875 GT; +DOCU100C36 GT; -DOCU50LI GT; -FERR220S2 GT; +LACT1CAP89 GT; +LEVE100S GT; -LEVE500T20 GT; -MERO1PIG IV; -MULT-213 GT; -MULT-24 GT; +OMEP20CA15 GT; -OMEP20TA5 GT; -ONDA4TAB5 GT; -PANT40SU2 NG; +SENN-261 GT; -SULF15DR6 EACHEYE; -TOBR40VI2 IV; -ZINC50TA39 GT
[2024-05-17 12:57] LABS: BASOPHILS % (AUTO) 0.4 % (0.0-2.0); EOSINOPHILS # (AUTO) 0.2 K/uL (0.0-0.7); HEMATOCRIT 40 % (39-51); HEMOGLOBIN 12.9 g/dL (13.5-17.5); LYMPHOCYTES # (AUTO) 2.1 K/uL (0.8-4.8); LYMPHOCYTES % (AUTO) 17.2 % (20.0-44.0); MEAN CORPUSCULAR HEMOGLOBIN 29 PG (26.0-33.0); MEAN CORPUSCULAR HGB CONC 33 g/dl (31.0-36.0); MEAN CORPUSCULAR VOLUME 89 fL (80-96); MONOCYTES # (AUTO) 0.9 K/uL (0.1-1.30); MONOCYTES % (AUTO) 7.7 % (2.0-12.0); NEUTROPHILS # (AUTO) 8.7 K/uL (1.8-8.9); NEUTROPHILS % (AUTO) 72.7 % (43.0-81.0); PLATELET COUNT (AUTO) 218 K/uL (150-450); RED BLOOD CELL COUNT(AUTO) 4.43 MIL/uL (4.5-6.0); RED CELL DISTRIBUTION WIDTH 13.3 % (11.5-15.0)
[2024-05-17 13:17] LABS: CALCIUM, SERUM 8.8 mg/dL (8.5-10.1); CREATININE 1.1 mg/dL (0.6-1.3); POTASSIUM 3.9 mmol/L (3.5-5.1)
[2024-05-17 13:23] LABS: ALBUMIN 2.6 g/dL (3.4-5.0); BILIRUBIN,DIRECT 0.1 mg/dL (0.0-0.2); BILIRUBIN,TOTAL 0.6 mg/dL (0.2-1.0)
[2024-05-17 13:28] LABS: LACTIC ACID 0.7 mmol/L (0.4-2.0)
[2024-05-17] MEDS ORDERED: BISA10SU11 RC (15:48)
[2024-05-17] MEDS ORDERED: LACT-209 GT (15:48)
[2024-05-17] MEDS ORDERED: SIME80TA15 GT (15:48)
[2024-05-17] MEDS: MORPHINE SULFATE INJ 2 MG/ML DISP.SYRIN IV ONE (17:00)
[2024-05-17] MEDS: KETOROLAC TROMETHAMINE 15 MG/ML VIAL IV ONE (17:00)
[2024-05-17] MEDS: ONDANSETRON HCL/PF 4 MG/2 ML VIAL IV ONE (17:00)
[2024-05-17] MEDS: CEFTRIAXONE 1 G in IV D5W 50 ML IV ONE (17:00)
[2024-05-17] MEDS: IV NS 0.9% 1,000 ML BAG IV ONE (17:00)
[2024-05-17] MEDS ORDERED: CEFTRIAXONE 1GM BAG (ER ONLY) 50 ML IV ONE (17:10)
[2024-05-17] MEDS ORDERED: SIMETHICONE 80 MG TAB.CHEW GT PRN (18:00)
[2024-05-17] MEDS ORDERED: MAG HYDROX/AL HYDROX/SIMETH 30 ML UDC PO PRN (18:00)
[2024-05-17] MEDS ORDERED: Z GUARD REMEDY 4 OZ OINT TP PRN (18:00)
[2024-05-17] MEDS ORDERED: MAGNESIUM HYDROXIDE 30 ML UDC PO PRN (18:00)
[2024-05-17] MEDS ORDERED: ZOLPIDEM TARTRATE 5 MG TABLET PO PRN (18:00)
[2024-05-17] MEDS ORDERED: BISACODYL SUPP (10 MG) 10 MG/SUPP.RECT SUPP.RECT RC PRN (18:00)
[2024-05-17] MEDS ORDERED: ACETAMINOPHEN 325 MG TABLET PO PRN (18:00)
[2024-05-17] MEDS ORDERED: ONDANSETRON HCL/PF 4 MG/2 ML VIAL IVP PRN (18:00)
[2024-05-17] MEDS ORDERED: MAGNESIUM HYDROXIDE 30 ML UDC GT PRN (18:00)
[2024-05-17] MEDS ORDERED: Medication Not On Formulary EA (Ipratropium/Albuterol Sulfate (Combivent Respimat 20-100 IH SCH (18:00)
[2024-05-17] MEDS ORDERED: NA PHOS,M-B/NA PHOS,DI-BA 1 EA ENEMA RC PRN (18:00)
[2024-05-17] MEDS ORDERED: Medication Not On Formulary EA (Ipratropium/Albuterol Sulfate (Combivent Respimat 20-100 IH PRN (18:00)
[2024-05-17] MEDS ORDERED: ACETAMINOPHEN 325 MG TABLET MC PRN (18:00)
[2024-05-17] MEDS ORDERED: MAG HYDROX/AL HYDROX/SIMETH 30 ML UDC GT PRN (18:02)
[2024-05-17] MEDS ORDERED: ZOLPIDEM TARTRATE 5 MG TABLET GT PRN (18:03)
[2024-05-17] MEDS ORDERED: IPRATROPIUM NEB FS 0.5 MG/2.5 ML AMPUL.NEB NEB PRN (18:30)
[2024-05-17] MEDS ORDERED: ALBUTEROL FS 2.5 MG/3 ML VIAL.NEB NEB PRN (18:30)
[2024-05-17 19:58] VITALS: O2SAT 93
[2024-05-17] MEDS: ALBUTEROL FS 2.5 MG/3 ML VIAL.NEB NEB SCH (19:58)
[2024-05-17] MEDS: IPRATROPIUM NEB FS 0.5 MG/2.5 ML AMPUL.NEB NEB SCH (19:58)
[2024-05-17 20:00] VITALS: BP 102/71; TEMP 99; O2SAT 95; O2SAT 96
[2024-05-17 20:08] VITALS: O2SAT 96
[2024-05-17] MEDS: ENOXAPARIN SODIUM 40 MG/0.4 ML DISP.SYRIN SQ SCH (21:00)
[2024-05-17] MEDS: JEVITY 1.2 CAL 1,000 ML BOTTLE GT PRN (21:02)
[2024-05-17 22:37] VITALS: O2SAT 93
[2024-05-18] VITALS (14 sets, daily range): BP systolic 108–131; BP diastolic 72–86; TEMP 98.1–99.9; O2SAT 92–100
[2024-05-18 02:25] LABS: APPEARANCE,URINE SLIGHTLY CLOUDY (CLEAR); BILIRUBIN,URINE NEGATIVE (NEGATIVE); BLOOD, URINE 2+ Ery/uL (NEGATIVE); COLOR,URINE YELLOW (YELLOW); KETONES,URINE NEGATIVE (NEGATIVE); LEUKOCYTE ESTERASE ,URINE 3+ (NEGATIVE); NITRITE, URINE NEGATIVE (NEGATIVE); PH,URINE 7.5 (5.0-8.0); PROTEIN,URINE 2+ mg/dl (NEGATIVE); UGLUCOSE NEGATIVE (NEGATIVE); UROBILINOGEN,URINE 0.2 EU/dL (0.2)
[2024-05-18 03:02] LABS: ADD URINE CULTURE YES; BACTERIA,URINE Moderate /HPF (None Seen); SQUAMOUS EPITHELIAL CELL,UR Rare /HPF (None Seen); WBC,URINE 21-50 /HPF (0-3)
[2024-05-18 06:35] LABS: BASOPHILS # (AUTO) 0.1 K/uL (0.0-0.2); BASOPHILS % (AUTO) 0.6 % (0.0-2.0); EOSINOPHILS # (AUTO) 0.2 K/uL (0.0-0.7); EOSINOPHILS % (AUTO) 2.3 % (0.0-6.0); HEMATOCRIT 38 % (39-51); HEMOGLOBIN 12.6 g/dL (13.5-17.5); LYMPHOCYTES # (AUTO) 1.7 K/uL (0.8-4.8); MEAN CORPUSCULAR HEMOGLOBIN 29 PG (26.0-33.0); MEAN CORPUSCULAR HGB CONC 33 g/dl (31.0-36.0); MEAN CORPUSCULAR VOLUME 89 fL (80-96); MONOCYTES # (AUTO) 0.7 K/uL (0.1-1.30); MONOCYTES % (AUTO) 7.3 % (2.0-12.0); NEUTROPHILS # (AUTO) 7.2 K/uL (1.8-8.9); NEUTROPHILS % (AUTO) 72.8 % (43.0-81.0); PLATELET COUNT (AUTO) 213 K/uL (150-450); RED BLOOD CELL COUNT(AUTO) 4.31 MIL/uL (4.5-6.0); RED CELL DISTRIBUTION WIDTH 13.2 % (11.5-15.0); WHITE BLOOD COUNT (AUTO) 9.9 K/uL (4.3-11.0)
[2024-05-18 06:58] LABS: CALCIUM, SERUM 8.6 mg/dL (8.5-10.1); PHOSPHORUS 3.3 mg/dL (2.5-4.9)
[2024-05-18] MEDS: PANTOPRAZOLE 40 MG/PACK PACK GT SCH (07:29)
[2024-05-18] MEDS: DOCUSATE SODIUM LIQ 100 MG/10 ML UDC GT SCH (08:19)
[2024-05-18] MEDS: LEVETIRACETAM SOL (5 ML) 100 MG/ML UDC GT SCH (08:20)
[2024-05-18] MEDS: CHLORHEXIDINE GLUCONATE 15 ML UDC MM SCH (08:20)
[2024-05-18] MEDS ORDERED: Medication Not On Formulary EA (Cran/Vitc/Mannose/Inulin/Brom (Uti-Stat Liquid) 30 ML) GT SCH (09:00)
[2024-05-18] MEDS: IV D5W 1,000 ML IV PRN (11:00)
[2024-05-18] MEDS: ACETAMINOPHEN 650 MG/20.3 ML UDC GT PRN (12:36)
[2024-05-18] MEDS: CEFTRIAXONE 1 G in IV D5W 50 ML IV SCH (16:11)
[2024-05-18] MEDS ORDERED: HYDROCODONE/APAP 5/325MG TABLET PO PRN (19:00)
[2024-05-18] MEDS: HYDROCODONE/APAP 5/325MG TABLET GT PRN (19:23)
[2024-05-18] MEDS: VANCOMYCIN HCL 1.25 GM in IV D5W 250 ML IV SCH (20:05)
[2024-05-18 22:26] LABS: CREATININE, URINE 51.4 MG/DL (30.0-125.0); URINE TOTAL PROTEIN 3399.6 mg/dL (0-11.9)
[2024-05-19] VITALS (7 sets, daily range): BP systolic 102–112; BP diastolic 74–78; TEMP 98.6–99.3; O2SAT 98–99
[2024-05-19 07:10] LABS: BASOPHILS % (AUTO) 0.2 % (0.0-2.0); EOSINOPHILS # (AUTO) 0.2 K/uL (0.0-0.7); EOSINOPHILS % (AUTO) 1.6 % (0.0-6.0); HEMATOCRIT 38 % (39-51); HEMOGLOBIN 12.3 g/dL (13.5-17.5); LYMPHOCYTES # (AUTO) 1.8 K/uL (0.8-4.8); LYMPHOCYTES % (AUTO) 16.3 % (20.0-44.0); MEAN CORPUSCULAR HEMOGLOBIN 29 PG (26.0-33.0); MEAN CORPUSCULAR HGB CONC 33 g/dl (31.0-36.0); MEAN CORPUSCULAR VOLUME 89 fL (80-96); MONOCYTES # (AUTO) 0.9 K/uL (0.1-1.30); MONOCYTES % (AUTO) 8.6 % (2.0-12.0); NEUTROPHILS # (AUTO) 7.9 K/uL (1.8-8.9); NEUTROPHILS % (AUTO) 73.3 % (43.0-81.0); PLATELET COUNT (AUTO) 193 K/uL (150-450); RED BLOOD CELL COUNT(AUTO) 4.25 MIL/uL (4.5-6.0); RED CELL DISTRIBUTION WIDTH 13.4 % (11.5-15.0); WHITE BLOOD COUNT (AUTO) 10.8 K/uL (4.3-11.0)
[2024-05-19 07:49] LABS: CALCIUM, SERUM 8.6 mg/dL (8.5-10.1); CREATININE 1.1 mg/dL (0.6-1.3); MAGNESIUM 2.7 mg/dL (1.8-2.4); PHOSPHORUS 3.6 mg/dL (2.5-4.9); POTASSIUM 3.7 mmol/L (3.5-5.1)
[2024-05-19 09:38] LABS: EOSINOPHILS % (MANUAL) 3 % (0-4); LYMPHOCYTES % (MANUAL) 16 % (16-48); MONOCYTES % (MANUAL) 5 % (0-11.0); NEUTROPHILS % (MANUAL) 76 (42-76); PLATELET ESTIMATE ADEQUATE
[2024-05-19] MEDS: MAGNESIUM HYDROXIDE 30 ML UDC GT PRN (19:55)
[2024-05-19] MEDS: VANCOMYCIN 750 MG in IV D5W 250 ML IV SCH (20:17)
[2024-05-20 04:02] VITALS: O2SAT 98
[2024-05-20 06:58] LABS: BASOPHILS % (AUTO) 0.5 % (0.0-2.0); EOSINOPHILS # (AUTO) 0.2 K/uL (0.0-0.7); HEMATOCRIT 36 % (39-51); HEMOGLOBIN 11.6 g/dL (13.5-17.5); LYMPHOCYTES # (AUTO) 1.9 K/uL (0.8-4.8); LYMPHOCYTES % (AUTO) 19.5 % (20.0-44.0); MEAN CORPUSCULAR HEMOGLOBIN 29 PG (26.0-33.0); MEAN CORPUSCULAR HGB CONC 32 g/dl (31.0-36.0); MEAN CORPUSCULAR VOLUME 89 fL (80-96); MONOCYTES # (AUTO) 0.8 K/uL (0.1-1.30); MONOCYTES % (AUTO) 8.1 % (2.0-12.0); NEUTROPHILS # (AUTO) 6.8 K/uL (1.8-8.9); NEUTROPHILS % (AUTO) 69.9 % (43.0-81.0); PLATELET COUNT (AUTO) 177 K/uL (150-450); RED BLOOD CELL COUNT(AUTO) 4.03 MIL/uL (4.5-6.0); RED CELL DISTRIBUTION WIDTH 13.1 % (11.5-15.0); WHITE BLOOD COUNT (AUTO) 9.7 K/uL (4.3-11.0)
[2024-05-20 07:08] LABS: CALCIUM, SERUM 8.7 mg/dL (8.5-10.1); CREATININE 0.8 mg/dL (0.6-1.3); PHOSPHORUS 3.2 mg/dL (2.5-4.9)
[2024-05-20 08:00] VITALS: BP 93/69; TEMP 98.1; O2SAT 98
[2024-05-20 08:01] VITALS: O2SAT 98
[2024-05-20 11:09] VITALS: O2SAT 98
[2024-05-20 15:19] VITALS: O2SAT 98
== END 2024-05-20 17:15 | DRG 689 ==
LOC: ER 12:15 → TELE 17:30 → MED 05-18 10:14
PROVIDERS: ADMIT Student in an Organized Health Care Education/Training Program; ATTEND Student in an Organized Health Care Education/Training Program
DX: N13.6 Pyonephrosis (principal); G93.41 Metabolic encephalopathy; R53.2 Functional quadriplegia; E87.0 Hyperosmolality and hypernatremia; E44.0 Moderate protein-calorie malnutrition; J96.10 Chronic respiratory failure, unspecified whether with hypoxia or hypercapnia; D68.69 Other thrombophilia; G91.9 Hydrocephalus, unspecified; E86.0 Dehydration; K21.9 Gastro-esophageal reflux disease without esophagitis; Z87.820 Personal history of traumatic brain injury; Z93.1 Gastrostomy status; I10 Essential (primary) hypertension; R13.10 Dysphagia, unspecified; N21.0 Calculus in bladder; Z93.0 Tracheostomy status; Z86.718 Personal history of other venous thrombosis and embolism; Z98.2 Presence of cerebrospinal fluid drainage device; N17.9 Acute kidney failure, unspecified; Z95.828 Presence of other vascular implants and grafts; M89.8X9 Other specified disorders of bone, unspecified site; D72.829 Elevated white blood cell count, unspecified; D64.9 Anemia, unspecified; Z74.09 Other reduced mobility; V89.2XXS Person injured in unspecified motor-vehicle accident, traffic, sequela; M24.574 Contracture, right foot; M24.575 Contracture, left foot; L89.159 Pressure ulcer of sacral region, unspecified stage; Z68.23 Body mass index [BMI] 23.0-23.9, adult
CPT/HCPCS: 31720; 36415; 50432; 76770-TC; 80048-TC; 80076-TC; 80202-TC; 81001; 82570-TC; 83605-TC; 83690-TC; 83735-TC; 84100-TC; 84300-TC; 85025-TC; 87040-TC; 87086-TC; 94640-TC; 94760-TC; 94761-TC; 94762-TC; 94799-TC; A4223; A4623; A6253; A6403; G0378; J0696; J1650; J1885; J1953; J2270; J2405; J3371; J7030; J7060; J7070